=== PATIENT | female | born 1975 | race Two or more races ===

== ENCOUNTER 2018-10-10 12:13 | Emergency (ER) | payer OTHER ==
[~2018-10-10] VITALS: Ht 157.5 cm; Wt 65.3 kg
[2018-10-10] MEDS ORDERED: SODIUM CHLORIDE 0.9% 1,000 ML IVB ONE (12:42)
[2018-10-10] MEDS ORDERED: MORPHINE SULFATE 4 MG/ML SYR/VIAL IV ONE (12:45)
[2018-10-10] MEDS ORDERED: ONDANSETRON HCL 4 MG/2 ML VIAL IV ONE (12:45)
[2018-10-10 13:14] LABS: Basophils # (auto) 0 uL; Basophils % (auto) 0.5 % (0.0-2.0); Eosinophils # (auto) 0.3 uL; Eosinophils % (auto) 3.6 % (0.0-7.0); Hematocrit 39.9 % (36.0-46.0); Hemoglobin 13.4 g/dL (12.2-16.2); Lymphocytes # (auto) 1.7 uL; Lymphocytes % (auto) 20.9 % (10.0-50.0); Mean Corpuscular Hemoglobin 29.7 pg (28.0-32.0); Mean Corpuscular Hgb Conc. 33.5 g/dL (32.0-36.0); Mean Corpuscular Volume 88.7 fL (80.0-100.0); Monocytes # (auto) 0.5 uL; Monocytes % (auto) 6.1 % (0.0-12.0); Neutrophils # (auto) 5.4 uL; Neutrophils % (auto) 68.9 % (37.0-80.0); Nucleated Red Blood Cells % 0.1 %; Platelet Count (auto) 243 10^3/uL (140-450); Red Cell Distribution Width 14.2 % (11.8-14.3); White Blood Cell 7.9 10^3/uL (4.4-10.8)
[2018-10-10 13:22] LABS: Urine Bacteria NONE SEEN /hpf (None Seen); Urine Blood Negative /uL (Negative); Urine Mucus FEW (None Seen); Urine Specific Gravity 1.019 (1.001-1.035); Urine WBC 1 /hpf (0 - 5)
[2018-10-10 13:30] LABS: Alanine Aminotransferase 20 U/L (13-56); Albumin 3.7 g/dL (3.4-5.0); Amylase 47 U/L (25-115); Anion Gap 4 (5-15); Aspartate Aminotransferase 10 U/L (15-37); BUN/Creatinine Ratio 9.4; Blood Urea Nitrogen 9 mg/dL (7-18); Carbon Dioxide 23 mmol/L (21-32); Chloride 111 mmol/L (98-107); GFR African American 82 mL/min; GFR Non-African American 68 mL/min; Glucose 80 mg/dL (74-106); INR 0.97 (0.9-1.15); Lipase 112 U/L (73-393); Magnesium 2.4 mg/dL (1.6-2.6); Partial Thromboplastin Time 26.2 sec (23.78-33.04); Potassium 4.6 mmol/L (3.5-5.1); Prothrombin Time 10.4 sec (9.27-12.13); Sodium 138 mmol/L (136-145)
[2018-10-10 13:36] LABS: Alkaline Phosphatase 56 U/L (45-117); Bilirubin, Total 0.3 mg/dL (0.2-1.0); Total Protein 6.9 g/dL (6.4-8.2)
[2018-10-10 15:58] VITALS: BP 120/65
== END 2018-10-10 17:40 | disposition home or self-care (01) ==
LOC: ER 12:17
DX: K29.70 Gastritis, unspecified, without bleeding (principal); E07.89 Other specified disorders of thyroid; F15.10 Other stimulant abuse, uncomplicated; Z88.2 Allergy status to sulfonamides; Z88.0 Allergy status to penicillin; Z88.6 Allergy status to analgesic agent; Z88.8 Allergy status to other drugs, medicaments and biological substances
CPT/HCPCS: 36415; 71045; 74176; 80053; 81001; 81025; 82150; 83690; 83735; 84484; 85025; 85610; 85730; 93005; 94761; 96361; 96374; 96375; 99285; J2270; J2405; J7030

== ENCOUNTER 2021-06-21 19:24 | Emergency (ER) | payer MEDICAID, OTHER ==
[~2021-06-21] VITALS: Ht 157.5 cm; Wt 59.9 kg
[2021-06-21 19:55] LABS: Basophils # (auto) 0.1 10 ^3/uL (0-0.2); Basophils % (auto) 0.8 % (0.0-2.0); Eosinophils # (auto) 0.4 10 ^3/uL (0-0.8); Eosinophils % (auto) 6.1 % (0.0-7.0); Hematocrit 34.8 % (36.0-46.0); Hemoglobin 11.8 g/dL (12.2-16.2); Lymphocytes % (auto) 31.7 % (10.0-50.0); Mean Corpuscular Hemoglobin 28.5 pg (28.0-32.0); Mean Corpuscular Hgb Conc. 33.9 g/dL (32.0-36.0); Monocytes # (auto) 0.4 10 ^3/uL (0-1.3); Monocytes % (auto) 6.1 % (0.0-12.0); Neutrophils # (auto) 3.5 10 ^3/uL (1.6-8.6); Neutrophils % (auto) 55.3 % (37.0-80.0); Nucleated Red Blood Cells % 0.1 %; Red Blood Cells 4.15 10^6/uL (4.0-5.20); White Blood Cell 6.4 10^3/uL (4.4-10.8)
[2021-06-21 20:13] LABS: Alanine Aminotransferase 25 U/L (13-56); Albumin 3.5 g/dL (3.4-5.0); Amylase 52 U/L (25-115); Anion Gap 6 (5-15); Aspartate Aminotransferase 26 U/L (15-37); BUN/Creatinine Ratio 16.1; Blood Urea Nitrogen 15 mg/dL (7-18); Calcium 8.3 mg/dL (8.5-10.1); Carbon Dioxide 19 mmol/L (21-32); Chloride 116 mmol/L (98-107); GFR African American 84 mL/min; GFR Non-African American 70 mL/min; Glucose 89 mg/dL (74-106); Lipase 141 U/L (73-393); Potassium 3.5 mmol/L (3.5-5.1); Sodium 141 mmol/L (136-145)
[2021-06-21 20:16] LABS: Alkaline Phosphatase 67 U/L (45-117); Bilirubin, Total < 0.1 mg/dL (0.2-1.0); Total Protein 6.4 g/dL (6.4-8.2)
[2021-06-21] MEDS ORDERED: FLEET ENEMA(ADULT) 135 ML PR ONE (21:00)
[2021-06-21] MEDS ORDERED: MORPHINE SULFATE INJECTION 2 MG/ML SYRG IV ONE (21:45)
[2021-06-21] MEDS ORDERED: ONDANSETRON HCL 4 MG/2 ML VIAL IV ONE (21:45)
[2021-06-21 21:55] LABS: Urine Bacteria FEW /hpf (None Seen); Urine Blood Negative /uL (Negative); Urine Hyaline Cast FEW /lpf (0 - 2); Urine Mucus FEW (None Seen); Urine Specific Gravity 1.017 (1.001-1.035); Urine WBC 1 /hpf (0 - 5)
[2021-06-21 22:00] VITALS: BP 140/89
[2021-06-21] MEDS ORDERED: MAGNESIUM CITRATE SOLUTION 300 ML BTL PO ONE (22:30)
[2021-06-21 23:32] LABS: Alcohol, Urine < 3.0 mg/dL (0-10); Amphetamine Screen, Urine NEGATIVE (NEGATIVE); Barbiturate Scree,Urine NEGATIVE (NEGATIVE); Benzodiazephine Screen, Urine NEGATIVE (NEGATIVE); Cannabinoid Screen, Urine NEGATIVE (NEGATIVE); Cocaine Screen, Urine NEGATIVE (NEGATIVE); Opiate Scree,Urine NEGATIVE (NEGATIVE); Phencyclidine Screen, Urine NEGATIVE (NEGATIVE)
== END 2021-06-21 22:56 | disposition home or self-care (01) ==
LOC: EDBD 19:24 → ER 19:24 → EDUNIT# 19:24 → ER 22:56
DX: R10.84 Generalized abdominal pain (principal); K56.41 Fecal impaction; F17.210 Nicotine dependence, cigarettes, uncomplicated; F12.10 Cannabis abuse, uncomplicated; Z88.0 Allergy status to penicillin; Z88.2 Allergy status to sulfonamides; Z88.8 Allergy status to other drugs, medicaments and biological substances
CPT/HCPCS: 36415; 74176; 80053; 80307; 81001; 82150; 83690; 85025; 96374; 96375; 99284; J2270; J2405

== ENCOUNTER 2022-05-26 12:16 | Emergency (ER) | payer MEDICAID ==
[~2022-05-26] VITALS: Ht 157.5 cm; Wt 55.3 kg
[2022-05-26 12:37] VITALS: BP 114/56
[2022-05-26] MEDS ORDERED: HYDROcodone-ACET 5/325MG TAB PO ONE (13:45)
== END 2022-05-26 16:32 | disposition home or self-care (01) ==
LOC: ER 12:16
DX: M79.641 Pain in right hand (principal); M25.531 Pain in right wrist; E03.9 Hypothyroidism, unspecified; F17.210 Nicotine dependence, cigarettes, uncomplicated; Z90.49 Acquired absence of other specified parts of digestive tract; Z90.89 Acquired absence of other organs; Z88.0 Allergy status to penicillin; Z88.2 Allergy status to sulfonamides; Z88.6 Allergy status to analgesic agent; Z88.8 Allergy status to other drugs, medicaments and biological substances
CPT/HCPCS: 29125; 73110; 73130

== ENCOUNTER 2023-05-14 17:57 | Inpatient (IN) | payer MEDICAID ==
[~2023-05-14] VITALS: Ht 157.5 cm; Wt 58.8 kg
[2023-05-14] MEDS ORDERED: SODIUM CHLORIDE 0.9% 1,000 ML IV ONE (18:45)
[2023-05-14 19:50] LABS: Basophils # (auto) 0.1 10 ^3/uL (0-0.2); Basophils % (auto) 0.5 % (0.0-2.0); Eosinophils # (auto) 0.5 10 ^3/uL (0-0.8); Eosinophils % (auto) 3.6 % (0.0-7.0); Hematocrit 30.7 % (36.0-46.0); Hemoglobin 10.1 g/dL (12.2-16.2); Lymphocytes # (auto) 2.6 10 ^3/uL (0.4-5.4); Lymphocytes % (auto) 19.2 % (10.0-50.0); Mean Corpuscular Hemoglobin 28.7 pg (28.0-32.0); Mean Corpuscular Volume 86.9 fL (80.0-100.0); Monocytes # (auto) 0.7 10 ^3/uL (0-1.3); Monocytes % (auto) 5.2 % (0.0-12.0); Neutrophils # (auto) 9.6 10 ^3/uL (1.6-8.6); Neutrophils % (auto) 71.5 % (37.0-80.0); Nucleated Red Blood Cells % 0.1 %; Red Blood Cells 3.53 10^6/uL (4.0-5.20); Red Cell Distribution Width 15.5 % (11.8-14.3); White Blood Cell 13.4 10^3/uL (4.4-10.8)
[2023-05-14 19:58] LABS: INR 0.99 (0.9-1.15)
[2023-05-14] MEDS ORDERED: PHENAZOPYRIDINE HCL 100 MG TAB PO ONE (20:00)
[2023-05-14] MEDS ORDERED: ACETAMINOPHEN 325 MG TAB PO ONE (20:00)
[2023-05-14] MEDS ORDERED: KETOROLAC TROMETH 30 MG/ML 1ML VIAL IV ONE (20:00)
[2023-05-14] MEDS ORDERED: TRANEXAMIC ACID 1,000 MG in SODIUM CHL 0.9% 100 ML IV ONE (21:00)
[2023-05-14] MEDS ORDERED: ESTROGENS, CONJUGATED 25 MG VIAL IV ONE (21:00)
[2023-05-14 21:05] LABS: Calcium 7.5 mg/dL (8.5-10.1); Potassium 3.9 mmol/L (3.5-5.1)
[2023-05-14 21:09] VITALS: BP 96/47
[2023-05-14 21:09] LABS: BUN/Creatinine Ratio 12.9 (10.0-20.0); Bilirubin, Total 0.3 mg/dL (0.2-1.0); Total Protein 5.7 g/dL (6.4-8.2)
[2023-05-14 21:24] VITALS: BP 94/53
[2023-05-14] MEDS ORDERED: SODIUM CHLORIDE 0.9% 1,000 ML IV SCH (21:30)
[2023-05-14] MEDS ORDERED: levoFLOXacin 500MG 100 ML IV ONE (21:30)
[2023-05-14] MEDS ORDERED: ACETAMINOPHEN 325 MG TAB PO PRN (21:30)
[2023-05-14] MEDS ORDERED: HYDROcodone-ACET 5/325MG TAB PO PRN (21:30)
[2023-05-14] MEDS ORDERED: TEMAZEPAM 15 MG CAP PO PRN (21:30)
[2023-05-14] MEDS ORDERED: DOCUSATE SOD 100 MG CAP PO PRN (21:30)
[2023-05-14] MEDS ORDERED: ONDANSETRON HCL 4 MG/2 ML VIAL IV PRN (21:30)
[2023-05-14 21:32] VITALS: BP 92/53
[2023-05-14 21:33] VITALS: BP 92/53
[2023-05-14] MEDS ORDERED: NITROGLYCERIN 0.4 MG SL TAB SL PRN (22:15)
[2023-05-14] MEDS ORDERED: MORPHINE SULFATE INJ 2 MG/ml SYRG IV PRN (22:15)
[2023-05-14 22:40] VITALS: BP 109/64
[2023-05-14 22:47] LABS: Basophils # (auto) 0 10 ^3/uL (0-0.2); Basophils % (auto) 0.4 % (0.0-2.0); Eosinophils # (auto) 0.4 10 ^3/uL (0-0.8); Hematocrit 33.8 % (36.0-46.0); Hemoglobin 11.3 g/dL (12.2-16.2); Lymphocytes # (auto) 2.6 10 ^3/uL (0.4-5.4); Lymphocytes % (auto) 24.9 % (10.0-50.0); Mean Corpuscular Hemoglobin 29.8 pg (28.0-32.0); Mean Corpuscular Hgb Conc. 33.5 g/dL (32.0-36.0); Monocytes # (auto) 0.6 10 ^3/uL (0-1.3); Neutrophils # (auto) 6.8 10 ^3/uL (1.6-8.6); Neutrophils % (auto) 64.7 % (37.0-80.0); Nucleated Red Blood Cells % 0.1 %; Red Blood Cells 3.79 10^6/uL (4.0-5.20); Red Cell Distribution Width 16.2 % (11.8-14.3); White Blood Cell 10.5 10^3/uL (4.4-10.8)
[2023-05-15 00:16] VITALS: BP 99/51
[2023-05-15 00:29] LABS: Urine Bacteria NONE SEEN /hpf (None Seen); Urine Blood 3+ /uL (Negative); Urine WBC 72 /hpf (0 - 5); Urine WBC Clumps PRESENT /hpf (None Seen)
[2023-05-15 00:32] VITALS: BP 103/42
[2023-05-15 00:35] LABS: Urine Specific Gravity 1.012 (1.001-1.035)
[2023-05-15 05:53] LABS: Basophils # (auto) 0 10 ^3/uL (0-0.2); Basophils % (auto) 0.4 % (0.0-2.0); Eosinophils # (auto) 0.4 10 ^3/uL (0-0.8); Eosinophils % (auto) 4.1 % (0.0-7.0); Hematocrit 33.6 % (36.0-46.0); Hemoglobin 11.3 g/dL (12.2-16.2); Lymphocytes # (auto) 2.1 10 ^3/uL (0.4-5.4); Lymphocytes % (auto) 23.3 % (10.0-50.0); Mean Corpuscular Hemoglobin 29.9 pg (28.0-32.0); Mean Corpuscular Hgb Conc. 33.7 g/dL (32.0-36.0); Mean Corpuscular Volume 88.7 fL (80.0-100.0); Monocytes # (auto) 0.6 10 ^3/uL (0-1.3); Monocytes % (auto) 6.2 % (0.0-12.0); Nucleated Red Blood Cells % 0.1 %; Red Blood Cells 3.79 10^6/uL (4.0-5.20); Red Cell Distribution Width 16.1 % (11.8-14.3); White Blood Cell 9.1 10^3/uL (4.4-10.8)
[2023-05-15 06:02] LABS: Calcium 8.1 mg/dL (8.5-10.1); Potassium 3.8 mmol/L (3.5-5.1)
[2023-05-15 06:08] LABS: Albumin 2.9 g/dL (3.4-5.0); BUN/Creatinine Ratio 15.4 (10.0-20.0); Bilirubin, Total 0.3 mg/dL (0.2-1.0); Total Protein 5.7 g/dL (6.4-8.2)
[2023-05-15] MEDS ORDERED: LEVOTHYROXINE SODIUM 50 MCG TAB PO SCH (07:00)
[2023-05-15] MEDS ORDERED: LEVOTHYROXINE SODIUM 25 MCG TAB PO SCH (07:47)
[2023-05-15] MEDS ORDERED: LEVOTHYROXINE SODIUM 100 MCG TAB PO SCH (07:48)
[2023-05-15] MEDS ORDERED: levoFLOXacin 250MG 50 ML IV SCH (10:00)
[2023-05-15] MEDS ORDERED: LEVO125T PO (12:58)
[2023-05-15] MEDS ORDERED: LEVO500T91 PO (12:58)
[2023-05-15 14:15] VITALS: BP 114/68
== END 2023-05-15 14:25 | disposition home or self-care (01) | DRG 532 ==
LOC: ER 17:57 → TELE 22:04
PROVIDERS: ADMIT Nurse Practitioner Family; ATTEND Internal Medicine
PROC: 30233N1 Transfusion of Nonautologous Red Blood Cells into Peripheral Vein, Percutaneous Approach (ICD-10-PCS; 2023-05-14)
PROC: 30233K1 Transfusion of Nonautologous Frozen Plasma into Peripheral Vein, Percutaneous Approach (ICD-10-PCS; principal; 2023-05-15)
DX: N93.9 Abnormal uterine and vaginal bleeding, unspecified (principal); D62 Acute posthemorrhagic anemia; D72.829 Elevated white blood cell count, unspecified; R26.81 Unsteadiness on feet; F17.210 Nicotine dependence, cigarettes, uncomplicated; F41.9 Anxiety disorder, unspecified; I10 Essential (primary) hypertension; F31.9 Bipolar disorder, unspecified; Z88.0 Allergy status to penicillin; Z88.6 Allergy status to analgesic agent; Z90.49 Acquired absence of other specified parts of digestive tract
CPT/HCPCS: 36415; 36430; 71045; 76856; 80053; 81001; 81025; 82670; 83001; 83690; 84443; 84484; 84702; 85025; 85610; 86850; 86900; 86901; 86920; 87040; 93005; 96361; 96365; 99291; G0378; J1885; J1956

== ENCOUNTER 2025-07-02 12:55 | Inpatient (IN) | payer MEDICAID ==
[2025-07-02] VITALS (21 sets, daily range): BP systolic 106–133; BP diastolic 58–91; PULSE 92–140; RESP 16–24; TEMP 97.9–106; O2SAT 96–100
[~2025-07-02] VITALS: Ht 158.5 cm; Wt 63.4 kg
[~2025-07-02 12:55] MED LIST: DARI50TA PO; HYDR-4798 PO; HYDR50TA69 PO; LEVO125T PO; LEVO500T91 PO; LITH450T PO; MIRT1TAB38 PO; MONT-8 PO; OXYB5TAB14 PO; SERT-206 PO; TOPI50TA53 PO
--- NOTE | 2025-07-02 13:20 | ED.PDOC ---
Altered Mental Status HPI Comments 50 y/o F, BIBDanny, with known PMHx of anxiety, depression, and thyroid disease presents to the ED for CC of ALOC. EMS reports, patient is coming from home where family called d/t patient being found down in her bedroom and displaying altered activity. Upon arrival to scene, EMS relays patient was found to be in V-tach with a HR in 180's and a hyperpyrexic internal temperature of 108F. In route to the ED, patient's rhythm increased in the 200's; patient was given x2 doses of Lidocaine and shocked twice at 200 Joules with no change in rhythm. Patient was intubated in the field with a 7.0 ETT, secured at 20cm at the teeth. No other symptoms or modifying factors are obtainable at this time. Chief Complaint: ALOC Time Seen by MD: 13:15 Primary Care Provider: NOLAN Reviewed Notes: Nurses Notes, Tailman Notes, Medications, Allergies Allergies: Coded Allergies: Aspirin (Verified Allergy, Unknown, 10/10/18) Methocarbamol (Verified Allergy, Unknown, 10/10/18) NSAIDs (Verified Allergy, Unknown, 10/10/18) Nitroglycerin (Verified Allergy, Unknown, 10/10/18) Penicillins (Verified Allergy, Unknown, 10/10/18) Pseudoephedrine (Unverified Allergy, Unknown, 08/15/24) Sulfa Antibiotics (Verified Allergy, Unknown, 10/10/18) Uncoded Allergies: PSUEDOFED (Allergy, Unknown, 10/10/18) Home Meds Active Scripts Levofloxacin Hemihydrate (LEVAQUIN 500 MG) 500 Mg Tab, 1 TAB PO DAILY, #7 TAB Prov:KALIE PRICE MD 05/15/23 Levothyroxine Sodium (Synthroid) 125 Mcg Tab, 1 TAB PO DAILY, #30 TAB 5 Refills Prov:KALIE PRICE MD 05/15/23 Reported Medications Hydrocodone-Acetaminophen (Hydrocodone Bitartrate/AC 10-325 mg) 1 Tab Tab, 1 TAB PO BID, TAB 01/12/24 Daridorexant HCl (Quviviq) 50 Mg Tab, 50 MG PO, TAB 01/12/24 Hydroxyzine Hcl (Hydroxyzine Hcl) 50 Mg Tab, 50 MG PO DAILY for 30 Days, MG 01/12/24 Montelukast Sodium (MONTELUKAST SODIUM) 10 Mg Tab, 1 TAB PO DAILY, #30 TAB 5 Refills 01/12/24 Topiramate (Topiramate) 50 Mg Tab, 50 MG PO BID for 30 Days, MG 01/12/24 Sertraline Hcl (Sertraline Hcl) 50 Mg Tab, 200 MG PO DAILY for 30 Days, MG 01/12/24 Oxybutynin Chloride (Oxybutynin Chloride) 5 Mg Tab, 5 MG PO BID, TAB 01/12/24 Mirtazapine (Mirtazapine Oral Disintegrating Tablet) 15 Mg Tab, 2 TAB PO QPM, #30 TAB 3 Refills 01/12/24 Nodaway Carbonate (Nodaway Carbonate Er) 450 Mg Tab, 1 TAB PO BID, #60 TAB 1 Refill 01/12/24 Information Source: Emergency Med Personnel Mode of Arrival: EMS Severity: Moderate Timing: Minutes Duration: Since onset Prehospital treatment: Other (Lidocaine, Versed ) Quality: Change in Behavior Recent: None History of: None Associated Signs and Symptoms: None Past Medical History PAST MEDICAL HISTORY: Anxiety, Depression, Thyroid Surgical History: Appendectomy, , Tonsillectomy FABRIC COATING SUPERVISOR History: No Pertinent FABRIC COATING SUPERVISOR History Family History Family History: No family hx of HTN, No family hx of Lung evon Social History Smoker: Cigarettes, Less Than 1 Pack/Day Alcohol: Denies ETOH Use Drugs: Marijuana Lives In: Home Unable to Obtain due to: Medical Urgency All Other Systems: Reviewed and Negative Physical Exam General Appearance: Severe Distress HEENT: Other (Pupils sluggish) Neck: Normal Respiratory: Respiratory Distress, Other (Intubated) Cardiovascular: Tachycardia Breast Exam: Deferred Gastrointestinal: Soft Genitalia: Deferred Pelvic: Deferred Rectal: Deferred Extremities: No pedal edema Musculoskeletal : Apperance: Normal Neurologic: NOT DONE (Unconscious) Cerebellar Function: NOT DONE Reflexes: NOT DONE Skin: Pallor Peripheral Pulses: 3+ Radial (R), 3+ Radial (L) Lymphatic: No Adenopathy Was a procedure done? 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: Attending Physician Indication: Hypotension, CVP monitoring Room prepared for procedure: Yes Junior Administrative Assistant performed hand hygien: Yes Maximal sterile barrier precau: Mask/Eye shield, Sterile gown Skin Preparation: Chlorhexidine gluconate, Providine iodine Skin preparation completely dr: Yes Insertion site: Right, Femoral Central line catheter type: [id number] dialysis Number of lumens: 3 Antiseptic ointment applied to: Yes Differential Diagnosis (ALOC) Differential Diagnosis: Dehydration, Hypoglycemia, Sepsis, Seizure X-Ray, Labs, Meds, VS Vital Signs Date Time Temp Pulse Resp B/P (MAP) Pulse Ox O2 Delivery O2 Flow Rate FiO2 07/02/25 16:56 78/30 07/02/25 16:55 97/34 07/02/25 16:00 99.1 99 18 112/50 (70) 97 99.1 07/02/25 16:00 07/02/25 15:47 Mechanical Ventilator+ 30 30 07/02/25 15:45 99.3 99 19 109/47 (67) 98 99.3 07/02/25 15:30 99.7 98 20 100/45 (63) 97 99.7 07/02/25 15:15 100.2 95 27 97/41 (59) 95 100.2 07/02/25 15:00 100.8 103 24 97/34 (55) 99 100.8 07/02/25 14:52 103 19 97/34 (55) 100 30 07/02/25 14:45 101.5 104 14 100/41 (60) 100 101.5 07/02/25 14:30 101.7 106 19 99/37 (57) 100 101.7 07/02/25 14:15 101.7 108 20 76/31 (46) 99 101.7 07/02/25 14:14 106.0 140 24 127/91 96 100 106.0 07/02/25 14:00 119 14 66/23 (37) 96 07/02/25 13:30 131 21 78/30 (46) 84 07/02/25 13:19 140 24 127/91 (103) 96 100 07/02/25 13:15 134 21 127/91 (103) 93 07/02/25 13:00 106.3 175 106.3 07/02/25 12:55 106.8 160 12 106.8 Lab Test 07/02/25 15:54 07/02/25 14:40 07/02/25 13:19 07/02/25 13:18 Range/Units Lactic Acid Level 2.4 *H 6.6 *H 0.4-2.0 mmol/L Blood Gas Specimen Type Arterial Blood Gas Sample Site Right radial Blood Gas Patient Temperature 37.0 Arterial Blood Date Drawn [id number] Arterial Blood pH 7.418 7.350-7.450 Arterial Blood Partial Pressure CO2 27.1 L 32.0-45.0 mmHg Arterial Blood Partial Pressure O2 500.5 *H 83.0-108.0 mmHg Arterial Blood HCO3 17.1 L 21.0-28.0 mmol/L Arterial Blood Oxygen Saturation 99.7 H 94.0-98.0 % Arterial Blood Base Excess -6.1 L -2.0-3.0 mmol/L Arterial Blood Oxyhemoglobin 98.5 H 94.0-98.0 % Arterial Blood Carboxyhemoglobin 0.0 L 0.5-1.5 % Arterial Blood Methemoglobin 1.2 0.0-1.5 % Pankaj Test Modified Blood Gas Total Hemoglobin 11.70 L 12.0-16.0 g/dL Blood Gas Set Respiration Rate 16.0 Blood Gas Modality Vent - ac FiO2 % 100.0 Blood Gas Tidal Volume 450.0 Blood Gas PEEP or CPAP 5.0 Blood Gas Critical Value Read Back Yes Blood Gas Notified Whom Blood Gas Notified Time [id number] Blood Gas Notified By Solids Control Technician devendra White Blood Count 6.4 4.4-10.8 10^3/uL Red Blood Count 4.08 4.0-5.20 10^6/uL Hemoglobin 11.1 L 12.2-16.2 g/dL Hematocrit 34.1 L 36.0-46.0 % Mean Corpuscular Volume 83.6 80.0-100.0 fL Mean Corpuscular Hemoglobin 27.3 L 28.0-32.0 pg Mean Corpuscular Hemoglobin Concent 32.7 32.0-36.0 g/dL Red Cell Distribution Width 15.0 H 11.8-14.3 % Platelet Count 163 140-450 10^3/uL Mean Platelet Volume 7.9 6.9-10.8 fL Neutrophils (%) (Auto) 37.0-80.0 % Lymphocytes (%) (Auto) 10.0-50.0 % Monocytes (%) (Auto) 0.0-12.0 % Basophils (%) (Auto) 0.0-2.0 % Neutrophils # (Auto) 1.6-8.6 10 ^3/uL Lymphocytes # (Auto) 0.4-5.4 10 ^3/uL Monocytes # (Auto) 0-1.3 10 ^3/uL Differential Total Cells Counted 100.0 100 Neutrophils % (Manual) 29 L 37.0-80.0 Band Neutrophils % (Manual) 3 Lymphocytes % (Manual) 57 H 10.0-50.0 Monocytes % (Manual) 6 0-12 Eosinophils % (Manual) 1 0-7 Basophils % (Manual) 0 0.0-2.0 Metamyelocytes % (manual) 0 Myelocytes % (Manual) 0 Promyelocytes % (Manual) 0 Blast Cells % (Manual) 0 Reactive Lymphocytes 4 Platelet Estimate Adequate Prothrombin Time 15.1 H 9.3-11.8 sec Prothrombin Time INR 1.48 H 0.9-1.15 Activated Partial Thromboplast Time 24.2 L 24.5-34.5 SEC Sodium Level 143 136-145 mmol/L Potassium Level 4.1 3.5-5.1 mmol/L Chloride Level 105 98-107 mmol/L Carbon Dioxide Level 24 20-31 mmol/L Anion Gap 14 5-15 Blood Urea Nitrogen 14 9-23 mg/dL Creatinine 2.37 H 0.550-1.02 mg/dL Glomerular Filtration Rate Calc 25 >90 mL/min BUN/Creatinine Ratio 5.9 L 10.0-20.0 Serum Glucose 147 H 74-106 mg/dL Calcium Level 8.4 L 8.7-10.4 mg/dL Total Bilirubin 0.3 0.2-1.0 mg/dL Aspartate Amino Transferase (AST) 46 H 13-40 U/L Alanine Aminotransferase (ALT) 26 7-40 U/L Alkaline Phosphatase 45 L 46-116 U/L Troponin I High Sensitivity Pending Total Protein 5.3 L 5.7-8.2 g/dL Albumin 3.5 3.2-4.8 g/dL Urine Color Colorless Yellow Urine Clarity Turbid H Clear Urine pH 6.0 5.0-9.0 Urine Specific [place] 1.010 1.001-1.035 Urine Protein Trace H Negative Urine Ketones 1+ H Negative Urine Blood Negative Negative /uL Urine Nitrite Negative Negative Urine Bilirubin Negative Negative Urine Urobilinogen Normal Negative mg/dL Urine Leukocyte Esterase 3+ Negative /uL Urine Glucose Normal Normal mg/dL Current Medications Medications (Trade) Dose Ordered Sig/Agnes Route Start Time Stop Time Status Last Admin Lorazepam (Ativan Inj) 2 mg ONCE ONCE IV 07/02/25 13:30 07/02/25 13:31 DC 07/02/25 13:25 Norepinephrine Bitartrate 250 ml @ 3.75 mls/hr Q24H IV 07/02/25 13:30 07/02/25 16:56 Amiodarone HCl 100 ml @ 600 mls/hr ONCE ONCE IV 07/02/25 13:30 07/02/25 13:39 DC 07/02/25 14:41 Cefepime HCl 50 ml @ 12.5 mls/hr DAILY@1700 IV 07/02/25 17:00 07/02/25 16:57 Sodium Chloride 1,000 ml @ 1,000 mls/hr Q1H ONCE IV 07/02/25 14:00 07/02/25 14:59 DC 07/02/25 14:42 Sodium Chloride 1,000 ml @ 150 mls/hr Q6H40M ONCE IV 07/02/25 14:00 07/02/25 20:39 07/02/25 14:42 Vancomycin HCl 250 ml @ 250 mls/hr ONCE ONCE IV 07/02/25 14:00 07/02/25 14:59 DC 07/02/25 14:41 Midazolam HCl 50 ml @ 1 mls/hr Q24H IV 07/02/25 15:00 07/02/25 16:55 Enoxaparin Sodium (Lovenox) 60 mg ONCE ONCE SC 07/02/25 17:45 07/02/25 17:46 DC 07/02/25 17:36 [place] [id number] Ph: [phone] DIAGNOSTIC IMAGING Diagnostic Imaging Report : [id number] Signed PATIENT: BRITTANY OVALLE ACCT: [id number] UNIT: [id number] : 1975 LOC: ER ROOM / BED: / AGE / SEX: 50 / F ADM STATUS: REG ER SERVICE 1345 ORDERING PHYSICIAN: HONEY POTTS MD PROCEDURE(s): HWOCT - HEAD WITHOUT CONTRAST REASON: ALOC ORDER NUMBER(s): [id number], ACCESSION NUMBER(s): [id number] EXAM: CT HEAD WITHOUT CONTRAST INDICATION: ALOC TECHNIQUE: CT of the head without intravenous contrast. Radiation Dose Information: CT Dose: CTDI volume is 55.8 mGy. Dose-length product is 989.02 mGy*cm The dose indicators for CT are the volume Computed Tomography (CT) Dose Index (CTDIvol) and the Dose Length Product (DLP), and are measured in units of mGy and mGy-cm, respectively. These indicators are not patient dose, but values generated from the CT scanner acquisition factors. The report includes radiation exposure data for exposures received during this examination. COMPARISON: None FINDINGS: There is no evidence of acute intracranial hemorrhage, extra-axial collection, mass effect, midline shift, herniation or hydrocephalus. The ventricles, sulci and cisterns are age appropriate. The raines-white differentiation is intact. Patchy periventricular and subcortical white matter hypoattenuation is nonspecific but may be related to small vessel ischemic disease. The visualized paranasal sinuses and mastoid air cells are clear. The surrounding soft tissues and osseous structures are unremarkable. IMPRESSION: 1. No acute intracranial abnormality. ATED BY: DAVE GOTTLIEB Jr., DO DICTATED DATE/TIME: 07/02/251412 SIGNED BY: DAVE GOTTLIEB Jr., SIGNED DATE/TIME: 07/02/251412 CC: [place] [id number] Ph: [phone] DIAGNOSTIC IMAGING Diagnostic Imaging Report : [id number] Signed PATIENT: BRITTANY OVALLE ACCT: [id number] UNIT: [id number] : 1975 LOC: ER ROOM / BED: / AGE / SEX: 50 / F ADM STATUS: REG ER SERVICE 1347 ORDERING PHYSICIAN: HONEY POTTS MD PROCEDURE(s): CXRP - CHEST PORTABLE REASON: sob ORDER NUMBER(s): [id number], ACCESSION NUMBER(s): [id number] CHEST RADIOGRAPH Indication: sob Technique: Single frontal view of the chest was obtained Comparison: [facility] CHEST XRAY 1 VIEW on DOS: 05/14/23 FINDINGS: Lines and Tubes: Endotracheal tube 6.1 cm above the sylvia. Endotracheal tube below the diaphragm in the stomach Lungs: No focal consolidation. Pleura: No effusion. No pneumothorax. Cardiomediastinal contours: Unremarkable Bones: No acute osseous abnormality. IMPRESSION: 1. Endotracheal tube 6.1 cm above the sylvia. 2. AED pads over the chest 3. Enteric tube position left diaphragm in the stomach ATED BY: DAVE GOTTLIEB Jr., DO DICTATED DATE/TIME: 07/02/251416 SIGNED BY: DAVE GOTTLIEB Jr., SIGNED DATE/TIME: 07/02/251416 CC: Patient unconscious. Ventricular tachycardia. Shocked at 200 joules. Lidocaine. Started amiodarone. Her core temperature was 106. Cooling measures. Central line paced. Was given fluids. CT of the head reviewed does not show any acute process. Waiting for family. Continue to monitor. Time of 1ST Reevaluation: 13:45 Reevaluation 1ST: Unchanged Patient Education/Counseling: Pt Unresponsive Family Education/Counseling: No Family Present SEPSIS Sepsis Screen Physician Orders Respiratory Culture W/ Gs (07/02/25 13:18) Ventilator Orders (07/02/25 13:18) Abg W/ Co-Ox (07/02/25 14:30) Norepinephrine 8 Mg/250ml Kit (Levophed) (07/02/25 13:30) Rass Sedation Scale Q1HR (07/02/25 13:26) Amiodarone 360mg/200ml Premix (Nexterone (07/02/25 13:45) Amiodarone 360mg/200ml Premix (Nexterone (07/02/25 19:45) Head Without Contrast (07/02/25 13:45) Chest Portable (07/02/25 13:47) Accucheck (07/02/25 13:47) Blood Culture (07/02/25 13:47) Cefepime 1gm/ 50ml (Maxipime 1gm/50ml) (07/02/25 17:00) Notify Md If Map <65 Or Bp<90 (07/02/25 13:47) If Map<65 Start Vasopressor (07/02/25 13:47) Sepsis Reassesment After Fluid (07/02/25 14:47) Sodium Chloride 0.9% (07/02/25 14:00) Midazolam Drip 50 Mg/50ml (Versed Drip 5 (07/02/25 15:00) Communication Order (07/02/25 15:37) Communication Order (07/02/25 15:37) Troponin-I Hs (07/02/25 17:31) Troponin-I Hs (07/02/25 18:31) Troponin-I Hs (07/02/25 20:31) Vital Signs Date Time Temp Pulse Resp B/P (MAP) Pulse Ox O2 Delivery O2 Flow Rate FiO2 07/02/25 16:56 78/30 07/02/25 16:55 97/34 07/02/25 16:00 99.1 99 18 112/50 (70) 97 99.1 07/02/25 16:00 07/02/25 15:47 Mechanical Ventilator+ 30 30 07/02/25 15:45 99.3 99 19 109/47 (67) 98 99.3 07/02/25 15:30 99.7 98 20 100/45 (63) 97 99.7 07/02/25 15:15 100.2 95 27 97/41 (59) 95 100.2 07/02/25 15:00 100.8 103 24 97/34 (55) 99 100.8 07/02/25 14:52 103 19 97/34 (55) 100 30 07/02/25 14:45 101.5 104 14 100/41 (60) 100 101.5 07/02/25 14:30 101.7 106 19 99/37 (57) 100 101.7 07/02/25 14:15 101.7 108 20 76/31 (46) 99 101.7 07/02/25 14:14 106.0 140 24 127/91 96 100 106.0 07/02/25 14:00 119 14 66/23 (37) 96 07/02/25 13:30 131 21 78/30 (46) 84 07/02/25 13:19 140 24 127/91 (103) 96 100 07/02/25 13:15 134 21 127/91 (103) 93 07/02/25 13:00 106.3 175 106.3 07/02/25 12:55 106.8 160 12 106.8 Laboratory Tests Test 07/02/25 13:19 07/02/25 15:54 Lactic Acid Level 6.6 mmol/L (0.4-2.0) *H 2.4 mmol/L (0.4-2.0) *H White Blood Count 6.4 10^3/uL (4.4-10.8) Medications Medications Dose Ordered Sig/Agnes Route Start Time Stop Time Status Last Admin Dose Admin Amiodarone HCl 100 ml @ 600 mls/hr ONCE ONCE IV 07/02/25 13:30 07/02/25 13:39 DC 07/02/25 14:41 Cefepime HCl 50 ml @ 12.5 mls/hr DAILY@1700 IV 07/02/25 17:00 07/02/25 16:57 Enoxaparin Sodium 60 mg ONCE ONCE SC 07/02/25 17:45 07/02/25 17:46 DC 07/02/25 17:36 Lorazepam 2 mg ONCE ONCE IV 07/02/25 13:30 07/02/25 13:31 DC 07/02/25 13:25 Midazolam HCl 50 ml @ 1 mls/hr Q24H IV 07/02/25 15:00 07/02/25 16:55 Norepinephrine Bitartrate 250 ml @ 3.75 mls/hr Q24H IV 07/02/25 13:30 07/02/25 16:56 Sodium Chloride 1,000 ml @ 150 mls/hr Q6H40M ONCE IV 07/02/25 14:00 07/02/25 20:39 07/02/25 14:42 Sodium Chloride 1,000 ml @ 1,000 mls/hr Q1H ONCE IV 07/02/25 14:00 07/02/25 14:59 DC 07/02/25 14:42 Vancomycin HCl 250 ml @ 250 mls/hr ONCE ONCE IV 07/02/25 14:00 07/02/25 14:59 DC 07/02/25 14:41 Departure 1 Departure Time of Disposition: 17:29 Impression: Primary Impression: Heat stroke Qualified Codes: T67.01XA - Heatstroke and sunstroke, initial encounter Additional Impressions: Metabolic encephalopathy Ventricular tachycardia Disposition: 09 ADMITTED INPATIENT Admit to: ICU Condition: Guarded Critical Care Note Critical Care Time?: Yes (90 min-critical care time only) Stability Stability form required: No Heart Score Heart Score: Heart Score Response (Comments) Value History Slightly Suspicious 0 EKG Normal 0 Age 45-64 1 Risk Factors >3 or Hx ASHD 2 Troponin Normal limit 0 Total 3 I personally scribed for HONEY POTTS MD ([email or web address]) on 07/02/25 at 13:20. Electronically submitted by Ellen Licona ([employer]). I personally scribed for HONEY POTTS MD ([email or web address]) on 07/02/25 at 16:43. Electronically submitted by Ellen Licona ([employer]). I personally scribed for HONEY POTTS MD ([email or web address]) on 07/02/25 at 16:44. Electronically submitted by Ellen Licona ([email or web address]). HONEY POTTS MD Jul 02, 2025 13:20
[2025-07-02] MEDS: LORazepam 2MG/ML-1ML VIAL IV ONE (13:25)
[2025-07-02] MEDS ORDERED: MIDAZOLAM DRIP 50 mg/50mL 50 ML IV SCH (13:30)
[2025-07-02] MEDS: MIDAZOLAM DRIP 50 mg/50mL 50 ML IV ONE ×2 (13:31→15:36)
[2025-07-02] MEDS: AMIODARONE BOLUS KIT 100 ML IV ONE ×2 (13:31→14:41)
[2025-07-02] MEDS: AMIODARONE 360mg/200mL PREMIX 200 ML IV ONE ×2 (13:31→14:41)
[2025-07-02 13:58] LABS: Urine Protein, UAD TRACE (Negative)
[2025-07-02] MEDS ORDERED: VANCOMYCIN 1GM/200ML PM 200 ML IV ONE (14:00)
[2025-07-02 14:07] LABS: Hematocrit 34.1 % (36.0-46.0); Hemoglobin 11.1 g/dL (12.2-16.2); Mean Corpuscular Hemoglobin 27.3 pg (28.0-32.0); Mean Corpuscular Volume 83.6 fL (80.0-100.0)
--- NOTE | 2025-07-02 14:16 | DVH ---
EXAM: CT HEAD WITHOUT CONTRAST INDICATION: ALOC TECHNIQUE: CT of the head without intravenous contrast. Radiation Dose Information: CT Dose: CTDI volume is 55.8 mGy. Dose-length product is 989.02 mGy*cm The dose indicators for CT are the volume Computed Tomography (CT) Dose Index (CTDIvol) and the Dose Length Product (DLP), and are measured in units of mGy and mGy-cm, respectively. These indicators are not patient dose, but values generated from the CT scanner acquisition factors. The report includes radiation exposure data for exposures received during this examination. COMPARISON: None FINDINGS: There is no evidence of acute intracranial hemorrhage, extra-axial collection, mass effect, midline s hift, herniation or hydrocephalus. The ventricles, sulci and cisterns are age appropriate. The raines-white differentiation is intact. Patchy periventricular and subcortical white matter hypoattenuation is nonspecific but may be related to small vessel ischemic disease. The visualized paranasal sinuses and mastoid air cells are clear. The surrounding soft tissues and osseous structures are unremarkable. IMPRESSION: 1. No acute intracranial abnormality.
--- NOTE | 2025-07-02 14:18 | DVH ---
CHEST RADIOGRAPH Indication: sob Technique: Single frontal view of the chest was obtained Comparison: XY CHEST XRAY 1 VIEW on DOS: 05/14/23 FINDINGS: Lines and Tubes: Endotracheal tube 6.1 cm above the sylvia. Endotracheal tube below the diaphragm in the stomach Lungs: No focal consolidation. Pleura: No effusion. No pneumothorax. Cardiomediastinal contours: Unremarkable Bones: No acute osseous abnormality. IMPRESSION: 1. Endotracheal tube 6.1 cm above the sylvia. 2. AED pads over the chest 3. Enteric tube position left diaphragm in the stomach
[2025-07-02 14:19] LABS: Alanine Aminotransferase 26 U/L (7-40); Albumin 3.5 g/dL (3.2-4.8); Alkaline Phosphatase 45 U/L (46-116); Anion Gap 14 (5-15); BUN/Creatinine Ratio 5.9 (10.0-20.0); Blood Urea Nitrogen 14 mg/dL (9-23); Calcium 8.4 mg/dL (8.7-10.4); Carbon Dioxide 24 mmol/L (20-31); Chloride 105 mmol/L (98-107); Glucose 147 mg/dL (74-106); Potassium 4.1 mmol/L (3.5-5.1); Sodium 143 mmol/L (136-145); Total Protein 5.3 g/dL (5.7-8.2)
[2025-07-02 14:20] LABS: Bilirubin, Total 0.3 mg/dL (0.2-1.0)
[2025-07-02 14:21] LABS: INR 1.48 (0.9-1.15); Partial Thromboplastin Time 24.2 SEC (24.5-34.5); Prothrombin Time 15.1 sec (9.3-11.8)
[2025-07-02 14:22] LABS: Lactic Acid w/Reflex 6.6 mmol/L (0.4-2.0)
[2025-07-02 14:34] LABS: Total Cells Counted 100.0 (100)
[2025-07-02] MEDS: NOREPINEPHRINE 8 MG/250ML KIT 250 ML IV ONE (14:35)
[2025-07-02] MEDS: VANCOMYCIN 1GM/250ML KIT 250 ML IV ONE (14:41)
[2025-07-02] MEDS: SODIUM CHLORIDE 0.9% 1,000 ML IV ONE ×3 (14:42→20:50)
[2025-07-02 14:49] LABS: Base Excess -6.1 mmol/L (-2.0-3.0)
[2025-07-02] MEDS: MIDAZOLAM DRIP 50 mg/50mL 50 ML IV SCH (16:55)
[2025-07-02] MEDS: NOREPINEPHRINE 8 MG/250ML KIT 250 ML IV SCH (16:56)
[2025-07-02] MEDS: CEFEPIME 1GM/50ML 50 ML IV SCH (16:57)
[2025-07-02] MEDS: ENOXAPARIN SOD 60 MG/0.6 ML SYRINGE SC ONE (17:36)
[2025-07-02] MEDS ORDERED: NITROGLYCERIN 0.4 MG SL TAB SL PRN (19:45)
[2025-07-02] MEDS ORDERED: MORPHINE SULFATE INJ 2 MG/ml SYRG IV PRN (19:45)
[2025-07-02] MEDS ORDERED: VANCOMYCIN PER PHARMACY 0 MG IV SCH (19:45)
[2025-07-02] MEDS ORDERED: ONDANSETRON HCL 4 MG/2 ML VIAL IV PRN (19:45)
[2025-07-02] MEDS: AMIODARONE 360mg/200mL PREMIX 200 ML IV SCH (20:06)
[2025-07-02 20:29] LABS: Opiate Scree,Urine Neg (NEGATIVE)
[2025-07-02 20:30] LABS: Amphetamine Screen, Urine Neg (NEGATIVE); Barbiturate Scree,Urine Neg (NEGATIVE); Benzodiazephine Screen, Urine Neg (NEGATIVE); Cannabinoid Screen, Urine Neg (NEGATIVE); Cocaine Screen, Urine Neg (NEGATIVE); Phencyclidine Screen, Urine Neg (NEGATIVE)
--- NOTE | 2025-07-02 21:49 | DVH ---
EXAM: XY CHEST PORTABLE CLINICAL HISTORY: ET TUBE PLACEMENT TECHNIQUE: Single AP view of the chest WID: COMPARISON: XY CHEST PORTABLE on DOS: 07/02/25 FINDINGS: Lines and tubes: Endotracheal tube projects 6 mm above the sylvia. Gastric tube in place with the tip projecting over the distal body of the stomach. Defibrillator pad projects over the right upper ches t. Chest: The heart size and pulmonary vasculature is within normal limits. No pleural effusion, pneumothorax, or consolidation. The osseous structures are grossly intact. IMPRESSION: Endotracheal tube projects 6 mm above the sylvia. Consider retracting the tubing approximately 2 cm f or more optimal positioning.
[2025-07-03] VITALS (102 sets, daily range): BP systolic 97–126; BP diastolic 57–75; PULSE 71–94; RESP 13–20; TEMP 96.6–102.2; O2SAT 97–100
[2025-07-03] MEDS: ACETAMINOPHEN 325 MG TAB PO PRN (03:04)
--- NOTE | 2025-07-03 04:21 | DVHHP2 ---
History of Present Illness Reason for Visit: Altered mental status History of Present Illness 50-year-old female Patient presents for evaluation of altered mental status as noted by family members. On arrival of EMS the patient was noted to be in V- tach and unresponsive. Patient was emergently intubated in the field for airway protection. Currently she is sedated. No further history could be obtained at the moment. Past Medical History Thyroid and depression Past Surgical History , tonsillectomy and appendectomy Family History Noncontributory Smoke: <1 pack per day ALCOHOL: none Drugs: Marijuana Review of Systems Review of Systems Unable to complete review of systems, patient is sedated and intubated. Allergies: Coded Allergies: Aspirin (Verified Allergy, Unknown, 10/10/18) Methocarbamol (Verified Allergy, Unknown, 10/10/18) NSAIDs (Verified Allergy, Unknown, 10/10/18) Nitroglycerin (Verified Allergy, Unknown, 10/10/18) Penicillins (Verified Allergy, Unknown, 10/10/18) Pseudoephedrine (Unverified Allergy, Unknown, 08/15/24) Sulfa Antibiotics (Verified Allergy, Unknown, 10/10/18) Uncoded Allergies: PSUEDOFED (Allergy, Unknown, 10/10/18) Medications Current Medications Medications Dose Ordered Sig/Agnes Route Start Time Stop Time Status Last Admin Dose Admin Norepinephrine Bitartrate 250 ml @ 3.75 mls/hr Q24H IV 07/02/25 13:30 07/02/25 20:05 33.75 MLS/HR Cefepime HCl 50 ml @ 12.5 mls/hr DAILY@1700 IV 07/02/25 17:00 07/02/25 16:57 12.5 MLS/HR Midazolam HCl 50 ml @ 1 mls/hr Q24H IV 07/02/25 15:00 07/03/25 03:49 11 MLS/HR Vancomycin HCl 0 ml @ 0 mls/hr UD IV 07/02/25 19:45 UNV Ondansetron HCl 4 mg Q4HP PRN IV 07/02/25 19:45 Acetaminophen 650 mg Q6HP PRN PO 07/02/25 19:45 07/03/25 03:04 650 MG Nitroglycerin 0.4 mg Q5MINP PRN SL 07/02/25 19:45 UNV Morphine Sulfate 2 mg Q30M PRN IV 07/02/25 19:45 Exam Vital Signs Vital Signs Date Time Temp Pulse Resp B/P (MAP) Pulse Ox O2 Delivery O2 Flow Rate FiO2 07/03/25 04:04 86 16 97/59 (72) 99 30 07/03/25 04:00 101.7 101.7 07/03/25 02:30 Mechanical Ventilator+ Exam Gen: 50-year-old female in moderate distress Skin: Warm, dry, normal color and texture, no rash. HEENT: Normocephalic atraumatic, mucous membranes moist and pink. Neck: Cervical and supraclavicular nodes normal without enlargement, trachea is midline, thyroid gland is normal without masses. Pulmonary: Intubated, diminished breath sounds bilaterally Cardiac: Regular rate and rhythm. No murmur Abdomen: Soft, nontender, nondistended, bowel sounds present all 4 quadrants, no guarding, no rigidity, no organomegaly. Extremities: No cyanosis, clubbing, no edema Neuro: Sedated Labs/Xrays ORDERING PHYSICIAN: HONEY POTTS MD PROCEDURE(s): CXRP - CHEST PORTABLE REASON: sob ORDER NUMBER(s): [id number], ACCESSION NUMBER(s): [id number] CHEST RADIOGRAPH Indication: sob Technique: Single frontal view of the chest was obtained Comparison: XY CHEST XRAY 1 VIEW on DOS: 05/14/23 FINDINGS: Lines and Tubes: Endotracheal tube 6.1 cm above the sylvia. Endotracheal tube below the diaphragm in the stomach Lungs: No focal consolidation. Pleura: No effusion. No pneumothorax. Cardiomediastinal contours: Unremarkable Bones: No acute osseous abnormality. IMPRESSION: 1. Endotracheal tube 6.1 cm above the sylvia. 2. AED pads over the chest 3. Enteric tube position left diaphragm in the stomach ORDERING PHYSICIAN: HONEY POTTS MD PROCEDURE(s): HWOCT - HEAD WITHOUT CONTRAST REASON: ALOC ORDER NUMBER(s): [id number], ACCESSION NUMBER(s): [id number] EXAM: CT HEAD WITHOUT CONTRAST INDICATION: ALOC TECHNIQUE: CT of the head without intravenous contrast. Radiation Dose Information: CT Dose: CTDI volume is 55.8 mGy. Dose-length product is 989.02 mGy*cm The dose indicators for CT are the volume Computed Tomography (CT) Dose Index (CTDIvol) and the Dose Length Product (DLP), and are measured in units of mGy and mGy-cm, respectively. These indicators are not patient dose, but values generated from the CT scanner acquisition factors. The report includes radiation exposure data for exposures received during this examination. COMPARISON: None FINDINGS: There is no evidence of acute intracranial hemorrhage, extra-axial collection, mass effect, midline shift, herniation or hydrocephalus. The ventricles, sulci and cisterns are age appropriate. The raines-white differentiation is intact. Patchy periventricular and subcortical white matter hypoattenuation is nonspecific but may be related to small vessel ischemic disease. The visualized paranasal sinuses and mastoid air cells are clear. The surrounding soft tissues and osseous structures are unremarkable. IMPRESSION: 1. No acute intracranial abnormality. Labs Test 07/02/25 20:24 07/02/25 17:58 07/02/25 15:54 07/02/25 14:40 Range/Units Troponin I High Sensitivity 3664 *H </=34 ng/L Creatine Kinase 653 H 34-145 U/L Lactic Acid Level 2.4 *H 0.4-2.0 mmol/L Blood Gas Specimen Type Arterial Blood Gas Sample Site Right radial Blood Gas Patient Temperature 37.0 Arterial Blood Date Drawn [id number] Arterial Blood pH 7.418 7.350-7.450 Arterial Blood Partial Pressure CO2 27.1 L 32.0-45.0 mmHg Arterial Blood Partial Pressure O2 500.5 *H 83.0-108.0 mmHg Arterial Blood HCO3 17.1 L 21.0-28.0 mmol/L Arterial Blood Oxygen Saturation 99.7 H 94.0-98.0 % Arterial Blood Base Excess -6.1 L -2.0-3.0 mmol/L Arterial Blood Oxyhemoglobin 98.5 H 94.0-98.0 % Arterial Blood Carboxyhemoglobin 0.0 L 0.5-1.5 % Arterial Blood Methemoglobin 1.2 0.0-1.5 % Pankaj Test Modified Blood Gas Total Hemoglobin 11.70 L 12.0-16.0 g/dL Blood Gas Set Respiration Rate 16.0 Blood Gas Modality Vent - ac FiO2 % 100.0 Blood Gas Tidal Volume 450.0 Blood Gas PEEP or CPAP 5.0 Blood Gas Critical Value Read Back Yes Blood Gas Notified Whom Blood Gas Notified Time [id number] Blood Gas Notified By [employer] devendra Vasquez 07/02/25 13:19 07/02/25 13:18 Range/Units White Blood Count 6.4 4.4-10.8 10^3/uL Red Blood Count 4.08 4.0-5.20 10^6/uL Hemoglobin 11.1 L 12.2-16.2 g/dL Hematocrit 34.1 L 36.0-46.0 % Mean Corpuscular Volume 83.6 80.0-100.0 fL Mean Corpuscular Hemoglobin 27.3 L 28.0-32.0 pg Mean Corpuscular Hemoglobin Concent 32.7 32.0-36.0 g/dL Red Cell Distribution Width 15.0 H 11.8-14.3 % Platelet Count 163 140-450 10^3/uL Mean Platelet Volume 7.9 6.9-10.8 fL Neutrophils (%) (Auto) 37.0-80.0 % Lymphocytes (%) (Auto) 10.0-50.0 % Monocytes (%) (Auto) 0.0-12.0 % Basophils (%) (Auto) 0.0-2.0 % Neutrophils # (Auto) 1.6-8.6 10 ^3/uL Lymphocytes # (Auto) 0.4-5.4 10 ^3/uL Monocytes # (Auto) 0-1.3 10 ^3/uL Differential Total Cells Counted 100.0 100 Neutrophils % (Manual) 29 L 37.0-80.0 Band Neutrophils % (Manual) 3 Lymphocytes % (Manual) 57 H 10.0-50.0 Monocytes % (Manual) 6 0-12 Eosinophils % (Manual) 1 0-7 Basophils % (Manual) 0 0.0-2.0 Metamyelocytes % (manual) 0 Myelocytes % (Manual) 0 Promyelocytes % (Manual) 0 Blast Cells % (Manual) 0 Reactive Lymphocytes 4 Platelet Estimate Adequate Prothrombin Time 15.1 H 9.3-11.8 sec Prothrombin Time INR 1.48 H 0.9-1.15 Activated Partial Thromboplast Time 24.2 L 24.5-34.5 SEC Sodium Level 143 136-145 mmol/L Potassium Level 4.1 3.5-5.1 mmol/L Chloride Level 105 98-107 mmol/L Carbon Dioxide Level 24 20-31 mmol/L Anion Gap 14 5-15 Blood Urea Nitrogen 14 9-23 mg/dL Creatinine 2.37 H 0.550-1.02 mg/dL Glomerular Filtration Rate Calc 25 >90 mL/min BUN/Creatinine Ratio 5.9 L 10.0-20.0 Serum Glucose 147 H 74-106 mg/dL Calcium Level 8.4 L 8.7-10.4 mg/dL Total Bilirubin 0.3 0.2-1.0 mg/dL Aspartate Amino Transferase (AST) 46 H 13-40 U/L Alanine Aminotransferase (ALT) 26 7-40 U/L Alkaline Phosphatase 45 L 46-116 U/L Total Protein 5.3 L 5.7-8.2 g/dL Albumin 3.5 3.2-4.8 g/dL Urine Opiates Screen Neg NEGATIVE Urine Fentanyl Screen Neg NEGATIVE Urine Barbiturates Screen Neg NEGATIVE Urine Phencyclidine Screen Neg NEGATIVE Urine Amphetamines Screen Neg NEGATIVE Urine Benzodiazepines Screen Neg NEGATIVE Urine Cocaine Screen Neg NEGATIVE Urine Cannabinoids Screen Neg NEGATIVE Urine Color Colorless Yellow Urine Clarity Turbid H Clear Urine pH 6.0 5.0-9.0 Urine Specific [place] 1.010 1.001-1.035 Urine Protein Trace H Negative Urine Ketones 1+ H Negative Urine Blood Negative Negative /uL Urine Nitrite Negative Negative Urine Bilirubin Negative Negative Urine Urobilinogen Normal Negative mg/dL Urine Leukocyte Esterase 3+ Negative /uL Urine Glucose Normal Normal mg/dL SEPSIS Sepsis Screen Date sepsis recognized/suspect: Jul 02, 2025 Time Sepsis recognized/suspect: 2037 Recent Procedure: No On Antibiotic Therapy: No Respiratory Rate >20: No Heart Rate >90: Yes Temp<36 C (96.8 F) or >38.3 C: No SBP <90 or MAP <65 mmHG: No New Acute Mental Status Change: No Is the patient on CPAP, BIPAP,: No Physician Orders Respiratory Misc. Order (07/02/25 21:03) Chest Portable (07/02/25 21:22) Vital Signs Date Time Temp Pulse Resp B/P (MAP) Pulse Ox O2 Delivery O2 Flow Rate FiO2 07/03/25 04:04 86 16 97/59 (72) 99 30 07/03/25 04:00 30 07/03/25 04:00 101.7 87 16 97/59 (72) 99 101.7 07/03/25 04:00 87 07/03/25 03:49 102/57 07/03/25 03:45 102.0 89 16 102/57 (72) 97 102.0 07/03/25 03:30 102.2 91 16 104/59 (74) 97 102.2 07/03/25 03:15 102.1 92 16 105/64 (78) 97 102.1 07/03/25 03:04 102.0 07/03/25 03:00 102.0 91 16 112/64 (80) 97 102.0 07/03/25 02:45 99.0 92 16 114/67 (83) 98 99.0 07/03/25 02:30 98.6 92 16 112/64 (80) 98 209.5 07/03/25 02:30 16 99 Mechanical Ventilator+ 30 30 07/03/25 02:24 92 16 102/63 (76) 98 30 07/03/25 02:15 98.6 92 16 102/63 (76) 98 209.5 07/03/25 02:00 30 07/03/25 02:00 92 07/03/25 02:00 98.4 92 16 104/62 (76) 98 209.1 07/03/25 01:45 98.4 92 16 104/63 (77) 98 209.1 07/03/25 01:30 98.2 93 16 105/62 (76) 98 208.8 07/03/25 01:15 98.2 93 16 103/60 (74) 99 208.8 07/03/25 01:00 98.2 93 16 106/66 (79) 99 208.8 07/03/25 00:38 93 16 103/63 (76) 98 30 07/03/25 00:30 16 99 Mechanical Ventilator+ 30 30 07/03/25 00:00 93 07/03/25 00:00 30 07/02/25 23:45 98.1 93 16 109/64 (79) 99 208.6 07/02/25 23:30 97.9 93 16 113/65 (81) 99 208.2 07/02/25 23:28 113/65 07/02/25 23:15 97.9 93 16 106/64 (78) 99 208.2 07/02/25 23:00 97.9 93 16 119/60 (79) 99 208.2 07/02/25 22:49 99 16 112/63 (79) 100 30 07/02/25 22:45 97.9 93 16 112/63 (79) 99 208.2 07/02/25 22:30 97.9 93 16 117/59 (78) 99 208.2 07/02/25 22:30 16 99 Mechanical Ventilator+ 30 30 07/02/25 22:15 97.9 93 16 112/63 (79) 99 208.2 07/02/25 22:00 94 07/02/25 22:00 94 16 99 Mechanical Ventilator+ 30 30 07/02/25 22:00 97.9 94 16 118/62 (80) 99 208.2 07/02/25 22:00 30 07/02/25 21:45 98.1 94 16 119/58 (78) 99 208.6 07/02/25 21:30 98.2 94 16 121/66 (84) 99 208.8 07/02/25 21:15 98.1 94 16 132/68 (89) 99 208.6 07/02/25 21:15 132/68 07/02/25 21:05 95 16 123/68 (86) 100 30 07/02/25 21:00 98.1 92 16 123/68 (86) 99 208.6 07/02/25 20:45 98.1 92 16 124/66 (85) 99 208.6 07/02/25 20:38 117/67 07/02/25 20:30 98.1 92 16 117/67 (84) 99 208.6 07/02/25 20:30 16 99 Mechanical Ventilator+ 30 30 07/02/25 20:25 132/69 Medications Medications Dose Ordered Sig/Agnes Route Start Time Stop Time Status Last Admin Dose Admin Acetaminophen 650 mg Q6HP PRN PO 07/02/25 19:45 07/03/25 03:04 650 MG Cefepime HCl 50 ml @ 12.5 mls/hr DAILY@1700 IV 07/02/25 17:00 07/02/25 16:57 12.5 MLS/HR Enoxaparin Sodium 60 mg ONCE ONCE SC 07/02/25 17:45 07/02/25 17:46 DC 07/02/25 17:36 60 MG Sodium Chloride 1,000 ml @ 100 mls/hr Q10H ONCE IV 07/02/25 19:45 07/03/25 05:44 07/02/25 20:50 100 MLS/HR Assessment/Plan Assessment/Plan Assessment Cardiopulmonary arrest Ventricular tachycardia Metabolic encephalopathy UTI Acute kidney injury Plan Admit the patient to ICU to the hospitalist Cardiology consult Nephrology consult Rocephiramon Maintenance IV fluids Continue treatment per orders Total critical care time excluding procedures performed this 55 minutes. Plan discussed with: Other My Orders Orders - DARLING HARKINS Procedure Category Date Status Time * Cardiology Consult CONS 07/02/25 Transmitted 19:37 Sodium Chloride 0.9% PHA 07/02/25 In Process 19:45 Vancomycin Per PHA 07/02/25 Pending Pharmacy 19:45 Admit ADMIT 07/02/25 Transmitted 19:37 Ondansetron Hcl PHA 07/02/25 In Process (Zofran) 19:45 Complete Blood Count LAB 07/03/25 Logged 04:00 Comprehensive LAB 07/03/25 Logged Metabolic Panel 04:00 Echo 2d Mode Cardiac US 07/02/25 Logged DOP 19:37 Condition: Unstable [facility] 07/02/25 In Process 19:37 Acetaminophen Tablet PHA 07/02/25 In Process (Tylenol Tablet) 19:45 Bedrest With Bathroom [facility]IV[facility] 07/02/25 In Process Privileg 19:37 Nitroglycerin [facility] 07/02/25 Pending Sublingual (Ntrostat 19:45 Morphine Sulfate PHA 07/02/25 In Process Injection 19:45 Stat Ekg For Chest [facility] 07/02/25 In Process Pain 19:37 Notify Of Changes [facility] 07/02/25 In Process From Base 19:37 [employer] Designer For [facility] 07/02/25 In Process 24 Hours 19:37 Emergency Dysrhythmia [facility] 07/02/25 In Process Protocol 19:37 Rhythm Strips Once [facility] 07/02/25 In Process Every Shift 19:37 Oxygen By Nasal RT 07/02/25 Transmitted Cannula 19:37 Respiratory Misc. RT 07/02/25 Transmitted Order 21:03 Chest Portable XY 07/02/25 Resulted 21:22 Date of Service: Jul 02, 2025 Billing Provider: DARLING HARKINS Common Visit Codes: [id number] CARE 30-74 MIN DARLING HARKINS Jul 03, 2025 04:21
[2025-07-03 06:33] LABS: Base Excess -6.0 mmol/L (-2.0-3.0)
[2025-07-03 10:24] LABS: Albumin 3.4 g/dL (3.2-4.8); Alkaline Phosphatase 57 U/L (46-116); Anion Gap 14 (5-15); BUN/Creatinine Ratio 9.3 (10.0-20.0); Carbon Dioxide 20 mmol/L (20-31); Sodium 142 mmol/L (136-145)
[2025-07-03 10:45] LABS: Alanine Aminotransferase 1362 U/L (7-40); Bilirubin, Total 1.7 mg/dL (0.2-1.0); Blood Urea Nitrogen 24 mg/dL (9-23); Calcium 7.2 mg/dL (8.7-10.4); Chloride 108 mmol/L (98-107); Glucose 164 mg/dL (74-106); Potassium 3.1 mmol/L (3.5-5.1); Total Protein 5.2 g/dL (5.7-8.2)
[2025-07-03 11:40] LABS: Hematocrit 38.4 % (36.0-46.0); Hemoglobin 12.8 g/dL (12.2-16.2); Mean Corpuscular Hemoglobin 27.7 pg (28.0-32.0); Mean Corpuscular Volume 82.8 fL (80.0-100.0); Nucleated Red Blood Cells % 0.1 %
--- NOTE | 2025-07-03 11:55 | DVHSR ---
APPROVED REPORT EXAM: Two-dimensional and M-mode echocardiogram with Doppler and color Doppler. Blood Pressure: 119/66 mmHg INDICATION EF RISK FACTORS Height: 5'2", Weight: 137 DIMENSIONS LVDd4.0 (3.8-5.7cm)LA (2D)3.1 (1.9-4.0cm)Aortic Root3.2 (2.0-3.7cm) LVDs3.1 (2.5-4.0cm)LA (MM) (1.9-4.0cm)Aortic Cusp Exc1.8 (1.5-2.0cm) EF (%) 40.0 (55-70%)Rt. Atrium4.2 (1.9-4.0cm)Asc. Aorta cm IVSd0.8 (0.7-1.1cm)RV (D) (1.8-2.4cm) PWd1.1 (0.7-1.1cm) Mitral Valve MitralMitral Stenosis E/A ratio0.02D MVAcm2 Aortic Valve Aortic ValveAortic Stenosis V10.93m/Serina Mean GR.4mmHg V21.31m/Serina Peak GR.7mmHg LVOT Diameter2.2 (1.8-2.4cm)Doppler AVA2.70cm2 AI P 1/2 Yzig682.21ms Tricuspid Valve TR Velocity2.06m/s [id number] Other Information Quality : Technically LimitedRhythm : Technically limited study due to on vent. Conclusion lvef 40% mild LVH global dysfucnction normal RV function left atrium enlarged moderate to severe aortic regurg, p12t 420 msec, clinical correlate mild to moderate tricuspid regurg pericardial fat pad vs small effusion adjacent to RV<no HD compromise dilated IVC
[2025-07-03] MEDS: POTASSIUM CHL 20MEQ/100ML 100 ML IV SCH (12:55)
[2025-07-03] MEDS: VANCOMYCIN 500mg/100mL 100 ML IV ONE (12:56)
[2025-07-03] MEDS: PANTOPRAZOLE 40 MG/10 ML VIAL INJ IV ONE (12:56)
--- NOTE | 2025-07-03 13:13 | ECG ---
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
[2025-07-03] MEDS: SODIUM CHLORIDE 0.9% 500 ML IV ONE (13:50)
[2025-07-03] MEDS: SODIUM CHLORIDE 0.9% 1,000 ML IV SCH (14:29)
--- NOTE | 2025-07-03 15:25 | DVHINCON2 ---
Family History: Patient reports no known family medical history. Allergies: Coded Allergies: Aspirin (Verified Allergy, Unknown, 10/10/18) Methocarbamol (Verified Allergy, Unknown, 10/10/18) NSAIDs (Verified Allergy, Unknown, 10/10/18) Nitroglycerin (Verified Allergy, Unknown, 10/10/18) Penicillins (Verified Allergy, Unknown, 10/10/18) Pseudoephedrine (Unverified Allergy, Unknown, 08/15/24) Sulfa Antibiotics (Verified Allergy, Unknown, 10/10/18) Uncoded Allergies: PSUEDOFED (Allergy, Unknown, 10/10/18) Home Meds Active Scripts Levofloxacin Hemihydrate (LEVAQUIN 500 MG) 500 Mg Tab, 1 TAB PO DAILY, #7 TAB Prov:KALIE PRICE MD 05/15/23 Levothyroxine Sodium (Synthroid) 125 Mcg Tab, 1 TAB PO DAILY, #30 TAB 5 Refills Prov:KALIE PRICE MD 05/15/23 Reported Medications Hydrocodone-Acetaminophen (Hydrocodone Bitartrate/AC 10-325 mg) 1 Tab Tab, 1 TAB PO BID, TAB 01/12/24 Daridorexant HCl (Quviviq) 50 Mg Tab, 50 MG PO, TAB 01/12/24 Hydroxyzine Hcl (Hydroxyzine Hcl) 50 Mg Tab, 50 MG PO DAILY for 30 Days, MG 01/12/24 Montelukast Sodium (MONTELUKAST SODIUM) 10 Mg Tab, 1 TAB PO DAILY, #30 TAB 5 Refills 01/12/24 Topiramate (Topiramate) 50 Mg Tab, 50 MG PO BID for 30 Days, MG 01/12/24 Sertraline Hcl (Sertraline Hcl) 50 Mg Tab, 200 MG PO DAILY for 30 Days, MG 01/12/24 Oxybutynin Chloride (Oxybutynin Chloride) 5 Mg Tab, 5 MG PO BID, TAB 01/12/24 Mirtazapine (Mirtazapine Oral Disintegrating Tablet) 15 Mg Tab, 2 TAB PO QPM, #30 TAB 3 Refills 01/12/24 [place] Carbonate ([place] Carbonate Er) 450 Mg Tab, 1 TAB PO BID, #60 TAB 1 Refill 01/12/24 Current Medications Current Medications Medications (Trade) Dose Ordered Sig/Agnes Route PRN Reason Start Time Stop Time Status Last Admin Cefepime HCl 50 ml @ 12.5 mls/hr DAILY@1700 IV 07/02/25 17:00 07/02/25 16:57 Vancomycin HCl 0 ml @ 0 mls/hr UD IV 07/02/25 19:45 Ondansetron HCl (Zofran) 4 mg Q4HP PRN IV NAUSEA / VOMITING 07/02/25 19:45 07/03/25 12:19 DC Acetaminophen (Tylenol Tablet) 650 mg Q6HP PRN PO PAIN SCALE 1-3 OR TEMP>100.4 07/02/25 19:45 07/03/25 12:19 DC 07/03/25 03:04 Nitroglycerin (Ntrostat Sublingual) 0.4 mg Q5MINP PRN SL FOR CHEST PAIN 07/02/25 19:45 07/03/25 12:19 DC Morphine Sulfate 2 mg Q30M PRN IV FOR CHEST PAIN 07/02/25 19:45 07/03/25 12:19 DC Potassium Chloride 100 ml @ 50 mls/hr Q2H IV 07/03/25 12:15 07/03/25 16:14 07/03/25 14:28 Pantoprazole Sodium (Protonix) 40 mg DAILY IV 07/04/25 10:00 Heparin Sodium (Porcine) 5,000 units Q12HR SC 07/03/25 22:00 Sodium Chloride 1,000 ml @ 100 mls/hr Q10H IV 07/03/25 13:00 07/03/25 14:29 Vital Signs Vital Signs Date Time Temp Pulse Resp B/P (MAP) Pulse Ox O2 Delivery O2 Flow Rate FiO2 07/03/25 14:45 97.2 72 16 106/61 (76) 100 207.0 07/03/25 14:30 30 07/03/25 14:00 Mechanical Ventilator+ Labs/Diagnostic Data Labs Test 07/03/25 14:40 07/03/25 11:10 07/03/25 09:27 07/03/25 06:25 Range/Units White Blood Count 11.0 #H 4.4-10.8 10^3/uL Red Blood Count 4.63 4.0-5.20 10^6/uL Hemoglobin 12.8 # 12.2-16.2 g/dL Hematocrit 38.4 # 36.0-46.0 % Mean Corpuscular Volume 82.8 80.0-100.0 fL Mean Corpuscular Hemoglobin 27.7 L 28.0-32.0 pg Mean Corpuscular Hemoglobin Concent 33.5 32.0-36.0 g/dL Red Cell Distribution Width 15.2 H 11.8-14.3 % Platelet Count 32 L 140-450 10^3/uL Mean Platelet Volume 9.3 6.9-10.8 fL Neutrophils (%) (Auto) 89.8 H 37.0-80.0 % Lymphocytes (%) (Auto) 2.8 L 10.0-50.0 % Monocytes (%) (Auto) 7.3 0.0-12.0 % Eosinophils (%) (Auto) 0.0 0.0-7.0 % Basophils (%) (Auto) 0.1 0.0-2.0 % Neutrophils # (Auto) 9.8 H 1.6-8.6 10 ^3/uL Lymphocytes # (Auto) 0.3 L 0.4-5.4 10 ^3/uL Monocytes # (Auto) 0.8 0-1.3 10 ^3/uL Eosinophils # (Auto) 0 0-0.8 10 ^3/uL Basophils # (Auto) 0 0-0.2 10 ^3/uL Nucleated Red Blood Cells 0.1 % Platelet Estimate Decreased Sodium Level 142 136-145 mmol/L Potassium Level 3.1 L 3.5-5.1 mmol/L Chloride Level 108 H 98-107 mmol/L Carbon Dioxide Level 20 20-31 mmol/L Anion Gap 14 5-15 Blood Urea Nitrogen 24 #H 9-23 mg/dL Creatinine 2.57 H 0.550-1.02 mg/dL Glomerular Filtration Rate Calc 22 >90 mL/min BUN/Creatinine Ratio 9.3 L 10.0-20.0 Serum Glucose 164 H 74-106 mg/dL Calcium Level 7.2 L 8.7-10.4 mg/dL Magnesium Level 1.8 1.6-2.6 mg/dL Total Bilirubin 1.7 H 0.2-1.0 mg/dL Aspartate Amino Transferase (AST) 2749 H 13-40 U/L Alanine Aminotransferase (ALT) 1362 H 7-40 U/L Alkaline Phosphatase 57 46-116 U/L Total Protein 5.2 L 5.7-8.2 g/dL Albumin 3.4 3.2-4.8 g/dL Random Vancomycin Level 12.6 H 5-10 ug/mL Blood Gas Specimen Type Arterial Blood Gas Sample Site Right radial Blood Gas Patient Temperature 37.0 Arterial Blood Date Drawn [id number] Arterial Blood pH 7.391 7.350-7.450 Arterial Blood Partial Pressure CO2 29.8 L 32.0-45.0 mmHg Arterial Blood Partial Pressure O2 122.7 H 83.0-108.0 mmHg Arterial Blood HCO3 17.7 L 21.0-28.0 mmol/L Arterial Blood Oxygen Saturation 98.0 94.0-98.0 % Arterial Blood Base Excess -6.0 L -2.0-3.0 mmol/L Arterial Blood Oxyhemoglobin 97.7 94.0-98.0 % Arterial Blood Carboxyhemoglobin 0.1 L 0.5-1.5 % Arterial Blood Methemoglobin 0.2 0.0-1.5 % Pankaj Test Modified Blood Gas Total Hemoglobin 13.30 12.0-16.0 g/dL Blood Gas Set Respiration Rate 16.0 Blood Gas Modality Vent - ac FiO2 % 30.0 Blood Gas Tidal Volume 450.0 Blood Gas PEEP or CPAP 5.0 Test 07/02/25 20:24 07/02/25 17:58 07/02/25 15:54 07/02/25 14:40 Range/Units Troponin I High Sensitivity 3664 *H </=34 ng/L Creatine Kinase 653 H 34-145 U/L Lactic Acid Level 2.4 *H 0.4-2.0 mmol/L Blood Gas Critical Value Read Back Yes Blood Gas Notified Whom Blood Gas Notified Time [id number] Blood Gas Notified By Radha ramsay Test 07/02/25 13:19 Range/Units Differential Total Cells Counted 100.0 100 Neutrophils % (Manual) 29 L 37.0-80.0 Band Neutrophils % (Manual) 3 Lymphocytes % (Manual) 57 H 10.0-50.0 Monocytes % (Manual) 6 0-12 Eosinophils % (Manual) 1 0-7 Basophils % (Manual) 0 0.0-2.0 Metamyelocytes % (manual) 0 Myelocytes % (Manual) 0 Promyelocytes % (Manual) 0 Blast Cells % (Manual) 0 Reactive Lymphocytes 4 Prothrombin Time 15.1 H 9.3-11.8 sec Prothrombin Time INR 1.48 H 0.9-1.15 Activated Partial Thromboplast Time 24.2 L 24.5-34.5 SEC Urine Opiates Screen Neg NEGATIVE Urine Fentanyl Screen Neg NEGATIVE Urine Barbiturates Screen Neg NEGATIVE Urine Phencyclidine Screen Neg NEGATIVE Urine Amphetamines Screen Neg NEGATIVE Urine Benzodiazepines Screen Neg NEGATIVE Urine Cocaine Screen Neg NEGATIVE Urine Cannabinoids Screen Neg NEGATIVE Microbiology Date/Time Source Procedure Growth Status 07/03/25 05:47 Nose MRSA Screen - Final Complete 07/02/25 13:19 Blood Blood Culture - Preliminary NO GROWTH AFTER 24 HOURS OF INCUBATION. Resulted 07/02/25 13:10 Sputum Gram Stain - Final Resulted 07/02/25 13:10 Sputum Respiratory Culture - Preliminary Resulted [facility] Jul 03, 2025 15:25
[2025-07-03 15:38] LABS: Urine Amorphous Crystal FEW /hpf (None Seen); Urine Protein, UAD 2+ (Negative)
[2025-07-03 16:06] LABS: Triglycerides 91 mg/dL (< 150)
[2025-07-03 16:08] LABS: Cholesterol 108 mg/dL (< 200)
[2025-07-03 16:09] LABS: HDL Cholesterol 18 mg/dL (40-59)
--- NOTE | 2025-07-03 16:48 | DVHINCON2 ---
Date of service: Jul 03, 2025 History of Present Illness 50-year-old female Patient presents for evaluation of altered mental status as noted by family members. On arrival of EMS the patient was noted to be in V- tach and unresponsive. Patient was emergently intubated in the field for airway protection. Currently she is sedated. No further history could be obtained at the moment. Past Medical History Thyroid and depression Past Surgical History , tonsillectomy and appendectomy Family History Noncontributory Smoke: <1 pack per day ALCOHOL: none Drugs: Marijuana Past Medical History reviewed Family History: Patient reports no known family medical history. Allergies: Coded Allergies: Aspirin (Verified Allergy, Unknown, 10/10/18) Methocarbamol (Verified Allergy, Unknown, 10/10/18) NSAIDs (Verified Allergy, Unknown, 10/10/18) Nitroglycerin (Verified Allergy, Unknown, 10/10/18) Penicillins (Verified Allergy, Unknown, 10/10/18) Pseudoephedrine (Unverified Allergy, Unknown, 08/15/24) Sulfa Antibiotics (Verified Allergy, Unknown, 10/10/18) Uncoded Allergies: PSUEDOFED (Allergy, Unknown, 10/10/18) Home Meds Active Scripts Levofloxacin Hemihydrate (LEVAQUIN 500 MG) 500 Mg Tab, 1 TAB PO DAILY, #7 TAB Prov:KALIE PRICE MD 05/15/23 Levothyroxine Sodium (Synthroid) 125 Mcg Tab, 1 TAB PO DAILY, #30 TAB 5 Refills Prov:KALIE PRICE MD 05/15/23 Reported Medications Hydrocodone-Acetaminophen (Hydrocodone Bitartrate/AC 10-325 mg) 1 Tab Tab, 1 TAB PO BID, TAB 01/12/24 Daridorexant HCl (Quviviq) 50 Mg Tab, 50 MG PO, TAB 01/12/24 Hydroxyzine Hcl (Hydroxyzine Hcl) 50 Mg Tab, 50 MG PO DAILY for 30 Days, MG 01/12/24 Montelukast Sodium (MONTELUKAST SODIUM) 10 Mg Tab, 1 TAB PO DAILY, #30 TAB 5 Refills 01/12/24 Topiramate (Topiramate) 50 Mg Tab, 50 MG PO BID for 30 Days, MG 01/12/24 Sertraline Hcl (Sertraline Hcl) 50 Mg Tab, 200 MG PO DAILY for 30 Days, MG 01/12/24 Oxybutynin Chloride (Oxybutynin Chloride) 5 Mg Tab, 5 MG PO BID, TAB 01/12/24 Mirtazapine (Mirtazapine Oral Disintegrating Tablet) 15 Mg Tab, 2 TAB PO QPM, #30 TAB 3 Refills 01/12/24 [place] Carbonate ([place]ina Carbonate Er) 450 Mg Tab, 1 TAB PO BID, #60 TAB 1 Refill 01/12/24 Current Medications Current Medications Medications (Trade) Dose Ordered Sig/Agnes Route PRN Reason Start Time Stop Time Status Last Admin Cefepime HCl 50 ml @ 12.5 mls/hr DAILY@1700 IV 07/02/25 17:00 07/02/25 16:57 Vancomycin HCl 0 ml @ 0 mls/hr UD IV 07/02/25 19:45 Ondansetron HCl (Zofran) 4 mg Q4HP PRN IV NAUSEA / VOMITING 07/02/25 19:45 07/03/25 12:19 DC Acetaminophen (Tylenol Tablet) 650 mg Q6HP PRN PO PAIN SCALE 1-3 OR TEMP>100.4 07/02/25 19:45 07/03/25 12:19 DC 07/03/25 03:04 Nitroglycerin (Ntrostat Sublingual) 0.4 mg Q5MINP PRN SL FOR CHEST PAIN 07/02/25 19:45 07/03/25 12:19 DC Morphine Sulfate 2 mg Q30M PRN IV FOR CHEST PAIN 07/02/25 19:45 07/03/25 12:19 DC Potassium Chloride 100 ml @ 50 mls/hr Q2H IV 07/03/25 12:15 07/03/25 16:14 DC 07/03/25 14:28 Pantoprazole Sodium (Protonix) 40 mg DAILY IV 07/04/25 10:00 Heparin Sodium (Porcine) 5,000 units Q12HR SC 07/03/25 22:00 Sodium Chloride 1,000 ml @ 100 mls/hr Q10H IV 07/03/25 13:00 07/03/25 14:29 Review of Systems intubated Vital Signs Vital Signs Date Time Temp Pulse Resp B/P (MAP) Pulse Ox O2 Delivery O2 Flow Rate FiO2 07/03/25 16:30 72 16 113/65 (81) 100 30 07/03/25 14:45 97.2 207.0 07/03/25 14:00 Mechanical Ventilator+ Physical Exam intubated sedated s1 s2 rrr ctab soft nt/nd Labs/Diagnostic Data Labs Test 07/03/25 15:50 07/03/25 14:40 07/03/25 11:10 07/03/25 09:27 Range/Units Urine Color Yellow Yellow Urine Clarity Turbid H Clear Urine pH 6.5 5.0-9.0 Urine Specific [place] 1.014 1.001-1.035 Urine Protein 2+ H Negative Urine Ketones Negative Negative Urine Blood 3+ H Negative /uL Urine Nitrite Negative Negative Urine Bilirubin Negative Negative Urine Urobilinogen 2 H Negative mg/dL Urine Leukocyte Esterase Negative Negative /uL Urine RBC 100 0 - 4 /hpf Urine Microscopic WBC 5 0-5 /HPF Urine Squamous Epithelial Cells Mod <5 /hpf Urine Amorphous Crystals Few None Seen /hpf Urine Bacteria None seen None Seen /hpf Urine Mucus Few None Seen Urine Glucose 1+ H Normal mg/dL Eosinophils (%) (Auto) 0.0 0.0-7.0 % Eosinophils # (Auto) 0 0-0.8 10 ^3/uL Basophils # (Auto) 0 0-0.2 10 ^3/uL Nucleated Red Blood Cells 0.1 % Platelet Estimate Decreased Hemoglobin A1c 4.7 <5.7 % A1C B-Type Natriuretic Peptide 297.11 0-100 pg/mL Sodium Level 142 136-145 mmol/L Potassium Level 3.1 L 3.5-5.1 mmol/L Chloride Level 108 H 98-107 mmol/L Carbon Dioxide Level 20 20-31 mmol/L Anion Gap 14 5-15 Blood Urea Nitrogen 24 #H 9-23 mg/dL Creatinine 2.57 H 0.550-1.02 mg/dL Glomerular Filtration Rate Calc 22 >90 mL/min BUN/Creatinine Ratio 9.3 L 10.0-20.0 Serum Glucose 164 H 74-106 mg/dL Calcium Level 7.2 L 8.7-10.4 mg/dL Magnesium Level 1.8 1.6-2.6 mg/dL Total Bilirubin 1.7 H 0.2-1.0 mg/dL Aspartate Amino Transferase (AST) 2749 H 13-40 U/L Alanine Aminotransferase (ALT) 1362 H 7-40 U/L Alkaline Phosphatase 57 46-116 U/L Total Protein 5.2 L 5.7-8.2 g/dL Albumin 3.4 3.2-4.8 g/dL Triglycerides Level 91 < 150 mg/dL Cholesterol Level 108 < 200 mg/dL LDL Cholesterol 77 < 100 mg/dL HDL Cholesterol 18 L 40-59 mg/dL Thyroid Stimulating Hormone (TSH) 65.18 H 0.55-4.78 uIU/mL Random Vancomycin Level 12.6 H 5-10 ug/mL Test 07/03/25 06:25 07/02/25 20:24 07/02/25 17:58 07/02/25 15:54 Range/Units Blood Gas Specimen Type Arterial Blood Gas Sample Site Right radial Blood Gas Patient Temperature 37.0 Arterial Blood Date Drawn [id number] Arterial Blood pH 7.391 7.350-7.450 Arterial Blood Partial Pressure CO2 29.8 L 32.0-45.0 mmHg Arterial Blood Partial Pressure O2 122.7 H 83.0-108.0 mmHg Arterial Blood HCO3 17.7 L 21.0-28.0 mmol/L Arterial Blood Oxygen Saturation 98.0 94.0-98.0 % Arterial Blood Base Excess -6.0 L -2.0-3.0 mmol/L Arterial Blood Oxyhemoglobin 97.7 94.0-98.0 % Arterial Blood Carboxyhemoglobin 0.1 L 0.5-1.5 % Arterial Blood Methemoglobin 0.2 0.0-1.5 % Pankaj Test Modified Blood Gas Total Hemoglobin 13.30 12.0-16.0 g/dL Blood Gas Set Respiration Rate 16.0 Blood Gas Modality Vent - ac FiO2 % 30.0 Blood Gas Tidal Volume 450.0 Blood Gas PEEP or CPAP 5.0 Troponin I High Sensitivity 3664 *H </=34 ng/L Creatine Kinase 653 H 34-145 U/L Lactic Acid Level 2.4 *H 0.4-2.0 mmol/L Test 07/02/25 14:40 07/02/25 13:19 Range/Units Blood Gas Critical Value Read Back Yes Blood Gas Notified Whom Blood Gas Notified Time [id number] Blood Gas Notified By Radha ramsay Differential Total Cells Counted 100.0 100 Neutrophils % (Manual) 29 L 37.0-80.0 Band Neutrophils % (Manual) 3 Lymphocytes % (Manual) 57 H 10.0-50.0 Monocytes % (Manual) 6 0-12 Eosinophils % (Manual) 1 0-7 Basophils % (Manual) 0 0.0-2.0 Metamyelocytes % (manual) 0 Myelocytes % (Manual) 0 Promyelocytes % (Manual) 0 Blast Cells % (Manual) 0 Reactive Lymphocytes 4 Prothrombin Time 15.1 H 9.3-11.8 sec Prothrombin Time INR 1.48 H 0.9-1.15 Activated Partial Thromboplast Time 24.2 L 24.5-34.5 SEC Urine Opiates Screen Neg NEGATIVE Urine Fentanyl Screen Neg NEGATIVE Urine Barbiturates Screen Neg NEGATIVE Urine Phencyclidine Screen Neg NEGATIVE Urine Amphetamines Screen Neg NEGATIVE Urine Benzodiazepines Screen Neg NEGATIVE Urine Cocaine Screen Neg NEGATIVE Urine Cannabinoids Screen Neg NEGATIVE Microbiology Date/Time Source Procedure Growth Status 07/03/25 05:47 Nose MRSA Screen - Final Complete 07/02/25 13:19 Blood Blood Culture - Preliminary NO GROWTH AFTER 24 HOURS OF INCUBATION. Resulted 07/02/25 13:10 Sputum Gram Stain - Final Resulted 07/02/25 13:10 Sputum Respiratory Culture - Preliminary Resulted Assessment Wide complex tach suspected NSVT severe hyperthermia resp failure low PLTS? vs lab error severe hypothyroid dc amio gtt ecg repeat shows prolonged qtc monitor this temp is better echo shows lvef 40% with significant Aortic regurg (unknown etiology) prn diuretics treat hypothyroid per primary service 40 mins critical care time spent Plan discussed with: Patient, Other (rn) BRET CONTRERAS MD Jul 03, 2025 16:48
--- NOTE | 2025-07-03 18:32 | DVHPNRES ---
Progress Note Date Seen: Jul 03, 2025 Resident Creating Document: ELIDIA MCGHEE RESIDENT Medical Necessity Reason Pt with a Central, PICC or Fol: Yes The following are medically ne: Central Line, James Catheter Subjective Review of Systems Patient is a 50-year-old female with a medical history of bipolar disorder, anxiety, depression, hypothyroidism was brought to the ED via EMS with a chief complaint of altered level of consciousness. As per the patient's son who was visiting, patient urine room in a house in the area and reported that she has not been eating since a week and yesterday patient was found in altered state having a seizure-like activity with hands moving up and down and her eyes staring towards the ceiling following which EMS were called. When the EMS arrived patient heart rate was in 180s and ECG shows V-tach, following which patient was shocked twice at 200 joules and was given lidocaine twice. Patient was intubated in the field for airway protection because of altered level of consciousness. In the ED patient had 1st recorded temperature at 106.8, it was reported by the son that the house patient was staying in was without an air conditioning and she had a fan that was also not working. Medical history: Bipolar, anxiety, depression, remote history of seizure disorder, hypothyroidism Surgical history: Social history: Patient lives alone ventricular room, no reported alcohol, drug use, smoking Home medications: As per the records from the medication reconciliation lithium 450 mg b.i.d., sertraline 200 mg daily, imipramine 50 mg t.i.d., aripiprazole 10 mg, duloxetine 20 mg, bupropion 450 mg, daridorexant 50mg, levothyroxine 125 mcg, oxybutynin 5 mg b.i.d. 50 mg b.i.d. Review of systems Patient seen and examined at the bedside, on mechanical ventilation and sedation Low urine output Objective vital signs Vital Sign Date Time Temp Pulse Resp B/P (MAP) Pulse Ox O2 Delivery O2 Flow Rate FiO2 07/03/25 17:00 118/69 07/03/25 16:30 72 16 100 30 07/03/25 16:00 Mechanical Ventilator+ 07/03/25 14:45 97.2 207.0 Total Intake and Output 07/02/25 07/02/25 07/03/25 15:00 23:00 07:00 Intake Total 544.98 ml 898.12 ml Balance 544.98 ml 898.12 ml medications Current Medications Medications Dose Ordered Sig/Agnes Route Start Time Stop Time Status Last Admin Dose Admin Norepinephrine Bitartrate 250 ml @ 3.75 mls/hr Q24H IV 07/02/25 13:30 07/03/25 05:44 22.5 MLS/HR Cefepime HCl 50 ml @ 12.5 mls/hr DAILY@1700 IV 07/02/25 17:00 07/03/25 16:55 12.5 MLS/HR Midazolam HCl 50 ml @ 1 mls/hr Q24H IV 07/02/25 15:00 07/03/25 17:00 2 MLS/HR Vancomycin HCl 0 ml @ 0 mls/hr UD IV 07/02/25 19:45 Pantoprazole Sodium 40 mg DAILY IV 07/04/25 10:00 Heparin Sodium (Porcine) 5,000 units Q12HR SC 07/03/25 22:00 Sodium Chloride 1,000 ml @ 100 mls/hr Q10H IV 07/03/25 13:00 07/03/25 14:29 100 MLS/HR Examination Gen - no pallor, no icterus, no cyanosis, no edema . Skin - Patients skin is warm and dry. HEENT - normocephalic, atraumatic, dry mucous membranes. Neck - no JVD Pulmonary - B/L equal breath sounds, no rales, no wheezing, no stridor. cardiovascular - regular S1,S2 heard, no added sounds, no murmurs heard. peripheral pulses feeble radial 2+, pedal 2+. capillary refill normal 3-4 secs. GI - soft, nontender abdomen. Bowel sounds normoactive Neurological - Patient is sedated and on mechanical ventilation laboratory and microbiology Laboratory Tests 07/03/25 09:27 Test 07/03/25 09:27 Range/Units Serum Glucose 164 H 74-106 mg/dL Microbiology Date/Time Source Procedure Growth Status 07/03/25 05:47 Nose MRSA Screen - Final Complete 07/02/25 13:19 Blood Blood Culture - Preliminary NO GROWTH AFTER 24 HOURS OF INCUBATION. Resulted 07/02/25 13:10 Sputum Gram Stain - Final Resulted 07/02/25 13:10 Sputum Respiratory Culture - Preliminary Resulted Problem List/Assessment/Plan Problem List/Assessment/Plan Neurology Acute metabolic encephalopathy likely from Heat stroke/ possible seizure/ severe hypothyroidism Severe hyperthermia likely from Heat Stroke h/o bipolar disorder h/o depression - On mechanical ventilation and sedated - Head CT showed no acute intracranial abnormality - levothyroxine 100mcg - IV fluids Cardiovascular Wide complex nonsustained Ventricular tachycardia s/p defibrillation Shock likely hypovolemic Moderate to severe aortic regurgitation Heart failure with reduced ejection fraction, no exacerbation NSTEMI likely type 2 - echocardiogram shows LVEF 40%, BNP < 300 - chest x-ray bilaterally shows no congestion - IV fluids Nephrology TESFAYE on CKD likely due to be VMN - IV fluids - elevated creatine kinase - monitor input output - elevated creatinine kinase Gastrointestinal Shock liver - monitor liver function - tube feedings Endocrinology Severe hypothyroidism - TSH 65 - levothyroxine 100 mcg Right femoral CVC inserted on 07/02 Intubated on 07/02 James's catheter inserted on 07/02 Goals of care discussed with the patient's son Danny. Code status - full code Critical care time spent excluding procedures: 82 minutes Case discussed with Dr. Campbell Plan discussed with: Son (Danny), Other (LYNETTE Gomes) My Orders My Orders Orders - ELIDIA MCGHEE RESIDENT Procedure Category Date Status Time Pantoprazole PHA 07/04/25 In Process (Protonix) 10:00 Heparin Sodium PHA 07/03/25 In Process (Porcine) 22:00 Urine Bacterial ARISTEO 07/03/25 In Process Culture 12:23 Sodium Chloride 0.9% PHA 07/03/25 In Process 13:00 Date of Service: Jul 03, 2025 Billing Provider: DARLING CAMPBELL MD Common Visit Codes: [id number] CARE 30-74 MIN, [id number] CARE-EACH +30MIN ELIDIA MCGHEE Jul 03, 2025 18:31 DARLING CAMPBELL MD Jul 04, 2025 15:15
[2025-07-03] MEDS: LEVOTHYROXINE SODIUM 100 MCG TAB PO ONE (18:50)
[2025-07-03 19:39] LABS: Hematocrit 38.7 % (36.0-46.0); Hemoglobin 13.1 g/dL (12.2-16.2); Mean Corpuscular Hemoglobin 27.9 pg (28.0-32.0); Mean Corpuscular Volume 82.8 fL (80.0-100.0); Nucleated Red Blood Cells % 0.0 %
[2025-07-03 20:49] LABS: Anisocytosis Slight; Ovalocytes FEW
--- NOTE | 2025-07-03 21:57 | DVH ---
CLINICAL HISTORY: ET TUBE ADJUSTED TECHNIQUE: View of the chest was obtained. WID: COMPARISON: XY CHEST PORTABLE on DOS: 07/02/25, XY CHEST PORTABLE on DOS: 07/02/25, XY CHEST XRAY 1 VIE W on DOS: 05/14/23 FINDINGS: Lungs: Endotracheal tube terminates 3.8 cm from the sylvia. Cardiomediastinal silhouette: normal in size Bones: No acute osseous abnormality. Imaged upper Abdomen: unremarkable. IMPRESSION: 1. Interval retraction of endotracheal tube which now terminates 4 cm from the sylvia
[2025-07-03] MEDS: HEPARIN SODIUM (PORCINE) 5000 UNITS/ML 1ML VIAL SC SCH (22:00)
[2025-07-03] MEDS ORDERED: LIDOCAINE 2% (LOCAL ANESTH.) PF 5ml SDV IJ ONE (22:11)
[2025-07-03] MEDS: MAGNESIUM SULFATE 1GM/100ML 100 ML IV ONE (23:03)
[2025-07-03 23:25] LABS: Hemoglobin 11.9 g/dL (12.2-16.2)
[2025-07-03 23:26] LABS: Hematocrit 35.4 % (36.0-46.0); Mean Corpuscular Hemoglobin 27.6 pg (28.0-32.0); Mean Corpuscular Volume 82.0 fL (80.0-100.0); Nucleated Red Blood Cells % 0.1 %
[2025-07-04] VITALS (107 sets, daily range): BP systolic 92–130; BP diastolic 54–79; PULSE 76–90; RESP 13–22; TEMP 97.7–99.7; O2SAT 98–100
[2025-07-04] MEDS: Jevity 1.2 Cal/Fiber 1 Liter GT SCH (03:24)
[2025-07-04 04:22] LABS: Mean Corpuscular Volume 81.9 fL (80.0-100.0)
[2025-07-04 04:28] LABS: Hematocrit 35.6 % (36.0-46.0); Hemoglobin 12.0 g/dL (12.2-16.2); Mean Corpuscular Hemoglobin 27.7 pg (28.0-32.0); Nucleated Red Blood Cells % 0.1 %
[2025-07-04 04:41] LABS: Alkaline Phosphatase 55 U/L (46-116); Anion Gap 13 (5-15); BUN/Creatinine Ratio 10.8 (10.0-20.0); Potassium 3.5 mmol/L (3.5-5.1); Sodium 143 mmol/L (136-145)
[2025-07-04 04:50] LABS: Alanine Aminotransferase 981 U/L (7-40); Albumin 3.0 g/dL (3.2-4.8); Bilirubin, Total 1.3 mg/dL (0.2-1.0); Blood Urea Nitrogen 33 mg/dL (9-23); Calcium 7.4 mg/dL (8.7-10.4); Carbon Dioxide 18 mmol/L (20-31); Chloride 112 mmol/L (98-107); Glucose 111 mg/dL (74-106); Total Protein 4.6 g/dL (5.7-8.2)
--- NOTE | 2025-07-04 05:00 | DVH ---
CHEST RADIOGRAPH Indication: on vent Technique: View of the chest was obtained. WID: COMPARISON: XY CHEST PORTABLE on DOS: 07/03/25, XY CHEST PORTABLE on DOS: 07/02/25, XY CHEST PORTABLE o n DOS: 07/02/25, XY CHEST XRAY 1 VIEW on DOS: 05/14/23, XY CHEST PORTABLE on DOS: 07/03/25 FINDINGS: Lungs: Endotracheal tube terminates 3.5 cm from the sylvia. Cardiomediastinal silhouette: normal in size Bones: No acute osseous abnormality. Imaged upper Abdomen: Enteric catheter in satisfactory position. IMPRESSION: Lines and tubes in satisfactory position. No significant interval change.
[2025-07-04] MEDS: LEVOTHYROXINE SODIUM 100 MCG TAB PO SCH (06:40)
[2025-07-04 07:04] LABS: Base Excess -5.6 mmol/L (-2.0-3.0)
[2025-07-04] MEDS: PANTOPRAZOLE 40 MG/10 ML VIAL INJ IV SCH (10:00)
--- NOTE | 2025-07-04 12:47 | DVHPN2 ---
Progress Note Date Seen: Jul 04, 2025 Medical Necessity Reason Pt with a Central, PICC or Fol: Yes The following are medically ne: Central Line, James Catheter Objective vital signs Vital Sign Date Time Temp Pulse Resp B/P (MAP) Pulse Ox O2 Delivery O2 Flow Rate FiO2 07/04/25 12:32 84 20 99/59 (72) 100 30 07/04/25 10:30 97.7 207.9 07/04/25 10:00 Mechanical Ventilator+ Total Intake and Output 07/03/25 07/03/25 07/04/25 15:00 23:00 07:00 Intake Total 443.62 ml 661.50 ml 1064.75 ml Output Total 275 ml 300 ml Balance 443.62 ml 386.50 ml 764.75 ml medications Current Medications Medications Dose Ordered Sig/Agnes Route Start Time Stop Time Status Last Admin Dose Admin Norepinephrine Bitartrate 250 ml @ 3.75 mls/hr Q24H IV 07/02/25 13:30 07/03/25 05:44 22.5 MLS/HR Cefepime HCl 50 ml @ 12.5 mls/hr DAILY@1700 IV 07/02/25 17:00 07/03/25 16:55 12.5 MLS/HR Midazolam HCl 50 ml @ 1 mls/hr Q24H IV 07/02/25 15:00 07/03/25 17:00 2 MLS/HR Vancomycin HCl 0 ml @ 0 mls/hr UD IV 07/02/25 19:45 Pantoprazole Sodium 40 mg DAILY IV 07/04/25 10:00 Sodium Chloride 1,000 ml @ 100 mls/hr Q10H IV 07/03/25 13:00 07/04/25 07:40 100 MLS/HR Enteral Nutritional Formula 1,000 ml 30ML/HR GT 07/03/25 17:15 07/04/25 03:24 1,000 ML Levothyroxine Sodium 100 mcg QAM@0600 PO 07/04/25 06:00 07/04/25 06:40 100 MCG Examination: GENERAL:Abnormal, HEENT:Abnormal, LUNGS:Abnormal, CVS:Abnormal, ABDOMEN:Abnormal laboratory and microbiology Laboratory Tests 07/04/25 03:03 Test 07/04/25 03:03 Range/Units Serum Glucose 111 H 74-106 mg/dL Microbiology Date/Time Source Procedure Growth Status 07/03/25 05:47 Nose MRSA Screen - Final Complete 07/02/25 13:19 Blood Blood Culture - Preliminary NO GROWTH AFTER 24 HOURS OF INCUBATION. Resulted 07/02/25 13:10 Sputum Gram Stain - Final Resulted 07/02/25 13:10 Sputum Respiratory Culture - Preliminary Resulted Problem List/Assessment/Plan Problem List/Assessment/Plan multirogan failure Wide complex tach aortic regurg moderate lv dysfunction shock consider pressors as needed prn diuretics, poor uop at this time nstemi likely 2/2 to shock/ electrolyte abnormalities/ renal failure prognosis is guarded /poor tsh is abnormal--fu primary service Plan discussed with: Other (rn) Date of Service: Jul 04, 2025 Billing Provider: BRET CONTRERAS MD Common Visit Codes: NOT BILLABLE BRET CONTRERAS MD Jul 04, 2025 12:47
--- NOTE | 2025-07-04 15:57 | MEDREC ---
[facility] Intervention Section I [facility] Intervention: Deescalate AB based on CS (Please consider D/C vancomycin: MRSA negative, and not indicated for treatent of UTI. Consider re-do urinalysis test (possible contamination)) [facility]ER [facility]ARDO [facility] RESIDENT Jul 04, 2025 15:57
[2025-07-04 15:59] LABS: Free T4 (Free Thyroxine) 0.57 ng/dL (0.89-1.76)
[2025-07-04] MEDS: SODIUM CHLORIDE 0.9% 1,000 ML IV SCH (17:18)
--- NOTE | 2025-07-04 18:34 | DVHPNRES ---
Progress Note Date Seen: Jul 04, 2025 Resident Creating Document: ELIDIA MCGHEE RESIDENT Medical Necessity Reason Pt with a Central, PICC or Fol: Yes The following are medically ne: Central Line, James Catheter Subjective Review of Systems 07/04 Patient seen and examined at the bedside. Overnight patient had a maximum temperature recorded at 99.7 in the midnight for about 1 hour. Sedation and vasopressor support were turned of. Patient had a low urine output of about 600 mL of the last 24 hours with a positive fluid balance of 1500 mL. WBC Count increased slightly with the increased neutrophils. Kidney function worsened. Platelets lower likely from DIC Objective vital signs Vital Sign Date Time Temp Pulse Resp B/P (MAP) Pulse Ox O2 Delivery O2 Flow Rate FiO2 07/04/25 17:00 98.1 80 16 107/65 (79) 100 208.6 07/04/25 16:00 30 07/04/25 16:00 Mechanical Ventilator+ Total Intake and Output 07/03/25 07/03/25 07/04/25 15:00 23:00 07:00 Intake Total 443.62 ml 661.50 ml 1064.75 ml Output Total 275 ml 300 ml Balance 443.62 ml 386.50 ml 764.75 ml medications Current Medications Medications Dose Ordered Sig/Agnes Route Start Time Stop Time Status Last Admin Dose Admin Norepinephrine Bitartrate 250 ml @ 3.75 mls/hr Q24H IV 07/02/25 13:30 07/03/25 05:44 22.5 MLS/HR Cefepime HCl 50 ml @ 12.5 mls/hr DAILY@1700 IV 07/02/25 17:00 07/04/25 17:26 12.5 MLS/HR Midazolam HCl 50 ml @ 1 mls/hr Q24H IV 07/02/25 15:00 07/03/25 17:00 2 MLS/HR Vancomycin HCl 0 ml @ 0 mls/hr UD IV 07/02/25 19:45 Pantoprazole Sodium 40 mg DAILY IV 07/04/25 10:00 07/04/25 14:09 40 MG Enteral Nutritional Formula 1,000 ml 30ML/HR GT 07/03/25 17:15 07/04/25 03:24 1,000 ML Levothyroxine Sodium 100 mcg QAM@0600 PO 07/04/25 06:00 07/04/25 06:40 100 MCG Sodium Chloride 1,000 ml @ 150 mls/hr Q6H40M IV 07/04/25 15:15 07/04/25 17:28 150 MLS/HR Examination Gen - no pallor, no icterus, no cyanosis, no edema . Skin - Patients skin is warm and dry. HEENT - normocephalic, atraumatic, dry mucous membranes. Neck - no JVD Pulmonary - B/L equal breath sounds, no rales, no wheezing, no stridor. cardiovascular - regular S1,S2 heard, no added sounds, no murmurs heard. peripheral pulses feeble radial 2+, pedal 2+. capillary refill normal 3 secs. GI - soft, nontender abdomen. Bowel sounds normoactive Neurological - Patient is sedated and on mechanical ventilation Extremities: Lower extremities stiff and knee hyperreflexia laboratory and microbiology Laboratory Tests 07/04/25 03:03 Test 07/04/25 03:03 Range/Units Serum Glucose 111 H 74-106 mg/dL Microbiology Date/Time Source Procedure Growth Status 07/03/25 05:47 Nose MRSA Screen - Final Complete 07/02/25 13:19 Blood Blood Culture - Preliminary NO GROWTH AFTER 48 HOURS OF INCUBATION. Resulted 07/02/25 13:10 Sputum Gram Stain - Final Resulted 07/02/25 13:10 Sputum Respiratory Culture - Preliminary Resulted Problem List/Assessment/Plan Problem List/Assessment/Plan Neurology Acute metabolic encephalopathy likely from Heat stroke/ possible seizure/ severe hypothyroidism Severe hyperthermia likely from Heat Stroke h/o bipolar disorder h/o depression - On mechanical ventilation and sedated - Head CT showed no acute intracranial abnormality - sedation has been turned off with the patient is not responsive, pupils equal and reactive, hypoactive gag reflex - levothyroxine 100mcg - IV fluids Cardiovascular Wide complex nonsustained Ventricular tachycardia s/p defibrillation Shock likely hypovolemic Moderate to severe aortic regurgitation Heart failure with reduced ejection fraction, no exacerbation NSTEMI likely type 2 - echocardiogram shows LVEF 40%, BNP < 300 - chest x-ray bilaterally shows no congestion - IV fluids Nephrology TESFAYE on CKD likely due to be VMN - IV fluids - elevated creatine kinase - monitor input output - elevated creatinine kinase Gastrointestinal Shock liver - monitor liver function - tube feedings Endocrinology Severe hypothyroidism - TSH 65 - levothyroxine 100 mcg hematology Thrombocytopenia DIC likely from heat stroke - monitor platelets and any signs of bleeding Right femoral CVC inserted on 07/02 Intubated on 07/02 James's catheter inserted on 07/02 Goals of care discussed with the patient's son Danny. Code status - full code Critical care time spent excluding procedures: 61 minutes Case discussed with Dr. Campbell Plan discussed with: Son, Other (RN Mireya) My Orders My Orders Orders - ELIDIA MCGHEE Procedure Category Date Status Time Respiratory Misc. RT 07/03/25 Transmitted Order 21:05 Chest Portable XY 07/03/25 Resulted 21:07 Ventilator Orders RT 07/04/25 Transmitted 12:31 Comprehensive LAB 07/05/25 Verified Metabolic Panel 04:00 Complete Blood Count LAB 07/05/25 Verified 04:00 Chest Xray 1 View XY 07/05/25 Transmitted 04:00 Abg W/ Co-Ox RT 07/05/25 Transmitted 04:00 Creatine Kinase LAB 07/05/25 Verified 04:00 Date of Service: Jul 04, 2025 Billing Provider: DARLING CAMPBELL MD Common Visit Codes: [id number] CARE 30-74 MIN ELIDIA MCGHEE Jul 04, 2025 18:34 DARLING CAMPBELL MD Jul 05, 2025 15:24
[2025-07-05] VITALS (112 sets, daily range): BP systolic 91–126; BP diastolic 55–88; PULSE 77–90; RESP 12–22; TEMP 97.5–98.1; O2SAT 98–100
[2025-07-05 03:26] LABS: Hemoglobin 10.1 g/dL (12.2-16.2); Mean Corpuscular Hemoglobin 27.7 pg (28.0-32.0); Nucleated Red Blood Cells % 0.0 %
[2025-07-05 03:28] LABS: Hematocrit 29.8 % (36.0-46.0); Mean Corpuscular Volume 81.8 fL (80.0-100.0)
[2025-07-05 03:45] LABS: Alkaline Phosphatase 75 U/L (46-116); Anion Gap 13 (5-15); BUN/Creatinine Ratio 11.4 (10.0-20.0); Glucose 106 mg/dL (74-106); Potassium 3.6 mmol/L (3.5-5.1)
[2025-07-05 03:46] LABS: Bilirubin, Total 0.9 mg/dL (0.2-1.0)
[2025-07-05 03:58] LABS: Alanine Aminotransferase 742 U/L (7-40); Albumin 2.8 g/dL (3.2-4.8); Blood Urea Nitrogen 40 mg/dL (9-23); Calcium 8.0 mg/dL (8.7-10.4); Carbon Dioxide 18 mmol/L (20-31); Chloride 115 mmol/L (98-107); Creatine Kinase IFCC 693 U/L (34-145); Sodium 146 mmol/L (136-145); Total Protein 4.4 g/dL (5.7-8.2)
[2025-07-05 04:17] LABS: Ovalocytes FEW
--- NOTE | 2025-07-05 04:58 | DVH ---
CHEST RADIOGRAPH Indication: on vent Technique: Single frontal view of the chest was obtained COMPARISON: XY CHEST XRAY 1 VIEW on DOS: 07/04/25, XY CHEST PORTABLE on DOS: 07/03/25, XY CHEST PORTABL E on DOS: 07/02/25, XY CHEST PORTABLE on DOS: 07/02/25, XY CHEST XRAY 1 VIEW on DOS: 05/14/23 FINDINGS: Lines and Tubes: Unchanged. Lungs: Clear Pleura: No effusion. No pneumothorax. Cardiomediastinal contours: Unremarkable Bones: Unremarkable IMPRESSION: 1. No acute disease. 2. Lines and tubes unchanged.
[2025-07-05 06:18] LABS: Base Excess -7.6 mmol/L (-2.0-3.0)
[2025-07-05] MEDS: DOXYCYCLINE 100MG/100ML 100 ML IV SCH (10:04)
[2025-07-05 11:39] LABS: INR 1.25 (0.9-1.15); Partial Thromboplastin Time 27.0 SEC (24.5-34.5); Prothrombin Time 13.0 sec (9.3-11.8)
[2025-07-05] MEDS ORDERED: FREE WATER GT SCH (12:00)
--- NOTE | 2025-07-05 14:11 | DVHPNRES ---
Progress Note Date Seen: Jul 05, 2025 Resident Creating Document: ELIDIA MCGHEE RESIDENT Medical Necessity Reason Pt with a Central, PICC or Fol: Yes The following are medically ne: Central Line, James Catheter Subjective Review of Systems 07/05 Patient seen and examined at the bedside. No fever. Off Sedation and vasopressor support. Patient had a low urine output of about 775 mL of the last 24 hours with a positive fluid balance. POCUS revealed dilated IVC with lower compression. Kidney function worsened. Patient was given Lasix 40 mg IV Objective vital signs Vital Sign Date Time Temp Pulse Resp B/P (MAP) Pulse Ox O2 Delivery O2 Flow Rate FiO2 07/05/25 12:30 97.5 81 14 104/61 (75) 207.5 07/05/25 11:54 100 30 07/05/25 10:00 Mechanical Ventilator+ Total Intake and Output 07/04/25 07/04/25 07/05/25 15:00 23:00 07:00 Intake Total 800 ml 1590 ml 1560 ml Output Total 400 ml 375 ml Balance 800 ml 1190 ml 1185 ml medications Current Medications Medications Dose Ordered Sig/Agnes Route Start Time Stop Time Status Last Admin Dose Admin Norepinephrine Bitartrate 250 ml @ 3.75 mls/hr Q24H IV 07/02/25 13:30 07/03/25 05:44 22.5 MLS/HR Cefepime HCl 50 ml @ 12.5 mls/hr DAILY@1700 IV 07/02/25 17:00 07/04/25 17:26 12.5 MLS/HR Midazolam HCl 50 ml @ 1 mls/hr Q24H IV 07/02/25 15:00 07/03/25 17:00 2 MLS/HR Pantoprazole Sodium 40 mg DAILY IV 07/04/25 10:00 07/05/25 10:04 40 MG Enteral Nutritional Formula 1,000 ml 30ML/HR GT 07/03/25 17:15 07/04/25 03:24 1,000 ML Levothyroxine Sodium 100 mcg QAM@0600 PO 07/04/25 06:00 07/05/25 06:27 100 MCG Doxycycline Hyclate 100 ml @ 50 mls/hr Q12H IV 07/05/25 10:00 07/05/25 10:04 50 MLS/HR Sodium Chloride 1,000 ml @ 100 mls/hr Q10H IV 07/05/25 10:45 Examination Gen - no pallor, no icterus, no cyanosis, no edema . Skin - Patients skin is warm and dry. HEENT - normocephalic, atraumatic, dry mucous membranes. Bilateral mild subconjunctival hemorrhage Neck - no JVD Pulmonary - B/L equal breath sounds, no rales, no wheezing, no stridor. cardiovascular - regular S1,S2 heard, no added sounds, no murmurs heard. peripheral pulses feeble radial 2+, pedal 2+. capillary refill normal 3 secs. GI - soft, nontender abdomen. Bowel sounds normoactive Neurological - Patient is sedated and on mechanical ventilation Extremities: Lower extremities stiff and knee hyperreflexia laboratory and microbiology Laboratory Tests 07/05/25 02:12 Test 07/05/25 02:12 Range/Units Serum Glucose 106 74-106 mg/dL Microbiology Date/Time Source Procedure Growth Status 07/03/25 14:40 Urine - [place] Urine Culture - Final Escherichia coli Complete 07/03/25 05:47 Nose MRSA Screen - Final Complete 07/02/25 13:19 Blood Blood Culture - Preliminary NO GROWTH AFTER 72 HOURS OF INCUBATION. Resulted 07/02/25 13:10 Sputum Gram Stain - Final Complete 07/02/25 13:10 Sputum Respiratory Culture - Final Complete Problem List/Assessment/Plan Problem List/Assessment/Plan Neurology Acute metabolic encephalopathy likely from Heat stroke/ possible seizure/ severe hypothyroidism Severe hyperthermia likely from Heat Stroke h/o bipolar disorder h/o depression - On mechanical ventilation and sedated - Head CT showed no acute intracranial abnormality - sedation has been turned off with the patient is not responsive, pupils equal and reactive, active gag reflex - levothyroxine 100mcg - IV fluids Cardiovascular Wide complex nonsustained Ventricular tachycardia s/p defibrillation Shock likely hypovolemic Moderate to severe aortic regurgitation Heart failure with reduced ejection fraction, no exacerbation NSTEMI likely type 2 - echocardiogram shows LVEF 40%, BNP < 300 - chest x-ray bilaterally shows no congestion - IV fluids Nephrology TESFAYE on 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 Code status - full code Critical care time spent excluding procedures: 63 minutes Case discussed with Dr. Campbell Plan discussed with: Son, Other (RN Katie) My Orders My Orders Orders - ELIDIA MCGHEE Procedure Category Date Status Time Chest Xray 1 View XY 07/05/25 Resulted 04:00 Abg W/ Co-Ox RT 07/05/25 Logged 04:00 Doxycycline PHA 07/05/25 In Process 100mg/100ml 10:00 Sodium Chloride 0.9% PHA 07/05/25 In Process 10:45 Type And Screen BBK 07/05/25 In Process 10:35 Dietary Evaluation Review Comments: 1. TF Vital high protein @50ml/hr (105g Protein 1200kcal and 1003ml free water) supporting 100% of pt's needs 2. Initial TF speed at 30ml/hr, increase 10ml Q6 hr until reaching full speed. 3. Reassess when pt is extubated. Expected Outcomes/Goals: catabolism prevention Date of Service: Jul 05, 2025 Billing Provider: DARLING CAMPBELL MD Common Visit Codes: [id number] CARE 30-74 MIN ELIDIA MCGHEE Jul 05, 2025 14:11 DARLING CAMPBELL MD Jul 06, 2025 10:39
[2025-07-05] MEDS: SODIUM CHLORIDE 0.9% 1,000 ML IV SCH (15:22)
[2025-07-05] MEDS: FUROSEMIDE 40 MG/4 ML VIAL IV ONE (15:59)
--- NOTE | 2025-07-05 18:24 | MEDREC ---
[facility] Intervention Section I [facility] Intervention: Deescalate AB based on CS (Urine culture final showing E.Coli. Please consider de-escalating to ceftriaxone 1G IV once daily) EDWINA RODRÍGUEZ [facility] RESIDENT Jul 05, 2025 18:23
[2025-07-06] VITALS (106 sets, daily range): BP systolic 111–148; BP diastolic 64–83; PULSE 72–90; RESP 13–24; TEMP 97.9–99; O2SAT 98–100
[2025-07-06 04:46] LABS: Hematocrit 27.6 % (36.0-46.0); Mean Corpuscular Volume 82.1 fL (80.0-100.0); Nucleated Red Blood Cells % 0.0 %
[2025-07-06 04:50] LABS: Hemoglobin 9.4 g/dL (12.2-16.2); Mean Corpuscular Hemoglobin 27.9 pg (28.0-32.0)
[2025-07-06 04:51] LABS: Anion Gap 11 (5-15); Potassium 3.9 mmol/L (3.5-5.1)
[2025-07-06 04:54] LABS: Calcium 8.5 mg/dL (8.7-10.4); Carbon Dioxide 20 mmol/L (20-31); Chloride 115 mmol/L (98-107); Sodium 146 mmol/L (136-145)
[2025-07-06 04:57] LABS: BUN/Creatinine Ratio 10.8 (10.0-20.0)
[2025-07-06 04:58] LABS: Magnesium 2.1 mg/dL (1.6-2.6)
[2025-07-06 05:06] LABS: Blood Urea Nitrogen 41 mg/dL (9-23); Glucose 125 mg/dL (74-106)
--- NOTE | 2025-07-06 05:36 | DVH ---
CHEST RADIOGRAPH Indication: on vent Technique: Single frontal view of the chest was obtained COMPARISON: XY CHEST XRAY 1 VIEW on DOS: 07/05/25, XY CHEST XRAY 1 VIEW on DOS: 07/04/25, XY CHEST PORT ABLE on DOS: 07/03/25, XY CHEST PORTABLE on DOS: 07/02/25, XY CHEST PORTABLE on DOS: 07/02/25 FINDINGS: Lines and Tubes: Unchanged. Lungs: Clear Pleura: No effusion. No pneumothorax. Cardiomediastinal contours: Unremarkable Bones: Unremarkable IMPRESSION: 1. No acute disease. 2. Lines and tubes unchanged.
[2025-07-06 07:17] LABS: Base Excess -5.3 mmol/L (-2.0-3.0)
[2025-07-06] MEDS ORDERED: SODIUM CHLORIDE 0.9% 1,000 ML IV SCH (08:45)
[2025-07-06] MEDS: SOD CHL 0.45% 1,000 ML IV SCH (12:00)
[2025-07-06] MEDS: DEXMEDETOMIDINE HCL IN D5W 100 ML IV SCH (13:00)
[2025-07-06] MEDS: FUROSEMIDE 40 MG/4 ML VIAL IV ONE (13:15)
--- NOTE | 2025-07-06 14:45 | DVH ---
CHEST RADIOGRAPH Indication: check placement of Right IJ line insertion Technique: Single frontal view of the chest was obtained Comparison: XY CHEST XRAY 1 VIEW on DOS: 07/06/25, XY CHEST XRAY 1 VIEW on DOS: 07/05/25, XY CHEST XRAY 1 VIEW on DOS: 07/04/25 FINDINGS: Lines and Tubes: Endotracheal tube 3.6 cm above the sylvia.Right IJJ cath in SVC above the right atri um Lungs: No focal consolidation. Pleura: No effusion. No pneumothorax. Cardiomediastinal contours: Unremarkable Bones: No acute osseous abnormality. IMPRESSION: 1. Endotracheal tube 3.6 cm above the sylvia 2. Right internal jugular catheter in place in superior vena cava above the right atrium. 3. If enteric tube in place tip is not visualized. HS:Y
--- NOTE | 2025-07-06 14:47 | DVHPN2 ---
Progress Note Date Seen: Jul 06, 2025 Medical Necessity Reason Pt with a Central, PICC or Fol: Yes The following are medically ne: Central Line, James Catheter Subjective Other Systems: PLTs better Objective vital signs Vital Sign Date Time Temp Pulse Resp B/P (MAP) Pulse Ox O2 Delivery O2 Flow Rate FiO2 07/06/25 14:30 98.8 78 17 133/72 (92) 100 209.8 07/06/25 14:25 30 07/06/25 12:00 Mechanical Ventilator+ Total Intake and Output 07/05/25 07/05/25 07/06/25 15:00 23:00 07:00 Intake Total 950 ml 1940 ml 1150 ml Output Total 750 ml 1500 ml Balance 950 ml 1190 ml -350 ml medications Current Medications Medications Dose Ordered Sig/Agnes Route Start Time Stop Time Status Last Admin Dose Admin Norepinephrine Bitartrate 250 ml @ 3.75 mls/hr Q24H IV 07/02/25 13:30 07/03/25 05:44 22.5 MLS/HR Cefepime HCl 50 ml @ 12.5 mls/hr DAILY@1700 IV 07/02/25 17:00 07/05/25 17:31 12.5 MLS/HR Pantoprazole Sodium 40 mg DAILY IV 07/04/25 10:00 07/06/25 09:51 40 MG Enteral Nutritional Formula 1,000 ml 30ML/HR GT 07/03/25 17:15 07/05/25 21:23 1,000 ML Levothyroxine Sodium 100 mcg QAM@0600 PO 07/04/25 06:00 07/06/25 06:06 100 MCG Doxycycline Hyclate 100 ml @ 50 mls/hr Q12H IV 07/05/25 10:00 07/06/25 09:51 50 MLS/HR Sodium Chloride 1,000 ml @ 50 mls/hr Q20H IV 07/06/25 10:30 07/06/25 12:00 50 MLS/HR Examination: GENERAL:Abnormal, HEENT:Abnormal, LUNGS:Abnormal, CVS:Abnormal, ABDOMEN:Abnormal laboratory and microbiology Laboratory Tests 07/06/25 03:49 Test 07/06/25 03:49 Range/Units Serum Glucose 125 H 74-106 mg/dL Microbiology Date/Time Source Procedure Growth Status 07/03/25 14:40 Urine - [place] Urine Culture - Final Escherichia coli Complete 07/03/25 05:47 Nose MRSA Screen - Final Complete 07/02/25 13:19 Blood Blood Culture - Preliminary NO GROWTH AFTER 72 HOURS OF INCUBATION. Resulted 07/02/25 13:10 Sputum Gram Stain - Final Complete 07/02/25 13:10 Sputum Respiratory Culture - Final Complete Problem List/Assessment/Plan Problem List/Assessment/Plan multirogan failure Wide complex tach aortic regurg moderate lv dysfunction shock consider pressors as needed prn diuretics, poor uop at this time nstemi likely 2/2 to shock/ electrolyte abnormalities/ renal failure prognosis is guarded /poor tsh is abnormal--fu primary service daily iv lasix as pt is net positive uop is better Plan discussed with: Other (rn) Dietary Evaluation Review Comments: 1. TF Vital high protein @50ml/hr (105g Protein 1200kcal and 1003ml free water) supporting 100% of pt's needs 2. Initial TF speed at 30ml/hr, increase 10ml Q6 hr until reaching full speed. 3. Reassess when pt is extubated. Expected Outcomes/Goals: catabolism prevention Date of Service: Jul 06, 2025 Billing Provider: BRET CONTRERAS MD Common Visit Codes: NOT BILLABLE BRET CONTRERAS MD Jul 06, 2025 14:47
[2025-07-06] MEDS ORDERED: FUROSEMIDE 40 MG/4 ML VIAL IV SCH (15:00)
--- NOTE | 2025-07-06 19:58 | DVHPNRES ---
Progress Note Date Seen: Jul 06, 2025 Resident Creating Document: ELIDIA MCGHEE RESIDENT Medical Necessity Reason Pt with a Central, PICC or Fol: Yes The following are medically ne: Central Line, James Catheter Subjective Review of Systems 07/06 Patient seen and examined at the bedside. No fever. Off Sedation and vasopressor support. Urine output increased after diuresis with Lasix 40 mg IV. Kidney function worsened. Patient is still not responding to voice commands but has a equal and reactive pupils bilaterally, gag reflexes present, responsive to pain Objective vital signs Vital Sign Date Time Temp Pulse Resp B/P (MAP) Pulse Ox O2 Delivery O2 Flow Rate FiO2 07/06/25 19:45 98.2 75 16 132/72 (92) 100 208.8 07/06/25 18:42 30 07/06/25 16:00 Mechanical Ventilator+ Total Intake and Output 07/05/25 07/05/25 07/06/25 15:00 23:00 07:00 Intake Total 950 ml 1940 ml 1250 ml Output Total 750 ml 1500 ml Balance 950 ml 1190 ml -250 ml medications Current Medications Medications Dose Ordered Sig/Agnes Route Start Time Stop Time Status Last Admin Dose Admin Norepinephrine Bitartrate 250 ml @ 3.75 mls/hr Q24H IV 07/02/25 13:30 07/03/25 05:44 22.5 MLS/HR Cefepime HCl 50 ml @ 12.5 mls/hr DAILY@1700 IV 07/02/25 17:00 07/06/25 16:56 12.5 MLS/HR Pantoprazole Sodium 40 mg DAILY IV 07/04/25 10:00 07/06/25 09:51 40 MG Enteral Nutritional Formula 1,000 ml 30ML/HR GT 07/03/25 17:15 07/05/25 21:23 1,000 ML Levothyroxine Sodium 100 mcg QAM@0600 PO 07/04/25 06:00 07/06/25 06:06 100 MCG Doxycycline Hyclate 100 ml @ 50 mls/hr Q12H IV 07/05/25 10:00 07/06/25 09:51 50 MLS/HR Sodium Chloride 1,000 ml @ 50 mls/hr Q20H IV 07/06/25 10:30 07/06/25 12:00 50 MLS/HR Furosemide 40 mg DAILY IV 07/07/25 10:00 Examination Gen - no pallor, no icterus, no cyanosis, no edema . Skin - Patients skin is warm and dry. HEENT - normocephalic, atraumatic, dry mucous membranes. Bilateral mild subconjunctival hemorrhage Neck - no JVD Pulmonary - B/L equal breath sounds, no rales, no wheezing, no stridor. cardiovascular - regular S1,S2 heard, no added sounds, no murmurs heard. peripheral pulses feeble radial 2+, pedal 2+. capillary refill normal 3 secs. GI - soft, nontender abdomen. Bowel sounds normoactive Neurological - Patient is sedated and on mechanical ventilation Extremities: Lower extremities stiff and knee hyperreflexia laboratory and microbiology Laboratory Tests 07/06/25 03:49 Test 07/06/25 03:49 Range/Units Serum Glucose 125 H 74-106 mg/dL Microbiology Date/Time Source Procedure Growth Status 07/03/25 14:40 Urine - [place] Urine Culture - Final Escherichia coli Complete 07/03/25 05:47 Nose MRSA Screen - Final Complete 07/02/25 13:19 Blood Blood Culture - Preliminary NO GROWTH AFTER 72 HOURS OF INCUBATION. Resulted 07/02/25 13:10 Sputum Gram Stain - Final Complete 07/02/25 13:10 Sputum Respiratory Culture - Final Complete Problem List/Assessment/Plan Problem List/Assessment/Plan Neurology Acute metabolic encephalopathy likely from Heat stroke/ possible seizure/ severe hypothyroidism Severe hyperthermia likely from Heat Stroke h/o bipolar disorder h/o depression - On mechanical ventilation and sedated - Head CT showed no acute intracranial abnormality - sedation has been turned off with the patient is not responsive, pupils equal and reactive, active gag reflex - levothyroxine 100mcg - IV fluids Cardiovascular Wide complex nonsustained Ventricular tachycardia s/p defibrillation Shock likely hypovolemic Moderate to severe aortic regurgitation Heart failure with reduced ejection fraction, no exacerbation NSTEMI likely type 2 - echocardiogram shows LVEF 40%, BNP < 300 - chest x-ray bilaterally shows no congestion - conservative fluids - IV Lasix Nephrology TESFAYE on 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 Informed him that patient has been off sedation for more than 48 hours and is still not following commands. Code status - full code Critical care time spent excluding procedures: 61 minutes Case discussed with Dr. Campbell Plan discussed with: Son, Other (LYNETTE Becker) My Orders My Orders Orders - ELIDIA MCGHEE RESIDENT Procedure Category Date Status Time Aspartate Amino LAB 07/06/25 Logged Transferase 07:55 Alanine LAB 07/06/25 Logged Aminotransferase 07:55 Albumin LAB 07/06/25 Logged 07:55 Creatine Kinase LAB 07/06/25 Logged 07:55 Dexmedetomidine Hcl PHA 07/06/25 In Process In D5w (Precedex) 13:00 Complete Blood Count LAB 07/07/25 Verified 04:00 Comprehensive LAB 07/07/25 Verified Metabolic Panel 04:00 Magnesium LAB 07/07/25 Verified 04:00 Chest Xray 1 View XY 07/07/25 Logged 04:00 Abg W/ Co-Ox RT 07/07/25 Logged 04:00 [place] (Eskalith) LAB 07/07/25 Verified 04:00 Thyroid Stimulating LAB 07/07/25 Verified Hormone 04:00 Chest Portable XY 07/06/25 Resulted 14:01 Dietary Evaluation Review Comments: 1. TF Vital high protein @50ml/hr (105g Protein 1200kcal and 1003ml free water) supporting 100% of pt's needs 2. Initial TF speed at 30ml/hr, increase 10ml Q6 hr until reaching full speed. 3. Reassess when pt is extubated. Expected Outcomes/Goals: catabolism prevention Date of Service: Jul 06, 2025 Billing Provider: DARLING CAMPBELL MD Common Visit Codes: [id number] CARE 30-74 MIN ELIDIA MCGHEE Jul 06, 2025 19:57 DARLING CAMPBELL MD Jul 08, 2025 12:22
--- NOTE | 2025-07-06 21:02 | DVHNC2 ---
Central Line Recorder of insertion practice: Form Coverer Occupation of elastic tape inserter: Other medical staff (Resident) Indication: Volume resuscitation, Inability to obtain IV, Relpace: line malfunction Room prepared for procedure: Yes Form Coverer performed hand hygien: Yes Maximal sterile barrier precau: Mask/Eye shield, Sterile gown, Cap, Sterlie gloves, Large sterlie drape Skin Preparation: Chlorhexidine gluconate, Providine iodine Skin preparation completely dr: Yes Insertion site: Right, Internal jugular Central line catheter type: [id number] dialysis Number of lumens: 3 Central line exchanged over a: No Antiseptic ointment applied to: Yes Post Assessment: Chest X-Ray, Proper placement Informed consent obtained: Yes (From son Danny) Date of Service: Jul 06, 2025 Billing Provider: DARLING CAMPBELL MD Common Visit Codes: PROCEDURE ONLY Procedure Codes: [id number] NON-TUNNEL CV CATH ELIDIA MCGHEE RESIDENT Jul 06, 2025 21:02 DARLING CAMPBELL MD Jul 08, 2025 12:23
[2025-07-07] VITALS (111 sets, daily range): BP systolic 123–155; BP diastolic 67–100; PULSE 72–99; RESP 10–27; TEMP 96.1–99; O2SAT 92–100
[2025-07-07 04:05] LABS: Hematocrit 26.2 % (36.0-46.0); Hemoglobin 8.8 g/dL (12.2-16.2); Mean Corpuscular Hemoglobin 27.7 pg (28.0-32.0); Mean Corpuscular Volume 82.3 fL (80.0-100.0); Nucleated Red Blood Cells % 0.0 %
[2025-07-07 04:30] LABS: Albumin 3.2 g/dL (3.2-4.8); Alkaline Phosphatase 86 U/L (46-116); Anion Gap 12 (5-15); BUN/Creatinine Ratio 12.0 (10.0-20.0); Carbon Dioxide 22 mmol/L (20-31); Magnesium 1.8 mg/dL (1.6-2.6)
[2025-07-07 04:31] LABS: Bilirubin, Total 0.7 mg/dL (0.2-1.0)
[2025-07-07 04:35] LABS: Alanine Aminotransferase 400 U/L (7-40); Blood Urea Nitrogen 44 mg/dL (9-23); Calcium 8.6 mg/dL (8.7-10.4); Chloride 113 mmol/L (98-107); Creatine Kinase IFCC 366 U/L (34-145); Glucose 111 mg/dL (74-106); Potassium 3.4 mmol/L (3.5-5.1); Sodium 147 mmol/L (136-145); Total Protein 4.8 g/dL (5.7-8.2)
--- NOTE | 2025-07-07 05:36 | DVH ---
CHEST RADIOGRAPH Indication: on vent Technique: Single frontal view of the chest was obtained COMPARISON: XY CHEST PORTABLE on DOS: 07/06/25, XY CHEST XRAY 1 VIEW on DOS: 07/06/25, XY CHEST XRAY 1 VIEW on DOS: 07/05/25, XY CHEST XRAY 1 VIEW on DOS: 07/04/25, XY CHEST PORTABLE on DOS: 07/03/25 FINDINGS: Lines and Tubes: Slight interval retraction of endotracheal tube such that the tip now projects appro ximately 5.3 cm above the level of the sylvia. Remaining lines and tubes unchanged. Lungs: Clear Pleura: No effusion. No pneumothorax. Cardiomediastinal contours: Unremarkable Bones: Unremarkable IMPRESSION: 1. No acute disease. 2. Slight interval retraction of endotracheal tube such that the tip now projects approximately 5.3 c m above the level of the sylvia. Remaining lines and tubes unchanged.
[2025-07-07] MEDS: POTASSIUM CHL 20MEQ/100ML 100 ML IV ONE ×2 (06:05→19:52)
[2025-07-07 06:09] LABS: Base Excess -5.2 mmol/L (-2.0-3.0)
[2025-07-07] MEDS: FUROSEMIDE 40 MG/4 ML VIAL IV SCH (09:39)
[2025-07-07] MEDS: FREE WATER GT SCH ×2 (12:00→23:47)
--- NOTE | 2025-07-07 18:30 | DVHPNRES ---
Progress Note Date Seen: Jul 07, 2025 Resident Creating Document: ELIDIA MCGHEE RESIDENT Medical Necessity Reason Pt with a Central, PICC or Fol: Yes The following are medically ne: Central Line, James Catheter Subjective Review of Systems 07/06 Patient seen and examined at the bedside. No fever. Off Sedation and vasopressor support for 3 days today. Patient does not have any significant purposeful responds to voice commands. Neurology consult was placed Objective vital signs Vital Sign Date Time Temp Pulse Resp B/P (MAP) Pulse Ox O2 Delivery O2 Flow Rate FiO2 07/07/25 18:00 89 23 149/80 (103) 95 30 07/07/25 16:45 98.8 209.8 07/07/25 16:00 Mechanical Ventilator+ Total Intake and Output 07/06/25 07/06/25 07/07/25 15:00 23:00 07:00 Intake Total 450 ml 817.5 ml 950 ml Output Total 2200 ml 2000 ml Balance 450 ml -1382.5 ml -1050 ml medications Current Medications Medications Dose Ordered Sig/Agnes Route Start Time Stop Time Status Last Admin Dose Admin Norepinephrine Bitartrate 250 ml @ 3.75 mls/hr Q24H IV 07/02/25 13:30 07/03/25 05:44 22.5 MLS/HR Cefepime HCl 50 ml @ 12.5 mls/hr DAILY@1700 IV 07/02/25 17:00 07/07/25 16:54 12.5 MLS/HR Pantoprazole Sodium 40 mg DAILY IV 07/04/25 10:00 07/07/25 09:39 40 MG Enteral Nutritional Formula 1,000 ml 30ML/HR GT 07/03/25 17:15 07/06/25 20:09 1,000 ML Levothyroxine Sodium 100 mcg QAM@0600 PO 07/04/25 06:00 07/07/25 06:04 100 MCG Doxycycline Hyclate 100 ml @ 50 mls/hr Q12H IV 07/05/25 10:00 07/07/25 09:39 50 MLS/HR Furosemide 40 mg DAILY IV 07/07/25 10:00 07/07/25 09:39 40 MG Purified Water 300 ml Q6HR GT 07/07/25 12:00 07/07/25 12:00 300 ML Examination Gen - no pallor, no icterus, no cyanosis, no edema . Skin - Patients skin is warm and dry. HEENT - normocephalic, atraumatic, dry mucous membranes. Right subconjunctival hemorrhage Neck - no JVD Pulmonary - B/L equal breath sounds, no rales, no wheezing, no stridor. cardiovascular - regular S1,S2 heard, no added sounds, no murmurs heard. peripheral pulses feeble radial 2+, pedal 2+. capillary refill normal 3 secs. GI - soft, nontender abdomen. Bowel sounds normoactive Neurological - Patient is sedated and on mechanical ventilation Extremities: Lower extremities stiff and knee hyperreflexia laboratory and microbiology Laboratory Tests 07/07/25 03:12 Test 07/07/25 03:12 Range/Units Serum Glucose 111 H 74-106 mg/dL Microbiology Date/Time Source Procedure Growth Status 07/06/25 12:08 Trachea Gram Stain - Final Resulted 07/06/25 12:08 Trachea Respiratory Culture - Preliminary Resulted 07/03/25 14:40 Urine - [place] Urine Culture - Final Escherichia coli Complete 07/02/25 13:19 Blood Blood Culture - Final NO GROWTH AFTER 5 DAYS OF INCUBATION. Complete 07/02/25 13:10 Sputum Gram Stain - Final Complete 07/02/25 13:10 Sputum Respiratory Culture - Final Complete Problem List/Assessment/Plan Problem List/Assessment/Plan Neurology Acute metabolic encephalopathy likely from Heat stroke/ possible seizure/ severe hypothyroidism Severe hyperthermia likely from Heat Stroke h/o bipolar disorder h/o depression - On mechanical ventilation and sedated - Head CT showed no acute intracranial abnormality - sedation has been turned off with the patient is not responsive to voice commands, pupils equal and reactive, active gag reflex Cardiovascular Wide complex nonsustained Ventricular tachycardia s/p defibrillation Shock likely hypovolemic Moderate to severe aortic regurgitation Heart failure with reduced ejection fraction, no exacerbation NSTEMI likely type 2 - echocardiogram shows LVEF 40%, BNP < 300 - chest x-ray bilaterally shows no congestion - IV Lasix Nephrology TESFAYE on 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 Informed him that patient has been off sedation for more than 72 hours and is still not following commands. Neurology consulted Code status - full code Critical care time spent excluding procedures: 53 minutes Case discussed with Dr. Hinojosa Plan discussed with: Son, Other (RN Lori) My Orders My Orders Orders - ELIDIA MCGHEE Procedure Category Date Status Time Free Water PHA 07/07/25 In Process 12:00 * Neurology Consult CONS 07/07/25 Transmitted 09:10 Free Water PHA 07/08/25 Verified 00:00 Levothyroxine Tablet PHA 07/08/25 Verified (Synthroid Tablet) 06:00 Potassium Chl Fox PHA 07/07/25 Verified KCL 18:30 Complete Blood Count LAB 07/08/25 Verified 04:00 Comprehensive LAB 07/08/25 Verified Metabolic Panel 04:00 Magnesium LAB 07/08/25 Verified 04:00 Chest Xray 1 View XY 07/08/25 Verified 04:00 Abg W/ Co-Ox RT 07/08/25 Verified 04:00 Dietary Evaluation Review Comments: 1. TF Vital high protein @50ml/hr (105g Protein 1200kcal and 1003ml free water) supporting 100% of pt's needs 2. Initial TF speed at 30ml/hr, increase 10ml Q6 hr until reaching full speed. 3. Reassess when pt is extubated. Expected Outcomes/Goals: catabolism prevention ELIDIA MCGHEE RESIDENT Jul 07, 2025 18:30
--- NOTE | 2025-07-07 19:51 | DVHINCON2 ---
Date of service: Jul 07, [address] Hill Reason for Consultation He had stroke, extent extremities, not following commands History of Present Illness Ms. Montes is a 48 years old female with a history of bipolar disorder, anxiety, depression, the patient was taken to the hospital on 07/02/2025 with a chief complaint of altered mental status. At this time, she is intubated, the history is obtained from her care provide [facility], her nurse and chart review. I saw her on 01/10/2024 for ALOC She lives alone and she has no AC in her house, he is fine on 07/01/2025 but her son found her nonresponsive in her home, upon arrival to since, EMS noted the patient was in V tach, with heart rate 180, body temperature 108 F. CSF, 01/12/2024: C/C, WBC: 0, RBC: 0, protein: 36.1, glucose: 70 Urinalysis, 07/02/2025: Urine leukocyte esterase: 3+ Urine culture, 07/03/2025: E coli Blood culture, 07/03/2025: Negative UDS, 07/02/2025: Negative [place], 07/07/2025: ABG, 07/03/2025: Compensated metabolic acidosis, 07/07/2025: Compensated metabolic acidosis WBC/HB/PLT/MCV, 07/07/2025: 8.5/8.8/58/82.3 CK, 07/02/2025: 653, 07/04/2025: 1423, 07/22/2025: 693, 07/07/2025: 366 TG/HDL/LDL/HDL, 07/05/2025: 13/1.25/27 Ferritin 01/19/2024: 21.8 Chest x-ray, 07/02/2025: 1. Endotracheal tube 6.1 cm above the sylvia. 2. AED pads over the chest 3. Enteric tube position left diaphragm in the stomach CT head, 01/10/2024: No acute intracranial abnormality or significant interval change compared to 01/09/2024 CT head, 07/02/2025: No acute intracranial abnormality. CT chest, 01/09/2024: 1. Inferior left upper and lower lobe consolidation favored to reflect infectious/inflammatory etiology, possibly aspiration. 2. The endotracheal tube terminates in the right mainstem bronchus. 3. The enteric tube is in satisfactory position MRI head, 01/15/2024: No acute abnormal MRI findings of the brain MRI C-spine, 01/15/24: 1. Degenerative disc disease and facet/uncinate disease in the cervical spine with associated spinal canal, subarticular, and neural foraminal stenoses as detailed above. 2. 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 3. No signal abnormality in the spinal cord to suggest myelopathy. 4. Additional findings as detailed above Past Medical History Bipolar disorder, anxiety, depression thyroid disorder Past Surgical History Appendectomy, , tonsillectomy Family History: Patient reports no known family medical history. Family History Unobtainable Social History She smokes, uses marijuana, but no history of alcohol recreational substance abuse Allergies: Coded Allergies: Aspirin (Verified Allergy, Unknown, 10/10/18) Methocarbamol (Verified Allergy, Unknown, 10/10/18) NSAIDs (Verified Allergy, Unknown, 10/10/18) Nitroglycerin (Verified Allergy, Unknown, 10/10/18) Penicillins (Verified Allergy, Unknown, 10/10/18) Pseudoephedrine (Unverified Allergy, Unknown, 08/15/24) Sulfa Antibiotics (Verified Allergy, Unknown, 10/10/18) Uncoded Allergies: PSUEDOFED (Allergy, Unknown, 10/10/18) Home Meds Active Scripts Levofloxacin Hemihydrate (LEVAQUIN 500 MG) 500 Mg Tab, 1 TAB PO DAILY, #7 TAB Prov:KALIE PRICE MD 05/15/23 Levothyroxine Sodium (Synthroid) 125 Mcg Tab, 1 TAB PO DAILY, #30 TAB 5 Refills Prov:KALIE PRICE MD 05/15/23 Reported Medications Hydrocodone-Acetaminophen (Hydrocodone Bitartrate/AC 10-325 mg) 1 Tab Tab, 1 TAB PO BID, TAB 01/12/24 Daridorexant HCl (Quviviq) 50 Mg Tab, 50 MG PO, TAB 01/12/24 Hydroxyzine Hcl (Hydroxyzine Hcl) 50 Mg Tab, 50 MG PO DAILY for 30 Days, MG 01/12/24 Montelukast Sodium (MONTELUKAST SODIUM) 10 Mg Tab, 1 TAB PO DAILY, #30 TAB 5 Refills 01/12/24 Topiramate (Topiramate) 50 Mg Tab, 50 MG PO BID for 30 Days, MG 01/12/24 Sertraline Hcl (Sertraline Hcl) 50 Mg Tab, 200 MG PO DAILY for 30 Days, MG 01/12/24 Oxybutynin Chloride (Oxybutynin Chloride) 5 Mg Tab, 5 MG PO BID, TAB 01/12/24 Mirtazapine (Mirtazapine Oral Disintegrating Tablet) 15 Mg Tab, 2 TAB PO QPM, #30 TAB 3 Refills 01/12/24 [place] Carbonate ([place] Carbonate Er) 450 Mg Tab, 1 TAB PO BID, #60 TAB 1 Refill 01/12/24 Current Medications Current Medications Medications (Trade) Dose Ordered Sig/Agnes Route PRN Reason Start Time Stop Time Status Last Admin Furosemide (Lasix Injection) 40 mg DAILY IV 07/07/25 10:00 07/07/25 09:39 Purified Water 300 ml Q6HR GT 07/07/25 12:00 07/07/25 18:23 DC 07/07/25 12:00 Purified Water 250 ml Q6HR GT 07/08/25 00:00 Levothyroxine Sodium (Synthroid Tablet) 100 mcg QAM@0600 PO 07/08/25 06:00 07/07/25 18:53 DC Levothyroxine Sodium (Synthroid Tablet) 25 mcg QAM@0600 PO 07/08/25 06:00 Levothyroxine Sodium (Synthroid Tablet) 100 mcg QAM@0600 PO 07/08/25 06:00 Artificial Tears (Tears Naturale) 2 drop Q6HR PRN EACHEYE DRY EYES 07/07/25 20:00 Review of Systems Unobtainable Vital Signs Vital Signs Date Time Temp Pulse Resp B/P (MAP) Pulse Ox O2 Delivery O2 Flow Rate FiO2 07/07/25 19:00 98.8 93 23 138/80 (99) 97 209.8 07/07/25 18:00 Mechanical Ventilator+ 30 30 Physical Exam The patient is well-nourished and well-developed with no distress. The patient is intubated HEENT: Normocephalic, neck supple, no carotid bruits Lungs: Clear to auscultation Cardiovascular: Regular rate and region, S1, S2, no murmurs Abdomen: Soft, nontender, normal bowel sounds MENTAL STATUS: Her eyes are open, at time rolling from [id number], but is nonresponsive to verbal stimuli or light touch CRANIAL NERVES: Pupils are equal, round and reactive.There is frequent blinking and occasional rolling eye movement. No signs of facial weakness. There are gagging or coughing reflexes SENSATION: Responses to pain stimuli. MOTOR: Normal tone in the upper and lower extremity. Normal muscle bulk. No fasciculations. No spontaneous movement. REFLEXES: Deep tendon reflexes are symmetrical. No pathological reflexes. CEREBELLAR/COORDINATION: Deferred GAIT/STATION: deferred. Labs/Diagnostic Data Labs Test 07/07/25 06:02 07/07/25 03:12 07/05/25 10:35 07/05/25 02:12 Range/Units Blood Gas Specimen Type Arterial Blood Gas Sample Site Right radial Blood Gas Patient Temperature 37.0 Arterial Blood Date Drawn [id number] Arterial Blood pH 7.399 7.350-7.450 Arterial Blood Partial Pressure CO2 30.7 L 32.0-45.0 mmHg Arterial Blood Partial Pressure O2 108.1 H 83.0-108.0 mmHg Arterial Blood HCO3 18.5 L 21.0-28.0 mmol/L Arterial Blood Oxygen Saturation 97.3 94.0-98.0 % Arterial Blood Base Excess -5.2 L -2.0-3.0 mmol/L Arterial Blood Oxyhemoglobin 96.5 94.0-98.0 % Arterial Blood Carboxyhemoglobin 0.3 L 0.5-1.5 % Arterial Blood Methemoglobin 0.5 0.0-1.5 % Pankaj Test Modified Blood Gas Total Hemoglobin 11.80 L 12.0-16.0 g/dL Blood Gas Set Respiration Rate 16.0 Blood Gas Modality Vent - ac FiO2 % 30.0 Blood Gas Tidal Volume 400.0 Blood Gas PEEP or CPAP 5.0 White Blood Count 8.5 # 4.4-10.8 10^3/uL Red Blood Count 3.18 L 4.0-5.20 10^6/uL Hemoglobin 8.8 L 12.2-16.2 g/dL Hematocrit 26.2 L 36.0-46.0 % Mean Corpuscular Volume 82.3 80.0-100.0 fL Mean Corpuscular Hemoglobin 27.7 L 28.0-32.0 pg Mean Corpuscular Hemoglobin Concent 33.6 32.0-36.0 g/dL Red Cell Distribution Width 16.5 H 11.8-14.3 % Platelet Count 58 L 140-450 10^3/uL Mean Platelet Volume 9.7 6.9-10.8 fL Neutrophils (%) (Auto) 90.6 H 37.0-80.0 % Lymphocytes (%) (Auto) 3.8 L 10.0-50.0 % Monocytes (%) (Auto) 4.9 0.0-12.0 % Eosinophils (%) (Auto) 0.6 0.0-7.0 % Basophils (%) (Auto) 0.1 0.0-2.0 % Neutrophils # (Auto) 7.7 1.6-8.6 10 ^3/uL Lymphocytes # (Auto) 0.3 L 0.4-5.4 10 ^3/uL Monocytes # (Auto) 0.4 0-1.3 10 ^3/uL Eosinophils # (Auto) 0.1 0-0.8 10 ^3/uL Basophils # (Auto) 0 0-0.2 10 ^3/uL Nucleated Red Blood Cells 0.0 % Sodium Level 147 H 136-145 mmol/L Potassium Level 3.4 L 3.5-5.1 mmol/L Chloride Level 113 H 98-107 mmol/L Carbon Dioxide Level 22 20-31 mmol/L Anion Gap 12 5-15 Blood Urea Nitrogen 44 H 9-23 mg/dL Creatinine 3.66 H 0.550-1.02 mg/dL Glomerular Filtration Rate Calc 15 >90 mL/min BUN/Creatinine Ratio 12.0 10.0-20.0 Serum Glucose 111 H 74-106 mg/dL Calcium Level 8.6 L 8.7-10.4 mg/dL Magnesium Level 1.8 1.6-2.6 mg/dL Total Bilirubin 0.7 0.2-1.0 mg/dL Aspartate Amino Transferase (AST) 126 H 13-40 U/L Alanine Aminotransferase (ALT) 400 H 7-40 U/L Alkaline Phosphatase 86 46-116 U/L Creatine Kinase 366 H 34-145 U/L Total Protein 4.8 L 5.7-8.2 g/dL Albumin 3.2 3.2-4.8 g/dL Thyroid Stimulating Hormone (TSH) 98.11 H 0.55-4.78 uIU/mL Prothrombin Time 13.0 H 9.3-11.8 sec Prothrombin Time INR 1.25 H 0.9-1.15 Activated Partial Thromboplast Time 27.0 24.5-34.5 SEC Platelet Estimate Decreased Ovalocytes Few Neda Cells Few Test 07/04/25 15:07 07/04/25 03:03 07/03/25 18:42 07/03/25 14:40 Range/Units Free Thyroxine (T4) Calculated 0.57 L 0.89-1.76 ng/dL Total Triiodothyronine (TT3) 0.35 L 0.60-1.81 ng/mL Cortisol AM Sample 23.81 H 5.27-22.45 ug/dL Random Vancomycin Level 19.8 H 5-10 ug/mL Anisocytosis (manual) Slight Urine Color Yellow Yellow Urine Clarity Turbid H Clear Urine pH 6.5 5.0-9.0 Urine Specific [place] 1.014 1.001-1.035 Urine Protein 2+ H Negative Urine Ketones Negative Negative Urine Blood 3+ H Negative /uL Urine Nitrite Negative Negative Urine Bilirubin Negative Negative Urine Urobilinogen 2 H Negative mg/dL Urine Leukocyte Esterase Negative Negative /uL Urine RBC 100 0 - 4 /hpf Urine Microscopic WBC 5 0-5 /HPF Urine Squamous Epithelial Cells Mod <5 /hpf Urine Amorphous Crystals Few None Seen /hpf Urine Bacteria None seen None Seen /hpf Urine Mucus Few None Seen Urine Glucose 1+ H Normal mg/dL Test 07/03/25 11:10 07/03/25 09:27 07/02/25 20:24 07/02/25 15:54 Range/Units Hemoglobin A1c 4.7 <5.7 % A1C B-Type Natriuretic Peptide 297.11 0-100 pg/mL Triglycerides Level 91 < 150 mg/dL Cholesterol Level 108 < 200 mg/dL LDL Cholesterol 77 < 100 mg/dL HDL Cholesterol 18 L 40-59 mg/dL Troponin I High Sensitivity 3664 *H </=34 ng/L Lactic Acid Level 2.4 *H 0.4-2.0 mmol/L Test 07/02/25 14:40 07/02/25 13:19 Range/Units Blood Gas Critical Value Read Back Yes Blood Gas Notified Whom Blood Gas Notified Time [id number] Blood Gas Notified By Data Reviewer devendra Differential Total Cells Counted 100.0 100 Neutrophils % (Manual) 29 L 37.0-80.0 Band Neutrophils % (Manual) 3 Lymphocytes % (Manual) 57 H 10.0-50.0 Monocytes % (Manual) 6 0-12 Eosinophils % (Manual) 1 0-7 Basophils % (Manual) 0 0.0-2.0 Metamyelocytes % (manual) 0 Myelocytes % (Manual) 0 Promyelocytes % (Manual) 0 Blast Cells % (Manual) 0 Reactive Lymphocytes 4 Urine Opiates Screen Neg NEGATIVE Urine Fentanyl Screen Neg NEGATIVE Urine Barbiturates Screen Neg NEGATIVE Urine Phencyclidine Screen Neg NEGATIVE Urine Amphetamines Screen Neg NEGATIVE Urine Benzodiazepines Screen Neg NEGATIVE Urine Cocaine Screen Neg NEGATIVE Urine Cannabinoids Screen Neg NEGATIVE Microbiology Date/Time Source Procedure Growth Status 07/06/25 12:08 Trachea Gram Stain - Final Resulted 07/06/25 12:08 Trachea Respiratory Culture - Preliminary Resulted 07/03/25 14:40 Urine - [place] Urine Culture - Final Escherichia coli Complete 07/02/25 13:19 Blood Blood Culture - Final NO GROWTH AFTER 5 DAYS OF INCUBATION. Complete 07/02/25 13:10 Sputum Gram Stain - Final Complete 07/02/25 13:10 Sputum Respiratory Culture - Final Complete Assessment Altered mental status Heat stroke Metabolic encephalopathy Hypoxic encephalopathy Respiratory failure Urinary tract infection Rule out sepsis Bipolar disorder, depression, anxiety Seizure disorder, with last seizure attack before 2017 Restless leg syndrome with low ferritin Plan/Recommendation Monitoring Supportive treatment EEG ICU care Stabilize vitals Respiratory support/vent management IV antibiotics Oxygen DVT prophylaxis GI prophylaxis History from her when she wakes up More recommended per clinical course Guarded Critical care time spent is 45 minutes, 50% of time was [id number] consultation This medical document was created using an electronic medical record system with [employer] dictation system. Although this document has been carefully reviewed, there may still be some phonetic and typographical errors. These areas are purely typographical due to imperfections of the software programs, and do not reflect any compromise in the patient's medical care. Plan discussed with: Other HORACIO MURPHY MD Jul 07, 2025 19:51
[2025-07-07] MEDS: ARTIFICIAL TEARS 15ml EACHEYE PRN (23:48)
[2025-07-08] VITALS (113 sets, daily range): BP systolic 124–162; BP diastolic 58–101; PULSE 76–98; RESP 11–29; TEMP 98.1–99.5; O2SAT 92–100
[2025-07-08 03:04] LABS: Hematocrit 27.0 % (36.0-46.0); Hemoglobin 9.1 g/dL (12.2-16.2); Mean Corpuscular Hemoglobin 27.6 pg (28.0-32.0); Mean Corpuscular Volume 81.9 fL (80.0-100.0); Nucleated Red Blood Cells % 0.0 %
[2025-07-08 03:13] LABS: Albumin 3.6 g/dL (3.2-4.8); Alkaline Phosphatase 79 U/L (46-116); Anion Gap 12 (5-15); BUN/Creatinine Ratio 12.5 (10.0-20.0); Bilirubin, Total 0.7 mg/dL (0.2-1.0); Calcium 9.2 mg/dL (8.7-10.4); Carbon Dioxide 22 mmol/L (20-31); Glucose 93 mg/dL (74-106); Magnesium 1.7 mg/dL (1.6-2.6); Potassium 3.6 mmol/L (3.5-5.1); Sodium 145 mmol/L (136-145)
[2025-07-08 03:17] LABS: Alanine Aminotransferase 285 U/L (7-40); Blood Urea Nitrogen 41 mg/dL (9-23); Chloride 111 mmol/L (98-107); Total Protein 5.7 g/dL (5.7-8.2)
[2025-07-08] MEDS: LEVOTHYROXINE SODIUM 100 MCG TAB PO SCH (05:37)
[2025-07-08] MEDS: LEVOTHYROXINE SODIUM 25 MCG TAB PO SCH (05:38)
[2025-07-08] MEDS ORDERED: LEVOTHYROXINE SODIUM 100 MCG TAB PO SCH (06:00)
--- NOTE | 2025-07-08 07:12 | DVH ---
XY CHEST XRAY 1 VIEW, HISTORY: on vent COMPARISON: XY CHEST XRAY 1 VIEW on DOS: 07/07/25, XY CHEST PORTABLE on DOS: 07/06/25, XY CHEST XRAY 1 VIEW on DOS: 07/06/25 XY CHEST XRAY 1 VIEW on DOS: 07/07/25, XY CHEST PORTABLE on DOS: 07/06/25, XY CHEST XRAY 1 VIEW on DOS: 07/06/25 TECHNICAL DATA: 1 view of the chest was obtained. FINDINGS: Lines and tubes: Stable lines and tubes. Cardiomediastinal silhouette: normal Pulmonary vasculature: normal Lung expansion: normal Lung airspace: normal Lung interstitium: normal Pleura: normal Pneumothorax: no Bones: Unremarkable Other: no IMPRESSION: Stable lines and tubes. Similar lung aeration.
[2025-07-08 08:39] LABS: Base Excess -3.0 mmol/L (-2.0-3.0)
--- NOTE | 2025-07-08 10:22 | DVHPN2 ---
Subjective History of Present Illness 50-year-old female Patient presents for evaluation of altered mental status as noted by family members. On arrival of EMS the patient was noted to be in V- tach and unresponsive. Patient was emergently intubated in the field for airway protection. Currently she is sedated. No further history could be obtained at the moment. Past Medical History Thyroid and depression 07/06 Patient seen and examined at the bedside. No fever. Off Sedation and vasopressor support for 3 days today. Patient does not have any significant purposeful responds to voice commands. Neurology consult was placed 07/07: 07/08: 50-year-old female came in after seizure likely from a heat stroke. Had V-tach during EMS ride over to the hospital was V-tach and was shocked. Multiple psych meds. Today patient is on spontaneous breathing trial CPAP trial pressure 8/5, 30% O2. Vital signs stable. No vasopressors, drips include IV antibiotics and slow fluids good urine output appears euvolemic minimally following commands though. Neuro was consulted. We will continue present management as per primary team plan., enteral feeds are being held for CPAP trial. Reviewed: Care Plan Changes from previous H/P or p: No Changes General: Per HPI Objective Vitals Vital Signs Date Time Temp Pulse Resp B/P (MAP) Pulse Ox O2 Delivery O2 Flow Rate FiO2 07/08/25 09:04 138/75 07/08/25 08:19 84 15 100 30 07/08/25 08:15 98.4 209.1 07/08/25 08:00 Mechanical Ventilator+ Intake/Output Intake and Output 07/08/25 07:00 Intake Total 2438.5 ml Output Total 3400 ml Balance -961.5 ml Intake Oral 1500 ml IV Total 438.5 ml Tube Feeding 500 ml Output Urine Total 3400 ml # Bowel Movements 4 Exam Gen - no pallor, no icterus, no cyanosis, no edema . Skin - Patients skin is warm and dry. HEENT - normocephalic, atraumatic, dry mucous membranes. Right subconjunctival hemorrhage Neck - no JVD Pulmonary - B/L equal breath sounds, no rales, no wheezing, no stridor. cardiovascular - regular S1,S2 heard, no added sounds, no murmurs heard. peripheral pulses feeble radial 2+, pedal 2+. capillary refill normal 3 secs. GI - soft, nontender abdomen. Bowel sounds normoactive Neurological - Patient is sedated and on mechanical ventilation Extremities: Lower extremities stiff and knee hyperreflexia Medications Current Medications Medications Dose Ordered Sig/Agnes Route Start Time Stop Time Status Last Admin Dose Admin Norepinephrine Bitartrate 250 ml @ 3.75 mls/hr Q24H IV 07/02/25 13:30 07/03/25 05:44 22.5 MLS/HR Cefepime HCl 50 ml @ 12.5 mls/hr DAILY@1700 IV 07/02/25 17:00 07/07/25 16:54 12.5 MLS/HR Pantoprazole Sodium 40 mg DAILY IV 07/04/25 10:00 07/08/25 09:03 40 MG Enteral Nutritional Formula 1,000 ml 30ML/HR GT 07/03/25 17:15 07/07/25 22:00 1,000 ML Doxycycline Hyclate 100 ml @ 50 mls/hr Q12H IV 07/05/25 10:00 07/08/25 09:05 50 MLS/HR Furosemide 40 mg DAILY IV 07/07/25 10:00 07/08/25 09:04 40 MG Purified Water 250 ml Q6HR GT 07/08/25 00:00 07/08/25 05:39 250 ML Levothyroxine Sodium 25 mcg QAM@0600 PO 07/08/25 06:00 07/08/25 05:38 25 MCG Levothyroxine Sodium 100 mcg QAM@0600 PO 07/08/25 06:00 07/08/25 05:37 100 MCG Artificial Tears 2 drop Q6HR PRN EACHEYE 07/07/25 20:00 07/08/25 08:58 2 DROP Laboratory Results Laboratory Tests 07/08/25 02:30 Chemistry Test 07/08/25 02:30 Albumin 3.6 g/dL (3.2-4.8) Calcium Level 9.2 mg/dL (8.7-10.4) Magnesium Level 1.7 mg/dL (1.6-2.6) Total Protein 5.7 g/dL (5.7-8.2) LFT Test 07/08/25 02:30 Alanine Aminotransferase (ALT) 285 U/L (7-40) H Alkaline Phosphatase 79 U/L (46-116) Aspartate Amino Transferase (AST) 94 U/L (13-40) H Total Bilirubin 0.7 mg/dL (0.2-1.0) Urinalysis Test 07/03/25 14:40 Urine Color Yellow (Yellow) Urine Clarity Turbid (Clear) H Urine pH 6.5 (5.0-9.0) Urine Specific [place] 1.014 (1.001-1.035) Urine Protein 2+ (Negative) H Urine Ketones Negative (Negative) Urine Blood 3+ /uL (Negative) H Urine Nitrite Negative (Negative) Urine Bilirubin Negative (Negative) Urine Urobilinogen 2 mg/dL (Negative) H Urine Leukocyte Esterase Negative /uL (Negative) Urine RBC 100 /hpf (0 - 4) Urine Microscopic WBC 5 /HPF (0-5) Urine Squamous Epithelial Cells Mod /hpf (<5) Urine Amorphous Crystals Few /hpf (None Seen) Urine Bacteria None seen /hpf (None Seen) Urine Mucus Few (None Seen) Urine Glucose 1+ mg/dL (Normal) H Blood Gas Results Test 07/08/25 07:43 Arterial Blood pH 7.506 (7.350-7.450) FiO2 % 30.0 Microbiology Microbiology Date/Time Source Procedure Growth Status 07/06/25 12:08 Trachea Gram Stain - Final Resulted 07/06/25 12:08 Trachea Respiratory Culture - Preliminary Resulted 07/03/25 14:40 Urine - [place] Urine Culture - Final Escherichia coli Complete 07/02/25 13:19 Blood Blood Culture - Final NO GROWTH AFTER 5 DAYS OF INCUBATION. Complete 07/02/25 13:10 Sputum Gram Stain - Final Complete 07/02/25 13:10 Sputum Respiratory Culture - Final Complete Labs and/or images reviewed: Labs reviewed by me, Image(s) reviewed by me Assessment/Plan Assessment/Plan Neurology Acute metabolic encephalopathy likely from Heat stroke/ possible seizure/ severe hypothyroidism Severe hyperthermia likely from Heat Stroke h/o bipolar disorder h/o depression - On mechanical ventilation and sedated - Head CT showed no acute intracranial abnormality - sedation has been turned off with the patient is not responsive to voice commands, pupils equal and reactive, active gag reflex Cardiovascular Wide complex nonsustained Ventricular tachycardia s/p defibrillation Shock likely hypovolemic Moderate to severe aortic regurgitation Heart failure with reduced ejection fraction, no exacerbation NSTEMI likely type 2 - echocardiogram shows LVEF 40%, BNP < 300 - chest x-ray bilaterally shows no congestion - IV Lasix Nephrology TESFAYE on 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 Informed him that patient has been off sedation for more than 72 hours and is still not following Code status - full code Critical care time spent excluding procedures: 53 minutes Plan discussed with: Other Date of Service: Jul 08, 2025 Billing Provider: KAIDEN GAFFNEY MD Common Visit Codes: 54113-UUXARYRB CARE 30-74 MIN KAIDEN GAFFNEY MD Jul 08, 2025 10:22
--- NOTE | 2025-07-08 12:39 | DVHPN2 ---
Progress Note - Dictate Date Seen: Jul 08, 2025 Medical Necessity Reason Pt with a Central, PICC or Fol: Yes The following are medically ne: Central Line, James Catheter vital signs Vital Sign Date Time Temp Pulse Resp B/P (MAP) Pulse Ox O2 Delivery O2 Flow Rate FiO2 07/08/25 11:15 99.1 87 11 142/76 (98) 100 210.4 07/08/25 10:13 30 07/08/25 10:00 Mechanical Ventilator+ Total Intake and Output 07/07/25 07/07/25 07/08/25 15:00 23:00 07:00 Intake Total 500 ml 1138.5 ml 800 ml Output Total 2100 ml 1300 ml Balance 500 ml -961.5 ml -500 ml medications Current Medications Medications Dose Ordered Sig/Agnes Route Start Time Stop Time Status Last Admin Dose Admin Norepinephrine Bitartrate 250 ml @ 3.75 mls/hr Q24H IV 07/02/25 13:30 07/03/25 05:44 22.5 MLS/HR Cefepime HCl 50 ml @ 12.5 mls/hr DAILY@1700 IV 07/02/25 17:00 07/07/25 16:54 12.5 MLS/HR Pantoprazole Sodium 40 mg DAILY IV 07/04/25 10:00 07/08/25 09:03 40 MG Enteral Nutritional Formula 1,000 ml 30ML/HR GT 07/03/25 17:15 07/07/25 22:00 1,000 ML Doxycycline Hyclate 100 ml @ 50 mls/hr Q12H IV 07/05/25 10:00 07/08/25 09:05 50 MLS/HR Furosemide 40 mg DAILY IV 07/07/25 10:00 07/08/25 09:04 40 MG Purified Water 250 ml Q6HR GT 07/08/25 00:00 07/08/25 12:00 250 ML Levothyroxine Sodium 25 mcg QAM@0600 PO 07/08/25 06:00 07/08/25 05:38 25 MCG Levothyroxine Sodium 100 mcg QAM@0600 PO 07/08/25 06:00 07/08/25 05:37 100 MCG Artificial Tears 2 drop Q6HR PRN EACHEYE 07/07/25 20:00 07/08/25 08:58 2 DROP laboratory and microbiology Laboratory Tests 07/08/25 02:30 Test 07/08/25 02:30 Range/Units Serum Glucose 93 74-106 mg/dL Assessment/Plan Covering for Dr. Guzman Status post cardiac arrest Requiring CPR Acute hypoxemic respiratory failure Minimally conscious state A heat stroke Patient is seen and examined in the ICU Off sedation able to tolerate pressure support mode Not awake No meaningful responses Awaiting an EEG Suspected anoxic brain injury Labs and imaging studies reviewed BUN creatinine elevated Management plan Continue vent support Complete neurological workup Daily ABGs and x-rays Daily weaning trials Continue antibiotics Deescalate based on cultures Diuresis Monitor renal function Replace electrolytes GI prophylaxis or DVT prophylaxis Prognosis questionable Critical care time 35 minutes Dietary Evaluation Review Comments: 1. TF Vital high protein @50ml/hr (105g Protein 1200kcal and 1003ml free water) supporting 100% of pt's needs 2. Initial TF speed at 30ml/hr, increase 10ml Q6 hr until reaching full speed. 3. Reassess when pt is extubated. Expected Outcomes/Goals: catabolism prevention Plan discussed with: Other (rn) JUDE HALEY MD Jul 08, 2025 12:39
[2025-07-09] VITALS (107 sets, daily range): BP systolic 118–165; BP diastolic 60–113; PULSE 65–92; RESP 11–34; TEMP 97.5–99.5; O2SAT 90–100
[2025-07-09 03:47] LABS: Hematocrit 25.8 % (36.0-46.0); Hemoglobin 8.9 g/dL (12.2-16.2); Mean Corpuscular Hemoglobin 28.1 pg (28.0-32.0); Mean Corpuscular Volume 81.9 fL (80.0-100.0)
[2025-07-09 03:50] LABS: Anion Gap 11 (5-15); Carbon Dioxide 24 mmol/L (20-31)
[2025-07-09 03:52] LABS: Calcium 9.2 mg/dL (8.7-10.4)
[2025-07-09 03:56] LABS: BUN/Creatinine Ratio 13.1 (10.0-20.0); Glucose 93 mg/dL (74-106)
[2025-07-09 04:33] LABS: Blood Urea Nitrogen 35 mg/dL (9-23); Chloride 111 mmol/L (98-107); Potassium 3.3 mmol/L (3.5-5.1); Sodium 146 mmol/L (136-145)
[2025-07-09 06:06] LABS: Base Excess 0.2 mmol/L (-2.0-3.0)
[2025-07-09] MEDS: MAGNESIUM SULFATE 1GM/100ML 100 ML IV ONE (06:19)
[2025-07-09] MEDS: POTASSIUM CHL 20MEQ/100ML 100 ML IV ONE (06:19)
[2025-07-09 07:02] LABS: Anisocytosis Slight; Total Cells Counted 100.0 (100)
--- NOTE | 2025-07-09 11:12 | DVHPN2 ---
Subjective History of Present Illness 50-year-old female Patient presents for evaluation of altered mental status as noted by family members. On arrival of EMS the patient was noted to be in V- tach and unresponsive. Patient was emergently intubated in the field for airway protection. Currently she is sedated. No further history could be obtained at the moment. Past Medical History Thyroid and depression 07/06 Patient seen and examined at the bedside. No fever. Off Sedation and vasopressor support for 3 days today. Patient does not have any significant purposeful responds to voice commands. Neurology consult was placed 07/07: 07/08: 50-year-old female came in after seizure likely from a heat stroke. Had V-tach during EMS ride over to the hospital was V-tach and was shocked. Multiple psych meds. Today patient is on spontaneous breathing trial CPAP trial pressure 8/5, 30% O2. Vital signs stable. No vasopressors, drips include IV antibiotics and slow fluids good urine output appears euvolemic minimally following commands though. Neuro was consulted. We will continue present management as per primary team plan., enteral feeds are being held for CPAP trial. 07/09: Patient has been on CPAP trial for 3 days, not waking up, not responding or following commands. Has cough and gag reflex present, pupillary reflex present,. We will order head CT today. Neurology wants EEG. Patient on ventilator on spontaneous mode pressure support 8/5, 30% O2. Vital signs stable. Continuing enteral feeds. Drips include no vasopressors, repletion electrolytes. Continuing IV antibiotics for possible aspiration pneumonia. Reviewed: Care Plan Changes from previous H/P or p: No Changes General: Per HPI Objective Vitals Vital Signs Date Time Temp Pulse Resp B/P (MAP) Pulse Ox O2 Delivery O2 Flow Rate FiO2 07/09/25 10:00 17 99 Mechanical Ventilator+ 30 30 07/09/25 10:00 84 07/09/25 09:59 148/69 07/09/25 07:30 99.0 210.2 Intake/Output Intake and Output 07/09/25 07:00 Intake Total 1748 ml Output Total 3490 ml Balance -1742 ml Intake Oral 1000 ml IV Total 250 ml Tube Feeding 498 ml Output Urine Total 3400 ml Stool Total 90 ml # Bowel Movements 5 Exam Gen - no pallor, no icterus, no cyanosis, no edema . Skin - Patients skin is warm and dry. HEENT - normocephalic, atraumatic, dry mucous membranes. Right subconjunctival hemorrhage Neck - no JVD Pulmonary - B/L equal breath sounds, no rales, no wheezing, no stridor. cardiovascular - regular S1,S2 heard, no added sounds, no murmurs heard. peripheral pulses feeble radial 2+, pedal 2+. capillary refill normal 3 secs. GI - soft, nontender abdomen. Bowel sounds normoactive Neurological - Patient is sedated and on mechanical ventilation Extremities: Lower extremities stiff and knee hyperreflexia Medications Current Medications Medications Dose Ordered Sig/Agnes Route Start Time Stop Time Status Last Admin Dose Admin Norepinephrine Bitartrate 250 ml @ 3.75 mls/hr Q24H IV 07/02/25 13:30 07/03/25 05:44 22.5 MLS/HR Cefepime HCl 50 ml @ 12.5 mls/hr DAILY@1700 IV 07/02/25 17:00 07/08/25 18:43 12.5 MLS/HR Pantoprazole Sodium 40 mg DAILY IV 07/04/25 10:00 07/09/25 09:58 40 MG Enteral Nutritional Formula 1,000 ml 30ML/HR GT 07/03/25 17:15 07/08/25 22:18 1,000 ML Doxycycline Hyclate 100 ml @ 50 mls/hr Q12H IV 07/05/25 10:00 07/09/25 09:59 50 MLS/HR Furosemide 40 mg DAILY IV 07/07/25 10:00 07/09/25 09:59 40 MG Purified Water 250 ml Q6HR GT 07/08/25 00:00 07/09/25 06:20 250 ML Levothyroxine Sodium 25 mcg QAM@0600 PO 07/08/25 06:00 07/09/25 06:04 25 MCG Levothyroxine Sodium 100 mcg QAM@0600 PO 07/08/25 06:00 07/09/25 06:04 100 MCG Artificial Tears 2 drop Q6HR PRN EACHEYE 07/07/25 20:00 07/08/25 15:00 2 DROP Laboratory Results Laboratory Tests 07/09/25 03:15 Chemistry Test 07/09/25 03:15 Calcium Level 9.2 mg/dL (8.7-10.4) Urinalysis Test 07/03/25 14:40 Urine Color Yellow (Yellow) Urine Clarity Turbid (Clear) H Urine pH 6.5 (5.0-9.0) Urine Specific [place] 1.014 (1.001-1.035) Urine Protein 2+ (Negative) H Urine Ketones Negative (Negative) Urine Blood 3+ /uL (Negative) H Urine Nitrite Negative (Negative) Urine Bilirubin Negative (Negative) Urine Urobilinogen 2 mg/dL (Negative) H Urine Leukocyte Esterase Negative /uL (Negative) Urine RBC 100 /hpf (0 - 4) Urine Microscopic WBC 5 /HPF (0-5) Urine Squamous Epithelial Cells Mod /hpf (<5) Urine Amorphous Crystals Few /hpf (None Seen) Urine Bacteria None seen /hpf (None Seen) Urine Mucus Few (None Seen) Urine Glucose 1+ mg/dL (Normal) H Blood Gas Results Test 07/09/25 06:02 Arterial Blood pH 7.491 (7.350-7.450) FiO2 % 30.0 Microbiology Microbiology Date/Time Source Procedure Growth Status 07/06/25 12:08 Trachea Gram Stain - Final Resulted 07/06/25 12:08 Trachea Respiratory Culture - Preliminary Resulted 07/03/25 14:40 Urine - [place] Urine Culture - Final Escherichia coli Complete 07/02/25 13:19 Blood Blood Culture - Final NO GROWTH AFTER 5 DAYS OF INCUBATION. Complete 07/02/25 13:10 Sputum Gram Stain - Final Complete 07/02/25 13:10 Sputum Respiratory Culture - Final Complete Labs and/or images reviewed: Labs reviewed by me, Image(s) reviewed by me Assessment/Plan Assessment/Plan Neurology Acute metabolic encephalopathy likely from Heat stroke/ possible seizure/ severe hypothyroidism Severe hyperthermia likely from Heat Stroke h/o bipolar disorder h/o depression - On mechanical ventilation and sedated - Head CT showed no acute intracranial abnormality - sedation has been turned off with the patient is not responsive to voice commands, pupils equal and reactive, active gag reflex Cardiovascular Wide complex nonsustained Ventricular tachycardia s/p defibrillation Shock likely hypovolemic Moderate to severe aortic regurgitation Heart failure with reduced ejection fraction, no exacerbation NSTEMI likely type 2 - echocardiogram shows LVEF 40%, BNP < 300 - chest x-ray bilaterally shows no congestion - IV Lasix Nephrology TESFAYE on 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 Informed him that patient has been off sedation for more than 72 hours and is still not following Code status - full code Critical care time spent excluding procedures: 53 minutes Plan discussed with: Other My Orders Orders - KAIDEN GAFFNEY MD Procedure Category Date Status Time Head Without Contrast CT 07/09/25 Verified 11:08 Date of Service: Jul 09, 2025 Billing Provider: KAIDEN GAFFNEY MD Common Visit Codes: 07231-[id number] CARE 30-74 MIN KAIDEN GAFFNEY MD Jul 09, 2025 11:12
--- NOTE | 2025-07-09 14:18 | DVHPN2 ---
Progress Note - Dictate Date Seen: Jul 09, 2025 Medical Necessity Reason Pt with a Central, PICC or Fol: Yes The following are medically ne: Central Line, James Catheter Subjective Ms. Montes is a 48 years old female with a history of bipolar disorder, anxiety, depression, the patient was taken to the hospital on 07/02/2025 with a chief complaint of altered mental status. I saw her on 01/10/2024 for ALOC I have seen and examined the patient, I have discussed with her nurse, her eyes open, blinking and rolling from [id number], but she is not respond to verbal stimuli or visual thread, her extremities are extended, and she has posturing, with all extremities extended to stimuli. Today, her pupils are equal, right: 4 mm, left: 2-3 mm, both are reactive to lights CSF, 01/12/2024: C/C, WBC: 0, RBC: 0, protein: 36.1, glucose: 70 Urinalysis, 07/02/2025: Urine leukocyte esterase: 3+ Urine culture, 07/03/2025: E coli Blood culture, 07/03/2025: Negative UDS, 07/02/2025: Negative [place], 07/07/2025: ABG, 07/03/2025: Compensated metabolic acidosis, 07/07/2025: Compensated metabolic acidosis WBC/HB/PLT/MCV, 07/07/2025: 8.5/8.8/58/82.3 CK, 07/02/2025: 653, 07/04/2025: 1423, 07/22/2025: 693, 07/07/2025: 366 TG/HDL/LDL/HDL, 07/05/2025: 13/1.25/27 Ferritin 01/19/2024: 21.8 Chest x-ray, 07/02/2025: 1. Endotracheal tube 6.1 cm above the sylvia. 2. AED pads over the chest 3. Enteric tube position left diaphragm in the stomach CT head, 01/10/2024: No acute intracranial abnormality or significant interval change compared to 01/09/2024 CT head, 07/02/2025: No acute intracranial abnormality. CT chest, 01/09/2024: 1. Inferior left upper and lower lobe consolidation favored to reflect infectious/inflammatory etiology, possibly aspiration. 2. The endotracheal tube terminates in the right mainstem bronchus. 3. The enteric tube is in satisfactory position MRI head, 01/15/2024: No acute abnormal MRI findings of the brain MRI C-spine, 01/15/24: 1. Degenerative disc disease and facet/uncinate disease in the cervical spine with associated spinal canal, subarticular, and neural foraminal stenoses as detailed above. 2. 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 3. No signal abnormality in the spinal cord to suggest myelopathy. 4. Additional findings as detailed above vital signs Vital Sign Date Time Temp Pulse Resp B/P (MAP) Pulse Ox O2 Delivery O2 Flow Rate FiO2 07/09/25 14:00 30 07/09/25 14:00 17 96 Mechanical Ventilator+ 07/09/25 13:34 87 135/65 (88) 07/09/25 12:15 99.0 210.2 Total Intake and Output 07/08/25 07/08/25 07/09/25 15:00 23:00 07:00 Intake Total 100 ml 840 ml 808 ml Output Total 2480 ml 1010 ml Balance 100 ml -1640 ml -202 ml medications Current Medications Medications Dose Ordered Sig/Agnes Route Start Time Stop Time Status Last Admin Dose Admin Norepinephrine Bitartrate 250 ml @ 3.75 mls/hr Q24H IV 07/02/25 13:30 07/03/25 05:44 22.5 MLS/HR Cefepime HCl 50 ml @ 12.5 mls/hr DAILY@1700 IV 07/02/25 17:00 07/08/25 18:43 12.5 MLS/HR Pantoprazole Sodium 40 mg DAILY IV 07/04/25 10:00 07/09/25 09:58 40 MG Enteral Nutritional Formula 1,000 ml 30ML/HR GT 07/03/25 17:15 07/08/25 22:18 1,000 ML Doxycycline Hyclate 100 ml @ 50 mls/hr Q12H IV 07/05/25 10:00 07/09/25 09:59 50 MLS/HR Furosemide 40 mg DAILY IV 07/07/25 10:00 07/09/25 09:59 40 MG Purified Water 250 ml Q6HR GT 07/08/25 00:00 07/09/25 06:20 250 ML Levothyroxine Sodium 25 mcg QAM@0600 PO 07/08/25 06:00 07/09/25 06:04 25 MCG Levothyroxine Sodium 100 mcg QAM@0600 PO 07/08/25 06:00 07/09/25 06:04 100 MCG Artificial Tears 2 drop Q6HR PRN EACHEYE 07/07/25 20:00 07/08/25 15:00 2 DROP objective The patient is well-nourished and well-developed with no distress. The patient is intubated MENTAL STATUS: Subjective CRANIAL NERVES: Pupils are round and reactive.There is frequent blinking and occasional rolling eye movement. No signs of facial weakness. There are gagging or coughing reflexes SENSATION: Responses to pain stimuli. MOTOR: Normal tone in the upper and lower extremity. Normal muscle bulk. No fasciculations. No spontaneous movement. REFLEXES: Deep tendon reflexes are symmetrical. No pathological reflexes. CEREBELLAR/COORDINATION: Deferred GAIT/STATION: deferred. laboratory and microbiology Laboratory Tests 07/09/25 03:15 Test 07/09/25 03:15 Range/Units Serum Glucose 93 74-106 mg/dL Problem List Altered mental status Heat stroke Metabolic encephalopathy Hypoxic encephalopathy ? Vegetative status Respiratory failure Urinary tract infection Rule out sepsis Bipolar disorder, depression, anxiety Seizure disorder, with last seizure attack before 2017 Restless leg syndrome with low ferritin Assessment/Plan Monitoring Supportive treatment EEG ICU care Stabilize vitals Respiratory support/vent management IV antibiotics Oxygen DVT prophylaxis GI prophylaxis History from her when she wakes up More recommended per clinical course This medical document was created using an electronic medical record system with [employer] dictation system. Although this document has been carefully reviewed, there may still be some phonetic and typographical errors. These areas are purely typographical due to imperfections of the software programs, and do not reflect any compromise in the patient's medical care. Prognosis guarded Dietary Evaluation Review Comments: 1. TF Vital high protein @50ml/hr (105g Protein 1200kcal and 1003ml free water) supporting 100% of pt's needs 2. Initial TF speed at 30ml/hr, increase 10ml Q6 hr until reaching full speed. 3. Reassess when pt is extubated. Expected Outcomes/Goals: catabolism prevention Plan discussed with: Other Critical Care Time(min): 30 HORACIO MURPHY MD Jul 09, 2025 14:18
--- NOTE | 2025-07-09 14:32 | DVH ---
EXAM: CT HEAD WITHOUT CONTRAST INDICATION: Fail awakening trials TECHNIQUE: CT of the head without intravenous contrast. Radiation Dose Information: CT Dose: CTDI volume is 55.85 mGy. Dose-length product is 989.02 mGy*cm The dose indicators for CT are the volume Computed Tomography (CT) Dose Index (CTDIvol) and the Dose Length Product (DLP), and are measured in units of mGy and mGy-cm, respectively. These indicators are not patient dose, but values generated from the CT scanner acquisition factors. The report includes radiation exposure data for exposures received during this examination. COMPARISON: CT HEAD WITHOUT CONTRAST on DOS: 07/02/25 FINDINGS: There is no evidence of acute intracranial hemorrhage, extra-axial collection, mass effect, midline s hift, herniation or hydrocephalus. The ventricles, sulci and cisterns are age appropriate. The raines-white differentiation is intact. Patchy periventricular and subcortical white matter hypoattenuation is nonspecific but may be related to small vessel ischemic disease. The visualized paranasal sinuses and mastoid air cells are clear. The surrounding soft tissues and osseous structures are unremarkable. IMPRESSION: 1. No acute intracranial abnormality. HS:Y
--- NOTE | 2025-07-09 14:37 | DVHPN2 ---
Progress Note - Dictate Date Seen: Jul 09, 2025 Medical Necessity Reason Pt with a Central, PICC or Fol: Yes The following are medically ne: Central Line, James Catheter vital signs Vital Sign Date Time Temp Pulse Resp B/P (MAP) Pulse Ox O2 Delivery O2 Flow Rate FiO2 07/09/25 14:00 30 07/09/25 14:00 17 96 Mechanical Ventilator+ 07/09/25 13:34 87 135/65 (88) 07/09/25 12:15 99.0 210.2 Total Intake and Output 07/08/25 07/08/25 07/09/25 15:00 23:00 07:00 Intake Total 100 ml 840 ml 808 ml Output Total 2480 ml 1010 ml Balance 100 ml -1640 ml -202 ml medications Current Medications Medications Dose Ordered Sig/Agnes Route Start Time Stop Time Status Last Admin Dose Admin Norepinephrine Bitartrate 250 ml @ 3.75 mls/hr Q24H IV 07/02/25 13:30 07/03/25 05:44 22.5 MLS/HR Cefepime HCl 50 ml @ 12.5 mls/hr DAILY@1700 IV 07/02/25 17:00 07/08/25 18:43 12.5 MLS/HR Pantoprazole Sodium 40 mg DAILY IV 07/04/25 10:00 07/09/25 09:58 40 MG Enteral Nutritional Formula 1,000 ml 30ML/HR GT 07/03/25 17:15 07/08/25 22:18 1,000 ML Doxycycline Hyclate 100 ml @ 50 mls/hr Q12H IV 07/05/25 10:00 07/09/25 09:59 50 MLS/HR Furosemide 40 mg DAILY IV 07/07/25 10:00 07/09/25 09:59 40 MG Purified Water 250 ml Q6HR GT 07/08/25 00:00 07/09/25 06:20 250 ML Levothyroxine Sodium 25 mcg QAM@0600 PO 07/08/25 06:00 07/09/25 06:04 25 MCG Levothyroxine Sodium 100 mcg QAM@0600 PO 07/08/25 06:00 07/09/25 06:04 100 MCG Artificial Tears 2 drop Q6HR PRN EACHEYE 07/07/25 20:00 07/08/25 15:00 2 DROP laboratory and microbiology Laboratory Tests 07/09/25 03:15 Test 07/09/25 03:15 Range/Units Serum Glucose 93 74-106 mg/dL Assessment/Plan Covering for Dr. Guzman Status post cardiac arrest Requiring CPR Acute hypoxemic respiratory failure Minimally conscious state A heat stroke Patient is seen and examined in the ICU Off sedation able to tolerate pressure support mode Not awake No meaningful responses Suspected anoxic brain injury Labs and imaging studies reviewed Management plan Continue vent support Complete neurological workup Daily ABGs and x-rays Daily weaning trials Continue antibiotics Deescalate based on cultures Diuresis Monitor renal function Replace electrolytes GI prophylaxis or DVT prophylaxis Prognosis questionable Critical care time 35 minutes Dietary Evaluation Review Comments: 1. TF Vital high protein @50ml/hr (105g Protein 1200kcal and 1003ml free water) supporting 100% of pt's needs 2. Initial TF speed at 30ml/hr, increase 10ml Q6 hr until reaching full speed. 3. Reassess when pt is extubated. Expected Outcomes/Goals: catabolism prevention Plan discussed with: Other (Rn) JUDE HALEY MD Jul 09, 2025 14:37
--- NOTE | 2025-07-09 17:53 | DVH ---
CHEST RADIOGRAPH REASON FOR EXAM: ET TUBE PLACEMENT, DESATURATION COMPARISON: XY CHEST XRAY 1 VIEW on DOS: 07/08/25, XY CHEST XRAY 1 VIEW on DOS: 07/07/25, XY CHEST PORT ABLE on DOS: 07/06/25, XY CHEST XRAY 1 VIEW on DOS: 07/06/25, XY CHEST XRAY 1 VIEW on DOS: 07/05/25 TECHNIQUE: One view of the chest is provided FINDINGS: The cardiomediastinal silhouette is within normal limits for size. There is an endotracheal tube terminating approximately 4.8 cm from the sylvia. There is a right neck catheter with the tip projecting over the upper SVC. There is an enteric tube coursing below the diaphragm out of the field of view. There is no focal airspace disease. There is no significant pleural effusion. There is no pneumothorax. No acute osseous abnormality is identified. IMPRESSION: No focal airspace disease. Lines and tubes as described above.
[2025-07-10] VITALS (104 sets, daily range): BP systolic 99–166; BP diastolic 54–129; PULSE 49–98; RESP 9–32; TEMP 98.2–99.5; O2SAT 95–100
--- NOTE | 2025-07-10 01:21 | DVHEEG2 ---
Neurology EEG Procedural Note Procedural Note EXAM DATE: 07/09/2025 REFERRING DOCTOR: Dr. Murphy TECHNIQUE: Eighteen channels of EEG, 2 channels of EOG, and 1 channel of EKG were recorded using the [employer] 10/20 system. CLINICAL DATA: The patient was referred for an EEG evaluation for the evidence of seizure disorder. MEDICATIONS: See chart BACKGROUND ACTIVITY: There was significant amount of environmental and electrode artifacts in the recording, the EEG is, possibly, low-amplitude diffuse theta activity over both hemispheres that was reactive to external stimuli. ACTIVATION: Hyperventilation: Not done Photic Stimulation: Not done Sleep: Nonresponsiveness IMPRESSION: This is a abnormal EEG, this EEG seen in cerebral dysfunction due to metabolic/hypoxic encephalopathy or medication effects, please correlate clinically The EKG channel showed a regular heart rate of 84/[place] [address] HORACIO MURPHY MD Jul 10, 2025 01:21
[2025-07-10 04:07] LABS: Hematocrit 26.9 % (36.0-46.0); Hemoglobin 9.1 g/dL (12.2-16.2); Mean Corpuscular Hemoglobin 27.9 pg (28.0-32.0); Mean Corpuscular Volume 82.4 fL (80.0-100.0)
[2025-07-10 04:14] LABS: Anion Gap 11 (5-15); Carbon Dioxide 26 mmol/L (20-31); Chloride 107 mmol/L (98-107); Sodium 144 mmol/L (136-145)
[2025-07-10 04:15] LABS: Calcium 9.6 mg/dL (8.7-10.4)
[2025-07-10 04:20] LABS: BUN/Creatinine Ratio 16.8 (10.0-20.0)
[2025-07-10 04:21] LABS: Blood Urea Nitrogen 32 mg/dL (9-23); Glucose 115 mg/dL (74-106); Potassium 3.2 mmol/L (3.5-5.1)
[2025-07-10 04:56] LABS: Total Cells Counted 100.0 (100)
[2025-07-10] MEDS: POTASSIUM CHL 20MEQ/100ML 100 ML IV SCH (05:30)
[2025-07-10 07:17] LABS: Base Excess 0.2 mmol/L (-2.0-3.0)
--- NOTE | 2025-07-10 11:13 | DVHPN2 ---
Progress Note - Dictate Date Seen: Jul 10, 2025 Medical Necessity Reason Pt with a Central, PICC or Fol: Yes The following are medically ne: Central Line, James Catheter Subjective Ms. Montes is a 48 years old female with a history of bipolar disorder, anxiety, depression, the patient was taken to the hospital on 07/02/2025 with a chief complaint of altered mental status. I saw her on 01/10/2024 for ALOC I have seen and examined the patient, I have discussed with her nurse, her eyes open, blinking and rolling from [id number], but she is not respond to verbal stimuli, sudden loud noise or visual thread, her extremities are extended, and she has posturing, with all extremities extended to stimuli. Pupil size 07/09/25: right: 4 mm, left: 2-3 mm, both are reactive to lights (RN: The left- sided was bigger during the daytime yesterday) 07/10/2025: right: 4 mm, left: 2-3 mm, both are reactive to lights CSF, 01/12/2024: C/C, WBC: 0, RBC: 0, protein: 36.1, glucose: 70 Urinalysis, 07/02/2025: Urine leukocyte esterase: 3+ Urine culture, 07/03/2025: E coli Blood culture, 07/03/2025: Negative UDS, 07/02/2025: Negative [place], 07/07/2025: ABG, 07/03/2025: Compensated metabolic acidosis, 07/07/2025: Compensated metabolic acidosis WBC/HB/PLT/MCV, 07/07/2025: 8.5/8.8/58/82.3 CK, 07/02/2025: 653, 07/04/2025: 1423, 07/22/2025: 693, 07/07/2025: 366 TG/HDL/LDL/HDL, 07/05/2025: 13/1.25/27 Ferritin 01/19/2024: 21.8 Chest x-ray, 07/02/2025: 1. Endotracheal tube 6.1 cm above the sylvia. 2. AED pads over the chest 3. Enteric tube position left diaphragm in the stomach CT head, 01/10/2024: No acute intracranial abnormality or significant interval change compared to 01/09/2024 CT head, 07/02/2025: No acute intracranial abnormality. CT head, 07/10/2025: No acute intracranial abnormality CT chest, 01/09/2024: 1. Inferior left upper and lower lobe consolidation favored to reflect infectious/inflammatory etiology, possibly aspiration. 2. The endotracheal tube terminates in the right mainstem bronchus. 3. The enteric tube is in satisfactory position MRI head, 01/15/2024: No acute abnormal MRI findings of the brain MRI C-spine, 01/15/24: 1. Degenerative disc disease and facet/uncinate disease in the cervical spine with associated spinal canal, subarticular, and neural foraminal stenoses as detailed above. 2. 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 3. No signal abnormality in the spinal cord to suggest myelopathy. 4. Additional findings as detailed above vital signs Vital Sign Date Time Temp Pulse Resp B/P (MAP) Pulse Ox O2 Delivery O2 Flow Rate FiO2 07/10/25 10:24 99/71 07/10/25 10:00 76 07/10/25 10:00 30 07/10/25 10:00 21 100 Mechanical Ventilator+ 07/10/25 07:00 98.2 208.8 Total Intake and Output 07/09/25 07/09/25 07/10/25 15:00 23:00 07:00 Intake Total 100 ml 871.875 ml 923.438 ml Output Total 1700 ml 1500 ml Balance 100 ml -828.125 ml -576.562 ml medications Current Medications Medications Dose Ordered Sig/Agnes Route Start Time Stop Time Status Last Admin Dose Admin Norepinephrine Bitartrate 250 ml @ 3.75 mls/hr Q24H IV 07/02/25 13:30 07/03/25 05:44 22.5 MLS/HR Cefepime HCl 50 ml @ 12.5 mls/hr DAILY@1700 IV 07/02/25 17:00 07/09/25 17:28 12.5 MLS/HR Pantoprazole Sodium 40 mg DAILY IV 07/04/25 10:00 07/10/25 10:23 40 MG Enteral Nutritional Formula 1,000 ml 30ML/HR GT 07/03/25 17:15 07/08/25 22:18 1,000 ML Doxycycline Hyclate 100 ml @ 50 mls/hr Q12H IV 07/05/25 10:00 07/10/25 10:23 50 MLS/HR Furosemide 40 mg DAILY IV 07/07/25 10:00 07/10/25 10:24 40 MG Purified Water 250 ml Q6HR GT 07/08/25 00:00 07/10/25 06:21 250 ML Levothyroxine Sodium 25 mcg QAM@0600 PO 07/08/25 06:00 07/10/25 06:21 25 MCG Levothyroxine Sodium 100 mcg QAM@0600 PO 07/08/25 06:00 07/10/25 06:21 100 MCG Artificial Tears 2 drop Q6HR PRN EACHEYE 07/07/25 20:00 07/08/25 15:00 2 DROP objective The patient is well-nourished and well-developed with no distress. The patient is intubated MENTAL STATUS: Subjective CRANIAL NERVES: Pupils are round and reactive.There is frequent blinking and occasional rolling eye movement. No signs of facial weakness. There are gagging or coughing reflexes SENSATION: Responses to pain stimuli. MOTOR: Normal tone in the upper and lower extremity. Normal muscle bulk. No fasciculations. No spontaneous movement. REFLEXES: Deep tendon reflexes are symmetrical. No pathological reflexes. CEREBELLAR/COORDINATION: Deferred GAIT/STATION: deferred. laboratory and microbiology Laboratory Tests 07/10/25 03:15 Test 07/10/25 03:15 Range/Units Serum Glucose 115 H 74-106 mg/dL Problem List Altered mental status Heat stroke Metabolic encephalopathy Hypoxic encephalopathy ? Vegetative status Decerebration Respiratory failure Urinary tract infection Rule out sepsis Bipolar disorder, depression, anxiety Seizure disorder, with last seizure attack before 2018 Restless leg syndrome with low ferritin Assessment/Plan Monitoring Supportive treatment MRI head ICU care Stabilize vitals Respiratory support/vent management IV antibiotics Oxygen DVT prophylaxis GI prophylaxis History from her when she wakes up More recommended per clinical course This medical document was created using an electronic medical record system with [employer] system. Although this document has been carefully reviewed, there may still be some phonetic and typographical errors. These areas are purely typographical due to imperfections of the software programs, and do not reflect any compromise in the patient's medical care. Prognosis guarded Dietary Evaluation Review Comments: 1. TF Vital high protein @50ml/hr (105g Protein 1200kcal and 1003ml free water) supporting 100% of pt's needs 2. Initial TF speed at 30ml/hr, increase 10ml Q6 hr until reaching full speed. 3. Reassess when pt is extubated. Expected Outcomes/Goals: catabolism prevention Plan discussed with: Other HORACIO MURPHY MD Jul 10, 2025 11:13
--- NOTE | 2025-07-10 16:03 | DVH ---
CLINICAL HISTORY: Hypoxic encephalopathy TECHNIQUE: Routine multiplanar imaging of the brain was performed without gadolinium contrast. COMPARISON: CT HEAD WITHOUT CONTRAST on DOS: 07/09/25, CT HEAD WITHOUT CONTRAST on DOS: 07/02/25 FINDINGS: There is subtle increased DWI signal within the bilateral caudate head, bilateral anterior putamen, b ilateral medial temporal lobes, midbrain, and bilateral cerebellar hemispheres. There are scattered T2 hyperintense foci within the white matter both iqugmiut hemispheres, of doubtful clinical significance. There is no evidence for mass, mass effect, or extra-axial fluid collection. There is no hydrocephalu s or midline shift. The cerebral sulci and subarachnoid cisterns are not effaced. There are trace bilateral mastoid effusions. The globes are intact. The midline structures, including the corpus callosum, are unremarkable. The intracranial flow voids are maintained. IMPRESSION: Subtle increased DWI signal within the bilateral caudate head, anterior putamen, medial temporal lo bes, midbrain, and cerebellar hemispheres, concerning for early findings of hypoxic ischemic injury.
[2025-07-10] MEDS: MAGNESIUM SULFATE 1GM/100ML 100 ML IV ONE (16:05)
[2025-07-10] MEDS: LEVOTHYROXINE SODIUM 100 MCG/5 ML INJ IV ONE (16:06)
[2025-07-10] MEDS ORDERED: CEFEPIME 1GM/50ML 50 ML IV SCH (17:00)
--- NOTE | 2025-07-10 20:45 | DVHPNRES ---
Progress Note Date Seen: Jul 10, 2025 Resident Creating Document: ELIDIA MCGHEE RESIDENT Medical Necessity Reason Pt with a Central, PICC or Fol: Yes The following are medically ne: Central Line, James Catheter Subjective Review of Systems 07/10 Patient is seen and examined at the bedside. Patient opens her eyes spontaneously, has been off sedation for many days now. No purposeful response noted. Patient underwent MRI brain today which showed subtle increased DWI signal within the bilateral caudate head, anterior protamine, medial temporal lobes, midbrain and cerebellar hemispheres concerning for early findings of hypoxic ischemic injury. Elevated TSH following which IV levothyroxine was added Objective vital signs Vital Sign Date Time Temp Pulse Resp B/P (MAP) Pulse Ox O2 Delivery O2 Flow Rate FiO2 07/10/25 18:30 74 20 156/78 (104) 100 30 07/10/25 18:00 Mechanical Ventilator+ 07/10/25 16:01 98.4 98.4 Total Intake and Output 07/09/25 07/09/25 07/10/25 15:00 23:00 07:00 Intake Total 100 ml 871.875 ml 923.438 ml Output Total 1700 ml 1500 ml Balance 100 ml -828.125 ml -576.562 ml medications Current Medications Medications Dose Ordered Sig/Agnes Route Start Time Stop Time Status Last Admin Dose Admin Norepinephrine Bitartrate 250 ml @ 3.75 mls/hr Q24H IV 07/02/25 13:30 07/03/25 05:44 22.5 MLS/HR Pantoprazole Sodium 40 mg DAILY IV 07/04/25 10:00 07/10/25 10:23 40 MG Furosemide 40 mg DAILY IV 07/07/25 10:00 07/10/25 10:24 40 MG Levothyroxine Sodium 25 mcg QAM@0600 PO 07/08/25 06:00 07/10/25 06:21 25 MCG Levothyroxine Sodium 100 mcg QAM@0600 PO 07/08/25 06:00 07/10/25 06:21 100 MCG Artificial Tears 2 drop Q6HR PRN EACHEYE 07/07/25 20:00 07/10/25 16:24 2 DROP Enteral Nutritional Formula 1,000 ml 50ML/HR GT 07/10/25 13:30 Levothyroxine Sodium 100 mcg DAILY IV 07/11/25 10:00 Purified Water 250 ml Q8HR GT 07/10/25 22:00 Ceftriaxone Sodium 50 ml @ 100 mls/hr DAILY@09 IV 07/11/25 09:00 Examination Gen - no pallor, no icterus, no cyanosis, no edema . Skin - Patients skin is warm and dry. HEENT - normocephalic, atraumatic, dry mucous membranes. Right subconjunctival hemorrhage Neck - no JVD Pulmonary - B/L equal breath sounds, no rales, no wheezing, no stridor. cardiovascular - regular S1,S2 heard, no added sounds, no murmurs heard. peripheral pulses feeble radial 2+, pedal 2+. GI - soft, nontender abdomen. Bowel sounds normoactive Neurological - Patient on mechanical ventilation Extremities: Lower extremities stiff and knee hyperreflexia laboratory and microbiology Laboratory Tests 07/10/25 03:15 Test 07/10/25 03:15 Range/Units Serum Glucose 115 H 74-106 mg/dL Microbiology Date/Time Source Procedure Growth Status 07/06/25 12:08 Trachea Gram Stain - Final Resulted 07/06/25 12:08 Trachea Respiratory Culture - Preliminary Resulted 07/03/25 14:40 Urine - [place] Urine Culture - Final Escherichia coli Complete 07/02/25 13:19 Blood Blood Culture - Final NO GROWTH AFTER 5 DAYS OF INCUBATION. Complete 07/02/25 13:10 Sputum Gram Stain - Final Complete 07/02/25 13:10 Sputum Respiratory Culture - Final Complete Problem List/Assessment/Plan Problem List/Assessment/Plan Neurology Acute metabolic/hypoxic encephalopathy likely from Heat stroke/ possible seizure/ severe hypothyroidism Severe hyperthermia likely from Heat Stroke h/o bipolar disorder h/o depression - On mechanical ventilation - Head CT showed no acute intracranial abnormality - sedation has been turned off with the patient is not responsive to voice commands, pupils equal and reactive, active gag reflex - 07/10 MRI brain today which showed subtle increased DWI signal within the bilateral caudate head, anterior protamine, medial temporal lobes, midbrain and cerebellar hemispheres concerning for early findings of hypoxic ischemic injury. Elevated TSH following which IV levothyroxine was added Cardiovascular Wide complex nonsustained Ventricular tachycardia s/p defibrillation Shock likely hypovolemic Moderate to severe aortic regurgitation Heart failure with reduced ejection fraction, no exacerbation NSTEMI likely type 2 - echocardiogram shows LVEF 40%, BNP < 300 - chest x-ray bilaterally shows no congestion - IV Lasix Nephrology TESFAYE on CKD likely due to be VMN -kidney function and urine output improved Gastrointestinal Shock liver - LFTs improving - on feeding via NG tube Endocrinology Severe hypothyroidism - TSH 65 --> 95--> >150 - levothyroxine 125 GT - levothyroxine 100 mcg IV hematology Thrombocytopenia, improved - monitor platelets and any signs of bleeding - 1 bag of FFP given PUD prophylaxis: Protonix DVT prophylaxis: Held because of thrombocytopenia, on SCDs Right IJV CVC placed on 07/06 Intubated on 07/02 James's catheter inserted on 07/02 Goals of care discussed with the patient's son Danny. Code status - full code Critical care time spent excluding procedures: 66 minutes Case discussed with Dr. Campbell Plan discussed with: Son, Other (RN Jonatan) My Orders My Orders Orders - ELIDIA MCGHEE Procedure Category Date Status Time Abg W/ Co-Ox RT 07/10/25 Logged 06:00 Nutritional PHA 07/10/25 In Process Supplements (Vital 13:30 Free Water PHA 07/10/25 In Process 22:00 Ceftriaxone 1gm/50ml PHA 07/11/25 In Process D5w (Rocephin) 09:00 Complete Blood Count LAB 07/11/25 Verified 04:00 Comprehensive LAB 07/11/25 Verified Metabolic Panel 04:00 Magnesium LAB 07/11/25 Verified 04:00 Thyroid Stimulating LAB 07/11/25 Verified Hormone 04:00 Chest Xray 1 View XY 07/11/25 Logged 04:00 Abg W/ Co-Ox RT 07/11/25 Logged 04:00 Dietary Evaluation Review Comments: 1. TF Vital high protein @50ml/hr (105g Protein 1200kcal and 1003ml free water) supporting 100% of pt's needs 2. Initial TF speed at 30ml/hr, increase 10ml Q6 hr until reaching full speed. 3. Reassess when pt is extubated. Expected Outcomes/Goals: catabolism prevention Date of Service: Jul 10, 2025 Billing Provider: DARLING CAMPBELL MD Common Visit Codes: 25383-[id number] CARE 30-74 MIN ELIDIA MCGHEE Jul 10, 2025 20:45 DARLING CAMPBELL MD Jul 11, 2025 12:36
[2025-07-10] MEDS: FREE WATER GT SCH (21:48)
[2025-07-11] VITALS (91 sets, daily range): BP systolic 117–193; BP diastolic 60–129; PULSE 70–92; RESP 12–28; TEMP 97.2–99.9; O2SAT 94–100
[2025-07-11 03:42] LABS: Hematocrit 27.9 % (36.0-46.0); Hemoglobin 9.4 g/dL (12.2-16.2); Mean Corpuscular Hemoglobin 28.1 pg (28.0-32.0); Mean Corpuscular Volume 83.3 fL (80.0-100.0); Nucleated Red Blood Cells % 0.0 %
[2025-07-11 03:56] LABS: Albumin 4.2 g/dL (3.2-4.8); Alkaline Phosphatase 63 U/L (46-116); Anion Gap 12 (5-15); BUN/Creatinine Ratio 17.2 (10.0-20.0); Calcium 9.9 mg/dL (8.7-10.4); Carbon Dioxide 26 mmol/L (20-31); Glucose 95 mg/dL (74-106); Magnesium 2.0 mg/dL (1.6-2.6); Total Protein 6.4 g/dL (5.7-8.2)
[2025-07-11 03:57] LABS: Bilirubin, Total 0.4 mg/dL (0.2-1.0)
[2025-07-11 04:04] LABS: Alanine Aminotransferase 124 U/L (7-40); Blood Urea Nitrogen 25 mg/dL (9-23); Chloride 107 mmol/L (98-107); Potassium 3.4 mmol/L (3.5-5.1); Sodium 145 mmol/L (136-145)
--- NOTE | 2025-07-11 05:24 | DVH ---
CHEST RADIOGRAPH Indication: on vent Technique: Single frontal view of the chest was obtained COMPARISON: XY CHEST PORTABLE on DOS: 07/09/25, XY CHEST XRAY 1 VIEW on DOS: 07/08/25, XY CHEST XRAY 1 VIEW on DOS: 07/07/25, XY CHEST PORTABLE on DOS: 07/06/25, XY CHEST XRAY 1 VIEW on DOS: 07/06/25 FINDINGS: Lines and Tubes: Unchanged. Lungs: Clear Pleura: No effusion. No pneumothorax. Cardiomediastinal contours: Unremarkable Bones: Unremarkable IMPRESSION: 1. No acute disease. 2. Lines and tubes unchanged.
[2025-07-11 07:37] LABS: Base Excess 0.5 mmol/L (-2.0-3.0)
[2025-07-11] MEDS: LEVOTHYROXINE SODIUM 100 MCG/5 ML INJ IV SCH (09:31)
[2025-07-11] MEDS: POTASSIUM CHL 20MEQ/100ML 100 ML IV SCH (10:19)
--- NOTE | 2025-07-11 10:50 | DVHPN2 ---
Progress Note - Dictate Date Seen: Jul 11, 2025 Medical Necessity Reason Pt with a Central, PICC or Fol: Yes The following are medically ne: Central Line, James Catheter Subjective Ms. Montes is a 48 years old female with a history of bipolar disorder, anxiety, depression, the patient was taken to the hospital on 07/02/2025 with a chief complaint of altered mental status. I saw her on 01/10/2024 for ALOC I have seen and examined the patient, I have discussed with her nurse, her eyes are open, blinking and rolling from [id number], but she is not responsive to verbal stimuli, sudden loud noise or visual thread, her extremities are extended, with elevated muscle tone, and she has posturing, with all extremities extended to stimuli. Pupil size 07/09/25: right: 4 mm, left: 2-3 mm, both are reactive to lights (RN: The left- sided was bigger during the daytime yesterday) 07/10/2025: right: 4 mm, left: 2-3 mm, both are reactive to lights CSF, 01/12/2024: C/C, WBC: 0, RBC: 0, protein: 36.1, glucose: 70 Urinalysis, 07/02/2025: Urine leukocyte esterase: 3+ Urine culture, 07/03/2025: E coli Blood culture, 07/03/2025: Negative UDS, 07/02/2025: Negative [place], 07/07/2025: ABG, 07/03/2025: Compensated metabolic acidosis, 07/07/2025: Compensated metabolic acidosis WBC/HB/PLT/MCV, 07/07/2025: 8.5/8.8/58/82.3 CK, 07/02/2025: 653, 07/04/2025: 1423, 07/22/2025: 693, 07/07/2025: 366 TG/HDL/LDL/HDL, 07/05/2025: 13/1.25/27 Ferritin 01/19/2024: 21.8 Chest x-ray, 07/02/2025: 1. Endotracheal tube 6.1 cm above the sylvia. 2. AED pads over the chest 3. Enteric tube position left diaphragm in the stomach CT head, 01/10/2024: No acute intracranial abnormality or significant interval change compared to 01/09/2024 CT head, 07/02/2025: No acute intracranial abnormality. CT head, 07/10/2025: No acute intracranial abnormality CT chest, 01/09/2024: 1. Inferior left upper and lower lobe consolidation favored to reflect infectious/inflammatory etiology, possibly aspiration. 2. The endotracheal tube terminates in the right mainstem bronchus. 3. The enteric tube is in satisfactory position MRI head, 01/15/2024: No acute abnormal MRI findings of the brain MR head, 07/10/2025: Subtle increased DWI signal within the bilateral caudate head, anterior putamen, medial temporal lobes, midbrain, and cerebellar hemispheres, concerning for early findings of hypoxic ischemic injury MRI C-spine, 01/15/24: 1. Degenerative disc disease and facet/uncinate disease in the cervical spine with associated spinal canal, subarticular, and neural foraminal stenoses as detailed above. 2. 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 3. No signal abnormality in the spinal cord to suggest myelopathy. 4. Additional findings as detailed above vital signs Vital Sign Date Time Temp Pulse Resp B/P (MAP) Pulse Ox O2 Delivery O2 Flow Rate FiO2 07/11/25 09:57 82 19 151/86 (107) 99 30 07/11/25 08:31 98.6 209.5 07/11/25 08:00 Mechanical Ventilator+ Total Intake and Output 07/10/25 07/10/25 07/11/25 15:00 23:00 07:00 Intake Total 200 ml 650 ml 750 ml Output Total 650 ml Balance 200 ml 650 ml 100 ml medications Current Medications Medications Dose Ordered Sig/Agnes Route Start Time Stop Time Status Last Admin Dose Admin Norepinephrine Bitartrate 250 ml @ 3.75 mls/hr Q24H IV 07/02/25 13:30 07/03/25 05:44 22.5 MLS/HR Pantoprazole Sodium 40 mg DAILY IV 07/04/25 10:00 07/11/25 09:31 40 MG Furosemide 40 mg DAILY IV 07/07/25 10:00 07/11/25 09:31 40 MG Levothyroxine Sodium 25 mcg QAM@0600 PO 07/08/25 06:00 07/11/25 05:56 25 MCG Levothyroxine Sodium 100 mcg QAM@0600 PO 07/08/25 06:00 07/11/25 05:56 100 MCG Artificial Tears 2 drop Q6HR PRN EACHEYE 07/07/25 20:00 07/11/25 09:43 2 DROP Enteral Nutritional Formula 1,000 ml 50ML/HR GT 07/10/25 13:30 Levothyroxine Sodium 100 mcg DAILY IV 07/11/25 10:00 07/11/25 09:31 100 MCG Purified Water 250 ml Q8HR GT 07/10/25 22:00 07/11/25 05:56 250 ML Ceftriaxone Sodium 50 ml @ 100 mls/hr DAILY@09 IV 07/11/25 09:00 07/11/25 08:50 100 MLS/HR Micafungin Sodium 100 mg/Sodium Chloride 100 ml @ 100 mls/hr DAILY IV 07/11/25 10:00 Potassium Chloride 100 ml @ 50 mls/hr Q2H IV 07/11/25 09:00 07/11/25 12:59 07/11/25 10:19 50 MLS/HR objective The patient is well-nourished and well-developed with no distress. The patient is intubated MENTAL STATUS: Subjective CRANIAL NERVES: Pupils are round and reactive.There is frequent blinking and occasional rolling eye movement. No signs of facial weakness. There are gagging or coughing reflexes SENSATION: Responses to pain stimuli. MOTOR: Normal tone in the upper and lower extremity. Normal muscle bulk. No fasciculations. No spontaneous movement except for posturing. REFLEXES: Deep tendon reflexes are symmetrical. No pathological reflexes. CEREBELLAR/COORDINATION: Deferred GAIT/STATION: deferred. laboratory and microbiology Laboratory Tests 07/11/25 02:53 Test 07/11/25 02:53 Range/Units Serum Glucose 95 74-106 mg/dL Problem List Altered mental status Heat stroke Metabolic encephalopathy Hypoxic encephalopathy ? Vegetative status Decerebration Respiratory failure Urinary tract infection Rule out sepsis Bipolar disorder, depression, anxiety Seizure disorder, with last seizure attack before 2018 Restless leg syndrome with low ferritin Assessment/Plan Monitoring Supportive treatment ICU care Stabilize vitals Respiratory support/vent management IV antibiotics Oxygen DVT prophylaxis GI prophylaxis History from her when she wakes up More recommended per clinical course This medical document was created using an electronic medical record system with [employer] dictation system. Although this document has been carefully reviewed, there may still be some phonetic and typographical errors. These areas are purely typographical due to imperfections of the software programs, and do not reflect any compromise in the patient's medical care. Prognosis Guarded Dietary Evaluation Review Comments: 1. TF Vital high protein @50ml/hr (105g Protein 1200kcal and 1003ml free water) supporting 100% of pt's needs 2. Initial TF speed at 30ml/hr, increase 10ml Q6 hr until reaching full speed. 3. Reassess when pt is extubated. Expected Outcomes/Goals: catabolism prevention Plan discussed with: Other HORACIO MURPHY MD Jul 11, 2025 10:50
[2025-07-11] MEDS: MICAFUNGIN SODIUM 100 MG in SODIUM CHL 0.9% 100 ML IV SCH (12:21)
--- NOTE | 2025-07-11 17:50 | DVHPNRES ---
Progress Note Date Seen: Jul 11, 2025 Resident Creating Document: ELIDIA MCGHEE RESIDENT Medical Necessity Reason Pt with a Central, PICC or Fol: Yes The following are medically ne: Central Line, James Catheter Subjective Review of Systems 07/11 Patient is seen and examined at the bedside. Patient has a open, blinking and rolling from [id number] but no responds to verbal stimulation, sudden loud noise, has been off sedation for many days now. No purposeful response noted. Patient underwent MRI brain today which showed subtle increased DWI signal within the bilateral caudate head, anterior protamine, medial temporal lobes, midbrain and cerebellar hemispheres concerning for early findings of hypoxic ischemic injury. Patient possibly in vegetative state Objective vital signs Vital Sign Date Time Temp Pulse Resp B/P (MAP) Pulse Ox O2 Delivery O2 Flow Rate FiO2 07/11/25 16:13 88 19 139/70 (93) 100 30 07/11/25 16:00 Mechanical Ventilator+ 07/11/25 13:45 99.1 210.4 Total Intake and Output 07/10/25 07/10/25 07/11/25 15:00 23:00 07:00 Intake Total 200 ml 650 ml 750 ml Output Total 650 ml Balance 200 ml 650 ml 100 ml medications Current Medications Medications Dose Ordered Sig/Agnes Route Start Time Stop Time Status Last Admin Dose Admin Norepinephrine Bitartrate 250 ml @ 3.75 mls/hr Q24H IV 07/02/25 13:30 07/03/25 05:44 22.5 MLS/HR Pantoprazole Sodium 40 mg DAILY IV 07/04/25 10:00 07/11/25 09:31 40 MG Furosemide 40 mg DAILY IV 07/07/25 10:00 07/11/25 09:31 40 MG Levothyroxine Sodium 25 mcg QAM@0600 PO 07/08/25 06:00 07/11/25 05:56 25 MCG Levothyroxine Sodium 100 mcg QAM@0600 PO 07/08/25 06:00 07/11/25 05:56 100 MCG Artificial Tears 2 drop Q6HR PRN EACHEYE 07/07/25 20:00 07/11/25 09:43 2 DROP Enteral Nutritional Formula 1,000 ml 50ML/HR GT 07/10/25 13:30 Levothyroxine Sodium 100 mcg DAILY IV 07/11/25 10:00 07/11/25 09:31 100 MCG Purified Water 250 ml Q8HR GT 07/10/25 22:00 07/11/25 16:57 250 ML Ceftriaxone Sodium 50 ml @ 100 mls/hr DAILY@09 IV 07/11/25 09:00 07/11/25 08:50 100 MLS/HR Micafungin Sodium 100 mg/Sodium Chloride 100 ml @ 100 mls/hr DAILY IV 07/11/25 10:00 07/11/25 12:21 100 MLS/HR Examination Gen - no pallor, no icterus, no cyanosis, no edema . Skin - Patients skin is warm and dry. HEENT - normocephalic, atraumatic, dry mucous membranes. Right subconjunctival hemorrhage Neck - no JVD Pulmonary - B/L equal breath sounds, no rales, no wheezing, no stridor. cardiovascular - regular S1,S2 heard, no added sounds, no murmurs heard. peripheral pulses feeble radial 2+, pedal 2+. GI - soft, nontender abdomen. Bowel sounds normoactive Neurological - Patient on mechanical ventilation Extremities: Decerebrate posturing, eyes open but no response to verbal stimulation or sudden loud noise laboratory and microbiology Laboratory Tests 07/11/25 02:53 Test 07/11/25 02:53 Range/Units Serum Glucose 95 74-106 mg/dL Microbiology Date/Time Source Procedure Growth Status 07/06/25 12:08 Trachea Gram Stain - Final Resulted 07/06/25 12:08 Trachea Respiratory Culture - Preliminary Resulted 07/03/25 14:40 Urine - [place] Urine Culture - Final Escherichia coli Complete 07/02/25 13:19 Blood Blood Culture - Final NO GROWTH AFTER 5 DAYS OF INCUBATION. Complete 07/02/25 13:10 Sputum Gram Stain - Final Complete 07/02/25 13:10 Sputum Respiratory Culture - Final Complete Problem List/Assessment/Plan Problem List/Assessment/Plan Neurology Acute metabolic/hypoxic encephalopathy likely from Heat stroke/ possible seizure/ severe hypothyroidism Severe hyperthermia likely from Heat Stroke h/o bipolar disorder h/o depression Possible vegetative state - On mechanical ventilation - Head CT showed no acute intracranial abnormality - sedation has been turned off with the patient is not responsive to voice commands, pupils equal and reactive, active gag reflex - 07/10 MRI brain today which showed subtle increased DWI signal within the bilateral caudate head, anterior protamine, medial temporal lobes, midbrain and cerebellar hemispheres concerning for early findings of hypoxic ischemic injury. Elevated TSH following which IV levothyroxine was added Cardiovascular Wide complex nonsustained Ventricular tachycardia s/p defibrillation Shock likely hypovolemic Moderate to severe aortic regurgitation Heart failure with reduced ejection fraction, no exacerbation NSTEMI likely type 2 - echocardiogram shows LVEF 40%, BNP < 300 - chest x-ray bilaterally shows no congestion - IV Lasix Nephrology TESFAYE on CKD likely due to be VMN -kidney function and urine output improved Gastrointestinal Shock liver - LFTs improving - on feeding via NG tube Endocrinology Severe hypothyroidism - TSH 65 --> 95--> >150 - levothyroxine 125 GT - levothyroxine 100 mcg IV hematology Thrombocytopenia, improved - monitor platelets and any signs of bleeding - 1 bag of FFP given PUD prophylaxis: Protonix DVT prophylaxis: Held because of thrombocytopenia, on SCDs Right IJV CVC placed on 07/06 Intubated on 07/02 James's catheter inserted on 07/02 Goals of care discussed with the patient's son Danny who is the decision maker. He is made aware of the possible vegetative state patient is in as she is not responding to verbal commands while being off sedation for many days. A wants to wait for another day and if the patient is not following commands, he would like to go ahead with a tracheostomy and a PEG tube placement. Code status - full code Critical care time spent excluding procedures: 64 minutes Case discussed with Dr. Campbell Plan discussed with: Son, Other (RN Jonatan) My Orders My Orders Orders - ELIDIA MCGHEE RESIDENT Procedure Category Date Status Time Free Water PHA 07/10/25 In Process 22:00 Ceftriaxone 1gm/50ml PHA 07/11/25 In Process D5w (Rocephin) 09:00 Chest Xray 1 View XY 07/11/25 Resulted 04:00 Abg W/ Co-Ox RT 07/11/25 Logged 04:00 Micafungin Sodium PHA 07/11/25 In Process (Mycamine) 10:00 Dietary Evaluation Review Comments: 1. TF Vital high protein @50ml/hr (105g Protein 1200kcal and 1003ml free water) supporting 100% of pt's needs 2. Initial TF speed at 30ml/hr, increase 10ml Q6 hr until reaching full speed. 3. Reassess when pt is extubated. Expected Outcomes/Goals: catabolism prevention Date of Service: Jul 11, 2025 Billing Provider: DARLING CAMPBELL MD Common Visit Codes: [id number] CARE 30-74 MIN ELIDIA MCGHEE RESIDENT Jul 11, 2025 17:50 DARLING CAMPBELL MD Jul 12, 2025 11:52
[2025-07-12] VITALS (76 sets, daily range): BP systolic 109–176; BP diastolic 64–131; PULSE 68–94; RESP 14–27; TEMP 92.3–99.9; O2SAT 95–100
[2025-07-12 06:51] LABS: Base Excess 4.5 mmol/L (-2.0-3.0)
[2025-07-12 10:21] LABS: Hematocrit 30.4 % (36.0-46.0); Hemoglobin 10.0 g/dL (12.2-16.2); Mean Corpuscular Hemoglobin 27.7 pg (28.0-32.0); Mean Corpuscular Volume 84.2 fL (80.0-100.0); Nucleated Red Blood Cells % 0.1 %
--- NOTE | 2025-07-12 10:30 | DVHPN2 ---
Progress Note - Dictate Date Seen: Jul 12, 2025 Medical Necessity Reason Pt with a Central, PICC or Fol: Yes The following are medically ne: Central Line, James Catheter Subjective Ms. Montes is a 48 years old female with a history of bipolar disorder, anxiety, depression, the patient was taken to the hospital on 07/02/2025 with a chief complaint of altered mental status. I saw her on 01/10/2024 for ALOC I have seen and examined the patient, I have discussed with her nurse, and her son, her eyes are open, blinking and rolling from [id number], but she is not responsive to verbal stimuli, sudden loud noise or visual thread, her extremities are extended, with elevated muscle tone, and she has posturing, with all extremities extended to stimuli. Pupil size 07/09/25: right: 4 mm, left: 2-3 mm, both are reactive to lights (RN: The left- sided was bigger during the daytime yesterday) 07/10/2025: right: 4 mm, left: 2-3 mm, both are reactive to lights 07/12/2025: right: 3 mm, left: 2-3 mm, both are reactive to lights CSF, 01/12/2024: C/C, WBC: 0, RBC: 0, protein: 36.1, glucose: 70 Urinalysis, 07/02/2025: Urine leukocyte esterase: 3+ Urine culture, 07/03/2025: E coli Blood culture, 07/03/2025: Negative UDS, 07/02/2025: Negative [place], 07/07/2025: ABG, 07/03/2025: Compensated metabolic acidosis, 07/07/2025: Compensated metabolic acidosis WBC/HB/PLT/MCV, 07/07/2025: 8.5/8.8/58/82.3 CK, 07/02/2025: 653, 07/04/2025: 1423, 07/22/2025: 693, 07/07/2025: 366 TG/HDL/LDL/HDL, 07/05/2025: 13/1./27 Ferritin 01/19/2024: 21.8 Chest x-ray, 07/02/2025: 1. Endotracheal tube 6.1 cm above the sylvia. 2. AED pads over the chest 3. Enteric tube position left diaphragm in the stomach CT head, 01/10/2024: No acute intracranial abnormality or significant interval change compared to 01/09/2024 CT head, 07/02/2025: No acute intracranial abnormality. CT head, 07/10/2025: No acute intracranial abnormality CT chest, 01/09/2024: 1. Inferior left upper and lower lobe consolidation favored to reflect infectious/inflammatory etiology, possibly aspiration. 2. The endotracheal tube terminates in the right mainstem bronchus. 3. The enteric tube is in satisfactory position MRI head, 01/15/2024: No acute abnormal MRI findings of the brain MR head, 07/10/2025: Subtle increased DWI signal within the bilateral caudate head, anterior putamen, medial temporal lobes, midbrain, and cerebellar hemispheres, concerning for early findings of hypoxic ischemic injury MRI C-spine, 01/15/24: 1. Degenerative disc disease and facet/uncinate disease in the cervical spine with associated spinal canal, subarticular, and neural foraminal stenoses as detailed above. 2. 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 3. No signal abnormality in the spinal cord to suggest myelopathy. 4. Additional findings as detailed above vital signs Vital Sign Date Time Temp Pulse Resp B/P (MAP) Pulse Ox O2 Delivery O2 Flow Rate FiO2 07/12/25 10:10 73 24 146/74 (98) 99 30 07/12/25 08:16 99.0 210.2 07/12/25 08:00 Mechanical Ventilator+ Total Intake and Output 07/11/25 07/11/25 07/12/25 15:00 23:00 07:00 Intake Total 400 ml 1000 ml 800 ml Output Total 1850 ml 650 ml Balance 400 ml -850 ml 150 ml medications Current Medications Medications Dose Ordered Sig/Agnes Route Start Time Stop Time Status Last Admin Dose Admin Norepinephrine Bitartrate 250 ml @ 3.75 mls/hr Q24H IV 07/02/25 13:30 07/03/25 05:44 22.5 MLS/HR Pantoprazole Sodium 40 mg DAILY IV 07/04/25 10:00 07/11/25 09:31 40 MG Furosemide 40 mg DAILY IV 07/07/25 10:00 07/11/25 09:31 40 MG Levothyroxine Sodium 25 mcg QAM@0600 PO 07/08/25 06:00 07/12/25 05:36 25 MCG Levothyroxine Sodium 100 mcg QAM@0600 PO 07/08/25 06:00 07/12/25 05:36 100 MCG Artificial Tears 2 drop Q6HR PRN EACHEYE 07/07/25 20:00 07/12/25 05:26 2 DROP Enteral Nutritional Formula 1,000 ml 50ML/HR GT 07/10/25 13:30 Levothyroxine Sodium 100 mcg DAILY IV 07/11/25 10:00 07/11/25 09:31 100 MCG Purified Water 250 ml Q8HR GT 07/10/25 22:00 07/12/25 05:26 250 ML Ceftriaxone Sodium 50 ml @ 100 mls/hr DAILY@09 IV 07/11/25 09:00 07/11/25 08:50 100 MLS/HR Micafungin Sodium 100 mg/Sodium Chloride 100 ml @ 100 mls/hr DAILY IV 07/11/25 10:00 07/11/25 12:21 100 MLS/HR objective The patient is well-nourished and well-developed with no distress. The patient is intubated MENTAL STATUS: Subjective CRANIAL NERVES: Pupils are round and reactive.There is frequent blinking and occasional rolling eye movement. No signs of facial weakness. There are gagging or coughing reflexes SENSATION: Responses to pain stimuli. MOTOR: Elevated tone in the upper and lower extremity. Normal muscle bulk. No fasciculations. No spontaneous movement except for posturing. REFLEXES: Deep tendon reflexes are symmetrical. No pathological reflexes. CEREBELLAR/COORDINATION: Deferred GAIT/STATION: deferred. laboratory and microbiology Laboratory Tests 07/12/25 10:00 Test 07/12/25 10:00 Range/Units Serum Glucose Pending Problem List Altered mental status Heat stroke Metabolic encephalopathy Hypoxic encephalopathy ? Vegetative status Decerebration Respiratory failure Urinary tract infection Rule out sepsis Bipolar disorder, depression, anxiety Seizure disorder, with last seizure attack before 2018 Restless leg syndrome with low ferritin Assessment/Plan Monitoring Supportive treatment ICU care Stabilize vitals Respiratory support/vent management IV antibiotics Oxygen DVT prophylaxis GI prophylaxis History from her when she wakes up More recommended per clinical course She is likely to have a poor prognosis for meaning recovery This medical document was created using an electronic medical record system with [employer] dictation system. Although this document has been carefully reviewed, there may still be some phonetic and typographical errors. These areas are purely typographical due to imperfections of the software programs, and do not reflect any compromise in the patient's medical care. Prognosis Guarded Dietary Evaluation Review Comments: 1. TF Vital high protein @50ml/hr (105g Protein 1200kcal and 1003ml free water) supporting 100% of pt's needs 2. Initial TF speed at 30ml/hr, increase 10ml Q6 hr until reaching full speed. 3. Reassess when pt is extubated. Expected Outcomes/Goals: catabolism prevention Plan discussed with: Son, Other Critical Care Time(min): 30 HORACIO MURPHY MD Jul 12, 2025 10:30
[2025-07-12 10:42] LABS: Albumin 4.4 g/dL (3.2-4.8); Alkaline Phosphatase 63 U/L (46-116); Anion Gap 11 (5-15); BUN/Creatinine Ratio 26.8 (10.0-20.0); Bilirubin, Total 0.4 mg/dL (0.2-1.0); Calcium 9.7 mg/dL (8.7-10.4); Carbon Dioxide 27 mmol/L (20-31); Chloride 106 mmol/L (98-107); Glucose 102 mg/dL (74-106); Potassium 4.0 mmol/L (3.5-5.1); Sodium 144 mmol/L (136-145); Total Protein 6.3 g/dL (5.7-8.2)
[2025-07-12 10:44] LABS: Alanine Aminotransferase 100 U/L (7-40); Blood Urea Nitrogen 30 mg/dL (9-23)
[2025-07-12 14:39] LABS: INR 1.05 (0.9-1.15); Partial Thromboplastin Time 24.4 SEC (24.5-34.5); Prothrombin Time 11.1 sec (9.3-11.8)
--- NOTE | 2025-07-12 16:37 | DVHPNRES ---
Progress Note Date Seen: Jul 12, 2025 Resident Creating Document: JHAJELIDIA Patterson RESIDENT Medical Necessity Reason Pt with a Central, PICC or Fol: Yes The following are medically ne: Central Line, James Catheter Subjective Review of Systems 07/12 Patient is seen and examined at the bedside. Patient has a open, blinking and rolling from [id number] but no responds to verbal stimulation, sudden loud noise, has been off sedation for many days now. No purposeful response noted. Objective vital signs Vital Sign Date Time Temp Pulse Resp B/P (MAP) Pulse Ox O2 Delivery O2 Flow Rate FiO2 07/12/25 16:00 30 07/12/25 16:00 26 99 Mechanical Ventilator+ 07/12/25 16:00 89 07/12/25 15:29 150/71 (97) 07/12/25 14:30 99.0 210.2 Total Intake and Output 07/11/25 07/11/25 07/12/25 15:00 23:00 07:00 Intake Total 400 ml 1000 ml 800 ml Output Total 1850 ml 650 ml Balance 400 ml -850 ml 150 ml medications Current Medications Medications Dose Ordered Sig/Agnes Route Start Time Stop Time Status Last Admin Dose Admin Pantoprazole Sodium 40 mg DAILY IV 07/04/25 10:00 07/12/25 11:17 40 MG Artificial Tears 2 drop Q6HR PRN EACHEYE 07/07/25 20:00 07/12/25 05:26 2 DROP Enteral Nutritional Formula 1,000 ml 50ML/HR GT 07/10/25 13:30 Levothyroxine Sodium 100 mcg DAILY IV 07/11/25 10:00 07/12/25 11:17 100 MCG Purified Water 250 ml Q8HR GT 07/10/25 22:00 07/12/25 14:00 250 ML Ceftriaxone Sodium 50 ml @ 100 mls/hr DAILY@09 IV 07/11/25 09:00 07/12/25 09:00 100 MLS/HR Micafungin Sodium 100 mg/Sodium Chloride 100 ml @ 100 mls/hr DAILY IV 07/11/25 10:00 07/12/25 11:17 100 MLS/HR Patient Own Medication 1 DAILY PO 07/13/25 10:00 Examination Gen - no pallor, no icterus, no cyanosis, no edema . Skin - Patients skin is warm and dry. HEENT - normocephalic, atraumatic, dry mucous membranes. Right subconjunctival hemorrhage Neck - no JVD Pulmonary - B/L equal breath sounds, no rales, no wheezing, no stridor. cardiovascular - regular S1,S2 heard, no added sounds, no murmurs heard. peripheral pulses feeble radial 2+, pedal 2+. GI - soft, nontender abdomen. Bowel sounds normoactive Neurological - Patient on mechanical ventilation Extremities: Decerebrate posturing, eyes open but no response to verbal stimulation or sudden loud noise laboratory and microbiology Laboratory Tests 07/12/25 10:00 Test 07/12/25 10:00 Range/Units Serum Glucose 102 74-106 mg/dL Microbiology Date/Time Source Procedure Growth Status 07/06/25 12:08 Trachea Gram Stain - Final Resulted 07/06/25 12:08 Trachea Respiratory Culture - Preliminary Resulted 07/03/25 14:40 Urine - [place] Urine Culture - Final Escherichia coli Complete 07/02/25 13:19 Blood Blood Culture - Final NO GROWTH AFTER 5 DAYS OF INCUBATION. Complete 07/02/25 13:10 Sputum Gram Stain - Final Complete 07/02/25 13:10 Sputum Respiratory Culture - Final Complete Problem List/Assessment/Plan Problem List/Assessment/Plan Neurology Acute metabolic/hypoxic encephalopathy likely from Heat stroke/ possible seizure/ severe hypothyroidism Severe hyperthermia likely from Heat Stroke h/o bipolar disorder h/o depression Possible vegetative state - On mechanical ventilation - Head CT showed no acute intracranial abnormality - sedation has been turned off with the patient is not responsive to voice commands, pupils equal and reactive, active gag reflex - 07/10 MRI brain today which showed subtle increased DWI signal within the bilateral caudate head, anterior protamine, medial temporal lobes, midbrain and cerebellar hemispheres concerning for early findings of hypoxic ischemic injury. Elevated TSH following which IV levothyroxine was added Cardiovascular Wide complex nonsustained Ventricular tachycardia s/p defibrillation Shock likely hypovolemic Moderate to severe aortic regurgitation Heart failure with reduced ejection fraction, no exacerbation NSTEMI likely type 2 - echocardiogram shows LVEF 40%, BNP < 300 - chest x-ray bilaterally shows no congestion Nephrology TESFAYE on CKD likely due to be VMN -kidney function and urine output improved Gastrointestinal Shock liver - LFTs improving - on feeding via NG tube Endocrinology Severe hypothyroidism - TSH 65 --> 95--> >150 - levothyroxine 100 mcg IV - endocrinology consulted, added liothyronine 5 mcg daily - monitor daily T3, T4 hematology Thrombocytopenia, improved - monitor platelets and any signs of bleeding - 1 bag of FFP given PUD prophylaxis: Protonix DVT prophylaxis: Held because of thrombocytopenia, on SCDs Intubated on 07/02 James's catheter inserted on 07/02 Goals of care discussed with the patient's son Keena at bedside. Patient is going to undergo tracheostomy tube placement tomorrow. Code status - full code Critical care time spent excluding procedures: 66 minutes Case discussed with Dr. Campbell Plan discussed with: Son, Other (RN Diane) My Orders My Orders Orders - ELIDIA MCGHEE Procedure Category Date Status Time Abg W/ Co-Ox RT 07/12/25 Logged 06:00 Dietary Evaluation Review Comments: 1. TF Vital high protein @50ml/hr (105g Protein 1200kcal and 1003ml free water) supporting 100% of pt's needs 2. Initial TF speed at 30ml/hr, increase 10ml Q6 hr until reaching full speed. 3. Reassess when pt is extubated. Expected Outcomes/Goals: catabolism prevention Date of Service: Jul 12, 2025 Billing Provider: DARLING CAMPBELL MD Common Visit Codes: [id number] CARE 30-74 MIN ELIDIA MCGHEE Jul 12, 2025 16:37 DARLING CAMPBELL MD Jul 13, 2025 11:02
--- NOTE | 2025-07-12 16:40 | DVHCONRES ---
Date Seen: Jul 12, 2025 Resident Creating Document: REG TREVIÑO RESIDENT Referring Physician Dr. Guzman Reason for Consultation Severe hypothyroidism History of Present Illness This is a 50-year-old female who was brought in to the hospital by EMS with chief complain of altered mental status. EMS was called into the patient's house by her son, she was found unresponsive in her bedroom, she was altered. Per EMS patient was on ventricular tachycardia ranging in the 180s, she was hyperpyrexia at 108 F. patient's rhythm raised up to the 200s, she was given two doses of lidocaine and she was also shocked twice at 200 joules with no change in the rhythm. Patient was intubated in the field. On arrival to the ED, she was placed on IV amiodarone. She was also started on IV fluids, cooling measures, central line was placed. Patient was also started on broad-spectrum antibiotics, for UTI. Patient sta rted developing low blood pressures and she was placed on Levophed. An initial head CT was unremarkable for any acute neurologic condition. Patient's initial blood work ulcers show an TESFAYE, transaminitis, lactic acidosis, elevated troponins at 3:26 a.m., elevated creatinine kinase at 653. Patient's TSH on admission was 65, next day free T4 was 0.57, total T3 was 0.35. Cortisol on 2nd day of admission at 3:00 a.m. was 23. Patient's troponins kept rising up, cardiology was consulted, it was determined the patient has had NSTEMI. Lactic acid continued to trend down and liver enzymes started trending up. BNP was 297. Patient's electrolytes has been stable throughout the hospitalization just with some episodes of hypokalemia and hypomagnesemia. Kidney function has been improving in the last couple of days. Liver enzyme and also trending down significantly. Her patient's TSH has been more than 150 for the last two days. We got consulted for severe hypothyroidism. Past medical history: Bipolar disorder, anxiety, depression, remote history of seizure disorder, hypothyroidism, questionable schizoaffective disorder per EMR Surgical history: Social history: Patient lives alone. Her family members deny alcohol use, drug use or smoking. Home medications: As per EMR, patient takes lithium 450 mg b.i.d., sertraline 200 mg daily, imipramine 50 mg t.i.d., aripiprazole 10 mg, duloxetine 20 mg, bupropion 450 mg, daridorexant 50mg, levothyroxine 125 mcg, oxybutynin 5 mg b.i.d. 50 mg b.i.d., hydroxyzine, [place], topiramate, mirtazapine, also recent prescription of azithromycin, cetirizine, questionable Levaquin. On my initial examination, patient was seen and examined at bedside. She remains on mechanical ventilation, minimal vent settings, no vasopressors. She is currently on tube feedings. Off sedation. Her eyes are open, she blinks on rolls her eyes. However, she is unresponsive to verbal stimuli, noise. Past Medical History See HPI. Past Surgical History See HPI. Family History: Patient reports no known family medical history. Social History See HPI. Allergies: Coded Allergies: Aspirin (Verified Allergy, Unknown, 10/10/18) Methocarbamol (Verified Allergy, Unknown, 10/10/18) NSAIDs (Verified Allergy, Unknown, 10/10/18) Nitroglycerin (Verified Allergy, Unknown, 10/10/18) Penicillins (Verified Allergy, Unknown, 10/10/18) Pseudoephedrine (Unverified Allergy, Unknown, 08/15/24) Sulfa Antibiotics (Verified Allergy, Unknown, 10/10/18) Uncoded Allergies: PSUEDOFED (Allergy, Unknown, 10/10/18) Home Meds Active Scripts Levofloxacin Hemihydrate (LEVAQUIN 500 MG) 500 Mg Tab, 1 TAB PO DAILY, #7 TAB Prov:KALIE PRICE MD 05/15/23 Levothyroxine Sodium (Synthroid) 125 Mcg Tab, 1 TAB PO DAILY, #30 TAB 5 Refills Prov:KALIE PRICE MD 05/15/23 Reported Medications Hydrocodone-Acetaminophen (Hydrocodone Bitartrate/AC 10-325 mg) 1 Tab Tab, 1 TAB PO BID, TAB 01/12/24 Daridorexant HCl (Quviviq) 50 Mg Tab, 50 MG PO, TAB 01/12/24 Hydroxyzine Hcl (Hydroxyzine Hcl) 50 Mg Tab, 50 MG PO DAILY for 30 Days, MG 01/12/24 Montelukast Sodium (MONTELUKAST SODIUM) 10 Mg Tab, 1 TAB PO DAILY, #30 TAB 5 Refills 01/12/24 Topiramate (Topiramate) 50 Mg Tab, 50 MG PO BID for 30 Days, MG 01/12/24 Sertraline Hcl (Sertraline Hcl) 50 Mg Tab, 200 MG PO DAILY for 30 Days, MG 01/12/24 Oxybutynin Chloride (Oxybutynin Chloride) 5 Mg Tab, 5 MG PO BID, TAB 01/12/24 Mirtazapine (Mirtazapine Oral Disintegrating Tablet) 15 Mg Tab, 2 TAB PO QPM, #30 TAB 3 Refills 01/12/24 [place] Carbonate ([place] Carbonate Er) 450 Mg Tab, 1 TAB PO BID, #60 TAB 1 Refill 01/12/24 Current Medications Current Medications Medications (Trade) Dose Ordered Sig/Agnes Route PRN Reason Start Time Stop Time Status Last Admin Patient Own Medication 1 DAILY PO 07/13/25 10:00 UNV Vital Signs Vital Signs Date Time Temp Pulse Resp B/P (MAP) Pulse Ox O2 Delivery O2 Flow Rate FiO2 07/12/25 15:29 89 20 150/71 (97) 98 30 07/12/25 14:30 99.0 210.2 07/12/25 14:00 Mechanical Ventilator+ Physical Exam Physical examination as below: General: Intubated, nonresponsive to verbal stimuli, noise. HEENT: Head is normocephalic and atraumatic. Pupils are equal, round, and reactive to light. Right subconjunctival hemorrhage. Neck: Supple with no cervical lymphadenopathy. Heart: Regular rate without murmur, rub, or gallop. Lungs: Equal breath sounds bilaterally with no wheezing, rales, or rhonchi. There is no chest wall tenderness or instability. Abdomen: No external sign of injury. Bowel sounds are present. Abdomen is soft, nontender. No rebound, no guarding, no rigidity. There are no palpable masses. Extremities: Strong peripheral pulses. There is no clubbing, no cyanosis, and no edema. Skin: No rash. Neurologic: Decerebrate posturing, opens eyes, does not track, no response to verbal stimulation or noise, gag reflex positive, hypertonicity of upper and lower extremities, bilateral Babinski positive Labs/Diagnostic Data Labs Test 07/12/25 14:00 07/12/25 10:00 07/12/25 06:45 07/11/25 02:53 Range/Units Prothrombin Time 11.1 9.3-11.8 sec Prothrombin Time INR 1.05 0.9-1.15 Activated Partial Thromboplast Time 24.4 L 24.5-34.5 SEC White Blood Count 6.3 4.4-10.8 10^3/uL Red Blood Count 3.61 L 4.0-5.20 10^6/uL Hemoglobin 10.0 L 12.2-16.2 g/dL Hematocrit 30.4 L 36.0-46.0 % Mean Corpuscular Volume 84.2 80.0-100.0 fL Mean Corpuscular Hemoglobin 27.7 L 28.0-32.0 pg Mean Corpuscular Hemoglobin Concent 32.9 32.0-36.0 g/dL Red Cell Distribution Width 15.8 H 11.8-14.3 % Platelet Count 415 140-450 10^3/uL Mean Platelet Volume 8.2 6.9-10.8 fL Neutrophils (%) (Auto) 73.4 37.0-80.0 % Lymphocytes (%) (Auto) 12.9 10.0-50.0 % Monocytes (%) (Auto) 13.1 H 0.0-12.0 % Eosinophils (%) (Auto) 0.3 0.0-7.0 % Basophils (%) (Auto) 0.3 0.0-2.0 % Neutrophils # (Auto) 4.6 1.6-8.6 10 ^3/uL Lymphocytes # (Auto) 0.8 0.4-5.4 10 ^3/uL Monocytes # (Auto) 0.8 0-1.3 10 ^3/uL Eosinophils # (Auto) 0 0-0.8 10 ^3/uL Basophils # (Auto) 0 0-0.2 10 ^3/uL Nucleated Red Blood Cells 0.1 % Sodium Level 144 136-145 mmol/L Potassium Level 4.0 3.5-5.1 mmol/L Chloride Level 106 98-107 mmol/L Carbon Dioxide Level 27 20-31 mmol/L Anion Gap 11 5-15 Blood Urea Nitrogen 30 H 9-23 mg/dL Creatinine 1.12 H 0.550-1.02 mg/dL Glomerular Filtration Rate Calc 61 >90 mL/min BUN/Creatinine Ratio 26.8 H 10.0-20.0 Serum Glucose 102 74-106 mg/dL Calcium Level 9.7 8.7-10.4 mg/dL Total Bilirubin 0.4 0.2-1.0 mg/dL Aspartate Amino Transferase (AST) 54 H 13-40 U/L Alanine Aminotransferase (ALT) 100 H 7-40 U/L Alkaline Phosphatase 63 46-116 U/L Total Protein 6.3 5.7-8.2 g/dL Albumin 4.4 3.2-4.8 g/dL Thyroid Stimulating Hormone (TSH) > 150.00 H 0.55-4.78 uIU/mL Blood Gas Specimen Type Arterial Blood Gas Sample Site Right radial Blood Gas Patient Temperature 37.0 Arterial Blood Date Drawn [id number] Arterial Blood pH 7.512 H 7.350-7.450 Arterial Blood Partial Pressure CO2 35.1 32.0-45.0 mmHg Arterial Blood Partial Pressure O2 110.8 H 83.0-108.0 mmHg Arterial Blood HCO3 27.5 21.0-28.0 mmol/L Arterial Blood Oxygen Saturation 97.7 94.0-98.0 % Arterial Blood Base Excess 4.5 H -2.0-3.0 mmol/L Arterial Blood Oxyhemoglobin 97.2 94.0-98.0 % Arterial Blood Carboxyhemoglobin 0.2 L 0.5-1.5 % Arterial Blood Methemoglobin 0.3 0.0-1.5 % Pankaj Test Modified Blood Gas Total Hemoglobin 10.70 L 12.0-16.0 g/dL Blood Gas Set Respiration Rate 16.0 Blood Gas Modality Vent - ac FiO2 % 30.0 Blood Gas Tidal Volume 400.0 Blood Gas PEEP or CPAP 5.0 Magnesium Level 2.0 1.6-2.6 mg/dL Test 07/10/25 03:15 07/09/25 06:02 07/09/25 03:15 07/07/25 03:12 Range/Units Differential Total Cells Counted 100.0 100 Neutrophils % (Manual) 59 37.0-80.0 Band Neutrophils % (Manual) 2 Lymphocytes % (Manual) 21 10.0-50.0 Monocytes % (Manual) 17 H 0-12 Eosinophils % (Manual) 1 0-7 Basophils % (Manual) 0 0.0-2.0 Metamyelocytes % (manual) 0 Myelocytes % (Manual) 0 Promyelocytes % (Manual) 0 Blast Cells % (Manual) 0 Reactive Lymphocytes 0 Platelet Estimate [place] Large Platelets Few Blood Gas Spontaneous Rate 19 Blood Gas Pressure Support 8 Anisocytosis (manual) Slight Creatine Kinase 366 H 34-145 U/L [place] Level 0.4 L 0.5-1.2 mmol/L Test 07/05/25 02:12 07/04/25 15:07 07/04/25 03:03 07/03/25 14:40 Range/Units Ovalocytes Few [place] Cells Few Free Thyroxine (T4) Calculated 0.57 L 0.89-1.76 ng/dL Total Triiodothyronine (TT3) 0.35 L 0.60-1.81 ng/mL Cortisol AM Sample 23.81 H 5.27-22.45 ug/dL Random Vancomycin Level 19.8 H 5-10 ug/mL Urine Color Yellow Yellow Urine Clarity Turbid H Clear Urine pH 6.5 5.0-9.0 Urine Specific [place] 1.014 1.001-1.035 Urine Protein 2+ H Negative Urine Ketones Negative Negative Urine Blood 3+ H Negative /uL Urine Nitrite Negative Negative Urine Bilirubin Negative Negative Urine Urobilinogen 2 H Negative mg/dL Urine Leukocyte Esterase Negative Negative /uL Urine RBC 100 0 - 4 /hpf Urine Microscopic WBC 5 0-5 /HPF Urine Squamous Epithelial Cells Mod <5 /hpf Urine Amorphous Crystals Few None Seen /hpf Urine Bacteria None seen None Seen /hpf Urine Mucus Few None Seen Urine Glucose 1+ H Normal mg/dL Test 07/03/25 11:10 07/03/25 09:27 07/02/25 20:24 07/02/25 15:54 Range/Units Hemoglobin A1c 4.7 <5.7 % A1C B-Type Natriuretic Peptide 297.11 0-100 pg/mL Triglycerides Level 91 < 150 mg/dL Cholesterol Level 108 < 200 mg/dL LDL Cholesterol 77 < 100 mg/dL HDL Cholesterol 18 L 40-59 mg/dL Troponin I High Sensitivity 3664 *H </=34 ng/L Lactic Acid Level 2.4 *H 0.4-2.0 mmol/L Test 07/02/25 14:40 07/02/25 13:19 Range/Units Blood Gas Critical Value Read Back Yes Blood Gas Notified Whom Blood Gas Notified Time [id number] Blood Gas Notified By Business Intelligence Engineer gorans Urine Opiates Screen Neg NEGATIVE Urine Fentanyl Screen Neg NEGATIVE Urine Barbiturates Screen Neg NEGATIVE Urine Phencyclidine Screen Neg NEGATIVE Urine Amphetamines Screen Neg NEGATIVE Urine Benzodiazepines Screen Neg NEGATIVE Urine Cocaine Screen Neg NEGATIVE Urine Cannabinoids Screen Neg NEGATIVE Microbiology Date/Time Source Procedure Growth Status 07/06/25 12:08 Trachea Gram Stain - Final Resulted 07/06/25 12:08 Trachea Respiratory Culture - Preliminary Resulted 07/03/25 14:40 Urine - [place] Urine Culture - Final Escherichia coli Complete 07/02/25 13:19 Blood Blood Culture - Final NO GROWTH AFTER 5 DAYS OF INCUBATION. Complete 07/02/25 13:10 Sputum Gram Stain - Final Complete 07/02/25 13:10 Sputum Respiratory Culture - Final Complete Assessment Severe hypothyroidism Heat stroke Metabolic and hypoxic encephalopathy Questionable vegetative status Resolved wide complex ventricular tachycardia status post defibrillation Shock This is a 50-year-old female who was found with altered mental status at home, with hyperpyrexia, wide complex ventricular tachycardia. Patient has a relevant history of hypothyroidism, bipolar disorder, anxiety, depression, questionable schizoaffective disorder. She lives alone. On lifetime summary review, is noted that patient TSH has been elevated since 2022 and in 2023. Suggesting the patient was nonadherent to her medications. She has also been prescribed numerous anti psychiatric medications in the last year, as well as many medications that prolonged QT interval. Patient's has been on lithium, however lithium levels on admission were low, again suggesting nonadherence. Either way, considering the likelihood of polypharmacy, possible medication side effects leading to patient's worsening mental status and hyperpyrexia at home are likely. Per records they also suggest that the patient's air conditioning was not working. Hence, heat stroke could have been the precipitating factor for the patient to decompensate and also causing severe hypothyroidism. My xedema coma is highly unlikely given reviewed blood work, clinical status, vital signs that were documented on initial admission and also in the last couple of days. Patient has been sinus rhythm, still developing low-grade fevers, electrolytes are within normal limits, she has been having bowel movements. Patient's current mental status is likely related to hypoxic brain injury, as suggested by the brain MRI. In regards to the patient's hypothyroidism, we will recommend continuing IV levothyroxine, adding liothyronine. And measuring TSH every three days and T3- T4 every day. Plan/Recommendation Continue levothyroxine 100 mcg IV daily Discontinue p.o. levothyroxine Start liothyronine 5 mcg through NG tube daily (prescribed as outpatient medication, family members to pick her up tomorrow morning from [facility]) Measure TSH every three days Measure T3 and T4 daily Case was discussed with Dr. Leija Attending attestation: I reviewed the appropriate diagnostic laboratory evaluation/imaging and formulated the assessment and plan alongside the resident as detailed above. I agree with the plan as outlined. I independently examined the patient. Plan discussed with: Son, Other (RN) REG TREVIÑO RESIDENT Jul 12, 2025 16:40 DAMARIS LEIJA MD Jul 12, 2025 23:45
[2025-07-12 18:55] LABS: Free T3 1.74 pg/mL (2.3-4.2); Free T4 (Free Thyroxine) 1.33 ng/dL (0.89-1.76)
[2025-07-13] VITALS (50 sets, daily range): BP systolic 112–192; BP diastolic 68–104; PULSE 67–99; RESP 11–26; TEMP 97.5–99.9; O2SAT 92–100
[2025-07-13 03:23] LABS: Hematocrit 31.1 % (36.0-46.0); Hemoglobin 10.4 g/dL (12.2-16.2); Mean Corpuscular Hemoglobin 27.6 pg (28.0-32.0); Mean Corpuscular Volume 83.0 fL (80.0-100.0); Nucleated Red Blood Cells % 0.0 %
[2025-07-13 03:34] LABS: Chloride 105 mmol/L (98-107); Potassium 3.6 mmol/L (3.5-5.1); Sodium 144 mmol/L (136-145)
[2025-07-13 03:35] LABS: Anion Gap 12 (5-15); Carbon Dioxide 27 mmol/L (20-31)
[2025-07-13 03:36] LABS: Calcium 10.3 mg/dL (8.7-10.4)
[2025-07-13 03:40] LABS: Glucose 104 mg/dL (74-106)
[2025-07-13 03:43] LABS: BUN/Creatinine Ratio 24.3 (10.0-20.0); Magnesium 1.8 mg/dL (1.6-2.6)
[2025-07-13 03:45] LABS: Free T3 1.79 pg/mL (2.3-4.2); Free T4 (Free Thyroxine) 1.28 ng/dL (0.89-1.76)
[2025-07-13 04:20] LABS: Blood Urea Nitrogen 28 mg/dL (9-23)
--- NOTE | 2025-07-13 05:46 | DVH ---
CHEST RADIOGRAPH Indication: on vent Technique: Single frontal view of the chest was obtained COMPARISON: XY CHEST XRAY 1 VIEW on DOS: 07/11/25, XY CHEST PORTABLE on DOS: 07/09/25, XY CHEST XRAY 1 VIEW on DOS: 07/08/25, XY CHEST XRAY 1 VIEW on DOS: 07/07/25, XY CHEST PORTABLE on DOS: 07/06/25 FINDINGS: Lines and Tubes: Unchanged. Lungs: Clear Pleura: No effusion. No pneumothorax. Cardiomediastinal contours: Unremarkable Bones: Unremarkable IMPRESSION: 1. No acute disease. 2. Lines and tubes unchanged.
[2025-07-13 06:11] LABS: Base Excess 3.4 mmol/L (-2.0-3.0)
--- NOTE | 2025-07-13 08:46 | DVHINCON2 ---
Date of service: Jul 13, 2025 Family History: Patient reports no known family medical history. Allergies: Coded Allergies: Aspirin (Verified Allergy, Unknown, 10/10/18) Methocarbamol (Verified Allergy, Unknown, 10/10/18) NSAIDs (Verified Allergy, Unknown, 10/10/18) Nitroglycerin (Verified Allergy, Unknown, 10/10/18) Penicillins (Verified Allergy, Unknown, 10/10/18) Pseudoephedrine (Unverified Allergy, Unknown, 08/15/24) Sulfa Antibiotics (Verified Allergy, Unknown, 10/10/18) Uncoded Allergies: PSUEDOFED (Allergy, Unknown, 10/10/18) Home Meds Active Scripts Levofloxacin Hemihydrate (LEVAQUIN 500 MG) 500 Mg Tab, 1 TAB PO DAILY, #7 TAB Prov:KALIE PRICE MD 05/15/23 Levothyroxine Sodium (Synthroid) 125 Mcg Tab, 1 TAB PO DAILY, #30 TAB 5 Refills Prov:KALIE PRICE MD 05/15/23 Reported Medications Hydrocodone-Acetaminophen (Hydrocodone Bitartrate/AC 10-325 mg) 1 Tab Tab, 1 TAB PO BID, TAB 01/12/24 Daridorexant HCl (Quviviq) 50 Mg Tab, 50 MG PO, TAB 01/12/24 Hydroxyzine Hcl (Hydroxyzine Hcl) 50 Mg Tab, 50 MG PO DAILY for 30 Days, MG 01/12/24 Montelukast Sodium (MONTELUKAST SODIUM) 10 Mg Tab, 1 TAB PO DAILY, #30 TAB 5 Refills 01/12/24 Topiramate (Topiramate) 50 Mg Tab, 50 MG PO BID for 30 Days, MG 01/12/24 Sertraline Hcl (Sertraline Hcl) 50 Mg Tab, 200 MG PO DAILY for 30 Days, MG 01/12/24 Oxybutynin Chloride (Oxybutynin Chloride) 5 Mg Tab, 5 MG PO BID, TAB 01/12/24 Mirtazapine (Mirtazapine Oral Disintegrating Tablet) 15 Mg Tab, 2 TAB PO QPM, #30 TAB 3 Refills 01/12/24 [place] Carbonate ([place] Carbonate Er) 450 Mg Tab, 1 TAB PO BID, #60 TAB 1 Refill 01/12/24 Current Medications Current Medications Medications (Trade) Dose Ordered Sig/Agnes Route PRN Reason Start Time Stop Time Status Last Admin Patient Own Medication 1 DAILY PO 07/13/25 10:00 Hydralazine HCl (Apresoline Injection) 10 mg Q6HP PRN IV SBP>160 07/13/25 07:45 Vital Signs Vital Signs Date Time Temp Pulse Resp B/P (MAP) Pulse Ox O2 Delivery O2 Flow Rate FiO2 07/13/25 08:19 71 23 144/74 (97) 99 30 07/13/25 06:00 Mechanical Ventilator+ 07/13/25 05:01 97.9 208.2 Labs/Diagnostic Data Labs Test 07/13/25 06:08 07/13/25 02:44 07/12/25 18:13 07/12/25 14:00 Range/Units Blood Gas Specimen Type Arterial Blood Gas Sample Site Right radial Blood Gas Patient Temperature 37.0 Arterial Blood Date Drawn [id number] Arterial Blood pH 7.500 H 7.350-7.450 Arterial Blood Partial Pressure CO2 34.5 32.0-45.0 mmHg Arterial Blood Partial Pressure O2 107.3 83.0-108.0 mmHg Arterial Blood HCO3 26.3 21.0-28.0 mmol/L Arterial Blood Oxygen Saturation 97.8 94.0-98.0 % Arterial Blood Base Excess 3.4 H -2.0-3.0 mmol/L Arterial Blood Oxyhemoglobin 97.7 94.0-98.0 % Arterial Blood Carboxyhemoglobin 0.0 L 0.5-1.5 % Arterial Blood Methemoglobin 0.1 0.0-1.5 % Pankaj Test Modified Blood Gas Total Hemoglobin 13.20 12.0-16.0 g/dL Blood Gas Set Respiration Rate 16.0 Blood Gas Modality Vent - ac FiO2 % 30.0 Blood Gas Tidal Volume 400.0 Blood Gas PEEP or CPAP 5.0 White Blood Count 7.1 4.4-10.8 10^3/uL Red Blood Count 3.75 L 4.0-5.20 10^6/uL Hemoglobin 10.4 L 12.2-16.2 g/dL Hematocrit 31.1 L 36.0-46.0 % Mean Corpuscular Volume 83.0 80.0-100.0 fL Mean Corpuscular Hemoglobin 27.6 L 28.0-32.0 pg Mean Corpuscular Hemoglobin Concent 33.3 32.0-36.0 g/dL Red Cell Distribution Width 16.1 H 11.8-14.3 % Platelet Count 482 H 140-450 10^3/uL Mean Platelet Volume 8.5 6.9-10.8 fL Neutrophils (%) (Auto) 69.5 37.0-80.0 % Lymphocytes (%) (Auto) 15.7 10.0-50.0 % Monocytes (%) (Auto) 14.0 H 0.0-12.0 % Eosinophils (%) (Auto) 0.5 0.0-7.0 % Basophils (%) (Auto) 0.3 0.0-2.0 % Neutrophils # (Auto) 4.9 1.6-8.6 10 ^3/uL Lymphocytes # (Auto) 1.1 0.4-5.4 10 ^3/uL Monocytes # (Auto) 1.0 0-1.3 10 ^3/uL Eosinophils # (Auto) 0 0-0.8 10 ^3/uL Basophils # (Auto) 0 0-0.2 10 ^3/uL Nucleated Red Blood Cells 0.0 % Sodium Level 144 136-145 mmol/L Potassium Level 3.6 3.5-5.1 mmol/L Chloride Level 105 98-107 mmol/L Carbon Dioxide Level 27 20-31 mmol/L Anion Gap 12 5-15 Blood Urea Nitrogen 28 H 9-23 mg/dL Creatinine 1.15 H 0.550-1.02 mg/dL Glomerular Filtration Rate Calc 59 >90 mL/min BUN/Creatinine Ratio 24.3 H 10.0-20.0 Serum Glucose 104 74-106 mg/dL Calcium Level 10.3 8.7-10.4 mg/dL Magnesium Level 1.8 1.6-2.6 mg/dL Free Thyroxine (T4) Calculated 1.28 0.89-1.76 ng/dL Free Triiodothyronine (T3) pg/mL 1.79 L 2.3-4.2 pg/mL Total Triiodothyronine (TT3) 0.68 0.60-1.81 ng/mL Prothrombin Time 11.1 9.3-11.8 sec Prothrombin Time INR 1.05 0.9-1.15 Activated Partial Thromboplast Time 24.4 L 24.5-34.5 SEC Test 07/12/25 10:00 8/18/25 03:15 07/09/25 06:02 07/09/25 03:15 Range/Units Total Bilirubin 0.4 0.2-1.0 mg/dL Aspartate Amino Transferase (AST) 54 H 13-40 U/L Alanine Aminotransferase (ALT) 100 H 7-40 U/L Alkaline Phosphatase 63 46-116 U/L Total Protein 6.3 5.7-8.2 g/dL Albumin 4.4 3.2-4.8 g/dL Thyroid Stimulating Hormone (TSH) > 150.00 H 0.55-4.78 uIU/mL Differential Total Cells Counted 100.0 100 Neutrophils % (Manual) 59 37.0-80.0 Band Neutrophils % (Manual) 2 Lymphocytes % (Manual) 21 10.0-50.0 Monocytes % (Manual) 17 H 0-12 Eosinophils % (Manual) 1 0-7 Basophils % (Manual) 0 0.0-2.0 Metamyelocytes % (manual) 0 Myelocytes % (Manual) 0 Promyelocytes % (Manual) 0 Blast Cells % (Manual) 0 Reactive Lymphocytes 0 Platelet Estimate [place] Large Platelets Few Blood Gas Spontaneous Rate 19 Blood Gas Pressure Support 8 Anisocytosis (manual) Slight Test 07/07/25 03:12 07/05/25 02:12 07/04/25 03:03 07/03/25 14:40 Range/Units Creatine Kinase 366 H 34-145 U/L [place] Level 0.4 L 0.5-1.2 mmol/L Ovalocytes Few [place] Cells Few Cortisol AM Sample 23.81 H 5.27-22.45 ug/dL Random Vancomycin Level 19.8 H 5-10 ug/mL Urine Color Yellow Yellow Urine Clarity Turbid H Clear Urine pH 6.5 5.0-9.0 Urine Specific [place] 1.014 1.001-1.035 Urine Protein 2+ H Negative Urine Ketones Negative Negative Urine Blood 3+ H Negative /uL Urine Nitrite Negative Negative Urine Bilirubin Negative Negative Urine Urobilinogen 2 H Negative mg/dL Urine Leukocyte Esterase Negative Negative /uL Urine RBC 100 0 - 4 /hpf Urine Microscopic WBC 5 0-5 /HPF Urine Squamous Epithelial Cells Mod <5 /hpf Urine Amorphous Crystals Few None Seen /hpf Urine Bacteria None seen None Seen /hpf Urine Mucus Few None Seen Urine Glucose 1+ H Normal mg/dL Test 07/03/25 11:10 07/03/25 09:27 07/02/25 20:24 07/02/25 15:54 Range/Units Hemoglobin A1c 4.7 <5.7 % A1C B-Type Natriuretic Peptide 297.11 0-100 pg/mL Triglycerides Level 91 < 150 mg/dL Cholesterol Level 108 < 200 mg/dL LDL Cholesterol 77 < 100 mg/dL HDL Cholesterol 18 L 40-59 mg/dL Troponin I High Sensitivity 3664 *H </=34 ng/L Lactic Acid Level 2.4 *H 0.4-2.0 mmol/L Test 07/02/25 14:40 07/02/25 13:19 Range/Units Blood Gas Critical Value Read Back Yes Blood Gas Notified Whom Blood Gas Notified Time [id number] Blood Gas Notified By Career Manager devendra Urine Opiates Screen Neg NEGATIVE Urine Fentanyl Screen Neg NEGATIVE Urine Barbiturates Screen Neg NEGATIVE Urine Phencyclidine Screen Neg NEGATIVE Urine Amphetamines Screen Neg NEGATIVE Urine Benzodiazepines Screen Neg NEGATIVE Urine Cocaine Screen Neg NEGATIVE Urine Cannabinoids Screen Neg NEGATIVE Microbiology Date/Time Source Procedure Growth Status 07/06/25 12:08 Trachea Gram Stain - Final Resulted 07/06/25 12:08 Trachea Respiratory Culture - Preliminary Resulted 07/03/25 14:40 Urine - [place] Urine Culture - Final Escherichia coli Complete 07/02/25 13:19 Blood Blood Culture - Final NO GROWTH AFTER 5 DAYS OF INCUBATION. Complete 07/02/25 13:10 Sputum Gram Stain - Final Complete 07/02/25 13:10 Sputum Respiratory Culture - Final Complete Assessment tracheostomy being requested by primary MD, vent settings compatible with safe conduction of operation, cxr without acute changes, coags OK, will proceed with procedure Plan discussed with: MACARENA Albright MD Jul 13, 2025 08:46
--- NOTE | 2025-07-13 10:30 | DVHPN2 ---
Progress Note - Dictate Date Seen: Jul 13, 2025 Medical Necessity Reason Pt with a Central, PICC or Fol: Yes The following are medically ne: Central Line, James Catheter Subjective Ms. Montes is a 48 years old female with a history of bipolar disorder, anxiety, depression, the patient was taken to the hospital on 07/02/2025 with a chief complaint of altered mental status. I saw her on 01/10/2024 for ALOC I have seen and examined the patient, I have discussed with her nurse, and her son, her eyes are open, blinking and rolling from [id number], but she is not responsive to verbal stimuli, sudden loud noise or visual thread, her extremities are extended, Pupil size 07/09/25: right: 4 mm, left: 2-3 mm, both are reactive to lights (RN: The left- sided was bigger during the daytime yesterday) 07/10/2025: right: 4 mm, left: 2-3 mm, both are reactive to lights 07/12/2025: right: 3 mm, left: 2-3 mm, both are reactive to lights CSF, 01/12/2024: C/C, WBC: 0, RBC: 0, protein: 36.1, glucose: 70 Urinalysis, 07/02/2025: Urine leukocyte esterase: 3+ Urine culture, 07/03/2025: E coli Blood culture, 07/03/2025: Negative UDS, 07/02/2025: Negative Rule, 07/07/2025: ABG, 07/03/2025: Compensated metabolic acidosis, 07/07/2025: Compensated metabolic acidosis WBC/HB/PLT/MCV, 07/07/2025: 8.5/8.8/58/82.3 CK, 07/02/2025: 653, 07/04/2025: 1423, 07/22/2025: 693, 07/07/2025: 366 TG/HDL/LDL/HDL, 07/05/2025: 13/./ Ferritin 01/19/2024: 21.8 Chest x-ray, 07/02/2025: 1. Endotracheal tube 6.1 cm above the sylvia. 2. AED pads over the chest 3. Enteric tube position left diaphragm in the stomach CT head, 01/10/2024: No acute intracranial abnormality or significant interval change compared to 01/09/2024 CT head, 07/02/2025: No acute intracranial abnormality. CT head, 07/10/2025: No acute intracranial abnormality CT chest, 01/09/2024: 1. Inferior left upper and lower lobe consolidation favored to reflect infectious/inflammatory etiology, possibly aspiration. 2. The endotracheal tube terminates in the right mainstem bronchus. 3. The enteric tube is in satisfactory position MRI head, 01/15/2024: No acute abnormal MRI findings of the brain MR head, 07/10/2025: Subtle increased DWI signal within the bilateral caudate head, anterior putamen, medial temporal lobes, midbrain, and cerebellar hemispheres, concerning for early findings of hypoxic ischemic injury MRI C-spine, 01/15/24: 1. Degenerative disc disease and facet/uncinate disease in the cervical spine with associated spinal canal, subarticular, and neural foraminal stenoses as detailed above. 2. 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 3. No signal abnormality in the spinal cord to suggest myelopathy. 4. Additional findings as detailed above vital signs Vital Sign Date Time Temp Pulse Resp B/P (MAP) Pulse Ox O2 Delivery O2 Flow Rate FiO2 07/13/25 08:19 71 23 144/74 (97) 99 30 07/13/25 06:00 Mechanical Ventilator+ 07/13/25 05:01 97.9 208.2 Total Intake and Output 07/12/25 07/12/25 07/13/25 15:00 23:00 07:00 Intake Total 200 ml 464 ml 400 ml Output Total 1500 ml 450 ml Balance 200 ml -1036 ml -50 ml medications Current Medications Medications Dose Ordered Sig/Agnes Route Start Time Stop Time Status Last Admin Dose Admin Pantoprazole Sodium 40 mg DAILY IV 07/04/25 10:00 07/13/25 10:13 40 MG Artificial Tears 2 drop Q6HR PRN EACHEYE 07/07/25 20:00 07/12/25 05:26 2 DROP Enteral Nutritional Formula 1,000 ml 50ML/HR GT 07/10/25 13:30 Levothyroxine Sodium 100 mcg DAILY IV 07/11/25 10:00 07/12/25 11:17 100 MCG Purified Water 250 ml Q8HR GT 07/10/25 22:00 07/12/25 22:00 250 ML Ceftriaxone Sodium 50 ml @ 100 mls/hr DAILY@09 IV 07/11/25 09:00 07/13/25 08:45 100 MLS/HR Micafungin Sodium 100 mg/Sodium Chloride 100 ml @ 100 mls/hr DAILY IV 07/11/25 10:00 07/13/25 10:14 100 MLS/HR Patient Own Medication 1 DAILY PO 07/13/25 10:00 Hydralazine HCl 10 mg Q6HP PRN IV 07/13/25 07:45 objective The patient is well-nourished and well-developed with no distress. The patient is intubated MENTAL STATUS: Subjective CRANIAL NERVES: Pupils are round and reactive.There is frequent blinking and occasional rolling eye movement. No signs of facial weakness. There are gagging or coughing reflexes SENSATION: Responses to pain stimuli. MOTOR: Elevated tone in the upper and lower extremity. Normal muscle bulk. No fasciculations. No spontaneous movement except for posturing. REFLEXES: Deep tendon reflexes are symmetrical. Bilateral Upgoing toes noticed when muscle tone is diminished CEREBELLAR/COORDINATION: Deferred GAIT/STATION: deferred. laboratory and microbiology Laboratory Tests 07/13/25 02:44 Test 07/13/25 02:44 Range/Units Serum Glucose 104 74-106 mg/dL Problem List Altered mental status Heat stroke Metabolic encephalopathy Hypoxic encephalopathy Vegetative status Decerebration Respiratory failure Urinary tract infection Rule out sepsis Bipolar disorder, depression, anxiety Seizure disorder, with last seizure attack before 2018 Restless leg syndrome with low ferritin Assessment/Plan Monitoring Supportive treatment ICU care Stabilize vitals Respiratory support/vent management IV antibiotics Oxygen DVT prophylaxis GI prophylaxis History from her when she wakes up More recommended per clinical course She is likely to have a poor prognosis for meaning recovery This medical document was created using an electronic medical record system with [employer] dictation system. Although this document has been carefully reviewed, there may still be some phonetic and typographical errors. These areas are purely typographical due to imperfections of the software programs, and do not reflect any compromise in the patient's medical care. Prognosis Guarded Dietary Evaluation Review Comments: 1. TF Vital high protein @50ml/hr (105g Protein 1200kcal and 1003ml free water) supporting 100% of pt's needs 2. Initial TF speed at 30ml/hr, increase 10ml Q6 hr until reaching full speed. 3. Reassess when pt is extubated. Expected Outcomes/Goals: catabolism prevention Plan discussed with: HORACIO Salomon MD Jul 13, 2025 10:30
[2025-07-13] MEDS ORDERED: fentaNYL CITRATE 100 MCG/2 ML VL ONE (10:51)
[2025-07-13] MEDS: LIDOCAINE W/ EPINEPHRINE 1% 20ML VIAL ONE (11:22)
[2025-07-13] MEDS: BUPIVACAINE HCL 0.25% P/F 10 ML VIAL ONE (11:22)
--- NOTE | 2025-07-13 11:55 | DVHOP ---
DATE OF SURGERY: 07/13/2025 PREOPERATIVE DIAGNOSIS: Ventilator-dependent respiratory failure. POSTOPERATIVE DIAGNOSIS: Ventilator-dependent respiratory failure. SURGEON: Florencio Anaya MD PARCEL POST ORDER CLERK: Yann Shelton NP ANESTHESIA: General endotracheal, Dr. Pritchard. PROCEDURE: Tracheostomy. DESCRIPTION OF PROCEDURE: Under adequate anesthesia with the patient's skin prepped and draped, an anterior cervical incision was made and fat and strap muscles were divided in the midline and retracted laterally. The trachea was exposed. Tissue swept from the cartilage. The 3rd and 5th cartilage were exposed and incised. The tracheotomy was dilated and then while the anesthesiologist ventilated the patient with room air in order to minimize the likelihood of an airway fire, the tracheostomy tube was advanced into its final position as the endotracheal tube was being withdrawn by the anesthesiologist. Once reached the final position, the tracheostomy resumed normal capture of CO2 and normal ventilation. The tracheostomy was secured with insufflation of the tracheostomy cuff and interrupted Prolene sutures as well as circumferential umbilical tape. The patient remained in unchanged clinical condition at the termination of the procedure and left the operating room following an accurate needle and sponge count. Chest x-ray was ordered and is pending at the time of this dictation. The patient's son was not in the waiting room, however, was informed of the termination of the operation by phone. MD ALEX Bacon/PRIYANK TID: [id number] RECEIPT: [id number]
[2025-07-13] MEDS: hydrALAZINE HCL 20 MG/ML VL IV PRN (12:06)
--- NOTE | 2025-07-13 12:11 | DVH ---
CHEST RADIOGRAPH Indication: post tracheostomy Technique: Single frontal view of the chest was obtained COMPARISON: XY CHEST XRAY 1 VIEW on DOS: 07/13/25, XY CHEST XRAY 1 VIEW on DOS: 07/11/25, XY CHEST PORT ABLE on DOS: 07/09/25, XY CHEST XRAY 1 VIEW on DOS: 07/08/25, XY CHEST XRAY 1 VIEW on DOS: 07/07/25 FINDINGS: Lines and Tubes: Tracheostomy in satisfactory position Lungs: Clear Pleura: No effusion. No pneumothorax. Cardiomediastinal contours: Unremarkable Bones: Unremarkable IMPRESSION: No acute disease.
--- NOTE | 2025-07-13 12:18 | DVHPN2 ---
Consult Progress Note Date Seen: Jul 13, 2025 Subjective Patient reports: No new complaints Other Systems: Patient was seen and examined at bedside. She is currently status post tracheostomy. Vital signs in the last 24 hours has been stable, no fevers, hypovolemia, heart rate within normal limits, blood pressure has been fluctuating towards the higher side. Patient continues to be off sedation, no vasopressors. Physical examination as below: General: Intubated, nonresponsive to verbal stimuli, noise. HEENT: Head is normocephalic and atraumatic. Pupils are equal, round, and reactive to light. Right subconjunctival hemorrhage. Neck: Supple with no cervical lymphadenopathy. Heart: Regular rate without murmur, rub, or gallop. Lungs: Equal breath sounds bilaterally with no wheezing, rales, or rhonchi. There is no chest wall tenderness or instability. Abdomen: No external sign of injury. Bowel sounds are present. Abdomen is soft, nontender. No rebound, no guarding, no rigidity. There are no palpable masses. Extremities: Strong peripheral pulses. There is no clubbing, no cyanosis, and no edema. Skin: No rash. Neurologic: Decerebrate posturing, opens eyes, does not track, no response to verbal stimulation or noise, gag reflex positive, hypertonicity of upper and lower extremities, bilateral Babinski positive Objective vital signs Vital Sign Date Time Temp Pulse Resp B/P (MAP) Pulse Ox O2 Delivery O2 Flow Rate FiO2 07/13/25 12:06 192/93 07/13/25 11:55 97 17 100 30 07/13/25 11:16 Mechanical Ventilator+ 07/13/25 10:01 99.5 211.1 Total Intake and Output 07/12/25 07/12/25 07/13/25 15:00 23:00 07:00 Intake Total 200 ml 464 ml 400 ml Output Total 1500 ml 450 ml Balance 200 ml -1036 ml -50 ml medications Current Medications Medications Dose Ordered Sig/Agnes Route Start Time Stop Time Status Last Admin Dose Admin Pantoprazole Sodium 40 mg DAILY IV 07/04/25 10:00 07/13/25 10:13 40 MG Artificial Tears 2 drop Q6HR PRN EACHEYE 07/07/25 20:00 07/12/25 05:26 2 DROP Enteral Nutritional Formula 1,000 ml 50ML/HR GT 07/10/25 13:30 Levothyroxine Sodium 100 mcg DAILY IV 07/11/25 10:00 07/12/25 11:17 100 MCG Purified Water 250 ml Q8HR GT 07/10/25 22:00 07/12/25 22:00 250 ML Ceftriaxone Sodium 50 ml @ 100 mls/hr DAILY@09 IV 07/11/25 09:00 07/13/25 08:45 100 MLS/HR Micafungin Sodium 100 mg/Sodium Chloride 100 ml @ 100 mls/hr DAILY IV 07/11/25 10:00 07/13/25 10:14 100 MLS/HR Patient Own Medication 1 DAILY PO 07/13/25 10:00 Hydralazine HCl 10 mg Q6HP PRN IV 07/13/25 07:45 07/13/25 12:06 10 MG Examination: GENERAL:Abnormal, HEENT:Abnormal, NECK:Normal, LUNGS:Normal, CVS:Normal, ABDOMEN:Normal, MSK:Normal, SKIN:Normal, NEURO:Abnormal, :Normal laboratory and microbiology Laboratory Tests 07/13/25 02:44 Test 07/13/25 02:44 Range/Units Serum Glucose 104 74-106 mg/dL Problem List/Assessment/Plan Problem List/Assessment/Plan #Severe hypothyroidism #Heat stroke #Metabolic and hypoxic encephalopathy #Questionable vegetative status #Resolved wide complex ventricular tachycardia status post defibrillation #Shock This is a 50-year-old female who was found with altered mental status at home, with hyperpyrexia, wide complex ventricular tachycardia. Patient has a relevant history of hypothyroidism, bipolar disorder, anxiety, depression, questionable schizoaffective disorder. She lives alone. On lifetime summary review, is noted that patient TSH has been elevated since 2022 and in 2023. Suggesting the patient was nonadherent to her medications. She has also been prescribed numerous anti psychiatric medications in the last year, as well as many medications that prolonged QT interval. Patient's has been on lithium, however lithium levels on admission were low, again suggesting nonadherence. Either way, considering the likelihood of polypharmacy, possible medication side effects leading to patient's worsening mental status and hyperpyrexia at home are likely. Per records they also suggest that the patient's air conditioning was not working. Hence, heat stroke could have been the precipitating factor for the patient to decompensate and also causing severe hypothyroidism. Myxedema coma is highly unlikely given reviewed blood work, clinical status, vital signs that were documented on initial admission and also in the last couple of days. Patient has been sinus rhythm, still developing low-grade fevers, electrolytes are within normal limits, she has been having bowel movements. Patient's current mental status is likely related to hypoxic brain injury, as suggested by the brain MRI. In regards to the patient's hypothyroidism, we will recommend continuing IV levothyroxine, adding liothyronine. And measuring TSH every three days and T3- T4 every day. 07/13: Patient's free T4 is now within normal limits, total T3 is also within normal limits, free T3 is low but trending up. May continue measuring T3, T4 every 1-2 days. Plan/Recommendation Continue levothyroxine 100 mcg IV daily Start liothyronine 5 mcg through NG tube daily (prescribed as outpatient medication, family members to pick her up tomorrow morning from [facility]) Measure TSH every three days Measure T3 and T4 every 1-2 days. Case was discussed with Dr. De Luna Plan discussed with: Other (RN) Dietary Evaluation Review Comments: 1. TF Vital high protein @50ml/hr (105g Protein 1200kcal and 1003ml free water) supporting 100% of pt's needs 2. Initial TF speed at 30ml/hr, increase 10ml Q6 hr until reaching full speed. 3. Reassess when pt is extubated. Expected Outcomes/Goals: catabolism prevention REG TREVIÑO RESIDENT Jul 13, 2025 12:17
[2025-07-13] MEDS: LOSARTAN POTASSIUM 50 MG TAB PO ONE (13:00)
--- NOTE | 2025-07-13 13:58 | DVHPNRES ---
Progress Note Date Seen: Jul 13, 2025 Resident Creating Document: JHDannyJELIDIA Patterson RESIDENT Medical Necessity Reason Pt with a Central, PICC or Fol: Yes The following are medically ne: Central Line, James Catheter Subjective Review of Systems 07/13 Patient is seen and examined at the bedside. Patient has her eyes open, blinking and rolling from [id number] but no responds to verbal stimulation, sudden loud noise, has been off sedation for many days now. No purposeful response noted. Patient underwent tracheostomy placement today Objective vital signs Vital Sign Date Time Temp Pulse Resp B/P (MAP) Pulse Ox O2 Delivery O2 Flow Rate FiO2 07/13/25 12:06 192/93 07/13/25 11:55 97 17 100 30 07/13/25 11:16 Mechanical Ventilator+ 07/13/25 10:01 99.5 211.1 Total Intake and Output 07/12/25 07/12/25 07/13/25 15:00 23:00 07:00 Intake Total 200 ml 464 ml 400 ml Output Total 1500 ml 450 ml Balance 200 ml -1036 ml -50 ml medications Current Medications Medications Dose Ordered Sig/Agnes Route Start Time Stop Time Status Last Admin Dose Admin Pantoprazole Sodium 40 mg DAILY IV 07/04/25 10:00 07/13/25 10:13 40 MG Artificial Tears 2 drop Q6HR PRN EACHEYE 07/07/25 20:00 07/12/25 05:26 2 DROP Enteral Nutritional Formula 1,000 ml 50ML/HR GT 07/10/25 13:30 Levothyroxine Sodium 100 mcg DAILY IV 07/11/25 10:00 07/13/25 13:27 100 MCG Purified Water 250 ml Q8HR GT 07/10/25 22:00 07/12/25 22:00 250 ML Ceftriaxone Sodium 50 ml @ 100 mls/hr DAILY@09 IV 07/11/25 09:00 07/13/25 08:45 100 MLS/HR Micafungin Sodium 100 mg/Sodium Chloride 100 ml @ 100 mls/hr DAILY IV 07/11/25 10:00 07/13/25 10:14 100 MLS/HR Patient Own Medication 1 DAILY PO 07/13/25 10:00 Hydralazine HCl 10 mg Q6HP PRN IV 07/13/25 07:45 07/13/25 12:06 10 MG Losartan Potassium 50 mg DAILY PO 07/14/25 10:00 Examination Gen - no pallor, no icterus, no cyanosis, no edema . Skin - Patients skin is warm and dry. HEENT - normocephalic, atraumatic, dry mucous membranes. Right subconjunctival hemorrhage Neck - no JVD Pulmonary - B/L equal breath sounds, no rales, no wheezing, no stridor. cardiovascular - regular S1,S2 heard, no added sounds, no murmurs heard. peripheral pulses feeble radial 2+, pedal 2+. GI - soft, nontender abdomen. Bowel sounds normoactive Neurological - Patient on mechanical ventilation Extremities: Decerebrate posturing, eyes open but no response to verbal stimulation or sudden loud noise laboratory and microbiology Laboratory Tests 07/13/25 02:44 Test 07/13/25 02:44 Range/Units Serum Glucose 104 74-106 mg/dL Microbiology Date/Time Source Procedure Growth Status 07/06/25 12:08 Trachea Gram Stain - Final Resulted 07/06/25 12:08 Trachea Respiratory Culture - Preliminary Resulted 07/03/25 14:40 Urine - [place] Urine Culture - Final Escherichia coli Complete 07/02/25 13:19 Blood Blood Culture - Final NO GROWTH AFTER 5 DAYS OF INCUBATION. Complete 07/02/25 13:10 Sputum Gram Stain - Final Complete 07/02/25 13:10 Sputum Respiratory Culture - Final Complete Problem List/Assessment/Plan Problem List/Assessment/Plan Neurology Acute metabolic/hypoxic encephalopathy likely from Heat stroke/ possible seizure/ severe hypothyroidism Severe hyperthermia likely from Heat Stroke h/o bipolar disorder h/o depression Possible vegetative state - On mechanical ventilation - Head CT showed no acute intracranial abnormality - sedation has been turned off with the patient is not responsive to voice commands, pupils equal and reactive, active gag reflex - 07/10 MRI brain today which showed subtle increased DWI signal within the bilateral caudate head, anterior protamine, medial temporal lobes, midbrain and cerebellar hemispheres concerning for early findings of hypoxic ischemic injury. Elevated TSH following which IV levothyroxine was added Respiratory S/P Tracheostomy on 07/13 - minimal ventilator settings, peep 5, FiO2 30%, Cardiovascular Wide complex nonsustained Ventricular tachycardia s/p defibrillation Shock likely hypovolemic Moderate to severe aortic regurgitation Heart failure with reduced ejection fraction, no exacerbation NSTEMI likely type 2 - echocardiogram shows LVEF 40%, BNP < 300 - chest x-ray bilaterally shows no congestion Nephrology TESFAYE on CKD likely due to be VMN -kidney function and urine output improved Gastrointestinal Shock liver - LFTs improving - on feeding via NG tube Endocrinology Severe hypothyroidism - TSH 65 --> 95--> >150 - levothyroxine 100 mcg IV - endocrinology consulted, added liothyronine 5 mcg daily - monitor daily T3, T4 hematology Thrombocytopenia, improved - monitor platelets and any signs of bleeding - 1 bag of FFP given PUD prophylaxis: Protonix DVT prophylaxis: Held because of thrombocytopenia, on SCDs Intubated on 07/02 James's catheter inserted on 07/02 Goals of care discussed with the patient's son Danny. Code status - full code Critical care time spent excluding procedures: 61 minutes Case discussed with Dr. Campbell Plan discussed with: Son, Other (RN Celeste) My Orders My Orders Orders - ELIDIA MCGHEE Procedure Category Date Status Time Chest Xray 1 View XY 07/13/25 Resulted 04:00 Abg W/ Co-Ox RT 07/13/25 Logged 06:00 Hydralazine Injection PHA 07/13/25 In Process (Apresoline Inject 07:45 Losartan Tablet PHA 07/14/25 In Process (Cozaar Tablet) 10:00 Complete Blood Count LAB 07/14/25 Verified 04:00 Basic Metabolic Panel LAB 07/14/25 Verified 04:00 Dietary Evaluation Review Comments: 1. TF Vital high protein @50ml/hr (105g Protein 1200kcal and 1003ml free water) supporting 100% of pt's needs 2. Initial TF speed at 30ml/hr, increase 10ml Q6 hr until reaching full speed. 3. Reassess when pt is extubated. Expected Outcomes/Goals: catabolism prevention Date of Service: Jul 13, 2025 Billing Provider: DARLING CAMPBELL MD Common Visit Codes: 13395-YFISYYVT CARE 30-74 MIN ELIDIA MCGHEE Jul 13, 2025 13:58 DARLING CAMPBELL MD Jul 15, 2025 11:51
[2025-07-14] VITALS (41 sets, daily range): BP systolic 130–176; BP diastolic 62–99; PULSE 62–108; RESP 15–27; TEMP 97.5–100.2; O2SAT 93–100
[2025-07-14 03:44] LABS: Anion Gap 12 (5-15); Calcium 10.4 mg/dL (8.7-10.4); Carbon Dioxide 23 mmol/L (20-31)
[2025-07-14 03:45] LABS: Chloride 111 mmol/L (98-107); Potassium 3.5 mmol/L (3.5-5.1); Sodium 146 mmol/L (136-145)
[2025-07-14 03:49] LABS: BUN/Creatinine Ratio 19.8 (10.0-20.0); Blood Urea Nitrogen 20 mg/dL (9-23); Glucose 100 mg/dL (74-106)
[2025-07-14 03:51] LABS: Hematocrit 31.6 % (36.0-46.0); Hemoglobin 10.8 g/dL (12.2-16.2); Mean Corpuscular Hemoglobin 28.6 pg (28.0-32.0); Mean Corpuscular Volume 83.5 fL (80.0-100.0); Nucleated Red Blood Cells % 0.1 %
[2025-07-14 04:06] LABS: Free T3 1.82 pg/mL (2.3-4.2); Free T4 (Free Thyroxine) 1.57 ng/dL (0.89-1.76)
--- NOTE | 2025-07-14 05:45 | DVH ---
CHEST RADIOGRAPH Indication: ngt placement Technique: Single frontal view of the chest was obtained COMPARISON: XY CHEST PORTABLE on DOS: 07/13/25, XY CHEST XRAY 1 VIEW on DOS: 07/13/25, XY CHEST XRAY 1 VIEW on DOS: 07/11/25, XY CHEST PORTABLE on DOS: 07/09/25, XY CHEST XRAY 1 VIEW on DOS: 07/08/25 FINDINGS: Lines and Tubes: New enteric catheter courses below the level of the diaphragm and terminates beyond the inferior margin of the image. Tracheostomy unchanged. Lungs: Clear Pleura: No effusion. No pneumothorax. Cardiomediastinal contours: Unremarkable Bones: Unremarkable IMPRESSION: 1. No acute disease. 2. New enteric catheter as above. 3. Tracheostomy.
--- NOTE | 2025-07-14 07:54 | DVH ---
CHEST RADIOGRAPH Indication: for NGT placement Technique: Single frontal view of the chest was obtained COMPARISON: XY CHEST PORTABLE on DOS: 07/14/25, XY CHEST PORTABLE on DOS: 07/13/25, XY CHEST XRAY 1 VIE W on DOS: 07/13/25, XY CHEST XRAY 1 VIEW on DOS: 07/11/25, XY CHEST PORTABLE on DOS: 07/09/25 FINDINGS: Lines and Tubes: Midline tracheostomy. Enteric catheter courses below the level of the diaphragm and terminates just right of midline within the gastric lumen. Lungs: Clear. Left costophrenic angle excluded. Pleura: No effusion. No pneumothorax. Cardiomediastinal contours: Unremarkable Bones: Unremarkable IMPRESSION: 1. No acute disease. Left costophrenic angle excluded. 2. Tracheostomy and enteric catheter as above.
[2025-07-14] MEDS: LOSARTAN POTASSIUM 50 MG TAB PO SCH (09:13)
[2025-07-14 10:39] LABS: Base Excess -0.2 mmol/L (-2.0-3.0)
--- NOTE | 2025-07-14 14:33 | DVHPNRES ---
Progress Note Date Seen: Jul 14, 2025 Resident Creating Document: ELIDIA MCGHEE RESIDENT Medical Necessity Reason Pt with a Central, PICC or Fol: Yes The following are medically ne: Central Line, James Catheter Subjective Review of Systems Patient is a 50-year-old female with a medical history of bipolar disorder, anxiety, depression, hypothyroidism was brought to the ED via EMS with a chief complaint of altered level of consciousness. As per the patient's son who was visiting, patient urine room in a house in the area and reported that she has not been eating since a week and yesterday patient was found in altered state having a seizure-like activity with hands moving up and down and her eyes staring towards the ceiling following which EMS were called. When the EMS arrived patient heart rate was in 180s and ECG shows V-tach, following which patient was shocked twice at 200 joules and was given lidocaine twice. Patient was intubated in the field for airway protection because of altered level of consciousness. In the ED patient had 1st recorded temperature at 106.8, it was reported by the son that the house patient was staying in was without an AC and she had a fan that was also not working. After admission patient's temperature decreased gradually. Initially she had elevated transaminases likely from shock liver, TESFAYE on CKD due to vasomotor nephropathy. After about 2 days of admission sedation was turned of and patient did not have any vasopressor requirements. After many days of being off any sedation, patient did not have any purposeful responds to verbal commands, sudden loud noise, no tracking. Neurology were consulted following which patient underwent MRI brain which showed early changes of hypoxic brain injury. EEG was also done which was abnormal, EEG seen in cerebral dysfunction due to metabolic/hypoxic encephalopathy or medication effects. Patient was assessed likely to be in vegetative state and the condition was explained to the patient's two sons Danny and Isael. Patient was also found to have severely elevated TSH levels which trended up 65 to 93 to 150. Endocrinology consult was placed and patient was started on levothyroxine 100 mcg IV daily and liothyronine 5 mcg daily with a daily labs of TSH, free T3 and T4. After discussion with the patient's decision was made to do a tracheostomy and eventually patient would need a G-tube placement and L would be placed in the long-term facility. Tracheostomy was done on 07/13. Culture reveals growth of E coli in the urine for which the patient has a ceftriaxone and showed growth of filamentous fungi in sputum for which the patient is on micafungin. Medical history: Bipolar, anxiety, depression, remote history of seizure disorder, hypothyroidism Surgical history: Social history: Patient lives alone, no reported alcohol, drug use, smoking Home medications: As per the records from the medication reconciliation lithium 450 mg b.i.d., sertraline 200 mg daily, imipramine 50 mg t.i.d., aripiprazole 10 mg, duloxetine 20 mg, bupropion 450 mg, daridorexant 50mg, levothyroxine 125 mcg, oxybutynin 5 mg b.i.d. 50 mg b.i.d. 07/14 Patient seen and examined at the bedside. In the morning patient was put on CPAP which she tolerated well without any respiratory distress, hemodynamic instability. She was later put on T-piece with a cool aerosol initially at 10 L/min and then trended down to 6 L/min and oxygen saturation maintained above 95%. Objective vital signs Vital Sign Date Time Temp Pulse Resp B/P (MAP) Pulse Ox O2 Delivery O2 Flow Rate FiO2 07/14/25 14:00 108 07/14/25 14:00 17 100 T-piece 10 35 35 07/14/25 13:01 130/62 (84) 07/14/25 12:00 98.6 209.5 Total Intake and Output 07/13/25 07/13/25 07/14/25 15:00 23:00 07:00 Intake Total 150 ml Output Total 650 ml 550 ml Balance 150 ml -650 ml -550 ml medications Current Medications Medications Dose Ordered Sig/Agnes Route Start Time Stop Time Status Last Admin Dose Admin Pantoprazole Sodium 40 mg DAILY IV 07/04/25 10:00 07/14/25 09:12 40 MG Artificial Tears 2 drop Q6HR PRN EACHEYE 07/07/25 20:00 07/13/25 15:53 2 DROP Enteral Nutritional Formula 1,000 ml 50ML/HR GT 07/10/25 13:30 Levothyroxine Sodium 100 mcg DAILY IV 07/11/25 10:00 07/14/25 09:12 100 MCG Ceftriaxone Sodium 50 ml @ 100 mls/hr DAILY@09 IV 07/11/25 09:00 07/14/25 09:00 100 MLS/HR Micafungin Sodium 100 mg/Sodium Chloride 100 ml @ 100 mls/hr DAILY IV 07/11/25 10:00 07/14/25 09:26 100 MLS/HR Patient Own Medication 1 DAILY PO 07/13/25 10:00 Hydralazine HCl 10 mg Q6HP PRN IV 07/13/25 07:45 07/14/25 03:03 10 MG Losartan Potassium 50 mg DAILY PO 07/14/25 10:00 07/14/25 09:13 50 MG Purified Water 250 ml Q6HR GT 07/14/25 12:00 Examination Gen - no pallor, no icterus, no cyanosis, no edema . Skin - Patients skin is warm and dry. HEENT - normocephalic, atraumatic, dry mucous membranes. Right subconjunctival hemorrhage Neck - no JVD Pulmonary - B/L equal breath sounds, no rales, no wheezing, no stridor. cardiovascular - regular S1,S2 heard, no added sounds, no murmurs heard. peripheral pulses feeble radial 2+, pedal 2+. GI - soft, nontender abdomen. Bowel sounds normoactive Neurological - Patient on mechanical ventilation Extremities: Decerebrate posturing, eyes open but no response to verbal stimulation or sudden loud noise laboratory and microbiology Laboratory Tests 07/14/25 02:51 Test 07/14/25 02:51 Range/Units Serum Glucose 100 74-106 mg/dL Microbiology Date/Time Source Procedure Growth Status 07/06/25 12:08 Trachea Gram Stain - Final Resulted 07/06/25 12:08 Trachea Respiratory Culture - Preliminary Resulted 07/03/25 14:40 Urine - [place] Urine Culture - Final Escherichia coli Complete 07/02/25 13:19 Blood Blood Culture - Final NO GROWTH AFTER 5 DAYS OF INCUBATION. Complete 07/02/25 13:10 Sputum Gram Stain - Final Complete 07/02/25 13:10 Sputum Respiratory Culture - Final Complete Problem List/Assessment/Plan Problem List/Assessment/Plan Neurology Acute metabolic/hypoxic encephalopathy likely from Heat stroke/ possible seizure/ severe hypothyroidism Severe hyperthermia likely from Heat Stroke h/o bipolar disorder h/o depression Possible vegetative state - On T piece - Head CT showed no acute intracranial abnormality - sedation has been turned off with the patient is not responsive to voice commands, pupils equal and reactive, active gag reflex - 07/10 MRI brain today which showed subtle increased DWI signal within the bilateral caudate head, anterior protamine, medial temporal lobes, midbrain and cerebellar hemispheres concerning for early findings of hypoxic ischemic injury. Elevated TSH following which IV levothyroxine was added Respiratory S/P Tracheostomy on 07/13 - minimal ventilator settings, peep 5, FiO2 30%, Cardiovascular Wide complex nonsustained Ventricular tachycardia s/p defibrillation Shock likely hypovolemic Moderate to severe aortic regurgitation Heart failure with reduced ejection fraction, no exacerbation NSTEMI likely type 2 - echocardiogram shows LVEF 40%, BNP < 300 - chest x-ray bilaterally shows no congestion Nephrology TESFAYE on CKD likely due to be VMN -kidney function and urine output improved Gastrointestinal Shock liver - LFTs improving - on feeding via NG tube Endocrinology Severe hypothyroidism - TSH 65 --> 95--> >150 - levothyroxine 100 mcg IV - endocrinology consulted, added liothyronine 5 mcg daily but [facility] and family has not picked up the medication - monitor daily T3, T4 hematology Thrombocytopenia, improved - monitor platelets and any signs of bleeding - 1 bag of FFP given PUD prophylaxis: Protonix DVT prophylaxis: Held because of thrombocytopenia, on SCDs Intubated on 07/02 James's catheter inserted on 07/02 Goals of care discussed with the patient's son Danny. Patient was put on T- piece and FiO2 28%, ABG done which showed respiratory alkalosis and PaO2 of 100%. With the patient on the T-piece overnight as she currently has no respiratory distress in the ABG is also good. Code status - full code Critical care time spent excluding procedures: 43 minutes Case discussed with Dr. Hinojosa Plan discussed with: Son, Other (RN Carol) My Orders My Orders Orders - ELIDIA MCGHEE RESIDENT Procedure Category Date Status Time Chest Portable XY 07/14/25 Resulted 05:19 Abg W/ Co-Ox RT 07/14/25 Logged 06:00 Chest Portable XY 07/14/25 Resulted 07:10 Free Water PHA 07/14/25 In Process 12:00 Cpap Trial For Am ORDERS 07/14/25 Transmitted 10:59 Dietary Evaluation Review Comments: 1. TF Vital high protein @50ml/hr (105g Protein 1200kcal and 1003ml free water) supporting 100% of pt's needs 2. Initial TF speed at 30ml/hr, increase 10ml Q6 hr until reaching full speed. 3. Reassess when pt is extubated. Expected Outcomes/Goals: catabolism prevention ELIDIA MCGHEE RESIDENT Jul 14, 2025 14:33
[2025-07-14] MEDS: FREE WATER GT SCH (14:38)
--- NOTE | 2025-07-14 15:48 | DVHPN2 ---
Consult Progress Note Date Seen: Jul 14, 2025 Subjective Patient reports: No new complaints Other Systems: Patient was seen and examined at bedside. She is currently on CPAP, s/p tracheostomy. Vital signs in the last 24 hours has been stable, no fevers, hypovolemia, heart rate within normal limits, blood pressure has been fluctuating towards the higher side. Patient continues to be off sedation, no vasopressors. Physical examination as below: General: Tracheostomy, nonresponsive to verbal stimuli, noise. HEENT: Head is normocephalic and atraumatic. Pupils are equal, round, and reactive to light. Right subconjunctival hemorrhage. Neck: Supple with no cervical lymphadenopathy. Heart: Regular rate without murmur, rub, or gallop. Lungs: Equal breath sounds bilaterally with no wheezing, rales, or rhonchi. There is no chest wall tenderness or instability. Abdomen: No external sign of injury. Bowel sounds are present. Abdomen is soft, nontender. No rebound, no guarding, no rigidity. There are no palpable masses. Extremities: Strong peripheral pulses. There is no clubbing, no cyanosis, and no edema. Skin: No rash. Neurologic: Decerebrate posturing, opens eyes, does not track, no response to verbal stimulation or noise, gag reflex positive, hypertonicity of upper and lower extremities, bilateral Babinski positive Objective vital signs Vital Sign Date Time Temp Pulse Resp B/P (MAP) Pulse Ox O2 Delivery O2 Flow Rate FiO2 07/14/25 14:20 99 T-piece 10 35 35 07/14/25 14:00 108 07/14/25 14:00 98.1 15 148/86 (106) 208.6 Total Intake and Output 07/13/25 07/13/25 07/14/25 15:00 23:00 07:00 Intake Total 150 ml Output Total 650 ml 550 ml Balance 150 ml -650 ml -550 ml medications Current Medications Medications Dose Ordered Sig/Agnes Route Start Time Stop Time Status Last Admin Dose Admin Pantoprazole Sodium 40 mg DAILY IV 07/04/25 10:00 07/14/25 09:12 40 MG Artificial Tears 2 drop Q6HR PRN EACHEYE 07/07/25 20:00 07/13/25 15:53 2 DROP Enteral Nutritional Formula 1,000 ml 50ML/HR GT 07/10/25 13:30 Levothyroxine Sodium 100 mcg DAILY IV 07/11/25 10:00 07/14/25 09:12 100 MCG Ceftriaxone Sodium 50 ml @ 100 mls/hr DAILY@09 IV 07/11/25 09:00 07/14/25 09:00 100 MLS/HR Micafungin Sodium 100 mg/Sodium Chloride 100 ml @ 100 mls/hr DAILY IV 07/11/25 10:00 07/14/25 09:26 100 MLS/HR Patient Own Medication 1 DAILY PO 07/13/25 10:00 Hydralazine HCl 10 mg Q6HP PRN IV 07/13/25 07:45 07/14/25 03:03 10 MG Losartan Potassium 50 mg DAILY PO 07/14/25 10:00 07/14/25 09:13 50 MG Purified Water 250 ml Q6HR GT 07/14/25 12:00 07/14/25 14:38 250 ML laboratory and microbiology Laboratory Tests 07/14/25 02:51 Test 07/14/25 02:51 Range/Units Serum Glucose 100 74-106 mg/dL Problem List/Assessment/Plan Problem List/Assessment/Plan #Severe hypothyroidism #Heat stroke #Metabolic and hypoxic encephalopathy #Questionable vegetative status #Resolved wide complex ventricular tachycardia status post defibrillation #Shock This is a 50-year-old female who was found with altered mental status at home, with hyperpyrexia, wide complex ventricular tachycardia. Patient has a relevant history of hypothyroidism, bipolar disorder, anxiety, depression, questionable schizoaffective disorder. She lives alone. On lifetime summary review, is noted that patient TSH has been elevated since 2022 and in 2023. Suggesting the patient was nonadherent to her medications. She has also been prescribed numerous anti psychiatric medications in the last year, as well as many medications that prolonged QT interval. Patient's has been on lithium, however lithium levels on admission were low, again suggesting nonadherence. Either way, considering the likelihood of polypharmacy, possible medication side effects leading to patient's worsening mental status and hyperpyrexia at home are likely. Per records they also suggest that the patient's air conditioning was not working. Hence, heat stroke could have been the precipitating factor for the patient to decompensate and also causing severe hypothyroidism. Myxedema coma is highly unlikely given reviewed blood work, clinical status, vital signs that were documented on initial admission and also in the last couple of days. Patient has been sinus rhythm, still developing low-grade fevers, electrolytes are within normal limits, she has been having bowel movements. Patient's current mental status is likely related to hypoxic brain injury, as suggested by the brain MRI. In regards to the patient's hypothyroidism, we will recommend continuing IV levothyroxine, adding liothyronine. And measuring TSH every three days and T3- T4 every day. 07/13: Patient's free T4 is now within normal limits, total T3 is also within normal limits, free T3 is low but trending up. 07/14: Free T3 continues to trend up: 1.74-1.79, 1.82. May continue measuring T3, T4 every 1-2 days. Plan/Recommendation Continue levothyroxine 100 mcg IV daily Start liothyronine 5 mcg through NG tube daily (prescribed as outpatient medication, family members pending to pick it up from [facility]) Measure TSH every three days Measure T3 and T4 every 1-2 days. Case was discussed with Dr. De Luna Plan discussed with: Other Dietary Evaluation Review Comments: 1. TF Vital high protein @50ml/hr (105g Protein 1200kcal and 1003ml free water) supporting 100% of pt's needs 2. Initial TF speed at 30ml/hr, increase 10ml Q6 hr until reaching full speed. 3. Reassess when pt is extubated. Expected Outcomes/Goals: catabolism prevention REG TREVIÑO RESIDENT Jul 14, 2025 15:48
[2025-07-14 17:15] LABS: Base Excess -2.0 mmol/L (-2.0-3.0)
--- NOTE | 2025-07-14 22:46 | DVHPN2 ---
Progress Note - Dictate Date Seen: Jul 14, 2025 Medical Necessity Reason Pt with a Central, PICC or Fol: Yes The following are medically ne: Central Line, James Catheter Subjective Ms. Montes is a 48 years old female with a history of bipolar disorder, anxiety, depression, the patient was taken to the hospital on 07/02/2025 with a chief complaint of altered mental status. I saw her on 01/10/2024 for ALOC I have seen and examined the patient, I have discussed with her nurse, her eyes are open, blinking and rolling from [id number], but she is not responsive to verbal stimuli, sudden loud noise or visual thread, her extremities are extended, Status post tracheostomy on 07/14/2025 Pupil size 07/09/25: right: 4 mm, left: 2-3 mm, both are reactive to lights (RN: The left- sided was bigger during the daytime yesterday) 07/10/2025: right: 4 mm, left: 2-3 mm, both are reactive to lights 07/12/2025: right: 3 mm, left: 2-3 mm, both are reactive to lights CSF, 01/12/2024: C/C, WBC: 0, RBC: 0, protein: 36.1, glucose: 70 Urinalysis, 07/02/2025: Urine leukocyte esterase: 3+ Urine culture, 07/03/2025: E coli Blood culture, 07/03/2025: Negative UDS, 07/02/2025: Negative [place], 07/07/2025: ABG, 07/03/2025: Compensated metabolic acidosis, 07/07/2025: Compensated metabolic acidosis WBC/HB/PLT/MCV, 07/07/2025: 8.5/8.8/58/82.3 CK, 07/02/2025: 653, 07/04/2025: 1423, 07/22/2025: 693, 07/07/2025: 366 TG/HDL/LDL/HDL, 07/05/2025: 13/1./ Ferritin 01/19/2024: 21.8 Chest x-ray, 07/02/2025: 1. Endotracheal tube 6.1 cm above the sylvia. 2. AED pads over the chest 3. Enteric tube position left diaphragm in the stomach CT head, 01/10/2024: No acute intracranial abnormality or significant interval change compared to 01/09/2024 CT head, 07/02/2025: No acute intracranial abnormality. CT head, 07/10/2025: No acute intracranial abnormality CT chest, 01/09/2024: 1. Inferior left upper and lower lobe consolidation favored to reflect infectious/inflammatory etiology, possibly aspiration. 2. The endotracheal tube terminates in the right mainstem bronchus. 3. The enteric tube is in satisfactory position MRI head, 01/15/2024: No acute abnormal MRI findings of the brain MR head, 07/10/2025: Subtle increased DWI signal within the bilateral caudate head, anterior putamen, medial temporal lobes, midbrain, and cerebellar hemispheres, concerning for early findings of hypoxic ischemic injury MRI C-spine, 01/15/24: 1. Degenerative disc disease and facet/uncinate disease in the cervical spine with associated spinal canal, subarticular, and neural foraminal stenoses as detailed above. 2. 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 3. No signal abnormality in the spinal cord to suggest myelopathy. 4. Additional findings as detailed above vital signs Vital Sign Date Time Temp Pulse Resp B/P (MAP) Pulse Ox O2 Delivery O2 Flow Rate FiO2 07/14/25 21:00 90 26 161/99 (119) 97 07/14/25 20:00 T-piece 6 28 28 07/14/25 20:00 100.2 100.2 Total Intake and Output 07/13/25 07/13/25 07/14/25 15:00 23:00 07:00 Intake Total 150 ml Output Total 650 ml 550 ml Balance 150 ml -650 ml -550 ml medications Current Medications Medications Dose Ordered Sig/Agnes Route Start Time Stop Time Status Last Admin Dose Admin Pantoprazole Sodium 40 mg DAILY IV 07/04/25 10:00 07/14/25 09:12 40 MG Artificial Tears 2 drop Q6HR PRN EACHEYE 07/07/25 20:00 07/13/25 15:53 2 DROP Enteral Nutritional Formula 1,000 ml 50ML/HR GT 07/10/25 13:30 Levothyroxine Sodium 100 mcg DAILY IV 07/11/25 10:00 07/14/25 09:12 100 MCG Ceftriaxone Sodium 50 ml @ 100 mls/hr DAILY@09 IV 07/11/25 09:00 07/14/25 09:00 100 MLS/HR Micafungin Sodium 100 mg/Sodium Chloride 100 ml @ 100 mls/hr DAILY IV 07/11/25 10:00 07/14/25 09:26 100 MLS/HR Patient Own Medication 1 DAILY PO 07/13/25 10:00 Hydralazine HCl 10 mg Q6HP PRN IV 07/13/25 07:45 07/14/25 03:03 10 MG Losartan Potassium 50 mg DAILY PO 07/14/25 10:00 07/14/25 09:13 50 MG Purified Water 250 ml Q6HR GT 07/14/25 12:00 07/14/25 14:38 250 ML objective The patient is well-nourished and well-developed with no distress. The patient is intubated MENTAL STATUS: Subjective CRANIAL NERVES: Pupils are round and reactive.There is frequent blinking and occasional rolling eye movement. No signs of facial weakness. There are gagging or coughing reflexes SENSATION: Responses to pain stimuli. MOTOR: Elevated tone in the upper and lower extremity. Normal muscle bulk. No fasciculations. No spontaneous movement except for posturing. REFLEXES: Deep tendon reflexes are symmetrical. Bilateral Upgoing toes noticed when muscle tone is diminished CEREBELLAR/COORDINATION: Deferred GAIT/STATION: deferred. laboratory and microbiology Laboratory Tests 07/14/25 02:51 Test 07/14/25 02:51 Range/Units Serum Glucose 100 74-106 mg/dL Problem List Altered mental status Heat stroke Metabolic encephalopathy Hypoxic encephalopathy Vegetative status Decerebration Respiratory failure status post tracheostomy Urinary tract infection Rule out sepsis Bipolar disorder, depression, anxiety Seizure disorder, with last seizure attack before 2018 Restless leg syndrome with low ferritin Assessment/Plan Monitoring Supportive treatment ICU care Stabilize vitals Respiratory support/vent management IV antibiotics Oxygen DVT prophylaxis GI prophylaxis Tube feeding History from her when she wakes up More recommended per clinical course She is likely to have a poor prognosis for meaning recovery This medical document was created using an electronic medical record system with [employer] system. Although this document has been carefully reviewed, there may still be some phonetic and typographical errors. These areas are purely typographical due to imperfections of the software programs, and do not reflect any compromise in the patient's medical care. Prognosis poor Dietary Evaluation Review Comments: 1. TF Vital high protein @50ml/hr (105g Protein 1200kcal and 1003ml free water) supporting 100% of pt's needs 2. Initial TF speed at 30ml/hr, increase 10ml Q6 hr until reaching full speed. 3. Reassess when pt is extubated. Expected Outcomes/Goals: catabolism prevention Plan discussed with: Other HORACIO MURPHY MD Jul 14, 2025 22:46
[2025-07-15] VITALS (41 sets, daily range): BP systolic 132–173; BP diastolic 71–105; PULSE 76–108; RESP 13–35; TEMP 98.3–100.1; O2SAT 93–100
[2025-07-15 03:42] LABS: Hematocrit 33.6 % (36.0-46.0); Hemoglobin 11.0 g/dL (12.2-16.2); Mean Corpuscular Hemoglobin 27.9 pg (28.0-32.0); Mean Corpuscular Volume 85.4 fL (80.0-100.0); Nucleated Red Blood Cells % 0.2 %
[2025-07-15 03:52] LABS: Anion Gap 15 (5-15); Carbon Dioxide 22 mmol/L (20-31)
[2025-07-15 03:53] LABS: Calcium 10.3 mg/dL (8.7-10.4); Chloride 115 mmol/L (98-107); Potassium 2.9 mmol/L (3.5-5.1); Sodium 152 mmol/L (136-145)
[2025-07-15 03:58] LABS: BUN/Creatinine Ratio 20.8 (10.0-20.0); Blood Urea Nitrogen 20 mg/dL (9-23); Free T3 1.74 pg/mL (2.3-4.2); Free T4 (Free Thyroxine) 1.66 ng/dL (0.89-1.76); Glucose 120 mg/dL (74-106)
[2025-07-15] MEDS: POTASSIUM CHL 20MEQ/100ML 100 ML IV SCH (06:04)
--- NOTE | 2025-07-15 08:45 | DVHPN2 ---
Progress Note Date Seen: Jul 15, 2025 Medical Necessity Reason Pt with a Central, PICC or Fol: Yes The following are medically ne: Central Line, James Catheter Objective vital signs Vital Sign Date Time Temp Pulse Resp B/P (MAP) Pulse Ox O2 Delivery O2 Flow Rate FiO2 07/15/25 08:00 18 97 T-piece 6 28 28 07/15/25 08:00 83 07/15/25 06:01 151/79 (103) 07/15/25 04:01 100.1 100.1 Total Intake and Output 07/14/25 07/14/25 07/15/25 15:00 23:00 07:00 Intake Total 200 ml 276 ml 739 ml Output Total 350 ml 550 ml Balance 200 ml -74 ml 189 ml medications Current Medications Medications Dose Ordered Sig/Agnes Route Start Time Stop Time Status Last Admin Dose Admin Pantoprazole Sodium 40 mg DAILY IV 07/04/25 10:00 07/14/25 09:12 40 MG Artificial Tears 2 drop Q6HR PRN EACHEYE 07/07/25 20:00 07/13/25 15:53 2 DROP Enteral Nutritional Formula 1,000 ml 50ML/HR GT 07/10/25 13:30 Levothyroxine Sodium 100 mcg DAILY IV 07/11/25 10:00 07/14/25 09:12 100 MCG Ceftriaxone Sodium 50 ml @ 100 mls/hr DAILY@09 IV 07/11/25 09:00 07/14/25 09:00 100 MLS/HR Micafungin Sodium 100 mg/Sodium Chloride 100 ml @ 100 mls/hr DAILY IV 07/11/25 10:00 07/14/25 09:26 100 MLS/HR Patient Own Medication 1 DAILY PO 07/13/25 10:00 Hydralazine HCl 10 mg Q6HP PRN IV 07/13/25 07:45 07/14/25 23:02 10 MG Losartan Potassium 50 mg DAILY PO 07/14/25 10:00 07/14/25 09:13 50 MG Purified Water 250 ml Q6HR GT 07/14/25 12:00 07/15/25 06:04 250 ML Potassium Chloride 100 ml @ 50 mls/hr Q2H IV 07/15/25 05:30 07/15/25 11:29 07/15/25 08:07 50 MLS/HR laboratory and microbiology Laboratory Tests 07/15/25 03:06 Test 07/15/25 03:06 Range/Units Serum Glucose 120 H 74-106 mg/dL Problem List/Assessment/Plan Problem List/Assessment/Plan 07/15/25 TRACHEOSTOMY SITE OK, CXR STABLE, WILL SIGN OFF, PLEASE RECALL IF NEEDED Plan discussed with: Other Dietary Evaluation Review Comments: 1. TF Vital high protein @50ml/hr (105g Protein 1200kcal and 1003ml free water) supporting 100% of pt's needs 2. Initial TF speed at 30ml/hr, increase 10ml Q6 hr until reaching full speed. 3. Reassess when pt is extubated. Expected Outcomes/Goals: catabolism prevention MACARENA LYN MD Jul 15, 2025 08:44
--- NOTE | 2025-07-15 18:02 | DVHPN2 ---
[facility] Patient's chart is reviewed and discussed with the nurse at bedside in the ICU. Patient had a tracheostomy and now one T-piece oxygenating well. No meaningful neurological response. Reviewed: Care Plan Changes from previous H/P or p: No Changes General: Per HPI Objective Vitals Vital Signs Date Time Temp Pulse Resp B/P (MAP) Pulse Ox O2 Delivery O2 Flow Rate FiO2 07/15/25 17:01 93 21 155/104 (121) 98 07/15/25 16:01 98.5 98.5 07/15/25 16:00 T-piece 6 28 28 Intake/Output Intake and Output 07/15/25 07:00 Intake Total 1215 ml Output Total 900 ml Balance 315 ml Intake Oral 650 ml IV Total 200 ml Tube Feeding 365 ml Output Urine Total 900 ml # Bowel Movements 1 Exam In bed on trach collar oxygenating well. No purposeful movements or response to deep sternal rub or tactile stimuli. Heart regular rate and rhythm S1-S2. Lungs fair air movement without rales wheezes. Abdomen soft positive bowel sounds nontender. Extremities no edema positive pulses. Medications Current Medications Medications Dose Ordered Sig/Agnes Route Start Time Stop Time Status Last Admin Dose Admin Pantoprazole Sodium 40 mg DAILY IV 07/04/25 10:00 07/15/25 09:12 40 MG Artificial Tears 2 drop Q6HR PRN EACHEYE 07/07/25 20:00 07/13/25 15:53 2 DROP Enteral Nutritional Formula 1,000 ml 50ML/HR GT 07/10/25 13:30 Levothyroxine Sodium 100 mcg DAILY IV 07/11/25 10:00 07/15/25 09:12 100 MCG Ceftriaxone Sodium 50 ml @ 100 mls/hr DAILY@09 IV 07/11/25 09:00 07/15/25 09:11 100 MLS/HR Micafungin Sodium 100 mg/Sodium Chloride 100 ml @ 100 mls/hr DAILY IV 07/11/25 10:00 07/15/25 09:12 100 MLS/HR Patient Own Medication 1 DAILY PO 07/13/25 10:00 07/15/25 09:13 1 Hydralazine HCl 10 mg Q6HP PRN IV 07/13/25 07:45 07/14/25 23:02 10 MG Losartan Potassium 50 mg DAILY PO 07/14/25 10:00 07/15/25 09:12 50 MG Purified Water 250 ml Q6HR GT 07/14/25 12:00 07/15/25 17:46 250 ML Laboratory Results Laboratory Tests 07/15/25 03:06 Chemistry Test 07/15/25 03:06 Calcium Level 10.3 mg/dL (8.7-10.4) HgA1c, TSH Test 07/15/25 03:06 Thyroid Stimulating Hormone (TSH) 111.40 uIU/mL (0.55-4.78) H Urinalysis Test 07/03/25 14:40 Urine Color Yellow (Yellow) Urine Clarity Turbid (Clear) H Urine pH 6.5 (5.0-9.0) Urine Specific [place] 1.014 (1.001-1.035) Urine Protein 2+ (Negative) H Urine Ketones Negative (Negative) Urine Blood 3+ /uL (Negative) H Urine Nitrite Negative (Negative) Urine Bilirubin Negative (Negative) Urine Urobilinogen 2 mg/dL (Negative) H Urine Leukocyte Esterase Negative /uL (Negative) Urine RBC 100 /hpf (0 - 4) Urine Microscopic WBC 5 /HPF (0-5) Urine Squamous Epithelial Cells Mod /hpf (<5) Urine Amorphous Crystals Few /hpf (None Seen) Urine Bacteria None seen /hpf (None Seen) Urine Mucus Few (None Seen) Urine Glucose 1+ mg/dL (Normal) H Microbiology Microbiology Date/Time Source Procedure Growth Status 07/06/25 12:08 Trachea Gram Stain - Final Resulted 07/06/25 12:08 Trachea Respiratory Culture - Preliminary Resulted 07/03/25 14:40 Urine - [place] Urine Culture - Final Escherichia coli Complete 07/02/25 13:19 Blood Blood Culture - Final NO GROWTH AFTER 5 DAYS OF INCUBATION. Complete 07/02/25 13:10 Sputum Gram Stain - Final Complete 07/02/25 13:10 Sputum Respiratory Culture - Final Complete Assessment/Plan Assessment/Plan Patient has no purposeful movements. Patient had a tracheostomy placed. Now she is on T-piece oxygenating well. We will go ahead and put a GI consultation for PEG tube placement and consider discharge plan to senior living facility versus LTAC. Discussed with the nurse at bedside. Otherwise continue present management and further clinical management per clinical course. Plan discussed with: Other My Orders Orders - TEZ FIGUEROA MD Procedure Category Date Status Time * Gi Dvh Dragline Operator CONS 07/15/25 Verified 17:57 Problem List: (1) Heat stroke (2) Ventricular tachycardia (3) Metabolic encephalopathy (4) Acute renal injury (5) Acute respiratory failure Date of Service: Jul 15, 2025 Billing Provider: TEZ FIGUEROA MD Common Visit Codes: [id number] INP/OBS CARE(MOD) TEZ FIGUEROA MD Jul 15, 2025 18:02
--- NOTE | 2025-07-15 18:33 | DVHPN2 ---
Progress Note - Dictate Date Seen: Jul 15, 2025 Medical Necessity Reason Pt with a Central, PICC or Fol: Yes The following are medically ne: Central Line, [place] Catheter Subjective Ms. Montes is a 48 years old female with a history of bipolar disorder, anxiety, depression, the patient was taken to the hospital on 07/02/2025 with a chief complaint of altered mental status. I saw her on 01/10/2024 for ALOC I have seen and examined the patient, I have discussed with her nurse, her eyes are open, blinking and rolling from [id number], but she is not responsive to verbal stimuli, sudden loud noise or visual thread, her extremities are extended, Status post tracheostomy on 07/14/2025 Pupil size 07/09/25: right: 4 mm, left: 2-3 mm, both are reactive to lights (RN: The left- sided was bigger during the daytime yesterday) 07/10/2025: right: 4 mm, left: 2-3 mm, both are reactive to lights 07/12/2025: right: 3 mm, left: 2-3 mm, both are reactive to lights 01/15/2025: PERRL CSF, 01/12/2024: C/C, WBC: 0, RBC: 0, protein: 36.1, glucose: 70 Urinalysis, 07/02/2025: Urine leukocyte esterase: 3+ Urine culture, 07/03/2025: E coli Blood culture, 07/03/2025: Negative UDS, 07/02/2025: Negative [place], 07/07/2025: ABG, 07/03/2025: Compensated metabolic acidosis, 07/07/2025: Compensated metabolic acidosis WBC/HB/PLT/MCV, 07/07/2025: 8.5/8.8/58/82.3 Na 07/13/2025: 144, 07/14/25: 146, 07/15/25: 152 CK, 07/02/2025: 653, 07/04/2025: 1423, 07/22/2025: 693, 07/07/2025: 366 TG/HDL/LDL/HDL, 07/05/2025: 13/1.25/27 Ferritin 01/19/2024: 21.8 Chest x-ray, 07/02/2025: 1. Endotracheal tube 6.1 cm above the sylvia. 2. AED pads over the chest 3. Enteric tube position left diaphragm in the stomach CT head, 01/10/2024: No acute intracranial abnormality or significant interval change compared to 01/09/2024 CT head, 07/02/2025: No acute intracranial abnormality. CT head, 07/10/2025: No acute intracranial abnormality CT chest, 01/09/2024: 1. Inferior left upper and lower lobe consolidation favored to reflect infectious/inflammatory etiology, possibly aspiration. 2. The endotracheal tube terminates in the right mainstem bronchus. 3. The enteric tube is in satisfactory position MRI head, 01/15/2024: No acute abnormal MRI findings of the brain MR head, 07/10/2025: Subtle increased DWI signal within the bilateral caudate head, anterior putamen, medial temporal lobes, midbrain, and cerebellar hemispheres, concerning for early findings of hypoxic ischemic injury MRI C-spine, 01/15/24: 1. Degenerative disc disease and facet/uncinate disease in the cervical spine with associated spinal canal, subarticular, and neural foraminal stenoses as detailed above. 2. 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 3. No signal abnormality in the spinal cord to suggest myelopathy. 4. Additional findings as detailed above vital signs Vital Sign Date Time Temp Pulse Resp B/P (MAP) Pulse Ox O2 Delivery O2 Flow Rate FiO2 07/15/25 18:28 100 T-piece 6.0 07/15/25 18:28 28 28 07/15/25 18:09 173/83 07/15/25 17:01 93 21 07/15/25 16:01 98.5 98.5 Total Intake and Output 07/14/25 07/14/25 07/15/25 15:00 23:00 07:00 Intake Total 200 ml 276 ml 739 ml Output Total 350 ml 550 ml Balance 200 ml -74 ml 189 ml medications Current Medications Medications Dose Ordered Sig/Agnes Route Start Time Stop Time Status Last Admin Dose Admin Pantoprazole Sodium 40 mg DAILY IV 07/04/25 10:00 07/15/25 09:12 40 MG Artificial Tears 2 drop Q6HR PRN EACHEYE 07/07/25 20:00 07/13/25 15:53 2 DROP Enteral Nutritional Formula 1,000 ml 50ML/HR GT 07/10/25 13:30 Levothyroxine Sodium 100 mcg DAILY IV 07/11/25 10:00 07/15/25 09:12 100 MCG Ceftriaxone Sodium 50 ml @ 100 mls/hr DAILY@09 IV 07/11/25 09:00 07/15/25 09:11 100 MLS/HR Micafungin Sodium 100 mg/Sodium Chloride 100 ml @ 100 mls/hr DAILY IV 07/11/25 10:00 07/15/25 09:12 100 MLS/HR Patient Own Medication 1 DAILY PO 07/13/25 10:00 07/15/25 09:13 1 Hydralazine HCl 10 mg Q6HP PRN IV 07/13/25 07:45 07/15/25 18:09 10 MG Losartan Potassium 50 mg DAILY PO 07/14/25 10:00 07/15/25 09:12 50 MG Purified Water 250 ml Q6HR GT 07/14/25 12:00 07/15/25 17:46 250 ML objective The patient is well-nourished and well-developed with no distress. The patient is intubated MENTAL STATUS: Subjective CRANIAL NERVES: Pupils are round and reactive.There is frequent blinking and occasional rolling eye movement. No signs of facial weakness. There are gagging or coughing reflexes SENSATION: Responses to pain stimuli. MOTOR: Elevated tone in the upper and lower extremity. Normal muscle bulk. No fasciculations. No spontaneous movement except for posturing. REFLEXES: Deep tendon reflexes are symmetrical. Bilateral Upgoing toes noticed when muscle tone is diminished CEREBELLAR/COORDINATION: Deferred GAIT/STATION: deferred. laboratory and microbiology Laboratory Tests 07/15/25 03:06 Test 07/15/25 03:06 Range/Units Serum Glucose 120 H 74-106 mg/dL Problem List Altered mental status Heat stroke Metabolic encephalopathy Hypoxic encephalopathy Vegetative status Decerebration Respiratory failure status post tracheostomy Urinary tract infection Rule out sepsis Bipolar disorder, depression, anxiety Seizure disorder, with last seizure attack before 2018 Restless leg syndrome with low ferritin Assessment/Plan Monitoring Supportive treatment ICU care Stabilize vitals Respiratory support/vent management IV antibiotics Oxygen DVT prophylaxis GI prophylaxis Tube feeding History from her when she wakes up More recommended per clinical course She is likely to have a poor prognosis for meaning recovery This medical document was created using an electronic medical record system with Dragon computerized dictation system. Although this document has been carefully reviewed, there may still be some phonetic and typographical errors. These areas are purely typographical due to imperfections of the software programs, and do not reflect any compromise in the patient's medical care. Prognosis poor Dietary Evaluation Review Comments: 1. TF Vital high protein @50ml/hr (105g Protein 1200kcal and 1003ml free water) supporting 100% of pt's needs 2. Initial TF speed at 30ml/hr, increase 10ml Q6 hr until reaching full speed. 3. Reassess when pt is extubated. Expected Outcomes/Goals: catabolism prevention Plan discussed with: Other HORACIO MURPHY MD Jul 15, 2025 18:33
[2025-07-15] MEDS: Vital High Protein 1liter Bottle GT SCH (22:18)
--- NOTE | 2025-07-15 23:31 | DVHPN2 ---
Progress Note - Dictate Date Seen: Jul 15, 2025 Medical Necessity Reason Pt with a Central, PICC or Fol: Yes The following are medically ne: Central Line, [place] Catheter Reason for campbell catheter: Strict I&O Subjective Patient seen and examined at bedside. S/p trach, on supplemental oxygen Overnight events reviewed. vital signs Vital Sign Date Time Temp Pulse Resp B/P (MAP) Pulse Ox O2 Delivery O2 Flow Rate FiO2 07/15/25 21:01 93 30 141/105 (117) 97 07/15/25 20:01 98.8 98.8 07/15/25 20:00 T-piece 6 28 Total Intake and Output 07/14/25 07/14/25 07/15/25 15:00 23:00 07:00 Intake Total 200 ml 276 ml 739 ml Output Total 350 ml 550 ml Balance 200 ml -74 ml 189 ml medications Current Medications Medications Dose Ordered Sig/Agnes Route Start Time Stop Time Status Last Admin Dose Admin Pantoprazole Sodium 40 mg DAILY IV 07/04/25 10:00 07/15/25 09:12 40 MG Artificial Tears 2 drop Q6HR PRN EACHEYE 07/07/25 20:00 07/13/25 15:53 2 DROP Enteral Nutritional Formula 1,000 ml 50ML/HR GT 07/10/25 13:30 07/15/25 22:18 1,000 ML Levothyroxine Sodium 100 mcg DAILY IV 07/11/25 10:00 07/15/25 09:12 100 MCG Ceftriaxone Sodium 50 ml @ 100 mls/hr DAILY@09 IV 07/11/25 09:00 07/15/25 09:11 100 MLS/HR Micafungin Sodium 100 mg/Sodium Chloride 100 ml @ 100 mls/hr DAILY IV 07/11/25 10:00 07/15/25 09:12 100 MLS/HR Patient Own Medication 1 DAILY PO 07/13/25 10:00 07/15/25 09:13 1 Hydralazine HCl 10 mg Q6HP PRN IV 07/13/25 07:45 07/15/25 18:09 10 MG Losartan Potassium 50 mg DAILY PO 07/14/25 10:00 07/15/25 09:12 50 MG Purified Water 250 ml Q6HR GT 07/14/25 12:00 07/15/25 17:46 250 ML objective Gen.: Patient lying in bed in no apparent distress. S/p trach. On supplemental oxygen. Head: Normocephalic, atraumatic. Eyes: EOMI/PERRLA. Ears: Normal hearing. Normal anatomy. Neck/trachea: Trach in place. Nose: Normal external anatomy. Mouth: Moist mucous membranes. Chest: Decreased air entry bilaterally. No wheezing or rhonchi. Cardiovascular: Positive S1, positive S2. Regular rate and rhythm. Abdomen: Positive bowel sounds in all 4 quadrants. Soft, non-tender, non- distended. : Deferred. Rectal: Deferred. Skin: Warm, dry. Intact. Extremities: 2+ radial pulses bilaterally. No lower extremity edema. Neuro: Awake, not following commands. No gross motor or sensory deficits. Cranial nerves II through XII intact. Gait not assessed. laboratory and microbiology Laboratory Tests 07/15/25 03:06 Test 07/15/25 03:06 Range/Units Serum Glucose 120 H 74-106 mg/dL Assessment/Plan Impression: Status post cardiac arrest Requiring CPR Acute hypoxemic respiratory failure S/p tracheostomy Depression Anxiety Heat stroke Events: Patient is seen and examined in the ICU S/p trach, on 6 LPM via T-piece Tolerating trach collar Mechanical ventilator PRN respiratory distress. Trach care per RT. Continue antibiotics/antifungal Blood pressure control NG tube feedings Monitor renal function. Monitor electrolytes. Supplement as necessary Potassium supplementation Disposition per hospitalist. Off sedation Awake, not following commands. Suspected anoxic brain injury Labs and imaging studies reviewed Plan: S/p tracheostomy, currently on 6 LPM via T-piece Mechanical ventilator PRN respiratory distress. Trach care per RT. Neurologic workup - Follow up Neurology recommendations Continue antibiotics Blood pressure control Monitor renal function. Monitor electrolytes. Supplement as necessary. Monitor ins and outs. GI/DVT prophylaxis. Prognosis: Poor given patient's multiple co-morbidities. Condition: Critical Rest of plan per hospitalist and other consultants. A total of 35 minutes of critical care time was spent reviewing the patient record, examining the patient, making a diagnostic and therapeutic plan, discussing this plan with the medical personnel, following up on diagnostic studies and following the patient for clinical stability excluding any and all procedures. At least 50% of this time was spent in direct, [id number] contact. Thank you Dr. Hill for allowing me to participate in this patient's care. Further recommendations will depend on the patient's clinical course. Please do not hesitate to contact me if you have any questions or concerns. This medical document was created using an electronic medical record system with gokit dictation system. Although these documentations are being carefully reviewed, there may still be some phonetic and typographical changes. The errors are purely typographical, due to imperfection on the software program, and do not reflect any compromise in the patient's medical care. Dietary Evaluation Review Comments: 1. TF Vital high protein @50ml/hr (105g Protein 1200kcal and 1003ml free water) supporting 100% of pt's needs 2. Initial TF speed at 30ml/hr, increase 10ml Q6 hr until reaching full speed. 3. Reassess when pt is extubated. Expected Outcomes/Goals: catabolism prevention Plan discussed with: Other (LYNETTE Dowd) Critical Care Time(min): 35 JAMESON ÁLVAREZ MD Jul 15, 2025 23:31
[2025-07-16] VITALS (32 sets, daily range): BP systolic 144–177; BP diastolic 68–118; PULSE 77–114; RESP 12–35; TEMP 98.6–99.7; O2SAT 94–100
[2025-07-16 03:49] LABS: Hematocrit 34.9 % (36.0-46.0); Hemoglobin 11.3 g/dL (12.2-16.2); Mean Corpuscular Hemoglobin 27.6 pg (28.0-32.0); Mean Corpuscular Volume 85.5 fL (80.0-100.0); Nucleated Red Blood Cells % 0.3 %
[2025-07-16 03:59] LABS: Anion Gap 16 (5-15); Potassium 3.7 mmol/L (3.5-5.1)
[2025-07-16 04:00] LABS: Calcium 10.1 mg/dL (8.7-10.4)
[2025-07-16 04:04] LABS: Carbon Dioxide 19 mmol/L (20-31); Chloride 118 mmol/L (98-107); Sodium 153 mmol/L (136-145)
[2025-07-16 04:05] LABS: BUN/Creatinine Ratio 25.3 (10.0-20.0); Blood Urea Nitrogen 23 mg/dL (9-23); Glucose 109 mg/dL (74-106); Magnesium 2.0 mg/dL (1.6-2.6)
--- NOTE | 2025-07-16 05:32 | DVH ---
CHEST RADIOGRAPH Indication: TRACH Technique: 1 view Comparison: XY CHEST PORTABLE on DOS: 07/14/25, XY CHEST PORTABLE on DOS: 07/14/25, XY CHEST PORTABLE o n DOS: 07/13/25, XY CHEST XRAY 1 VIEW on DOS: 07/13/25, XY CHEST XRAY 1 VIEW on DOS: 07/11/25 FINDINGS: Lines and Tubes: Unchanged tracheostomy and enteric tubes. Lungs/Pleura: No focal consolidation, pleural effusion or pneumothorax. Cardiomediastinum: Unchanged. Other: Unchanged. IMPRESSION: 1. No significant change from 2 days prior. Stable support devices. No significant cardiopulmonary a bnormality.
[2025-07-16 09:11] LABS: Base Excess -0.9 mmol/L (-2.0-3.0)
--- NOTE | 2025-07-16 17:50 | DVHPN2 ---
Subjective Cross covering for [facility]ist today. Waiting for GI eval for possible PEG tube. Patient had a tracheostomy and now one T-piece oxygenating well. No meaningful neurological response. Reviewed: Care Plan Changes from previous H/P or p: No Changes General: Per HPI Objective Vitals Vital Signs Date Time Temp Pulse Resp B/P (MAP) Pulse Ox O2 Delivery O2 Flow Rate FiO2 07/16/25 16:29 172/101 07/16/25 14:00 96 20 97 07/16/25 14:00 T-piece 6 28 28 07/16/25 12:00 99.1 99.1 Intake/Output Intake and Output 07/16/25 07:00 Intake Total 2040 ml Output Total 1625 ml Balance 415 ml Intake Oral 1000 ml IV Total 200 ml Tube Feeding 840 ml Output Urine Total 1625 ml # Bowel Movements 1 Exam In bed on trach collar oxygenating well. No purposeful movements or response to deep sternal rub or tactile stimuli. Heart regular rate and rhythm S1-S2. Lungs fair air movement without rales wheezes. Abdomen soft positive bowel sounds nontender. Extremities no edema positive pulses. Medications Current Medications Medications Dose Ordered Sig/Agnes Route Start Time Stop Time Status Last Admin Dose Admin Pantoprazole Sodium 40 mg DAILY IV 07/04/25 10:00 07/16/25 09:59 40 MG Artificial Tears 2 drop Q6HR PRN EACHEYE 07/07/25 20:00 07/16/25 10:06 2 DROP Enteral Nutritional Formula 1,000 ml 50ML/HR GT 07/10/25 13:30 07/15/25 22:18 1,000 ML Levothyroxine Sodium 100 mcg DAILY IV 07/11/25 10:00 07/16/25 10:00 100 MCG Ceftriaxone Sodium 50 ml @ 100 mls/hr DAILY@09 IV 07/11/25 09:00 07/16/25 08:08 100 MLS/HR Micafungin Sodium 100 mg/Sodium Chloride 100 ml @ 100 mls/hr DAILY IV 07/11/25 10:00 07/16/25 09:59 100 MLS/HR Patient Own Medication 1 DAILY PO 07/13/25 10:00 07/16/25 10:00 1 Hydralazine HCl 10 mg Q6HP PRN IV 07/13/25 07:45 07/16/25 16:29 10 MG Losartan Potassium 50 mg DAILY PO 07/14/25 10:00 07/16/25 10:01 50 MG Purified Water 250 ml Q6HR GT 07/14/25 12:00 07/16/25 11:45 250 ML Clonidine HCl 0.1 mg Q7D TD 07/16/25 16:30 Laboratory Results Laboratory Tests 07/16/25 02:55 Chemistry Test 07/16/25 02:55 Calcium Level 10.1 mg/dL (8.7-10.4) Magnesium Level 2.0 mg/dL (1.6-2.6) Urinalysis Test 07/03/25 14:40 Urine Color Yellow (Yellow) Urine Clarity Turbid (Clear) H Urine pH 6.5 (5.0-9.0) Urine Specific [place] 1.014 (1.001-1.035) Urine Protein 2+ (Negative) H Urine Ketones Negative (Negative) Urine Blood 3+ /uL (Negative) H Urine Nitrite Negative (Negative) Urine Bilirubin Negative (Negative) Urine Urobilinogen 2 mg/dL (Negative) H Urine Leukocyte Esterase Negative /uL (Negative) Urine RBC 100 /hpf (0 - 4) Urine Microscopic WBC 5 /HPF (0-5) Urine Squamous Epithelial Cells Mod /hpf (<5) Urine Amorphous Crystals Few /hpf (None Seen) Urine Bacteria None seen /hpf (None Seen) Urine Mucus Few (None Seen) Urine Glucose 1+ mg/dL (Normal) H Blood Gas Results Test 07/16/25 08:53 Arterial Blood pH 7.531 (7.350-7.450) FiO2 % 28.0 Microbiology Microbiology Date/Time Source Procedure Growth Status 07/06/25 12:08 Trachea Gram Stain - Final Resulted 07/06/25 12:08 Trachea Respiratory Culture - Preliminary Resulted 07/03/25 14:40 Urine - [place] Urine Culture - Final Escherichia coli Complete 07/02/25 13:19 Blood Blood Culture - Final NO GROWTH AFTER 5 DAYS OF INCUBATION. Complete 07/02/25 13:10 Sputum Gram Stain - Final Complete 07/02/25 13:10 Sputum Respiratory Culture - Final Complete Assessment/Plan Assessment/Plan Patient has no purposeful movements. Patient had a tracheostomy placed. Now she is on T-piece oxygenating well. We will go ahead and put a GI consultation for PEG tube placement and consider discharge plan to shelter facility versus LTAC. Discussed with the nurse at bedside. Otherwise continue present management and further clinical management per clinical course. Plan discussed with: Other My Orders Orders - TEZ FIGUEROA MD Procedure Category Date Status Time * Gi Dvh Mineralogy Professor CONS 07/15/25 Transmitted 17:57 Clonidine 0.1mg/24hr PHA 07/16/25 In Process 7day Patc ([place] 16:30 Problem List: (1) Heat stroke (2) Ventricular tachycardia (3) Metabolic encephalopathy (4) Acute respiratory failure (5) Acute renal injury Date of Service: Jul 16, 2025 Billing Provider: TEZ FIGUEROA MD Common Visit Codes: [id number] INP/OBS CARE(MOD) TEZ FIGUEROA MD Jul 16, 2025 17:50
--- NOTE | 2025-07-16 17:53 | DVHINCON2 ---
Date of service: Jul 16, [address] wells Reason for Consultation For PEG tube placement History of Present Illness This is a 48-year-old female with a history of bipolar disorder anxiety depression was taken to the hospital with complaints of altered mental status patient is intubated and not able to be weaned off and hence the reason for the GI consult for possible PEG patient already had a tracheostomy yesterday. Past Medical History And bipolar disorder anxiety depression thyroid problems Past Surgical History tonsillectomy Family History: Patient reports no known family medical history. Family History Noncontributory Social History Smokes marijuana Allergies: Coded Allergies: Aspirin (Verified Allergy, Unknown, 10/10/18) Methocarbamol (Verified Allergy, Unknown, 10/10/18) NSAIDs (Verified Allergy, Unknown, 10/10/18) Nitroglycerin (Verified Allergy, Unknown, 10/10/18) Penicillins (Verified Allergy, Unknown, 10/10/18) Pseudoephedrine (Unverified Allergy, Unknown, 08/15/24) Sulfa Antibiotics (Verified Allergy, Unknown, 10/10/18) Uncoded Allergies: PSUEDOFED (Allergy, Unknown, 10/10/18) Home Meds Active Scripts Levofloxacin Hemihydrate (LEVAQUIN 500 MG) 500 Mg Tab, 1 TAB PO DAILY, #7 TAB Prov:KALIE PRICE MD 05/15/23 Levothyroxine Sodium (Synthroid) 125 Mcg Tab, 1 TAB PO DAILY, #30 TAB 5 Refills Prov:KALIE PRICE MD 05/15/23 Reported Medications Hydrocodone-Acetaminophen (Hydrocodone Bitartrate/AC 10-325 mg) 1 Tab Tab, 1 TAB PO BID, TAB 01/12/24 Daridorexant HCl (Quviviq) 50 Mg Tab, 50 MG PO, TAB 01/12/24 Hydroxyzine Hcl (Hydroxyzine Hcl) 50 Mg Tab, 50 MG PO DAILY for 30 Days, MG 01/12/24 Montelukast Sodium (MONTELUKAST SODIUM) 10 Mg Tab, 1 TAB PO DAILY, #30 TAB 5 Refills 01/12/24 Topiramate (Topiramate) 50 Mg Tab, 50 MG PO BID for 30 Days, MG 01/12/24 Sertraline Hcl (Sertraline Hcl) 50 Mg Tab, 200 MG PO DAILY for 30 Days, MG 2/20/24 Oxybutynin Chloride (Oxybutynin Chloride) 5 Mg Tab, 5 MG PO BID, TAB 01/12/24 Mirtazapine (Mirtazapine Oral Disintegrating Tablet) 15 Mg Tab, 2 TAB PO QPM, #30 TAB 3 Refills 01/12/24 [place] Carbonate ([place] Carbonate Er) 450 Mg Tab, 1 TAB PO BID, #60 TAB 1 Refill 01/12/24 Current Medications Current Medications Medications (Trade) Dose Ordered Sig/Agnes Route PRN Reason Start Time Stop Time Status Last Admin Clonidine HCl ([id number]-Ohh-1 7DAY Patch) 0.1 mg Q7D TD 07/16/25 16:30 Vital Signs Vital Signs Date Time Temp Pulse Resp B/P (MAP) Pulse Ox O2 Delivery O2 Flow Rate FiO2 07/16/25 16:29 172/101 07/16/25 14:00 96 20 97 07/16/25 14:00 T-piece 6 28 28 07/16/25 12:00 99.1 99.1 Physical Exam Ventilated and unresponsive abdomen is soft nontender No masses patient has got tracheostomy at this pace at this time Clear lungs Abdomen is soft nontender Extremities no edema Labs/Diagnostic Data Labs Test 07/16/25 08:53 07/16/25 02:55 07/15/25 03:06 07/14/25 16:44 Range/Units Blood Gas Specimen Type Arterial Blood Gas Sample Site Right radial Blood Gas Patient Temperature 37.0 Arterial Blood Date Drawn [id number] Arterial Blood pH 7.531 H 7.350-7.450 Arterial Blood Partial Pressure CO2 24.2 L 32.0-45.0 mmHg Arterial Blood Partial Pressure O2 114.5 H 83.0-108.0 mmHg Arterial Blood HCO3 19.8 L 21.0-28.0 mmol/L Arterial Blood Oxygen Saturation 98.1 H 94.0-98.0 % Arterial Blood Base Excess -0.9 -2.0-3.0 mmol/L Arterial Blood Oxyhemoglobin 97.4 94.0-98.0 % Arterial Blood Carboxyhemoglobin 0.3 L 0.5-1.5 % Arterial Blood Methemoglobin 0.4 0.0-1.5 % Pankaj Test Yes Blood Gas Total Hemoglobin 15.30 12.0-16.0 g/dL Blood Gas Liter Flow 6.00 Blood Gas Modality Cool aerosol FiO2 % 28.0 White Blood Count 8.4 4.4-10.8 10^3/uL Red Blood Count 4.08 4.0-5.20 10^6/uL Hemoglobin 11.3 L 12.2-16.2 g/dL Hematocrit 34.9 L 36.0-46.0 % Mean Corpuscular Volume 85.5 80.0-100.0 fL Mean Corpuscular Hemoglobin 27.6 L 28.0-32.0 pg Mean Corpuscular Hemoglobin Concent 32.3 32.0-36.0 g/dL Red Cell Distribution Width 17.0 H 11.8-14.3 % Platelet Count 536 H 140-450 10^3/uL Mean Platelet Volume 8.4 6.9-10.8 fL Neutrophils (%) (Auto) 66.1 37.0-80.0 % Lymphocytes (%) (Auto) 18.7 10.0-50.0 % Monocytes (%) (Auto) 13.1 H 0.0-12.0 % Eosinophils (%) (Auto) 1.2 0.0-7.0 % Basophils (%) (Auto) 0.9 0.0-2.0 % Neutrophils # (Auto) 5.5 1.6-8.6 10 ^3/uL Lymphocytes # (Auto) 1.6 0.4-5.4 10 ^3/uL Monocytes # (Auto) 1.1 0-1.3 10 ^3/uL Eosinophils # (Auto) 0.1 0-0.8 10 ^3/uL Basophils # (Auto) 0.1 0-0.2 10 ^3/uL Nucleated Red Blood Cells 0.3 % Sodium Level 153 H 136-145 mmol/L Potassium Level 3.7 3.5-5.1 mmol/L Chloride Level 118 H 98-107 mmol/L Carbon Dioxide Level 19 L 20-31 mmol/L Anion Gap 16 H 5-15 Blood Urea Nitrogen 23 9-23 mg/dL Creatinine 0.91 0.550-1.02 mg/dL Glomerular Filtration Rate Calc 78 >90 mL/min BUN/Creatinine Ratio 25.3 H 10.0-20.0 Serum Glucose 109 H 74-106 mg/dL Calcium Level 10.1 8.7-10.4 mg/dL Magnesium Level 2.0 1.6-2.6 mg/dL Thyroid Stimulating Hormone (TSH) 111.40 H 0.55-4.78 uIU/mL Blood Gas Comments Cool aerosol Test 07/14/25 09:37 07/12/25 18:13 07/12/25 14:00 07/12/25 10:00 Range/Units Blood Gas Set Respiration Rate 16.0 Blood Gas Tidal Volume 400.0 Blood Gas PEEP or CPAP 5.0 Total Triiodothyronine (TT3) 0.68 0.60-1.81 ng/mL Prothrombin Time 11.1 9.3-11.8 sec Prothrombin Time INR 1.05 0.9-1.15 Activated Partial Thromboplast Time 24.4 L 24.5-34.5 SEC Total Bilirubin 0.4 0.2-1.0 mg/dL Aspartate Amino Transferase (AST) 54 H 13-40 U/L Alanine Aminotransferase (ALT) 100 H 7-40 U/L Alkaline Phosphatase 63 46-116 U/L Total Protein 6.3 5.7-8.2 g/dL Albumin 4.4 3.2-4.8 g/dL Test 07/10/25 03:15 07/09/25 06:02 07/09/25 03:15 07/07/25 03:12 Range/Units Differential Total Cells Counted 100.0 100 Neutrophils % (Manual) 59 37.0-80.0 Band Neutrophils % (Manual) 2 Lymphocytes % (Manual) 21 10.0-50.0 Monocytes % (Manual) 17 H 0-12 Eosinophils % (Manual) 1 0-7 Basophils % (Manual) 0 0.0-2.0 Metamyelocytes % (manual) 0 Myelocytes % (Manual) 0 Promyelocytes % (Manual) 0 Blast Cells % (Manual) 0 Reactive Lymphocytes 0 Platelet Estimate [place] Large Platelets Few Blood Gas Spontaneous Rate 19 Blood Gas Pressure Support 8 Anisocytosis (manual) Slight Creatine Kinase 366 H 34-145 U/L [place] Level 0.4 L 0.5-1.2 mmol/L Test 07/05/25 02:12 07/04/25 03:03 07/03/25 14:40 07/03/25 11:10 Range/Units Ovalocytes Few Neda Cells Few Cortisol AM Sample 23.81 H 5.27-22.45 ug/dL Random Vancomycin Level 19.8 H 5-10 ug/mL Urine Color Yellow Yellow Urine Clarity Turbid H Clear Urine pH 6.5 5.0-9.0 Urine Specific [place] 1.014 1.001-1.035 Urine Protein 2+ H Negative Urine Ketones Negative Negative Urine Blood 3+ H Negative /uL Urine Nitrite Negative Negative Urine Bilirubin Negative Negative Urine Urobilinogen 2 H Negative mg/dL Urine Leukocyte Esterase Negative Negative /uL Urine RBC 100 0 - 4 /hpf Urine Microscopic WBC 5 0-5 /HPF Urine Squamous Epithelial Cells Mod <5 /hpf Urine Amorphous Crystals Few None Seen /hpf Urine Bacteria None seen None Seen /hpf Urine Mucus Few None Seen Urine Glucose 1+ H Normal mg/dL Hemoglobin A1c 4.7 <5.7 % A1C B-Type Natriuretic Peptide 297.11 0-100 pg/mL Test 07/03/25 09:27 07/02/25 20:24 07/02/25 15:54 07/02/25 14:40 Range/Units Triglycerides Level 91 < 150 mg/dL Cholesterol Level 108 < 200 mg/dL LDL Cholesterol 77 < 100 mg/dL HDL Cholesterol 18 L 40-59 mg/dL Troponin I High Sensitivity 3664 *H </=34 ng/L Lactic Acid Level 2.4 *H 0.4-2.0 mmol/L Blood Gas Critical Value Read Back Yes Blood Gas Notified Whom Blood Gas Notified Time [id number] Blood Gas Notified By Educational Administration Teacher devendra Test 07/02/25 13:19 Range/Units Urine Opiates Screen Neg NEGATIVE Urine Fentanyl Screen Neg NEGATIVE Urine Barbiturates Screen Neg NEGATIVE Urine Phencyclidine Screen Neg NEGATIVE Urine Amphetamines Screen Neg NEGATIVE Urine Benzodiazepines Screen Neg NEGATIVE Urine Cocaine Screen Neg NEGATIVE Urine Cannabinoids Screen Neg NEGATIVE Microbiology Date/Time Source Procedure Growth Status 07/06/25 12:08 Trachea Gram Stain - Final Resulted 07/06/25 12:08 Trachea Respiratory Culture - Preliminary Resulted 07/03/25 14:40 Urine - [place] Urine Culture - Final Escherichia coli Complete 07/02/25 13:19 Blood Blood Culture - Final NO GROWTH AFTER 5 DAYS OF INCUBATION. Complete 07/02/25 13:10 Sputum Gram Stain - Final Complete 07/02/25 13:10 Sputum Respiratory Culture - Final Complete Assessment 48-year-old with a history of bipolar disorder anxiety depression was admitted with a altered mental status and had to be intubated patient had not unable to be weaned off and now reason for GI consult is for PEG tube placement abdomen is soft examination solo nontender patient already had a history tracheostomy waiting for PEG tube placed Plan/Recommendation We will get the consent for PEG tube placement and then plan for it after the consent is obtained Thank you Dr. Sawyer Plan discussed with: Other JAI SAWYER MD Jul 16, 2025 17:53
[2025-07-16] MEDS: cloNIDine 0.1 mg/24hr 7 DAY PATCH TD SCH (18:13)
--- NOTE | 2025-07-16 23:04 | DVHPN2 ---
Progress Note - Dictate Date Seen: Jul 16, 2025 Medical Necessity Reason Pt with a Central, PICC or Fol: Yes The following are medically ne: Central Line, Campbell Catheter Reason for campbell catheter: Strict I&O Subjective Patient seen and examined at bedside. S/p trach, on supplemental oxygen Overnight events reviewed. vital signs Vital Sign Date Time Temp Pulse Resp B/P (MAP) Pulse Ox O2 Delivery O2 Flow Rate FiO2 07/16/25 18:13 144/73 07/16/25 18:00 18 96 T-piece 6 28 28 07/16/25 18:00 105 07/16/25 18:00 99.1 210.4 Total Intake and Output 07/15/25 07/15/25 07/16/25 15:00 23:00 07:00 Intake Total 200 ml 840 ml 1000 ml Output Total 750 ml 875 ml Balance 200 ml 90 ml 125 ml medications Current Medications Medications Dose Ordered Sig/Agnes Route Start Time Stop Time Status Last Admin Dose Admin Pantoprazole Sodium 40 mg DAILY IV 07/04/25 10:00 07/16/25 09:59 40 MG Artificial Tears 2 drop Q6HR PRN EACHEYE 07/07/25 20:00 07/16/25 10:06 2 DROP Enteral Nutritional Formula 1,000 ml 50ML/HR GT 07/10/25 13:30 07/16/25 21:09 1,000 ML Levothyroxine Sodium 100 mcg DAILY IV 07/11/25 10:00 07/16/25 10:00 100 MCG Ceftriaxone Sodium 50 ml @ 100 mls/hr DAILY@09 IV 07/11/25 09:00 07/16/25 08:08 100 MLS/HR Micafungin Sodium 100 mg/Sodium Chloride 100 ml @ 100 mls/hr DAILY IV 07/11/25 10:00 07/16/25 09:59 100 MLS/HR Patient Own Medication 1 DAILY PO 07/13/25 10:00 07/16/25 10:00 1 Hydralazine HCl 10 mg Q6HP PRN IV 07/13/25 07:45 07/16/25 16:29 10 MG Losartan Potassium 50 mg DAILY PO 07/14/25 10:00 07/16/25 10:01 50 MG Purified Water 250 ml Q6HR GT 07/14/25 12:00 07/16/25 18:13 250 ML Clonidine HCl 0.1 mg Q7D TD 07/16/25 16:30 07/16/25 18:13 0.1 MG objective Gen.: Patient lying in bed in no apparent distress. S/p trach. On supplemental oxygen. Head: Normocephalic, atraumatic. Eyes: EOMI/PERRLA. Ears: Normal hearing. Normal anatomy. Neck/trachea: Trach in place. Nose: Normal external anatomy. Mouth: Moist mucous membranes. Chest: Decreased air entry bilaterally. No wheezing or rhonchi. Cardiovascular: Positive S1, positive S2. Regular rate and rhythm. Abdomen: Positive bowel sounds in all 4 quadrants. Soft, non-tender, non- distended. : Deferred. Rectal: Deferred. Skin: Warm, dry. Intact. Extremities: 2+ radial pulses bilaterally. No lower extremity edema. Neuro: Awake, not following commands. No gross motor or sensory deficits. Cranial nerves II through XII intact. Gait not assessed. laboratory and microbiology Laboratory Tests 07/16/25 02:55 Test 07/16/25 02:55 Range/Units Serum Glucose 109 H 74-106 mg/dL Assessment/Plan Impression: Status post cardiac arrest Requiring CPR Acute hypoxemic respiratory failure S/p tracheostomy Depression Anxiety Heat stroke Events: Patient is seen and examined in the ICU S/p trach, on 6 LPM via T-piece Mechanical ventilator PRN respiratory distress. Pt required vent support overnight Tolerating trach collar during daytime Trach care per RT. Continue antibiotics/antifungal Blood pressure control NG tube feedings Disposition per hospitalist. Off sedation Awake, not following commands. Suspected anoxic brain injury Labs and imaging studies reviewed Plan: S/p tracheostomy, currently on 6 LPM via T-piece Mechanical ventilator PRN respiratory distress. Trach care per RT. Neurologic workup - Follow up Neurology recommendations Continue antibiotics Blood pressure control Monitor renal function. Monitor electrolytes. Supplement as necessary. Monitor ins and outs. GI/DVT prophylaxis. Prognosis: Poor given patient's multiple co-morbidities. Condition: Critical Rest of plan per hospitalist and other consultants. A total of 35 minutes of critical care time was spent reviewing the patient record, examining the patient, making a diagnostic and therapeutic plan, discussing this plan with the medical personnel, following up on diagnostic studies and following the patient for clinical stability excluding any and all procedures. At least 50% of this time was spent in direct, [id number] contact. Thank you Dr. Hill for allowing me to participate in this patient's care. Further recommendations will depend on the patient's clinical course. Please do not hesitate to contact me if you have any questions or concerns. This medical document was created using an electronic medical record system with [employer] dictation system. Although these documentations are being carefully reviewed, there may still be some phonetic and typographical changes. The errors are purely typographical, due to imperfection on the software program, and do not reflect any compromise in the patient's medical care. Dietary Evaluation Review Comments: 1. TF Vital high protein @50ml/hr (105g Protein 1200kcal and 1003ml free water) supporting 100% of pt's needs 2. Initial TF speed at 30ml/hr, increase 10ml Q6 hr until reaching full speed. 3. Reassess when pt is extubated. Expected Outcomes/Goals: catabolism prevention Plan discussed with: Other (LYNETTE Avendaño) Critical Care Time(min): 35 JAMESON ÁLVAREZ MD Jul 16, 2025 23:04
[2025-07-17] VITALS (41 sets, daily range): BP systolic 126–195; BP diastolic 52–136; PULSE 54–116; RESP 14–29; TEMP 98.4–99.7; O2SAT 92–100
--- NOTE | 2025-07-17 08:43 | DVH ---
CHEST RADIOGRAPH Indication: f/u Technique: 1 view Comparison: XY CHEST PORTABLE on DOS: 07/16/25, XY CHEST PORTABLE on DOS: 07/14/25, XY CHEST PORTABLE o n DOS: 07/14/25, XY CHEST PORTABLE on DOS: 07/13/25, XY CHEST XRAY 1 VIEW on DOS: 07/13/25, XY CHEST POR TABLE on DOS: 07/16/25 FINDINGS: Lines and Tubes: Unchanged tracheostomy and enteric tubes. Lungs/Pleura: No focal consolidation, pleural effusion or pneumothorax. Cardiomediastinum: Unchanged. Other: Unchanged. IMPRESSION: 1. No significant change from 2 days prior. Stable support devices. No significant cardiopulmonary a bnormality.
[2025-07-17 08:54] LABS: Hematocrit 33.7 % (36.0-46.0); Hemoglobin 11.4 g/dL (12.2-16.2); Mean Corpuscular Hemoglobin 28.5 pg (28.0-32.0); Mean Corpuscular Volume 84.3 fL (80.0-100.0); Nucleated Red Blood Cells % 0.0 %
[2025-07-17 09:05] LABS: Potassium 3.6 mmol/L (3.5-5.1)
[2025-07-17 09:06] LABS: Anion Gap 13 (5-15); Carbon Dioxide 20 mmol/L (20-31)
[2025-07-17 09:07] LABS: Calcium 9.9 mg/dL (8.7-10.4)
[2025-07-17 09:08] LABS: INR 1.0 (0.9-1.15); Partial Thromboplastin Time 24.7 SEC (24.5-34.5); Prothrombin Time 10.6 sec (9.3-11.8)
[2025-07-17 09:10] LABS: Chloride 116 mmol/L (98-107); Sodium 149 mmol/L (136-145)
[2025-07-17 09:11] LABS: BUN/Creatinine Ratio 27.5 (10.0-20.0); Blood Urea Nitrogen 22 mg/dL (9-23); Glucose 106 mg/dL (74-106)
[2025-07-17 09:12] LABS: Magnesium 2.0 mg/dL (1.6-2.6)
[2025-07-17] MEDS ORDERED: NALOXONE HCL 0.4 MG/ML VIAL ONE (09:53)
[2025-07-17] MEDS ORDERED: FLUMAZENIL 0.1 MG/ML INJ 10ML MDV IV ONE (09:53)
[2025-07-17] MEDS ORDERED: LIDOCAINE VISCOUS 2% 15ML UD ONE (09:53)
[2025-07-17] MEDS ORDERED: SODIUM CHLORIDE LOCK 10 ML ONE (09:53)
[2025-07-17] MEDS ORDERED: MIDAZOLAM HCL 5 MG/ML-1ML VIAL ONE (09:54)
[2025-07-17] MEDS ORDERED: fentaNYL CITRATE 100 MCG/2 ML VL ONE (09:54)
[2025-07-17] MEDS ORDERED: diphenhdrAMINE HCL 50 MG/1 ML VL ONE (09:54)
[2025-07-17] MEDS ORDERED: FREE WATER NG SCH (10:15)
--- NOTE | 2025-07-17 11:29 | DVHPN2 ---
Progress Note - Dictate Date Seen: Jul 17, 2025 Medical Necessity Reason Pt with a Central, PICC or Fol: Yes The following are medically ne: Central Line, Campbell Catheter Reason for campbell catheter: Strict I&O Subjective Ms. Montes is a 48 years old female with a history of bipolar disorder, anxiety, depression, the patient was taken to the hospital on 07/02/2025 with a chief complaint of altered mental status. I saw her on 01/10/2024 for ALOC I have seen and examined the patient, I have discussed with her nurse, no changes, her eyes are open, blinking and rolling from [id number], but she is not responsive to verbal stimuli, sudden loud noise or visual thread, her extremities are extended, Status post tracheostomy on 07/14/2025 Pupil size 07/09/25: right: 4 mm, left: 2-3 mm, both are reactive to lights (RN: The left- sided was bigger during the daytime yesterday) 07/10/2025: right: 4 mm, left: 2-3 mm, both are reactive to lights 07/12/2025: right: 3 mm, left: 2-3 mm, both are reactive to lights 07/15/2025: PERRL 07/15/2025: PERRL (left-sided was bigger according to Dr. Hassan) CSF, 01/12/2024: C/C, WBC: 0, RBC: 0, protein: 36.1, glucose: 70 Urinalysis, 07/02/2025: Urine leukocyte esterase: 3+ Urine culture, 07/03/2025: E coli Blood culture, 07/03/2025: Negative UDS, 07/02/2025: Negative [place], 07/07/2025: ABG, 07/03/2025: Compensated metabolic acidosis, 07/07/2025: Compensated metabolic acidosis WBC/HB/PLT/MCV, 07/07/2025: 8.5/8.8/58/82.3 Na 07/13/2025: 144, 07/14/25: 146, 07/15/25: 152 CK, 07/02/2025: 653, 07/04/2025: 1423, 07/22/2025: 693, 07/07/2025: 366 TG/HDL/LDL/HDL, 07/05/2025: 13/1.25/27 Ferritin 01/19/2024: 21.8 Chest x-ray, 07/02/2025: 1. Endotracheal tube 6.1 cm above the sylvia. 2. AED pads over the chest 3. Enteric tube position left diaphragm in the stomach CT head, 01/10/2024: No acute intracranial abnormality or significant interval change compared to 01/09/2024 CT head, 07/02/2025: No acute intracranial abnormality. CT head, 07/10/2025: No acute intracranial abnormality CT chest, 01/09/2024: 1. Inferior left upper and lower lobe consolidation favored to reflect infectious/inflammatory etiology, possibly aspiration. 2. The endotracheal tube terminates in the right mainstem bronchus. 3. The enteric tube is in satisfactory position MRI head, 01/15/2024: No acute abnormal MRI findings of the brain MR head, 07/10/2025: Subtle increased DWI signal within the bilateral caudate head, anterior putamen, medial temporal lobes, midbrain, and cerebellar hemispheres, concerning for early findings of hypoxic ischemic injury MRI C-spine, 01/15/24: 1. Degenerative disc disease and facet/uncinate disease in the cervical spine with associated spinal canal, subarticular, and neural foraminal stenoses as detailed above. 2. 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 3. No signal abnormality in the spinal cord to suggest myelopathy. 4. Additional findings as detailed above vital signs Vital Sign Date Time Temp Pulse Resp B/P (MAP) Pulse Ox O2 Delivery O2 Flow Rate FiO2 07/17/25 11:00 98.6 95 20 163/80 (107) 97 209.5 07/17/25 10:00 T-piece 6 28 28 Total Intake and Output 07/16/25 07/16/25 07/17/25 15:00 23:00 07:00 Intake Total 150 ml 1086 ml 453 ml Output Total 1025 ml 930 ml Balance 150 ml 61 ml -477 ml medications Current Medications Medications Dose Ordered Sig/Agnes Route Start Time Stop Time Status Last Admin Dose Admin Pantoprazole Sodium 40 mg DAILY IV 07/04/25 10:00 07/17/25 09:42 40 MG Artificial Tears 2 drop Q6HR PRN EACHEYE 07/07/25 20:00 07/16/25 10:06 2 DROP Enteral Nutritional Formula 1,000 ml 50ML/HR GT 07/10/25 13:30 07/16/25 21:09 1,000 ML Levothyroxine Sodium 100 mcg DAILY IV 07/11/25 10:00 07/17/25 09:46 100 MCG Ceftriaxone Sodium 50 ml @ 100 mls/hr DAILY@09 IV 07/11/25 09:00 07/17/25 09:04 100 MLS/HR Micafungin Sodium 100 mg/Sodium Chloride 100 ml @ 100 mls/hr DAILY IV 07/11/25 10:00 07/17/25 09:41 100 MLS/HR Patient Own Medication 1 DAILY PO 07/13/25 10:00 07/17/25 09:54 1 Hydralazine HCl 10 mg Q6HP PRN IV 07/13/25 07:45 07/17/25 10:07 10 MG Purified Water 250 ml Q6HR GT 07/14/25 12:00 07/17/25 06:04 250 ML Clonidine HCl 0.1 mg Q7D TD 07/16/25 16:30 07/16/25 18:13 0.1 MG Purified Water 250 ml O NG 07/17/25 10:15 Losartan Potassium 100 mg DAILY GT 07/18/25 10:00 Carvedilol 3.125 mg Q12HR GT 07/17/25 22:00 objective The patient is well-nourished and well-developed with no distress. The patient is intubated MENTAL STATUS: Subjective CRANIAL NERVES: Pupils are round and reactive.There is frequent blinking and occasional rolling eye movement. No signs of facial weakness. There are gagging or coughing reflexes SENSATION: Responses to pain stimuli. MOTOR: Elevated tone in the upper and lower extremity. Normal muscle bulk. No fasciculations. No spontaneous movement except for posturing. REFLEXES: Deep tendon reflexes are symmetrical. Bilateral Upgoing toes noticed when muscle tone is diminished CEREBELLAR/COORDINATION: Deferred GAIT/STATION: deferred. laboratory and microbiology Laboratory Tests 07/17/25 08:27 Test 07/17/25 08:27 Range/Units Serum Glucose 106 74-106 mg/dL Problem List Altered mental status Heat stroke Metabolic encephalopathy Hypoxic encephalopathy Vegetative status Decerebration Respiratory failure status post tracheostomy Urinary tract infection Rule out sepsis Bipolar disorder, depression, anxiety Seizure disorder, with last seizure attack before 2018 Restless leg syndrome with low ferritin Assessment/Plan Monitoring Supportive treatment ICU care Stabilize vitals Respiratory support/vent management IV antibiotics Oxygen DVT prophylaxis GI prophylaxis Tube feeding History from her when she wakes up She is to have feeding tube insertion More recommended per clinical course She is likely to have a poor prognosis for meaning recovery This medical document was created using an electronic medical record system with [employer] dictation system. Although this document has been carefully reviewed, there may still be some phonetic and typographical errors. These areas are purely typographical due to imperfections of the software programs, and do not reflect any compromise in the patient's medical care. Prognosis poor Dietary Evaluation Review Comments: 1. TF Vital high protein @50ml/hr (105g Protein 1200kcal and 1003ml free water) supporting 100% of pt's needs 2. Initial TF speed at 30ml/hr, increase 10ml Q6 hr until reaching full speed. 3. Reassess when pt is extubated. Expected Outcomes/Goals: catabolism prevention Plan discussed with: Other HORACIO MURPHY MD Jul 17, 2025 11:29
[2025-07-17] MEDS: MIDAZOLAM HCL 5 MG/ML-1ML VIAL IV ONE (11:34)
--- NOTE | 2025-07-17 12:10 | DVHOP2 ---
Operative Report DATE OF PROCEDURE: 07/17/25 INDICATIONS FOR THE PROCEDURE: Status post cardiopulmonary arrest and malnutrition failure to thrive for PEG placement PROCEDURE PERFORMED: 1. Esophagogastroduodenoscopy and percutaneous endoscopic gastrostomy POSTOPERATIVE DIAGNOSIS: Small hiatal hernia PEG tube placed in the anterior wall of the stomach INFORMED CONSENT: The risks and benefits and alternatives were explained to the patient and informed consent was obtained. PROCEDURE IN DETAIL: The patient was kept NPO after midnight. In the ICU she was given Versed, 1 mg IV and titrated slowly to get her sedated. Olympus gastroscope was passed through the oropharynx into the stomach and the duodenum, and the findings were as follows. Esophagus: 1 cm small hiatal hernia No Esophagitis No Esophageal ulcer No Esophageal stricture Stomach: Fundus: Normal Body and antrum normal After the EGD was done the scope was withdrawn into the stomach and at the point of maximum illumination a Seldinger needle was introduced' the needle was withdrawn and through the cannula a guidewire was introduced which was held by a snare passed through the biopsy channel of the endoscope The guidewire was slowly pulled all the way through the oropharynx. Now over the guidewire feeding gastrostomy tube was introduced from the anterior abdominal wall aspect and observed to be in good position and anchored and cut to the appropriate length Dressing applied with antibiotic ointment Patient tolerated the procedure extremely well Pylorus normal Duodenum normal Endoscopic impression Hiatal hernia small PEG tube placed in the anterior wall of the stomach Suggestions Watch closely for any complications G-tube for feeds and medications in 24 hours Thank you for asking me to take part in the care of this patient With warm regards, JAI Arrington MD Jul 17, 2025 12:10
[2025-07-17 12:30] LABS: Free T3 2.22 pg/mL (2.3-4.2)
[2025-07-17 12:31] LABS: Free T4 (Free Thyroxine) 1.68 ng/dL (0.89-1.76)
[2025-07-17 12:33] LABS: Free T3 2.0 pg/mL (2.3-4.2)
[2025-07-17 12:35] LABS: Free T4 (Free Thyroxine) 1.69 ng/dL (0.89-1.76)
--- NOTE | 2025-07-17 14:02 | DVHPNRES ---
Progress Note Date Seen: Jul 17, 2025 Resident Creating Document: JENARO GTZ RESIDENT Has the PT tested + for MRSA If YES, has PT been informed?: No Medical Necessity Reason Pt with a Central, PICC or Fol: Yes The following are medically ne: Central Line, Campbell Catheter Reason for campbell catheter: Strict I&O Subjective Review of Systems Patient seen and examined at bedside. Patient has tracheostomy tube placement on 07/13/2025 is currently on 6 L of oxygen with 28% FiO2. Today, peg tube was placed by GI but it will be started to be use since tomorrow. Patient is currently opening eyes and moving eyes with equal size pupils responsive to light but not able to follow commands. Patient is currently hemodynamically stable without vasopressors or sedation at this time. Heart rate is 95 regular sinus rhythms. Blood pressure is 141/68 mmHg. The patient is currently receiving levothyroxine 100 mcg IV daily with liothyronine 5 mcg tab daily. Last TSH on 07/15/2025 was 111.40 which is decreasing from 150. Free T4 today was 1.68 and free T3 2.22. We will continue monitoring free T4 and free T3 daily. Objective vital signs Vital Sign Date Time Temp Pulse Resp B/P (MAP) Pulse Ox O2 Delivery O2 Flow Rate FiO2 07/17/25 13:15 98.8 75 15 139/78 (98) 99 209.8 07/17/25 12:00 T-piece 6 28 28 Total Intake and Output 07/16/25 07/16/25 07/17/25 15:00 23:00 07:00 Intake Total 150 ml 1086 ml 453 ml Output Total 1025 ml 930 ml Balance 150 ml 61 ml -477 ml medications Current Medications Medications Dose Ordered Sig/Agnes Route Start Time Stop Time Status Last Admin Dose Admin Pantoprazole Sodium 40 mg DAILY IV 07/04/25 10:00 07/17/25 09:42 40 MG Artificial Tears 2 drop Q6HR PRN EACHEYE 07/07/25 20:00 07/16/25 10:06 2 DROP Enteral Nutritional Formula 1,000 ml 50ML/HR GT 07/10/25 13:30 07/16/25 21:09 1,000 ML Levothyroxine Sodium 100 mcg DAILY IV 07/11/25 10:00 07/17/25 09:46 100 MCG Ceftriaxone Sodium 50 ml @ 100 mls/hr DAILY@09 IV 07/11/25 09:00 07/17/25 09:04 100 MLS/HR Micafungin Sodium 100 mg/Sodium Chloride 100 ml @ 100 mls/hr DAILY IV 07/11/25 10:00 07/17/25 09:41 100 MLS/HR Patient Own Medication 1 DAILY PO 07/13/25 10:00 07/17/25 09:54 1 Hydralazine HCl 10 mg Q6HP PRN IV 07/13/25 07:45 07/17/25 10:07 10 MG Purified Water 250 ml Q6HR GT 07/14/25 12:00 07/17/25 06:04 250 ML Clonidine HCl 0.1 mg Q7D TD 07/16/25 16:30 07/16/25 18:13 0.1 MG Purified Water 250 ml O NG 07/17/25 10:15 Losartan Potassium 100 mg DAILY GT 07/18/25 10:00 Carvedilol 3.125 mg Q12HR GT 07/17/25 22:00 Examination Physical Examination General: Patient has tracheostomy on place, able to open eyes but not able to follow commands or move. HEENT: Normocephalic, atraumatic, moist mucous membranes Respiratory/pulmonary: There are bilateral secretion sounds on both lung shin, no crackles or wheezes. Cardiovascular: Normal sinus tachycardia, heart sounds S1 and S2 with no associated murmurs Abdomen: Abdomen nondistended, there is no pain to palpation in any of the abdominal quadrants, there is a PEG tube placed which looks dry and clean. Extremities: There is no peripheral edema present at the lower extremities. Skin: No rashes or pruritus, there is no sacral edema present at this time. Neurological: Patient is not able to follow commands but still has gag reflex, deep tendon reflexes, pupils are reactive to light. laboratory and microbiology Laboratory Tests 07/17/25 08:27 Test 07/17/25 08:27 Range/Units Serum Glucose 106 74-106 mg/dL Microbiology Date/Time Source Procedure Growth Status 07/06/25 12:08 Trachea Gram Stain - Final Resulted 07/06/25 12:08 Trachea Respiratory Culture - Preliminary Resulted 07/03/25 14:40 Urine - [place] Urine Culture - Final Escherichia coli Complete 07/02/25 13:19 Blood Blood Culture - Final NO GROWTH AFTER 5 DAYS OF INCUBATION. Complete 07/02/25 13:10 Sputum Gram Stain - Final Complete 07/02/25 13:10 Sputum Respiratory Culture - Final Complete Problem List/Assessment/Plan Problem List/Assessment/Plan Assessment/plan Severe hypothyroidism Status post cardiac arrest Metabolic/hypoxic encephalopathy Acute hypoxic respiratory failure, post tracheostomy Status post PEG tube placed today Questionable vegetative status Heat stroke History of depression History of anxiety Plan -last TSH measured on 07/15/2025 showed 111.40 which is slightly decreasing compared to 150 -today, free T4 was 1.68 which is on normal limit -today free T3 was 2.22 still in the lower side but has been increasing since the start of liothyronine 5 mcg tablet daily -continue IV levothyroxine 100 mcg daily -continue p.o. liothyronine 5 mcg tab daily (through PEG tube) -we will monitor free T3 and T4 daily -TSH can be monitored every 3-5 days but major changes might occur after four weeks approximately. Plan discussed with Dr. De Luna Plan discussed with: Other Dietary Evaluation Review Comments: 1. TF Vital high protein @50ml/hr (105g Protein 1200kcal and 1003ml free water) supporting 100% of pt's needs 2. Initial TF speed at 30ml/hr, increase 10ml Q6 hr until reaching full speed. 3. Reassess when pt is extubated. Expected Outcomes/Goals: catabolism prevention JENARO GTZ RESIDENT Jul 17, 2025 14:02
--- NOTE | 2025-07-17 18:35 | DVHPNRES ---
Progress Note Date Seen: Jul 17, 2025 Resident Creating Document: CORY LANIER RESIDENT Has the PT tested + for MRSA If YES, has PT been informed?: No Medical Necessity Reason Pt with a Central, PICC or Fol: Yes The following are medically ne: Central Line, Campbell Catheter Reason for campbell catheter: Strict I&O Subjective Review of Systems This is a 50-year-old female with bipolar depression, hypothyroidism, heart failure with a reduced ejection fraction-EF 40%, aortic and tricuspid regurgitation who presented to the ER with high-grade fever 106, ALOC, possible seizure versus heat stroke and was intubated on the field by EMS, prolonged hospital stay secondary to hypoxic brain injury, 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 Status post tracheostomy 07/13 Overnight low-grade fever 99.5, tachycardia, blood pressure ranging high up to 180s systolic and 85 diastolic, on T-piece 6 L. Chest x-ray unremarkable. Urine output 2000 cc. Sodium 149, free water deficit 1.5 L, free water q.4 hours started. Underwent NG tube placement, NPO for now. Objective vital signs Vital Sign Date Time Temp Pulse Resp B/P (MAP) Pulse Ox O2 Delivery O2 Flow Rate FiO2 07/17/25 16:42 174/87 07/17/25 16:00 18 95 T-piece 6 28 28 07/17/25 16:00 99.1 84 210.4 Total Intake and Output 07/16/25 07/16/25 07/17/25 15:00 23:00 07:00 Intake Total 150 ml 1086 ml 453 ml Output Total 1025 ml 930 ml Balance 150 ml 61 ml -477 ml medications Current Medications Medications Dose Ordered Sig/Agnes Route Start Time Stop Time Status Last Admin Dose Admin Pantoprazole Sodium 40 mg DAILY IV 07/04/25 10:00 07/17/25 09:42 40 MG Artificial Tears 2 drop Q6HR PRN EACHEYE 07/07/25 20:00 07/16/25 10:06 2 DROP Enteral Nutritional Formula 1,000 ml 50ML/HR GT 07/10/25 13:30 07/16/25 21:09 1,000 ML Levothyroxine Sodium 100 mcg DAILY IV 07/11/25 10:00 07/17/25 09:46 100 MCG Ceftriaxone Sodium 50 ml @ 100 mls/hr DAILY@09 IV 07/11/25 09:00 07/17/25 09:04 100 MLS/HR Patient Own Medication 1 DAILY PO 07/13/25 10:00 07/17/25 09:54 1 Hydralazine HCl 10 mg Q6HP PRN IV 07/13/25 07:45 07/17/25 16:42 10 MG Purified Water 250 ml Q6HR GT 07/14/25 12:00 07/17/25 06:04 250 ML Clonidine HCl 0.1 mg Q7D TD 07/16/25 16:30 07/16/25 18:13 0.1 MG Purified Water 250 ml O NG 07/17/25 10:15 Losartan Potassium 100 mg DAILY GT 07/18/25 10:00 Carvedilol 3.125 mg Q12HR GT 07/17/25 22:00 Examination Gen - no pallor, no icterus, no cyanosis, no edema . Pupils are anisocoric, left greater than right, fluctuating, light reflex intact. Positive gag and Babinski sign. Skin - Patients skin is warm and dry. HEENT - normocephalic, atraumatic, dry mucous membranes. Right subconjunctival hemorrhage Neck - no JVD Pulmonary - B/L equal breath sounds, no rales, no wheezing, no stridor.T-piece 6 L cardiovascular - regular S1,S2 heard, no added sounds, no murmurs heard. peripheral pulses feeble radial 2+, pedal 2+. GI - soft, nontender abdomen. Bowel sounds normoactive Neurological - Pupils are anisocoric, left greater than right, fluctuating, light reflex intact. Positive gag and Babinski sign. Extremities: Decerebrate posturing, eyes open but no response to verbal stimulation or sudden loud noise laboratory and microbiology Laboratory Tests 07/17/25 08:27 Test 07/17/25 08:27 Range/Units Serum Glucose 106 74-106 mg/dL Microbiology Date/Time Source Procedure Growth Status 07/06/25 12:08 Trachea Gram Stain - Final Resulted 07/06/25 12:08 Trachea Respiratory Culture - Preliminary Resulted 07/03/25 14:40 Urine - [place] Urine Culture - Final Escherichia coli Complete 07/02/25 13:19 Blood Blood Culture - Final NO GROWTH AFTER 5 DAYS OF INCUBATION. Complete 07/02/25 13:10 Sputum Gram Stain - Final Complete 07/02/25 13:10 Sputum Respiratory Culture - Final Complete Labs and/or images reviewed: Labs reviewed by me, Image(s) reviewed by me Problem List/Assessment/Plan Problem List/Assessment/Plan NEURO: Acute metabolic and hypoxic encephalopathy secondary to likely Heat stroke Severe hypothyroidism or acute seizures Severe hyperthermia likely from Heat Stroke h/o bipolar disorder h/o depression Vegetative status Decerebration History of seizure disorder Neurologist consulted-poor prognosis for meaningful recovery Supportive treatment advised CARDIOVASCULAR: Wide complex nonsustained Ventricular tachycardia s/p defibrillation Shock likely hypovolemic Moderate to severe aortic regurgitation Heart failure with reduced ejection fraction-EF 40%-s, no exacerbation NSTEMI likely type 2 Hypertension Losartan increased to 100 daily, Coreg 3.125 started b.i.d. Hydralazine PRN On threat monitoring analyst GDMT once stable PULMONARY: Acute Gram-positive and Gram-negative pneumonia S/P Tracheostomy on 07/13 Respiratory culture growing filamentous fungi IV micafungin and ceftriaxone GASTROINTESTINAL: Status post PEG tube placement 07/17 Shock liver Feedings to be resumed after 24 hours Monitor LFTs GENITOURINARY: E coli bacterial cystitis TESFAYE on CKD likely due to be VMN On IV ceftriaxone starting 07/11 METABOLIC: Severe hypothyroidism Thrombocytopenia Hypernatremia Physician Allergist Immunologist consulted-continue IV levothyroxine 100 mcg daily, levothyroxine 5 mcg tablet daily through PEG tube TSH to be monitor 3-5 days, free T3 and free T4 daily Free water 250 q.4, free water deficit 1.5 L 07/17 INFECTIOUS DISEASE: Acute bacterial cystitis Urine culture growing E coli Respiratory culture growing filamentous fungi DIET: NPO, resume tube feeds tomorrow DVT prophylax: GI prophylaxis: Protonix Bowel regimen: Code status: Full code LINES/DRAINS/ACCESS: Drips: None Campbell catheter: placed on 07/02 DISPOSITION: ICU Patient's status discussed with Family Critical care time spent more than 63 minutes, including patient care, chart review, and updating the family. Excluding any procedures Case discussed with Dr. Campbell Plan discussed with: Patient My Orders My Orders Orders - CORY LANIER RESIDENT Procedure Category Date Status Time Abg W/ Co-Ox RT 07/17/25 Logged 06:22 Chest Xray 1 View XY 07/17/25 Resulted 06:22 Free Water PHA 07/17/25 In Process 10:15 Losartan Tablet PHA 07/18/25 In Process (Cozaar Tablet) 10:00 Carvedilol Tablet PHA 07/17/25 In Process (Coreg Tablet) 22:00 Dietary Evaluation Review Comments: 1. TF Vital high protein @50ml/hr (105g Protein 1200kcal and 1003ml free water) supporting 100% of pt's needs 2. Initial TF speed at 30ml/hr, increase 10ml Q6 hr until reaching full speed. 3. Reassess when pt is extubated. Expected Outcomes/Goals: catabolism prevention Date of Service: Jul 17, 2025 Billing Provider: DARLING CAMPBELL MD Common Visit Codes: 84006-[id number] CARE 30-74 MIN CORY LANIER RESIDENT Jul 17, 2025 18:35 DARLING CAMPBELL MD Jul 18, 2025 15:48
[2025-07-17] MEDS: CARVEDILOL 3.125 MG TAB GT SCH (22:00)
[2025-07-17] MEDS: FREE WATER GT SCH (22:00)
[2025-07-18] VITALS (27 sets, daily range): BP systolic 118–194; BP diastolic 65–103; PULSE 74–109; RESP 11–26; TEMP 99–99.7; O2SAT 88–100
[2025-07-18 04:39] LABS: Hematocrit 36.4 % (36.0-46.0); Hemoglobin 12.0 g/dL (12.2-16.2); Mean Corpuscular Hemoglobin 28.0 pg (28.0-32.0); Mean Corpuscular Volume 84.8 fL (80.0-100.0); Nucleated Red Blood Cells % 0.0 %
[2025-07-18 04:55] LABS: Alkaline Phosphatase 66 U/L (46-116); Anion Gap 16 (5-15); BUN/Creatinine Ratio 23.2 (10.0-20.0); Blood Urea Nitrogen 19 mg/dL (9-23); Calcium 10.3 mg/dL (8.7-10.4); Carbon Dioxide 20 mmol/L (20-31); Free T3 2.33 pg/mL (2.3-4.2); Free T4 (Free Thyroxine) 1.78 ng/dL (0.89-1.76); Glucose 101 mg/dL (74-106); Magnesium 2.1 mg/dL (1.6-2.6); Total Protein 7.5 g/dL (5.7-8.2)
[2025-07-18 04:56] LABS: Albumin 4.6 g/dL (3.2-4.8); Bilirubin, Total 0.4 mg/dL (0.2-1.0)
[2025-07-18 05:21] LABS: Alanine Aminotransferase 49 U/L (7-40); Chloride 114 mmol/L (98-107); Potassium 3.5 mmol/L (3.5-5.1); Sodium 150 mmol/L (136-145)
[2025-07-18 06:17] LABS: Base Excess -1.0 mmol/L (-2.0-3.0)
[2025-07-18] MEDS: LOSARTAN POTASSIUM 50 MG TAB GT SCH (09:26)
--- NOTE | 2025-07-18 11:08 | DVHPN2 ---
Progress Note - Dictate Date Seen: Jul 18, 2025 Has the PT tested + for MRSA If YES, has PT been informed?: No Medical Necessity Reason Pt with a Central, PICC or Fol: Yes The following are medically ne: Central Line, Campbell Catheter Reason for campbell catheter: Strict I&O Subjective Ms. Montes is a 48 years old female with a history of bipolar disorder, anxiety, depression, the patient was taken to the hospital on 07/02/2025 with a chief complaint of altered mental status. I saw her on 01/10/2024 for ALOC I have seen and examined the patient, I have discussed with her nurse, no changes, her eyes are open, blinking and rolling from [id number], but she is not responsive to verbal stimuli, sudden loud noise or visual thread, her extremities are extended, Status post tracheostomy on 07/14/2025 Status post PEG insertion on 07/17/25 Pupil size 07/09/25: right: 4 mm, left: 2-3 mm, both are reactive to lights (RN: The left- sided was bigger during the daytime yesterday) 07/10/2025: right: 4 mm, left: 2-3 mm, both are reactive to lights 07/12/2025: right: 3 mm, left: 2-3 mm, both are reactive to lights 07/15/2025: PERRL 07/17/2025: PERRL (left-sided was bigger according to Dr. Hassan) 07/18/2025: Right side is minimally bigger CSF, 01/12/2024: C/C, WBC: 0, RBC: 0, protein: 36.1, glucose: 70 Urinalysis, 07/02/2025: Urine leukocyte esterase: 3+ Urine culture, 07/03/2025: E coli Blood culture, 07/03/2025: Negative UDS, 07/02/2025: Negative [place], 07/07/2025: ABG, 07/03/2025: Compensated metabolic acidosis, 07/07/2025: Compensated metabolic acidosis WBC/HB/PLT/MCV, 07/07/2025: 8.5/8.8/58/82.3 Na 07/13/2025: 144, 07/14/25: 146, 07/15/25: 152 CK, 07/02/2025: 653, 07/04/2025: 1423, 07/22/2025: 693, 07/07/2025: 366 TG/HDL/LDL/HDL, 07/05/2025: 13/1. Ferritin 01/19/2024: 21.8 Chest x-ray, 07/02/2025: 1. Endotracheal tube 6.1 cm above the slyvia. 2. AED pads over the chest 3. Enteric tube position left diaphragm in the stomach CT head, 01/10/2024: No acute intracranial abnormality or significant interval change compared to 01/09/2024 CT head, 07/02/2025: No acute intracranial abnormality. CT head, 07/10/2025: No acute intracranial abnormality CT chest, 01/09/2024: 1. Inferior left upper and lower lobe consolidation favored to reflect infectious/inflammatory etiology, possibly aspiration. 2. The endotracheal tube terminates in the right mainstem bronchus. 3. The enteric tube is in satisfactory position MRI head, 01/15/2024: No acute abnormal MRI findings of the brain MR head, 07/10/2025: Subtle increased DWI signal within the bilateral caudate head, anterior putamen, medial temporal lobes, midbrain, and cerebellar hemispheres, concerning for early findings of hypoxic ischemic injury MRI C-spine, 01/15/24: 1. Degenerative disc disease and facet/uncinate disease in the cervical spine with associated spinal canal, subarticular, and neural foraminal stenoses as detailed above. 2. 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 3. No signal abnormality in the spinal cord to suggest myelopathy. 4. Additional findings as detailed above vital signs Vital Sign Date Time Temp Pulse Resp B/P (MAP) Pulse Ox O2 Delivery O2 Flow Rate FiO2 07/18/25 10:41 81 16 173/97 98 6.0 28 07/18/25 10:00 T-piece 07/18/25 10:00 99.1 210.4 Total Intake and Output 07/17/25 07/17/25 07/18/25 15:00 23:00 07:00 Intake Total 150 ml 250 ml Output Total 1200 ml 650 ml Balance 150 ml -950 ml -650 ml medications Current Medications Medications Dose Ordered Sig/Agnes Route Start Time Stop Time Status Last Admin Dose Admin Pantoprazole Sodium 40 mg DAILY IV 07/04/25 10:00 07/18/25 09:25 40 MG Artificial Tears 2 drop Q6HR PRN EACHEYE 07/07/25 20:00 07/16/25 10:06 2 DROP Enteral Nutritional Formula 1,000 ml 50ML/HR GT 07/10/25 13:30 07/18/25 09:37 1,000 ML Levothyroxine Sodium 100 mcg DAILY IV 07/11/25 10:00 07/18/25 09:28 100 MCG Ceftriaxone Sodium 50 ml @ 100 mls/hr DAILY@09 IV 07/11/25 09:00 07/18/25 09:25 100 MLS/HR Patient Own Medication 1 DAILY PO 07/13/25 10:00 07/18/25 09:27 1 Hydralazine HCl 10 mg Q6HP PRN IV 07/13/25 07:45 07/18/25 08:08 10 MG Clonidine HCl 0.1 mg Q7D TD 07/16/25 16:30 07/16/25 18:13 0.1 MG Purified Water 250 ml O NG 07/17/25 10:15 Losartan Potassium 100 mg DAILY GT 07/18/25 10:00 07/18/25 09:26 100 MG Carvedilol 3.125 mg Q12HR GT 07/17/25 22:00 07/18/25 09:26 3.125 MG Purified Water 250 ml Q4HR GT 07/17/25 22:00 07/18/25 09:28 250 ML objective The patient is well-nourished and well-developed with no distress. The patient is intubated MENTAL STATUS: Subjective CRANIAL NERVES: Pupils are round and reactive.There is frequent blinking and occasional rolling eye movement. No signs of facial weakness. There are gagging or coughing reflexes SENSATION: Responses to pain stimuli. MOTOR: Elevated tone in the upper and lower extremity. Normal muscle bulk. No fasciculations. No spontaneous movement except for posturing. REFLEXES: Deep tendon reflexes are symmetrical. Bilateral Upgoing toes noticed when muscle tone is diminished CEREBELLAR/COORDINATION: Deferred GAIT/STATION: deferred. laboratory and microbiology Laboratory Tests 07/18/25 02:56 Test 07/18/25 02:56 Range/Units Serum Glucose 101 74-106 mg/dL Problem List Altered mental status Heat stroke Metabolic encephalopathy Hypoxic encephalopathy Vegetative status Decerebration Respiratory failure status post tracheostomy Urinary tract infection Rule out sepsis Bipolar disorder, depression, anxiety Seizure disorder, with last seizure attack before 2018 Restless leg syndrome with low ferritin Assessment/Plan Monitoring Supportive treatment ICU care Stabilize vitals Respiratory support/vent management IV antibiotics Oxygen DVT prophylaxis GI prophylaxis Tube feeding History from her when she wakes up She is to have feeding tube insertion More recommended per clinical course She is likely to have a poor prognosis for meaning recovery This medical document was created using an electronic medical record system with [employer] dictation system. Although this document has been carefully reviewed, there may still be some phonetic and typographical errors. These areas are purely typographical due to imperfections of the software programs, and do not reflect any compromise in the patient's medical care. Prognosis poor Dietary Evaluation Review Comments: 1. TF Vital high protein @50ml/hr (105g Protein 1200kcal and 1003ml free water) supporting 100% of pt's needs 2. Initial TF speed at 30ml/hr, increase 10ml Q6 hr until reaching full speed. 3. Reassess when pt is extubated. Expected Outcomes/Goals: catabolism prevention Plan discussed with: Other HORACIO MURPHY MD Jul 18, 2025 11:08
--- NOTE | 2025-07-18 18:49 | DVHPN2 ---
Progress Note - Dictate Date Seen: Jul 18, 2025 Has the PT tested + for MRSA If YES, has PT been informed?: No Medical Necessity Reason Pt with a Central, PICC or Fol: Yes The following are medically ne: Central Line, Campbell Catheter Reason for campbell catheter: Strict I&O Subjective Patient had the PEG tube placement and tolerating feeds okay as per the nurse's No bleeding or leakage seen. vital signs Vital Sign Date Time Temp Pulse Resp B/P (MAP) Pulse Ox O2 Delivery O2 Flow Rate FiO2 07/18/25 18:00 19 99 T-piece 6 28 28 07/18/25 18:00 97 07/18/25 17:00 99.5 160/93 (115) 211.1 Total Intake and Output 07/17/25 07/17/25 07/18/25 15:00 23:00 07:00 Intake Total 150 ml 250 ml Output Total 1200 ml 650 ml Balance 150 ml -950 ml -650 ml medications Current Medications Medications Dose Ordered Sig/Agnes Route Start Time Stop Time Status Last Admin Dose Admin Pantoprazole Sodium 40 mg DAILY IV 07/04/25 10:00 07/18/25 09:25 40 MG Artificial Tears 2 drop Q6HR PRN EACHEYE 07/07/25 20:00 07/16/25 10:06 2 DROP Enteral Nutritional Formula 1,000 ml 50ML/HR GT 07/10/25 13:30 07/18/25 09:37 1,000 ML Levothyroxine Sodium 100 mcg DAILY IV 07/11/25 10:00 07/18/25 09:28 100 MCG Ceftriaxone Sodium 50 ml @ 100 mls/hr DAILY@09 IV 07/11/25 09:00 07/18/25 09:25 100 MLS/HR Patient Own Medication 1 DAILY PO 07/13/25 10:00 07/18/25 09:27 1 Hydralazine HCl 10 mg Q6HP PRN IV 07/13/25 07:45 07/18/25 15:18 10 MG Clonidine HCl 0.1 mg Q7D TD 07/16/25 16:30 07/16/25 18:13 0.1 MG Losartan Potassium 100 mg DAILY GT 07/18/25 10:00 07/18/25 09:26 100 MG Carvedilol 3.125 mg Q12HR GT 07/17/25 22:00 07/18/25 09:26 3.125 MG Purified Water 250 ml Q4HR GT 07/17/25 22:00 07/18/25 17:56 250 ML objective Abdomen is soft this PEG tube in good position seen without any bleeding or drainage laboratory and microbiology Laboratory Tests 07/18/25 02:56 Test 07/18/25 02:56 Range/Units Serum Glucose 101 74-106 mg/dL Assessment/Plan 48-year-old with a history of bipolar disorder anxiety depression was admitted with a altered mental status and had to be intubated patient had not unable to be weaned off and now reason for GI consult is for PEG tube placement abdomen is soft examination solo nontender patient already had a history tracheostomy waiting for PEG tube placed Prognosis We will continue to feed thro g tubeand see the response. If any problems with the feeding tube will be to glad to re-evaluate as necessary thank you Dr. Sawyer Dietary Evaluation Review Comments: 1. TF Vital high protein @50ml/hr (105g Protein 1200kcal and 1003ml free water) supporting 100% of pt's needs 2. Initial TF speed at 30ml/hr, increase 10ml Q6 hr until reaching full speed. 3. Reassess when pt is extubated. Expected Outcomes/Goals: catabolism prevention Plan discussed with: Other JAI SAWYER MD Jul 18, 2025 18:49
--- NOTE | 2025-07-18 19:13 | DVHPNRES ---
Progress Note Date Seen: Jul 18, 2025 Resident Creating Document: ESTEBAN RIVERA RESIDENT Has the PT tested + for MRSA If YES, has PT been informed?: No Medical Necessity Reason Pt with a Central, PICC or Fol: Yes The following are medically ne: Central Line, Campbell Catheter Reason for campbell catheter: Strict I&O Subjective Review of Systems This is a 50-year-old female with bipolar depression, hypothyroidism, heart failure with a reduced ejection fraction-EF 40%, aortic and tricuspid regurgitation who presented to the ER with high-grade fever 106, ALOC, possible seizure versus heat stroke and was intubated on the field by EMS, prolonged hospital stay secondary to hypoxic brain injury, 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 Status post tracheostomy 07/13 Overnight low-grade fever 99.5, tachycardia, blood pressure is elevated, on T- piece 6 L. Chest x-ray unremarkable. Urine output 1850 cc. S/P PEG tube placement. Sodium 150, free water deficit 1.9L, free water 250ml q.4 hours started. Objective vital signs Vital Sign Date Time Temp Pulse Resp B/P (MAP) Pulse Ox O2 Delivery O2 Flow Rate FiO2 07/18/25 18:00 19 99 T-piece 6 28 28 07/18/25 18:00 97 07/18/25 17:00 99.5 160/93 (115) 211.1 Total Intake and Output 07/17/25 07/17/25 07/18/25 15:00 23:00 07:00 Intake Total 150 ml 250 ml Output Total 1200 ml 650 ml Balance 150 ml -950 ml -650 ml medications Current Medications Medications Dose Ordered Sig/Agnes Route Start Time Stop Time Status Last Admin Dose Admin Pantoprazole Sodium 40 mg DAILY IV 07/04/25 10:00 07/18/25 09:25 40 MG Artificial Tears 2 drop Q6HR PRN EACHEYE 07/07/25 20:00 07/16/25 10:06 2 DROP Enteral Nutritional Formula 1,000 ml 50ML/HR GT 07/10/25 13:30 07/18/25 09:37 1,000 ML Levothyroxine Sodium 100 mcg DAILY IV 07/11/25 10:00 07/18/25 09:28 100 MCG Ceftriaxone Sodium 50 ml @ 100 mls/hr DAILY@09 IV 07/11/25 09:00 07/18/25 09:25 100 MLS/HR Patient Own Medication 1 DAILY PO 07/13/25 10:00 07/18/25 09:27 1 Hydralazine HCl 10 mg Q6HP PRN IV 07/13/25 07:45 07/18/25 15:18 10 MG Clonidine HCl 0.1 mg Q7D TD 07/16/25 16:30 07/16/25 18:13 0.1 MG Losartan Potassium 100 mg DAILY GT 07/18/25 10:00 07/18/25 09:26 100 MG Carvedilol 3.125 mg Q12HR GT 07/17/25 22:00 07/18/25 09:26 3.125 MG Purified Water 250 ml Q4HR GT 07/17/25 22:00 07/18/25 17:56 250 ML Examination Examination Gen - no pallor, no icterus, no cyanosis, no edema . Pupils are anisocoric, left greater than right, fluctuating, light reflex intact. Positive gag and Babinski sign. Skin - Patients skin is warm and dry. HEENT - normocephalic, atraumatic, dry mucous membranes. Right subconjunctival hemorrhage Neck - no JVD Pulmonary - B/L equal breath sounds, no rales, no wheezing, no stridor.T-piece 6 L cardiovascular - regular S1,S2 heard, no added sounds, no murmurs heard. peripheral pulses feeble radial 2+, pedal 2+. GI - soft, nontender abdomen. Bowel sounds normoactive Neurological - Pupils are anisocoric, left greater than right, fluctuating, light reflex intact. Positive gag and Babinski sign. Extremities: Decerebrate posturing, eyes open but no response to verbal stimulation or sudden loud noise laboratory and microbiology Laboratory Tests 07/18/25 02:56 Test 07/18/25 02:56 Range/Units Serum Glucose 101 74-106 mg/dL Microbiology Date/Time Source Procedure Growth Status 07/06/25 12:08 Trachea Gram Stain - Final Resulted 07/06/25 12:08 Trachea Respiratory Culture - Preliminary Resulted 07/03/25 14:40 Urine - [place] Urine Culture - Final Escherichia coli Complete 07/02/25 13:19 Blood Blood Culture - Final NO GROWTH AFTER 5 DAYS OF INCUBATION. Complete 07/02/25 13:10 Sputum Gram Stain - Final Complete 07/02/25 13:10 Sputum Respiratory Culture - Final Complete Labs and/or images reviewed: Labs reviewed by me, Image(s) reviewed by me Problem List/Assessment/Plan Problem List/Assessment/Plan Assessment and Plan: NEURO: Acute metabolic and hypoxic encephalopathy secondary to likely Heat stroke Severe hypothyroidism or acute seizures Severe hyperthermia likely from Heat Stroke h/o bipolar disorder h/o depression Vegetative status Decerebration History of seizure disorder Neurologist consulted-poor prognosis for meaningful recovery Supportive treatment advised CARDIOVASCULAR: Wide complex nonsustained Ventricular tachycardia s/p defibrillation Shock likely hypovolemic Moderate to severe aortic regurgitation Heart failure with reduced ejection fraction-EF 40%-s, no exacerbation NSTEMI likely type 2 Hypertension Losartan increased to 100 daily, Coreg 3.125 started b.i.d. 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 once stable PULMONARY: Acute Gram-positive and Gram-negative pneumonia S/P Tracheostomy on 07/13 Respiratory culture growing filamentous fungi IV micafungin and ceftriaxone GASTROINTESTINAL: Status post PEG tube placement 07/17 Shock liver Feedings to be resumed after 24 hours Monitor LFTs GENITOURINARY: E coli bacterial cystitis TESFAYE on CKD likely due to be VMN METABOLIC: Severe hypothyroidism Thrombocytopenia Hypernatremia Clinical Care Manager consulted-continue IV levothyroxine 100 mcg daily, liothyronine 5 mcg tablet daily through PEG tube TSH to be monitor 3-5 days, free T3 and free T4 daily Free water 250 q.4 INFECTIOUS DISEASE: Acute bacterial cystitis Urine culture growing E coli Respiratory culture growing filamentous fungi DIET: Tube feeding DVT prophylax: GI prophylaxis: Protonix Bowel regimen: Code status: Full code LINES/DRAINS/ACCESS: Drips: None Campbell catheter: placed on 07/02 DISPOSITION: ICU Patient's status discussed with Family Critical care time spent more than 53 minutes, including patient care, chart review, and updating the family. Excluding any procedures Case discussed with Dr. Campbell Plan discussed with: Other (RN) Dietary Evaluation Review Comments: 1. TF Vital high protein @50ml/hr (105g Protein 1200kcal and 1003ml free water) supporting 100% of pt's needs 2. Initial TF speed at 30ml/hr, increase 10ml Q6 hr until reaching full speed. 3. Reassess when pt is extubated. Expected Outcomes/Goals: catabolism prevention Date of Service: Jul 18, 2025 Billing Provider: DARLING CAMPBELL MD Common Visit Codes: [id number] CARE 30-74 MIN ESTEBAN RIVERA RESIDENT Jul 18, 2025 19:12 DARLING CAMPBELL MD Jul 19, 2025 15:50
[2025-07-19] VITALS (28 sets, daily range): BP systolic 128–184; BP diastolic 65–111; PULSE 65–105; RESP 14–26; TEMP 99–99.7; O2SAT 90–100
[2025-07-19 04:09] LABS: Hematocrit 36.8 % (36.0-46.0); Hemoglobin 12.3 g/dL (12.2-16.2); Mean Corpuscular Hemoglobin 27.9 pg (28.0-32.0); Mean Corpuscular Volume 83.7 fL (80.0-100.0); Nucleated Red Blood Cells % 0.1 %
[2025-07-19 04:29] LABS: Potassium 3.7 mmol/L (3.5-5.1); Sodium 145 mmol/L (136-145)
[2025-07-19 04:30] LABS: Anion Gap 14 (5-15); Calcium 9.9 mg/dL (8.7-10.4); Carbon Dioxide 21 mmol/L (20-31)
[2025-07-19 04:35] LABS: BUN/Creatinine Ratio 46.1 (10.0-20.0)
[2025-07-19 04:39] LABS: Blood Urea Nitrogen 35 mg/dL (9-23); Chloride 110 mmol/L (98-107); Glucose 109 mg/dL (74-106)
[2025-07-19 09:05] LABS: Urine Protein, UAD 1+ (Negative)
[2025-07-19] MEDS: LACTULOSE 20Gm/30ML SOLN PEG SCH (09:37)
[2025-07-19] MEDS: ENOXAPARIN SOD 40 MG/0.4 ML SYRINGE SC SCH (09:37)
[2025-07-19] MEDS: SPIRONOLACTONE 25 MG TAB GT SCH (09:39)
--- NOTE | 2025-07-19 09:45 | DVH ---
CHEST RADIOGRAPH Indication: f/u, wbc trending up Technique: Single frontal view of the chest was obtained Comparison: XY CHEST XRAY 1 VIEW on DOS: 07/17/25, XY CHEST PORTABLE on DOS: 07/16/25, XY CHEST PORTABL E on DOS: 07/14/25, XY CHEST PORTABLE on DOS: 07/14/25, XY CHEST PORTABLE on DOS: 07/13/25 FINDINGS: Lines and Tubes: Tracheostomy tube overlying the tracheal Lungs: No focal consolidation. Pleura: No effusion. No pneumothorax. Cardiomediastinal contours: Unremarkable Bones: No acute osseous abnormality. IMPRESSION: No acute cardiopulmonary disease.
[2025-07-19] MEDS ORDERED: CARVEDILOL 3.125 MG TAB GT SCH (10:00)
[2025-07-19 10:13] LABS: COVID19 ANTIGEN SOFIA FIA NEGATIVE (NEGATIVE)
--- NOTE | 2025-07-19 11:03 | DVHPN2 ---
Progress Note - Dictate Date Seen: Jul 19, 2025 Has the PT tested + for MRSA If YES, has PT been informed?: No Medical Necessity Reason Pt with a Central, PICC or Fol: Yes The following are medically ne: Central Line, Campbell Catheter Reason for campbell catheter: Strict I&O Subjective Ms. Montes is a 48 years old female with a history of bipolar disorder, anxiety, depression, the patient was taken to the hospital on 07/02/2025 with a chief complaint of altered mental status. I saw her on 01/10/2024 for ALOC I have seen and examined the patient, I have discussed with her nurse, no changes, her eyes are open, blinking and rolling from [id number], but she is not responsive to verbal stimuli, sudden loud noise or visual thread, her extremities are extended, Status post tracheostomy on 07/14/2025 Status post PEG insertion on 07/17/25 Pupil size 07/09/25: right: 4 mm, left: 2-3 mm, both are reactive to lights (RN: The left- sided was bigger during the daytime yesterday) 07/10/2025: right: 4 mm, left: 2-3 mm, both are reactive to lights 07/12/2025: right: 3 mm, left: 2-3 mm, both are reactive to lights 07/15/2025: PERRL 07/17/2025: PERRL (left-sided was bigger according to Dr. Hassan) 07/18/2025: Right side is minimally bigger 07/19/2025: PERRL CSF, 01/12/2024: C/C, WBC: 0, RBC: 0, protein: 36.1, glucose: 70 Urinalysis, 07/02/2025: Urine leukocyte esterase: 3+ Urine culture, 07/03/2025: E coli Blood culture, 07/03/2025: Negative UDS, 07/02/2025: Negative [place], 07/07/2025: ABG, 07/03/2025: Compensated metabolic acidosis, 07/07/2025: Compensated metabolic acidosis WBC/HB/PLT/MCV, 07/07/2025: 8.5/8.8/58/82.3 Na 07/13/2025: 144, 8/22/25: 146, 07/15/25: 152 CK, 07/02/2025: 653, 07/04/2025: 1423, 07/22/2025: 693, 07/07/2025: 366 TG/HDL/LDL/HDL, 07/05/2025: 13/1. Ferritin 01/19/2024: 21.8 Chest x-ray, 07/02/2025: 1. Endotracheal tube 6.1 cm above the sylvia. 2. AED pads over the chest 3. Enteric tube position left diaphragm in the stomach CT head, 01/10/2024: No acute intracranial abnormality or significant interval change compared to 01/09/2024 CT head, 07/02/2025: No acute intracranial abnormality. CT head, 07/10/2025: No acute intracranial abnormality CT chest, 01/09/2024: 1. Inferior left upper and lower lobe consolidation favored to reflect infectious/inflammatory etiology, possibly aspiration. 2. The endotracheal tube terminates in the right mainstem bronchus. 3. The enteric tube is in satisfactory position MRI head, 01/15/2024: No acute abnormal MRI findings of the brain MR head, 07/10/2025: Subtle increased DWI signal within the bilateral caudate head, anterior putamen, medial temporal lobes, midbrain, and cerebellar hemispheres, concerning for early findings of hypoxic ischemic injury MRI C-spine, 01/15/24: 1. Degenerative disc disease and facet/uncinate disease in the cervical spine with associated spinal canal, subarticular, and neural foraminal stenoses as detailed above. 2. 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 3. No signal abnormality in the spinal cord to suggest myelopathy. 4. Additional findings as detailed above vital signs Vital Sign Date Time Temp Pulse Resp B/P (MAP) Pulse Ox O2 Delivery O2 Flow Rate FiO2 07/19/25 09:39 126/81 07/19/25 07:00 99.3 94 21 93 210.7 07/19/25 06:20 T-piece 6.0 07/19/25 06:20 28 28 Total Intake and Output 07/18/25 07/18/25 07/19/25 15:00 23:00 07:00 Intake Total 50 ml 1150 ml 1172 ml Output Total 700 ml 575 ml Balance 50 ml 450 ml 597 ml medications Current Medications Medications Dose Ordered Sig/Agnes Route Start Time Stop Time Status Last Admin Dose Admin Pantoprazole Sodium 40 mg DAILY IV 07/04/25 10:00 07/19/25 09:36 40 MG Artificial Tears 2 drop Q6HR PRN EACHEYE 07/07/25 20:00 07/16/25 10:06 2 DROP Enteral Nutritional Formula 1,000 ml 50ML/HR GT 07/10/25 13:30 07/19/25 06:01 1,000 ML Levothyroxine Sodium 100 mcg DAILY IV 07/11/25 10:00 07/19/25 09:38 100 MCG Patient Own Medication 1 DAILY PO 07/13/25 10:00 07/19/25 09:44 1 Hydralazine HCl 10 mg Q6HP PRN IV 07/13/25 07:45 07/19/25 04:08 10 MG Clonidine HCl 0.1 mg Q7D TD 07/16/25 16:30 07/16/25 18:13 0.1 MG Losartan Potassium 100 mg DAILY GT 07/18/25 10:00 07/19/25 09:39 100 MG Purified Water 250 ml Q4HR GT 07/17/25 22:00 Hold 07/19/25 06:01 250 ML Spironolactone 25 mg DAILY GT 07/19/25 10:00 07/19/25 09:39 25 MG Enoxaparin Sodium 40 mg DAILY SC 07/19/25 10:00 07/19/25 09:37 40 MG Lactulose 30 ml BID PEG 07/19/25 10:00 07/19/25 09:37 30 ML Carvedilol 6.25 mg Q12HR GT 07/19/25 10:58 objective The patient is well-nourished and well-developed with no distress. The patient is intubated MENTAL STATUS: Subjective CRANIAL NERVES: Pupils are round and reactive.There is frequent blinking and occasional rolling eye movement. No signs of facial weakness. There are gagging or coughing reflexes SENSATION: Responses to pain stimuli. MOTOR: Elevated tone in the upper and lower extremity. Normal muscle bulk. No fasciculations. No spontaneous movement except for posturing. REFLEXES: Deep tendon reflexes are symmetrical. Bilateral Upgoing toes noticed when muscle tone is diminished CEREBELLAR/COORDINATION: Deferred GAIT/STATION: deferred. laboratory and microbiology Laboratory Tests 07/19/25 03:48 Test 07/19/25 03:48 Range/Units Serum Glucose 109 H 74-106 mg/dL Problem List Altered mental status Heat stroke Metabolic encephalopathy Hypoxic encephalopathy Vegetative status Decerebration Respiratory failure status post tracheostomy Urinary tract infection Rule out sepsis Bipolar disorder, depression, anxiety Seizure disorder, with last seizure attack before 2017 Restless leg syndrome with low ferritin Assessment/Plan Monitoring Supportive treatment ICU care Stabilize vitals Respiratory support/vent management IV antibiotics Oxygen DVT prophylaxis GI prophylaxis Tube feeding History from her when she wakes up She is to have feeding tube insertion More recommended per clinical course She is likely to have a poor prognosis for meaning recovery This medical document was created using an electronic medical record system with [employer] dictation system. Although this document has been carefully reviewed, there may still be some phonetic and typographical errors. These areas are purely typographical due to imperfections of the software programs, and do not reflect any compromise in the patient's medical care. Prognosis poor Dietary Evaluation Review Comments: 1. TF Vital high protein @50ml/hr (105g Protein 1200kcal and 1003ml free water) supporting 100% of pt's needs 2. Initial TF speed at 30ml/hr, increase 10ml Q6 hr until reaching full speed. 3. Reassess when pt is extubated. Expected Outcomes/Goals: catabolism prevention Plan discussed with: Other HORACIO MURPHY MD Jul 19, 2025 11:03
[2025-07-19] MEDS: CARVEDILOL 3.125 MG TAB GT SCH (11:13)
--- NOTE | 2025-07-19 17:20 | DVHPNRES ---
Progress Note Date Seen: Jul 19, 2025 Resident Creating Document: CORY LANIER RESIDENT Has the PT tested + for MRSA If YES, has PT been informed?: No Medical Necessity Reason Pt with a Central, PICC or Fol: Yes The following are medically ne: Central Line, Campbell Catheter Reason for campbell catheter: Strict I&O Subjective Review of Systems This is a 50-year-old female with bipolar depression, hypothyroidism, heart failure with a reduced ejection fraction-EF 40%, aortic and tricuspid regurgitation who presented to the ER with high-grade fever 106, ALOC, possible seizure versus heat stroke and was intubated on the field by EMS, prolonged hospital stay secondary to hypoxic brain injury, 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 Status post tracheostomy 07/13 07/17 = Overnight low-grade fever 99.5, tachycardia, blood pressure ranging high up to 180s systolic and 85 diastolic, on T-piece 6 L. Chest x-ray unremarkable. Urine output 2000 cc. Sodium 149, free water deficit 1.5 L, free water q.4 hours started. Underwent NG tube placement, NPO for now. 07/19 - patient with nonpurposeful movements. Urine cloudy, UA shows UTI, IV ceftriaxone, culture pending, campbell changed Objective vital signs Vital Sign Date Time Temp Pulse Resp B/P (MAP) Pulse Ox O2 Delivery O2 Flow Rate FiO2 07/19/25 16:21 166/88 07/19/25 16:00 86 07/19/25 16:00 99.5 18 99 211.1 07/19/25 16:00 T-piece 6 28 28 Total Intake and Output 07/18/25 07/18/25 07/19/25 15:00 23:00 07:00 Intake Total 50 ml 1150 ml 1172 ml Output Total 700 ml 575 ml Balance 50 ml 450 ml 597 ml medications Current Medications Medications Dose Ordered Sig/Agnes Route Start Time Stop Time Status Last Admin Dose Admin Pantoprazole Sodium 40 mg DAILY IV 07/04/25 10:00 07/19/25 09:36 40 MG Artificial Tears 2 drop Q6HR PRN EACHEYE 07/07/25 20:00 07/16/25 10:06 2 DROP Enteral Nutritional Formula 1,000 ml 50ML/HR GT 07/10/25 13:30 07/19/25 06:01 1,000 ML Levothyroxine Sodium 100 mcg DAILY IV 07/11/25 10:00 07/19/25 09:38 100 MCG Patient Own Medication 1 DAILY PO 07/13/25 10:00 07/19/25 09:44 1 Hydralazine HCl 10 mg Q6HP PRN IV 07/13/25 07:45 07/19/25 16:21 10 MG Clonidine HCl 0.1 mg Q7D TD 07/16/25 16:30 07/16/25 18:13 0.1 MG Losartan Potassium 100 mg DAILY GT 07/18/25 10:00 07/19/25 09:39 100 MG Spironolactone 25 mg DAILY GT 07/19/25 10:00 07/19/25 09:39 25 MG Enoxaparin Sodium 40 mg DAILY SC 07/19/25 10:00 07/19/25 09:37 40 MG Lactulose 30 ml BID PEG 07/19/25 10:00 07/19/25 09:37 30 ML Carvedilol 6.25 mg Q12HR GT 07/19/25 10:58 07/19/25 11:13 6.25 MG Ceftriaxone Sodium 50 ml @ 100 mls/hr DAILY@09 IV 07/20/25 09:00 Examination Gen - no pallor, no icterus, no cyanosis, no edema . Pupils are anisocoric, R greater than L, fluctuating, light reflex intact. Positive gag and Babinski sign. Skin - Patients skin is warm and dry. HEENT - normocephalic, atraumatic, dry mucous membranes. Neck - no JVD Pulmonary - B/L equal breath sounds, no rales, no wheezing, no stridor.T-piece 6 L cardiovascular - regular S1,S2 heard, no added sounds, no murmurs heard. peripheral pulses feeble radial 2+, pedal 2+. GI - soft, nontender abdomen. Bowel sounds normoactive Neurological - Pupils are anisocoric, left greater than right, fluctuating, light reflex intact. Positive gag and Babinski sign. Extremities: Decerebrate posturing, eyes open but no response to verbal stimulation or sudden loud noise laboratory and microbiology Laboratory Tests 07/19/25 03:48 Test 07/19/25 03:48 Range/Units Serum Glucose 109 H 74-106 mg/dL Microbiology Date/Time Source Procedure Growth Status 07/06/25 12:08 Trachea Gram Stain - Final Resulted 07/06/25 12:08 Trachea Respiratory Culture - Preliminary Resulted 07/03/25 14:40 Urine - [place] Urine Culture - Final Escherichia coli Complete 07/02/25 13:19 Blood Blood Culture - Final NO GROWTH AFTER 5 DAYS OF INCUBATION. Complete 07/02/25 13:10 Sputum Gram Stain - Final Complete 07/02/25 13:10 Sputum Respiratory Culture - Final Complete Labs and/or images reviewed: Labs reviewed by me, Image(s) reviewed by me Problem List/Assessment/Plan Problem List/Assessment/Plan NEURO: Acute metabolic and hypoxic encephalopathy secondary to likely Heat stroke Severe hypothyroidism or acute seizures Severe hyperthermia likely from Heat Stroke h/o bipolar disorder h/o depression Vegetative status Decerebration History of seizure disorder Neurologist consulted-poor prognosis for meaningful recovery Supportive treatment advised CARDIOVASCULAR: Wide complex nonsustained Ventricular tachycardia s/p defibrillation Shock likely hypovolemic Moderate to severe aortic regurgitation Heart failure with reduced ejection fraction-EF 40%-s, no exacerbation NSTEMI likely type 2 Hypertension Losartan increased to 100 daily, Coreg 6.25 b.i.d., started spirononlactone 25mg OD Hydralazine PRN 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 PULMONARY: Acute Gram-positive and Gram-negative pneumonia S/P Tracheostomy on 07/13 Respiratory culture growing filamentous fungi IV micafungin and ceftriaxone GASTROINTESTINAL: Status post PEG tube placement 07/17 Shock liver Tube feeds Monitor LFTs GENITOURINARY: E coli bacterial cystitis 07/03 Recurrent UTI 07/19 TESFAYE on CKD likely due to be VMN On IV ceftriaxone starting 07/19 f/u urine culture METABOLIC: Severe hypothyroidism Thrombocytopenia Hypernatremia 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-continue IV levothyroxine 100 mcg daily, levothyroxine 5 mcg tablet daily through PEG tube TSH to be monitor 3-5 days, free T3 and free T4 daily Free water 250 q.4, free water deficit 1.5 L 07/17 INFECTIOUS DISEASE: Acute bacterial cystitis Urine culture growing E coli Respiratory culture growing filamentous fungi DIET: tube feeds DVT prophylax: GI prophylaxis: Protonix Bowel regimen: lactulose 30bid Last BM: 07/15 Code status: Full code LINES/DRAINS/ACCESS:LUE midline 07/11 Drips: None Campbell catheter: placed on 07/02, changed 07/19 DISPOSITION: JOAN Patient's status including plan of care discussed with son over the phone, all qs answered Critical care time spent more than 67 minutes, including patient care, chart review, and updating the family. Excluding any procedures Case discussed with Dr. Campbell Plan discussed with: Son (over phone), Other (nurse meghan) My Orders My Orders Orders - CORY LANIER Procedure Category Date Status Time Chest Xray 1 View XY 07/19/25 Resulted 07:19 Spironolactone PHA 07/19/25 In Process (Aldactone) 10:00 Enoxaparin Sodium PHA 07/19/25 In Process (Lovenox) 10:00 Urine Bacterial ARISTEO 07/19/25 In Process Culture 07:22 Blood Culture ARISTEO 07/19/25 In Process 07:26 Lactulose Oral PHA 07/19/25 In Process 10:00 Carvedilol Tablet PHA 07/19/25 In Process (Coreg Tablet) 10:58 Ceftriaxone 1gm/50ml PHA 07/20/25 In Process D5w (Rocephin) 09:00 Ok To Change Campbell ORDERS 07/19/25 Transmitted 11:12 Dietary Evaluation Review Comments: 1. TF Vital high protein @50ml/hr (105g Protein 1200kcal and 1003ml free water) supporting 100% of pt's needs 2. Initial TF speed at 30ml/hr, increase 10ml Q6 hr until reaching full speed. 3. Reassess when pt is extubated. Expected Outcomes/Goals: catabolism prevention Date of Service: Jul 19, 2025 Billing Provider: DARLING CAMPBELL MD Common Visit Codes: [id number] CARE 30-74 MIN CORY LANIER Jul 19, 2025 17:20 DARLING CAMPBELL MD Jul 20, 2025 11:57
[2025-07-20] VITALS (33 sets, daily range): BP systolic 114–182; BP diastolic 63–95; PULSE 68–110; RESP 10–24; TEMP 99.1–99.9; O2SAT 92–100
[2025-07-20 03:48] LABS: Hematocrit 38.5 % (36.0-46.0); Hemoglobin 12.6 g/dL (12.2-16.2); Mean Corpuscular Hemoglobin 27.6 pg (28.0-32.0); Mean Corpuscular Volume 84.6 fL (80.0-100.0); Nucleated Red Blood Cells % 0.1 %
[2025-07-20 04:01] LABS: Albumin 4.7 g/dL (3.2-4.8); Alkaline Phosphatase 68 U/L (46-116); Anion Gap 15 (5-15); BUN/Creatinine Ratio 32.9 (10.0-20.0); Bilirubin, Total 0.3 mg/dL (0.2-1.0); Calcium 10.2 mg/dL (8.7-10.4); Carbon Dioxide 20 mmol/L (20-31); Magnesium 2.2 mg/dL (1.6-2.6); Total Protein 7.5 g/dL (5.7-8.2)
[2025-07-20 04:17] LABS: Alanine Aminotransferase 40 U/L (7-40); Blood Urea Nitrogen 26 mg/dL (9-23); Chloride 111 mmol/L (98-107); Glucose 132 mg/dL (74-106); Potassium 3.5 mmol/L (3.5-5.1); Sodium 146 mmol/L (136-145)
--- NOTE | 2025-07-20 09:55 | DVHPNRES ---
Progress Note Date Seen: Jul 20, 2025 Resident Creating Document: JENARO GTZ RESIDENT Has the PT tested + for MRSA If YES, has PT been informed?: No Medical Necessity Reason Pt with a Central, PICC or Fol: Yes The following are medically ne: Central Line, Campbell Catheter Reason for campbell catheter: Strict I&O Subjective Review of Systems Patient seen and examined at bedside. Currently status post tracheostomy, currently at 6 L of oxygen with 28% FiO2. Patient is currently on IV levothyroxine 100 mcg daily and liothyronine 5 mcg q.a.m. (Day 6). Last TSH was 76.96 which is hitting towards good direction, free T4 is 1.78 and free T3 2.33. Patient still opening eyes and move with eyes but not following commands. Bilateral pupils equal in size responding to light with intact gag reflexes and deep tendon reflexes. Currently off pressors or sedation at this time. Blood pressure 133/63 mmHg and heart rate is 100 beats per minute. We will consider converting IV levothyroxine to p.o. at this time. We will stop IV levothyroxine and start the patient on levothyroxine p.o. 125 mcg daily. We will also stop liothyronine at this time since free T3 is currently on normal range and free T4 as well. Objective vital signs Vital Sign Date Time Temp Pulse Resp B/P (MAP) Pulse Ox O2 Delivery O2 Flow Rate FiO2 07/20/25 06:09 168/93 07/20/25 06:00 23 98 T-piece 6 07/20/25 06:00 99.7 101 211.5 Total Intake and Output 07/19/25 07/19/25 07/20/25 15:00 23:00 07:00 Intake Total 50 ml 624 ml 560 ml Output Total 550 ml 4580 ml Balance 50 ml 74 ml -4020 ml medications Current Medications Medications Dose Ordered Sig/Agnes Route Start Time Stop Time Status Last Admin Dose Admin Pantoprazole Sodium 40 mg DAILY IV 07/04/25 10:00 07/19/25 09:36 40 MG Artificial Tears 2 drop Q6HR PRN EACHEYE 07/07/25 20:00 07/16/25 10:06 2 DROP Enteral Nutritional Formula 1,000 ml 50ML/HR GT 07/10/25 13:30 07/20/25 06:09 1,000 ML Levothyroxine Sodium 100 mcg DAILY IV 07/11/25 10:00 07/19/25 09:38 100 MCG Patient Own Medication 1 DAILY PO 07/13/25 10:00 07/19/25 09:44 1 Hydralazine HCl 10 mg Q6HP PRN IV 07/13/25 07:45 07/20/25 06:09 10 MG Clonidine HCl 0.1 mg Q7D TD 07/16/25 16:30 07/16/25 18:13 0.1 MG Losartan Potassium 100 mg DAILY GT 07/18/25 10:00 07/19/25 09:39 100 MG Spironolactone 25 mg DAILY GT 07/19/25 10:00 07/19/25 09:39 25 MG Enoxaparin Sodium 40 mg DAILY SC 07/19/25 10:00 07/19/25 09:37 40 MG Lactulose 30 ml BID PEG 07/19/25 10:00 07/19/25 22:45 30 ML Ceftriaxone Sodium 50 ml @ 100 mls/hr DAILY@09 IV 07/20/25 09:00 Carvedilol 12.5 mg Q12HR GT 07/20/25 10:00 Examination Physical Examination General: Patient has tracheostomy on place, able to open eyes but not able to follow commands or move. HEENT: Normocephalic, atraumatic, moist mucous membranes Respiratory/pulmonary: Bilateral lung sounds grossly clear, no crackles or wheezes. Cardiovascular: Normal sinus tachycardia, heart sounds S1 and S2 with no associated murmurs Abdomen: Abdomen nondistended, there is no pain to palpation in any of the abdominal quadrants, there is a PEG tube placed which looks dry and clean. Extremities: There is no peripheral edema present at the lower extremities. Skin: No rashes or pruritus, there is no sacral edema present at this time. Neurological: Patient is not able to follow commands but still has gag reflex, deep tendon reflexes, pupils are reactive to light. laboratory and microbiology Laboratory Tests 07/20/25 03:00 Test 07/20/25 03:00 Range/Units Serum Glucose 132 H 74-106 mg/dL Microbiology Date/Time Source Procedure Growth Status 07/06/25 12:08 Trachea Gram Stain - Final Resulted 07/06/25 12:08 Trachea Respiratory Culture - Preliminary Resulted 07/03/25 14:40 Urine - [place] Urine Culture - Final Escherichia coli Complete 07/02/25 13:19 Blood Blood Culture - Final NO GROWTH AFTER 5 DAYS OF INCUBATION. Complete 07/02/25 13:10 Sputum Gram Stain - Final Complete 07/02/25 13:10 Sputum Respiratory Culture - Final Complete Problem List/Assessment/Plan Problem List/Assessment/Plan Assessment/plan Severe hypothyroidism Status post cardiac arrest Metabolic/hypoxic encephalopathy Acute hypoxic respiratory failure, post tracheostomy Status post PEG tube placed today Questionable vegetative status Heat stroke History of depression History of anxiety Plan -Last TSH measured on 07/19/2025 was 76.96 which is decreasing compared to previous labs -Last free T4 was 1.78 which is slightly increased. Will switch from IV levothyroxine to 125mcg PO daily. -Last free T3 was 2.33 on normal range. Will discontinue Liothyronine at this time. -Start levothyroxine PO 125mcg daily (make sure to stop EN overnight around 1AM to have an empty stomach early each morning. then resume nutrition 45-60min after the administration of levothyroxine) -we will monitor free T3 and T4 daily -TSH can be monitored every 3-5 days but major changes might occur after four weeks approximately. Plan discussed with Dr. DeL una Plan discussed with: Other Dietary Evaluation Review Comments: 1. TF Vital high protein @50ml/hr (105g Protein 1200kcal and 1003ml free water) supporting 100% of pt's needs 2. Initial TF speed at 30ml/hr, increase 10ml Q6 hr until reaching full speed. 3. Reassess when pt is extubated. Expected Outcomes/Goals: catabolism prevention JENARO GTZ RESIDENT Jul 20, 2025 09:54
[2025-07-20] MEDS: POTASSIUM EFFERVESENT TAB 25 MEQ GT ONE (10:33)
[2025-07-20] MEDS: LACTULOSE 20Gm/30ML SOLN PEG SCH (10:34)
[2025-07-20] MEDS: CARVEDILOL 3.125 MG TAB GT SCH (10:36)
[2025-07-20 10:39] LABS: Free T3 2.38 pg/mL (2.3-4.2)
[2025-07-20 10:40] LABS: Free T4 (Free Thyroxine) 1.76 ng/dL (0.89-1.76)
--- NOTE | 2025-07-20 10:41 | DVH ---
Date: 07/20/2025 09:56 AM Examination: XY KUB ABDOMEN SINGLE VIEW History: Rule Out Obstruction Comparison: US PELVIC on DOS: 05/14/23, CT ABD PELVIS WO CONTRAST on DOS: 06/21/21 TECHNIQUE: Frontal views of the abdomen was obtained. FINDINGS: Bowel gas pattern is unremarkable. Gastrostomy tube overlying the right upper quadrant The lung bases are unremarkable. No acute osseous abnormality identified. IMPRESSION: Nonobstructive bowel gas pattern.
--- NOTE | 2025-07-20 17:34 | DVHPNRES ---
Progress Note Date Seen: Jul 20, 2025 Resident Creating Document: CORY LANIER RESIDENT Has the PT tested + for MRSA If YES, has PT been informed?: No Medical Necessity Reason Pt with a Central, PICC or Fol: Yes The following are medically ne: Central Line, Campbell Catheter Reason for campbell catheter: Strict I&O Subjective Review of Systems This is a 50-year-old female with bipolar depression, hypothyroidism, heart failure with a reduced ejection fraction-EF 40%, aortic and tricuspid regurgitation who presented to the ER with high-grade fever 106, ALOC, possible seizure versus heat stroke and was intubated on the field by EMS, prolonged hospital stay secondary to hypoxic brain injury, 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 Status post tracheostomy 07/13 07/17 = Overnight low-grade fever 99.5, tachycardia, blood pressure ranging high up to 180s systolic and 85 diastolic, on T-piece 6 L. Chest x-ray unremarkable. Urine output 2000 cc. Sodium 149, free water deficit 1.5 L, free water q.4 hours started. Underwent NG tube placement, NPO for now. 07/19 - patient with nonpurposeful movements. 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 125 mcg daily KUB unremarkable, lactulose started. Patient had a bowel movement. Objective vital signs Vital Sign Date Time Temp Pulse Resp B/P (MAP) Pulse Ox O2 Delivery O2 Flow Rate FiO2 07/20/25 16:01 182/94 07/20/25 16:00 99.3 91 16 100 210.7 07/20/25 14:00 T-piece 05 20 28 Total Intake and Output 07/19/25 07/19/25 07/20/25 14:59 22:59 06:59 Intake Total 50 ml 624 ml 560 ml Output Total 550 ml 4580 ml Balance 50 ml 74 ml -4020 ml medications Current Medications Medications Dose Ordered Sig/Agnes Route Start Time Stop Time Status Last Admin Dose Admin Pantoprazole Sodium 40 mg DAILY IV 07/04/25 10:00 07/20/25 10:34 40 MG Artificial Tears 2 drop Q6HR PRN EACHEYE 07/07/25 20:00 07/16/25 10:06 2 DROP Enteral Nutritional Formula 1,000 ml 50ML/HR GT 07/10/25 13:30 07/20/25 06:09 1,000 ML Hydralazine HCl 10 mg Q6HP PRN IV 07/13/25 07:45 07/20/25 16:01 10 MG Losartan Potassium 100 mg DAILY GT 07/18/25 10:00 07/20/25 10:36 100 MG Spironolactone 25 mg DAILY GT 07/19/25 10:00 07/20/25 10:37 25 MG Enoxaparin Sodium 40 mg DAILY SC 07/19/25 10:00 07/20/25 10:35 40 MG Ceftriaxone Sodium 50 ml @ 100 mls/hr DAILY@09 IV 07/20/25 09:00 07/20/25 10:34 100 MLS/HR Carvedilol 12.5 mg Q12HR GT 07/20/25 10:00 07/20/25 10:36 12.5 MG Levothyroxine Sodium 125 mcg QAM@0600 PO 07/21/25 06:00 UNV Levothyroxine Sodium 100 mcg QAM@0600 PO 07/21/25 06:00 Levothyroxine Sodium 25 mcg QAM@0600 PO 07/21/25 06:00 Hydrochlorothiazide 12.5 mg DAILY PO 07/21/25 10:00 Examination Gen - no pallor, no icterus, no cyanosis, no edema . Pupils are anisocoric, R greater than L, fluctuating, light reflex intact. Positive gag and Babinski sign. Skin - Patients skin is warm and dry. HEENT - normocephalic, atraumatic, dry mucous membranes. Neck - no JVD Pulmonary - B/L equal breath sounds, no rales, no wheezing, no stridor.T-piece 6 L cardiovascular - regular S1,S2 heard, no added sounds, no murmurs heard. peripheral pulses feeble radial 2+, pedal 2+. GI - soft, nontender abdomen. Bowel sounds normoactive Neurological - Pupils are anisocoric, left greater than right, fluctuating, light reflex intact. Positive gag and Babinski sign. Extremities: Decerebrate posturing, eyes open but no response to verbal stimulation or sudden loud noise laboratory and microbiology Laboratory Tests 07/20/25 03:00 Test 07/20/25 03:00 Range/Units Serum Glucose 132 H 74-106 mg/dL Microbiology Date/Time Source Procedure Growth Status 07/19/25 09:40 Blood Blood Culture - Preliminary NO GROWTH AFTER 24 HOURS OF INCUBATION. Resulted 07/19/25 08:10 Voided Urine Urine Culture - Preliminary Resulted 07/06/25 12:08 Trachea Gram Stain - Final Resulted 07/06/25 12:08 Trachea Respiratory Culture - Preliminary Resulted 07/02/25 13:10 Sputum Gram Stain - Final Complete 07/02/25 13:10 Sputum Respiratory Culture - Final Complete Labs and/or images reviewed: Labs reviewed by me, Image(s) reviewed by me Problem List/Assessment/Plan Problem List/Assessment/Plan NEURO: Acute metabolic and hypoxic encephalopathy secondary to likely Heat stroke Severe hypothyroidism or acute seizures Severe hyperthermia likely from Heat Stroke h/o bipolar disorder h/o depression Vegetative status Decerebration History of seizure disorder Neurologist consulted-poor prognosis for meaningful recovery Supportive treatment advised CARDIOVASCULAR: Wide complex nonsustained Ventricular tachycardia s/p defibrillation Shock likely hypovolemic Moderate to severe aortic regurgitation Heart failure with reduced ejection fraction-EF 40%-s, no exacerbation NSTEMI likely type 2 Hypertension Losartan increased to 100 daily, Coreg 12.5 b.i.d., started spirononlactone 25mg OD, started hydrochlorothiazide 12.5 daily Hydralazine PRN Continue clonidine patch On cardiac exercise physiologist PULMONARY: Acute Gram-positive and Gram-negative pneumonia S/P Tracheostomy on 07/13 Respiratory culture growing filamentous fungi IV micafungin and ceftriaxone GASTROINTESTINAL: Status post PEG tube placement 07/17 Shock liver Tube feeds Monitor LFTs GENITOURINARY: E coli bacterial cystitis 07/03 Recurrent UTI 07/19 TESFAYE on CKD likely due to be VMN On IV ceftriaxone starting 07/19 f/u urine culture METABOLIC: Severe hypothyroidism Thrombocytopenia Hypernatremia Groundsman consulted-continue IV levothyroxine 100 mcg daily, levothyroxine 5 mcg tablet daily through PEG tube TSH to be monitor 3-5 days, free T3 and free T4 daily Free water 250 q.4, free water deficit 1.5 L 07/17 INFECTIOUS DISEASE: Acute bacterial cystitis Urine culture growing E coli Respiratory culture growing filamentous fungi DIET: tube feeds DVT prophylax: GI prophylaxis: Protonix Bowel regimen: lactulose 30bid Last BM: 07/15 Code status: Full code LINES/DRAINS/ACCESS:LUE midline 07/11 Drips: None Campbell catheter: placed on 07/02, changed 07/19+ Bowel movement: 07/20 DISPOSITION: JOAN, DC to SNF when bed available Patient's status including plan of care discussed with son over the phone, all qs answered Critical care time spent more than 44 minutes, including patient care, chart review, and updating the family. Excluding any procedures Case discussed with Dr. Campbell Plan discussed with: Patient My Orders My Orders Orders - CORY LANIER Procedure Category Date Status Time Carvedilol Tablet PHA 07/20/25 In Process (Coreg Tablet) 10:00 Kub Abdomen Single XY 07/20/25 Resulted View 09:34 Communication Order ORDERS 07/20/25 Transmitted 10:30 Hydrochlorothiazide PHA 07/21/25 In Process Tablet (Hydrochlorot 10:00 Pharmacy [facility] 07/20/25 In Process Clarification: 15:19 Dietary Evaluation Review Comments: 1. TF Vital high protein @50ml/hr (105g Protein 1200kcal and 1003ml free water) supporting 100% of pt's needs 2. Initial TF speed at 30ml/hr, increase 10ml Q6 hr until reaching full speed. 3. Reassess when pt is extubated. Expected Outcomes/Goals: catabolism prevention Date of Service: Jul 20, 2025 Billing Provider: DARLING CAMPBELL MD Common Visit Codes: 20195-[id number] CARE 30-74 MIN CORY LANIER Jul 20, 2025 17:34 DARLING CAMPBELL MD Jul 24, 2025 15:42
[2025-07-20] MEDS: hydroCHLOROthiazide 25 MG TAB PO ONE (17:50)
[2025-07-21] VITALS (41 sets, daily range): BP systolic 119–178; BP diastolic 63–111; PULSE 70–95; RESP 11–22; TEMP 99–99.7; O2SAT 91–100
[2025-07-21 03:46] LABS: Anion Gap 12 (5-15); Carbon Dioxide 24 mmol/L (20-31); Potassium 3.8 mmol/L (3.5-5.1)
[2025-07-21 03:47] LABS: Calcium 10.0 mg/dL (8.7-10.4)
[2025-07-21 03:49] LABS: Hematocrit 36.3 % (36.0-46.0); Hemoglobin 12.3 g/dL (12.2-16.2); Mean Corpuscular Hemoglobin 28.5 pg (28.0-32.0); Mean Corpuscular Volume 84.2 fL (80.0-100.0); Nucleated Red Blood Cells % 0.0 %
[2025-07-21 03:52] LABS: BUN/Creatinine Ratio 38.7 (10.0-20.0)
[2025-07-21 03:53] LABS: Magnesium 2.2 mg/dL (1.6-2.6)
[2025-07-21 03:57] LABS: Blood Urea Nitrogen 29 mg/dL (9-23); Chloride 110 mmol/L (98-107); Glucose 111 mg/dL (74-106); Sodium 146 mmol/L (136-145)
[2025-07-21] MEDS ORDERED: LEVOTHYROXINE SODIUM 50 MCG TAB PO SCH (06:00)
[2025-07-21] MEDS: LEVOTHYROXINE SODIUM 100 MCG TAB PO SCH (06:28)
[2025-07-21] MEDS: LEVOTHYROXINE SODIUM 25 MCG TAB PO SCH (06:28)
[2025-07-21] MEDS ORDERED: hydroCHLOROthiazide 25 MG TAB PO SCH (10:00)
--- NOTE | 2025-07-21 10:08 | DVHPN2 ---
Progress Note - Dictate Date Seen: Jul 21, 2025 Has the PT tested + for MRSA If YES, has PT been informed?: No Medical Necessity Reason Pt with a Central, PICC or Fol: Yes The following are medically ne: Central Line, Campbell Catheter Reason for campbell catheter: Strict I&O Subjective Ms. Montes is a 48 years old female with a history of bipolar disorder, anxiety, depression, the patient was taken to the hospital on 07/02/2025 with a chief complaint of altered mental status. I saw her on 01/10/2024 for ALOC I have seen and examined the patient, I have discussed with her nurse, no changes, her eyes are open, blinking and rolling from [id number], she also move her head, but she is not responsive to verbal stimuli, sudden loud noise or visual thread, her extremities are extended, Status post tracheostomy on 07/14/2025 Status post PEG insertion on 07/17/25 Pupil size 07/09/25: right: 4 mm, left: 2-3 mm, both are reactive to lights (RN: The left- sided was bigger during the daytime yesterday) 07/10/2025: right: 4 mm, left: 2-3 mm, both are reactive to lights 07/12/2025: right: 3 mm, left: 2-3 mm, both are reactive to lights 07/15/2025: PERRL 07/17/2025: PERRL (left-sided was bigger according to Dr. Hassan) 07/18/2025: Right side is minimally bigger 07/19/2025: PERRL 07/21/2025: PERRL CSF, 01/12/2024: C/C, WBC: 0, RBC: 0, protein: 36.1, glucose: 70 Urinalysis, 07/02/2025: Urine leukocyte esterase: 3+ Urine culture, 07/03/2025: E coli Blood culture, 07/03/2025: Negative UDS, 07/02/2025: Negative Ar[place]oles, 07/07/2025: ABG, 07/03/2025: Compensated metabolic acidosis, 07/07/2025: Compensated metabolic acidosis WBC/HB/PLT/MCV, 07/07/2025: 8.5/8.8/58/82.3 Na 07/13/2025: 144, 07/14/25: 146, 07/15/25: 152 CK, 07/02/2025: 653, 07/04/2025: 1423, 07/22/2025: 693, 07/07/2025: 366 TG/HDL/LDL/HDL, 07/05/2025: 13/1./ Ferritin 01/19/2024: 21.8 Chest x-ray, 07/02/2025: 1. Endotracheal tube 6.1 cm above the sylvia. 2. AED pads over the chest 3. Enteric tube position left diaphragm in the stomach CT head, 01/10/2024: No acute intracranial abnormality or significant interval change compared to 01/09/2024 CT head, 07/02/2025: No acute intracranial abnormality. CT head, 07/10/2025: No acute intracranial abnormality CT chest, 01/09/2024: 1. Inferior left upper and lower lobe consolidation favored to reflect infectious/inflammatory etiology, possibly aspiration. 2. The endotracheal tube terminates in the right mainstem bronchus. 3. The enteric tube is in satisfactory position MRI head, 01/15/2024: No acute abnormal MRI findings of the brain MR head, 07/10/2025: Subtle increased DWI signal within the bilateral caudate head, anterior putamen, medial temporal lobes, midbrain, and cerebellar hemispheres, concerning for early findings of hypoxic ischemic injury MRI C-spine, 01/15/24: 1. Degenerative disc disease and facet/uncinate disease in the cervical spine with associated spinal canal, subarticular, and neural foraminal stenoses as detailed above. 2. 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 3. No signal abnormality in the spinal cord to suggest myelopathy. 4. Additional findings as detailed above vital signs Vital Sign Date Time Temp Pulse Resp B/P (MAP) Pulse Ox O2 Delivery O2 Flow Rate FiO2 07/21/25 09:00 99.0 71 16 119/72 (88) 100 210.2 07/21/25 08:00 T-piece 6 28 28 Total Intake and Output 07/20/25 07/20/25 07/21/25 15:00 23:00 07:00 Intake Total 50 ml 750 ml 440 ml Output Total 790 ml 525 ml Balance 50 ml -40 ml -85 ml medications Current Medications Medications Dose Ordered Sig/Agnes Route Start Time Stop Time Status Last Admin Dose Admin Pantoprazole Sodium 40 mg DAILY IV 07/04/25 10:00 07/20/25 10:34 40 MG Artificial Tears 2 drop Q6HR PRN EACHEYE 07/07/25 20:00 07/16/25 10:06 2 DROP Enteral Nutritional Formula 1,000 ml 50ML/HR GT 07/10/25 13:30 07/20/25 06:09 1,000 ML Hydralazine HCl 10 mg Q6HP PRN IV 07/13/25 07:45 07/21/25 07:29 10 MG Losartan Potassium 100 mg DAILY GT 07/18/25 10:00 07/20/25 10:36 100 MG Spironolactone 25 mg DAILY GT 07/19/25 10:00 07/20/25 10:37 25 MG Enoxaparin Sodium 40 mg DAILY SC 07/19/25 10:00 07/20/25 10:35 40 MG Ceftriaxone Sodium 50 ml @ 100 mls/hr DAILY@09 IV 07/20/25 09:00 07/20/25 10:34 100 MLS/HR Carvedilol 12.5 mg Q12HR GT 07/20/25 10:00 07/20/25 22:08 12.5 MG Levothyroxine Sodium 125 mcg QAM@0600 PO 07/21/25 06:00 UNV Levothyroxine Sodium 100 mcg QAM@0600 PO 07/21/25 06:00 07/21/25 06:28 100 MCG Levothyroxine Sodium 25 mcg QAM@0600 PO 07/21/25 06:00 07/21/25 06:28 25 MCG Hydrochlorothiazide 12.5 mg DAILY PO 07/21/25 10:00 Amlodipine Besylate 10 mg DAILY PEG 07/21/25 10:00 objective The patient is well-nourished and well-developed with no distress. The patient is intubated MENTAL STATUS: Subjective CRANIAL NERVES: Pupils are round and reactive.There is frequent blinking and occasional rolling eye movement. No signs of facial weakness. There are gagging or coughing reflexes SENSATION: Responses to pain stimuli. MOTOR: Elevated tone in the upper and lower extremity. Normal muscle bulk. No fasciculations. No spontaneous movement except for posturing. REFLEXES: Deep tendon reflexes are symmetrical. Bilateral Upgoing toes noticed when muscle tone is diminished CEREBELLAR/COORDINATION: Deferred GAIT/STATION: deferred. laboratory and microbiology Laboratory Tests 07/21/25 03:00 Test 07/21/25 03:00 Range/Units Serum Glucose 111 H 74-106 mg/dL Problem List Altered mental status Heat stroke Metabolic encephalopathy Hypoxic encephalopathy Vegetative status Decerebration Respiratory failure status post tracheostomy Urinary tract infection Rule out sepsis Bipolar disorder, depression, anxiety Seizure disorder, with last seizure attack before 2017 Restless leg syndrome with low ferritin Assessment/Plan Monitoring Supportive treatment ICU care Stabilize vitals Respiratory support/vent management IV antibiotics Oxygen DVT prophylaxis GI prophylaxis Tube feeding History from her when she wakes up She is to have feeding tube insertion More recommended per clinical course She is likely to have a poor prognosis for meaning recovery This medical document was created using an electronic medical record system with [employer] dictation system. Although this document has been carefully reviewed, there may still be some phonetic and typographical errors. These areas are purely typographical due to imperfections of the software programs, and do not reflect any compromise in the patient's medical care. Prognosis poor Dietary Evaluation Review Comments: 1. TF Vital high protein @50ml/hr (105g Protein 1200kcal and 1003ml free water) supporting 100% of pt's needs 2. Initial TF speed at 30ml/hr, increase 10ml Q6 hr until reaching full speed. 3. Reassess when pt is extubated. Expected Outcomes/Goals: catabolism prevention Plan discussed with: Other HORACIO MURPHY MD Jul 21, 2025 10:08
--- NOTE | 2025-07-21 10:45 | DVH ---
EXAM: CT HEAD WITHOUT CONTRAST INDICATION: r/o stroke, resistant htn TECHNIQUE: CT of the head without intravenous contrast. Radiation Dose Information: CT Dose: CTDI volume is 53.7 mGy. Dose-length product is 843.04 mGy*cm The dose indicators for CT are the volume Computed Tomography (CT) Dose Index (CTDIvol) and the Dose Length Product (DLP), and are measured in units of mGy and mGy-cm, respectively. These indicators are not patient dose, but values generated from the CT scanner acquisition factors. The report includes radiation exposure data for exposures received during this examination. COMPARISON: MRI BRAIN HEAD WO CONTRAST on DOS: 07/10/25, CT HEAD WITHOUT CONTRAST on DOS: 07/09/25, CT HEAD WITHOUT CONTRAST on DOS: 07/02/25 FINDINGS: There is no evidence of acute intracranial hemorrhage, extra-axial collection, mass effect, midline s hift, herniation or hydrocephalus. The ventricles, sulci and cisterns are age appropriate. The raines-white differentiation is intact. Patchy periventricular and subcortical white matter hypoattenuation is nonspecific but may be related to small vessel ischemic disease. The visualized paranasal sinuses and mastoid air cells are clear. The surrounding soft tissues and osseous structures are unremarkable. IMPRESSION: 1. No acute intracranial abnormality.
--- NOTE | 2025-07-21 14:52 | DVHPNRES ---
Progress Note Date Seen: Jul 21, 2025 Resident Creating Document: CORY LANIER RESIDENT Has the PT tested + for MRSA If YES, has PT been informed?: No Medical Necessity Reason Pt with a Central, PICC or Fol: Yes The following are medically ne: Central Line, Campbell Catheter Reason for campbell catheter: Strict I&O Subjective Review of Systems This is a 50-year-old female with bipolar depression, hypothyroidism, heart failure with a reduced ejection fraction-EF 40%, aortic and tricuspid regurgitation who presented to the ER with high-grade fever 106, ALOC, possible seizure versus heat stroke and was intubated on the field by EMS, prolonged hospital stay secondary to hypoxic brain injury, 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 Status post tracheostomy 07/13 07/17 - Overnight low-grade fever 99.5, tachycardia, blood pressure ranging high up to 180s systolic and 85 diastolic, on T-piece 6 L. Chest x-ray unremarkable. Urine output 2000 cc. Sodium 149, free water deficit 1.5 L, free water q.4 hours started. Underwent NG tube placement, NPO for now. 07/19 - patient with nonpurposeful movements. Urine cloudy, UA shows UTI, IV ceftriaxone, culture pending, campbell changed 07/20- patient examined, no overnight events, clonidine patch, increase Coreg to 12 mg b.i.d., hydrochlorothiazide 12.5 mg daily, rn cvor switched levothyroxine to p.o. 125 mcg daily KUB unremarkable, lactulose started. Patient had a bowel movement. 07/21 - no overnight events, statu same, nonpurposeful movements. CT head negative Objective vital signs Vital Sign Date Time Temp Pulse Resp B/P (MAP) Pulse Ox O2 Delivery O2 Flow Rate FiO2 07/21/25 14:00 16 98 T-piece 8 35 35 07/21/25 14:00 86 07/21/25 14:00 99.3 132/78 (96) 210.7 Total Intake and Output 07/20/25 07/20/25 07/21/25 15:00 23:00 07:00 Intake Total 50 ml 750 ml 440 ml Output Total 790 ml 525 ml Balance 50 ml -40 ml -85 ml medications Current Medications Medications Dose Ordered Sig/Agnes Route Start Time Stop Time Status Last Admin Dose Admin Pantoprazole Sodium 40 mg DAILY IV 07/04/25 10:00 07/21/25 10:30 40 MG Artificial Tears 2 drop Q6HR PRN EACHEYE 07/07/25 20:00 07/16/25 10:06 2 DROP Enteral Nutritional Formula 1,000 ml 50ML/HR GT 07/10/25 13:30 07/21/25 13:50 1,000 ML Hydralazine HCl 10 mg Q6HP PRN IV 07/13/25 07:45 07/21/25 07:29 10 MG Losartan Potassium 100 mg DAILY GT 07/18/25 10:00 07/21/25 10:31 100 MG Spironolactone 25 mg DAILY GT 07/19/25 10:00 07/21/25 10:32 25 MG Enoxaparin Sodium 40 mg DAILY SC 07/19/25 10:00 07/21/25 10:33 40 MG Ceftriaxone Sodium 50 ml @ 100 mls/hr DAILY@09 IV 07/20/25 09:00 07/21/25 10:30 100 MLS/HR Carvedilol 12.5 mg Q12HR GT 07/20/25 10:00 07/21/25 10:34 12.5 MG Levothyroxine Sodium 125 mcg QAM@0600 PO 07/21/25 06:00 UNV Levothyroxine Sodium 100 mcg QAM@0600 PO 07/21/25 06:00 07/21/25 06:28 100 MCG Levothyroxine Sodium 25 mcg QAM@0600 PO 07/21/25 06:00 07/21/25 06:28 25 MCG Amlodipine Besylate 10 mg DAILY PEG 07/21/25 10:00 07/21/25 10:32 10 MG Lactulose 30 ml DAILY PEG 07/22/25 10:00 Examination Gen - no pallor, no icterus, no cyanosis, no edema . Pupils are anisocoric, R greater than L, fluctuating, light reflex intact. Positive gag and Babinski sign. Skin - Patients skin is warm and dry. HEENT - normocephalic, atraumatic, dry mucous membranes. Neck - no JVD Pulmonary - B/L equal breath sounds, no rales, no wheezing, no stridor.T-piece 6 L cardiovascular - regular S1,S2 heard, no added sounds, no murmurs heard. peripheral pulses feeble radial 2+, pedal 2+. GI - soft, nontender abdomen. Bowel sounds normoactive Neurological - Pupils are anisocoric, left greater than right, fluctuating, light reflex intact. Positive gag and Babinski sign. Extremities: Decerebrate posturing, eyes open but no response to verbal stimulation or sudden loud noise laboratory and microbiology Laboratory Tests 07/21/25 03:00 Test 07/21/25 03:00 Range/Units Serum Glucose 111 H 74-106 mg/dL Microbiology Date/Time Source Procedure Growth Status 07/19/25 09:40 Blood Blood Culture - Preliminary NO GROWTH AFTER 48 HOURS OF INCUBATION. Resulted 07/19/25 08:10 Voided Urine Urine Culture - Final Complete 07/06/25 12:08 Trachea Gram Stain - Final Resulted 07/06/25 12:08 Trachea Respiratory Culture - Preliminary Resulted 07/02/25 13:10 Sputum Gram Stain - Final Complete 07/02/25 13:10 Sputum Respiratory Culture - Final Complete Labs and/or images reviewed: Labs reviewed by me, Image(s) reviewed by me Problem List/Assessment/Plan Problem List/Assessment/Plan NEURO: Acute metabolic and hypoxic encephalopathy secondary to likely Heat stroke Severe hypothyroidism or acute seizures Severe hyperthermia likely from Heat Stroke h/o bipolar disorder h/o depression Vegetative status Decerebration History of seizure disorder Neurologist consulted-poor prognosis for meaningful recovery Supportive treatment advised CARDIOVASCULAR: Wide complex nonsustained Ventricular tachycardia s/p defibrillation Shock likely hypovolemic Moderate to severe aortic regurgitation Heart failure with reduced ejection fraction-EF 40%-s, no exacerbation NSTEMI likely type 2 Hypertension Losartan increased to 100 daily, Coreg 12.5 b.i.d., started spirononlactone 25mg OD, started amlo 10 Hydralazine PRN DC clonidine patch On rn review PULMONARY: Acute Gram-positive and Gram-negative pneumonia S/P Tracheostomy on 07/13 Respiratory culture growing filamentous fungi IV micafungin and ceftriaxone GASTROINTESTINAL: Status post PEG tube placement 07/17 Shock liver Tube feeds Monitor LFTs GENITOURINARY: E coli bacterial cystitis 07/03 Recurrent UTI 07/19 TESFAYE on CKD likely due to be VMN On IV ceftriaxone starting 07/19 urine culture wnl METABOLIC: Severe hypothyroidism Thrombocytopenia Hypernatremia 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-continue IV levothyroxine 100 mcg daily, levothyroxine 5 mcg tablet daily through PEG tube TSH to be monitor 3-5 days, free T3 and free T4 daily DC Free water 250 q.4, free water deficit 1.5 L 07/17 INFECTIOUS DISEASE: Acute bacterial cystitis Urine culture growing E coli Respiratory culture growing filamentous fungi DIET: tube feeds DVT prophylax: GI prophylaxis: Protonix Bowel regimen: lactulose 30bid Last BM: 07/15 Code status: Full code LINES/DRAINS/ACCESS:LUE midline 07/11 Drips: None Campbell catheter: placed on 07/02, changed 07/19+ Bowel movement: 07/20 DISPOSITION: JOAN, DC to SNF when bed available Patient's status including plan of care discussed with nurse, all qs answered. Tried calling son, voicemail is full, call not answered. Critical care time spent more than 54 minutes, including patient care, chart review, and updating the family. Excluding any procedures Case discussed with Dr. Hinojosa Plan discussed with: Patient My Orders My Orders Orders - CORY LANIER Procedure Category Date Status Time Pharmacy [facility] 07/20/25 In Process Clarification: 15:19 Amlodipine Tablet [facility] 07/21/25 In Process (Norvasc Tablet) 10:[address] 07/21/25 Resulted 08:51 Lactulose Oral [facility] 07/22/25 In Process 10:00 Dietary Evaluation Review Comments: 1. TF Vital high protein @50ml/hr (105g Protein 1200kcal and 1003ml free water) supporting 100% of pt's needs 2. Initial TF speed at 30ml/hr, increase 10ml Q6 hr until reaching full speed. 3. Reassess when pt is extubated. Expected Outcomes/Goals: catabolism prevention CORY LANIER RESIDENT Jul 21, 2025 14:52
[2025-07-22] VITALS (34 sets, daily range): BP systolic 107–175; BP diastolic 60–89; PULSE 69–94; RESP 12–24; TEMP 99.1–99.7; O2SAT 94–100
[2025-07-22 03:36] LABS: Hematocrit 35.2 % (36.0-46.0); Hemoglobin 11.7 g/dL (12.2-16.2); Mean Corpuscular Hemoglobin 27.6 pg (28.0-32.0); Mean Corpuscular Volume 83.6 fL (80.0-100.0); Nucleated Red Blood Cells % 0.0 %
[2025-07-22 03:39] LABS: Anion Gap 12 (5-15); Carbon Dioxide 24 mmol/L (20-31); Potassium 4.2 mmol/L (3.5-5.1); Sodium 145 mmol/L (136-145)
[2025-07-22 03:40] LABS: Calcium 10.2 mg/dL (8.7-10.4)
[2025-07-22 03:42] LABS: Chloride 109 mmol/L (98-107)
[2025-07-22 03:45] LABS: BUN/Creatinine Ratio 45.6 (10.0-20.0); Glucose 102 mg/dL (74-106)
[2025-07-22 03:50] LABS: Blood Urea Nitrogen 36 mg/dL (9-23)
--- NOTE | 2025-07-22 09:50 | DVHPN2 ---
Subjective History of Present Illness This is a 50-year-old female with bipolar depression, hypothyroidism, heart failure with a reduced ejection fraction-EF 40%, aortic and tricuspid regurgitation who presented to the ER with high-grade fever 106, ALOC, possible seizure versus heat stroke and was intubated on the field by EMS, prolonged hospital stay secondary to hypoxic brain injury, 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 Status post tracheostomy 07/13 07/17 - Overnight low-grade fever 99.5, tachycardia, blood pressure ranging high up to 180s systolic and 85 diastolic, on T-piece 6 L. Chest x-ray unremarkable. Urine output 2000 cc. Sodium 149, free water deficit 1.5 L, free water q.4 hours started. Underwent NG tube placement, NPO for now. 07/19 - patient with nonpurposeful movements. Urine cloudy, UA shows UTI, IV ceftriaxone, culture pending, campbell changed 07/20- patient examined, no overnight events, clonidine patch, increase Coreg to 12 mg b.i.d., hydrochlorothiazide 12.5 mg daily, vp lab switched levothyroxine to p.o. 125 mcg daily KUB unremarkable, lactulose started. Patient had a bowel movement. 07/21 - no overnight events, statu same, nonpurposeful movements. CT head negative 07/22: Patient here with heat stroke now in vegetative state, family is taking to LTAC. Patient examined at bedside she is not responding to any commands, she has intact brainstem reflexes. Primary team is continuing antibiotics, peg tube feeds, Campbell continued. Waiting for LTAC acceptance. Continue primary team's plan Reviewed: Care Plan Changes from previous H/P or p: No Changes General: Per HPI Objective Vitals Vital Signs Date Time Temp Pulse Resp B/P (MAP) Pulse Ox O2 Delivery O2 Flow Rate FiO2 07/22/25 06:00 94 07/22/25 06:00 13 97 T-piece 8 35 35 07/22/25 05:57 172/82 07/22/25 05:00 99.3 210.7 Intake/Output Intake and Output 07/22/25 07:00 Intake Total 1020 ml Output Total 1000 ml Balance 20 ml Intake Oral 150 ml IV Total 50 ml Tube Feeding 820 ml Output Urine Total 1000 ml Exam Gen - no pallor, no icterus, no cyanosis, no edema . Pupils are anisocoric, R greater than L, fluctuating, light reflex intact. Positive gag and Babinski sign. Skin - Patients skin is warm and dry. HEENT - normocephalic, atraumatic, dry mucous membranes. Neck - no JVD Pulmonary - B/L equal breath sounds, no rales, no wheezing, no stridor.T-piece 6 L cardiovascular - regular S1,S2 heard, no added sounds, no murmurs heard. peripheral pulses feeble radial 2+, pedal 2+. GI - soft, nontender abdomen. Bowel sounds normoactive Neurological - Pupils are anisocoric, left greater than right, fluctuating, light reflex intact. Positive gag and Babinski sign. Extremities: Decerebrate posturing, eyes open but no response to verbal stimulation or sudden loud noise Medications Current Medications Medications Dose Ordered Sig/Agnes Route Start Time Stop Time Status Last Admin Dose Admin Pantoprazole Sodium 40 mg DAILY IV 07/04/25 10:00 07/21/25 10:30 40 MG Artificial Tears 2 drop Q6HR PRN EACHEYE 07/07/25 20:00 07/16/25 10:06 2 DROP Enteral Nutritional Formula 1,000 ml 50ML/HR GT 07/10/25 13:30 07/21/25 13:50 1,000 ML Hydralazine HCl 10 mg Q6HP PRN IV 07/13/25 07:45 07/22/25 05:57 10 MG Losartan Potassium 100 mg DAILY GT 07/18/25 10:00 07/21/25 10:31 100 MG Spironolactone 25 mg DAILY GT 07/19/25 10:00 07/21/25 10:32 25 MG Enoxaparin Sodium 40 mg DAILY SC 07/19/25 10:00 07/21/25 10:33 40 MG Ceftriaxone Sodium 50 ml @ 100 mls/hr DAILY@09 IV 07/20/25 09:00 07/22/25 09:08 100 MLS/HR Carvedilol 12.5 mg Q12HR GT 07/20/25 10:00 07/21/25 22:06 12.5 MG Levothyroxine Sodium 125 mcg QAM@0600 PO 07/21/25 06:00 UNV Levothyroxine Sodium 100 mcg QAM@0600 PO 07/21/25 06:00 07/22/25 05:56 100 MCG Levothyroxine Sodium 25 mcg QAM@0600 PO 07/21/25 06:00 07/22/25 05:56 25 MCG Amlodipine Besylate 10 mg DAILY PEG 07/21/25 10:00 07/21/25 10:32 10 MG Lactulose 30 ml DAILY PEG 07/22/25 10:00 Laboratory Results Laboratory Tests 07/22/25 02:56 Chemistry Test 07/22/25 02:56 Calcium Level 10.2 mg/dL (8.7-10.4) Urinalysis Test 07/03/25 14:40 07/19/25 08:10 Urine Amorphous Crystals Few /hpf (None Seen) Urine Color Colorless (Yellow) Urine Clarity Turbid (Clear) H Urine pH 5.0 (5.0-9.0) Urine Specific [place] 1.016 (1.001-1.035) Urine Protein 1+ (Negative) H Urine Ketones Negative (Negative) Urine Blood Negative /uL (Negative) Urine Nitrite Negative (Negative) Urine Bilirubin Negative (Negative) Urine Urobilinogen Normal mg/dL (Negative) Urine Leukocyte Esterase 3+ /uL (Negative) Urine RBC 11 /hpf (0 - 4) Urine Microscopic WBC 249 /HPF (0-5) H Urine Squamous Epithelial Cells Few /hpf (<5) Urine Bacteria Few /hpf (None Seen) H Urine Mucus Few (None Seen) Urine Glucose Normal mg/dL (Normal) Microbiology Microbiology Date/Time Source Procedure Growth Status 07/19/25 09:40 Blood Blood Culture - Preliminary NO GROWTH AFTER 48 HOURS OF INCUBATION. Resulted 07/19/25 08:10 Voided Urine Urine Culture - Final Complete 07/06/25 12:08 Trachea Gram Stain - Final Resulted 07/06/25 12:08 Trachea Respiratory Culture - Preliminary Resulted 07/02/25 13:10 Sputum Gram Stain - Final Complete 07/02/25 13:10 Sputum Respiratory Culture - Final Complete Labs and/or images reviewed: Labs reviewed by me, Image(s) reviewed by me Assessment/Plan Assessment/Plan NEURO: Acute metabolic and hypoxic encephalopathy secondary to likely Heat stroke Severe hypothyroidism or acute seizures Severe hyperthermia likely from Heat Stroke h/o bipolar disorder h/o depression Vegetative status Decerebration History of seizure disorder Neurologist consulted-poor prognosis for meaningful recovery Supportive treatment advised CARDIOVASCULAR: Wide complex nonsustained Ventricular tachycardia s/p defibrillation Shock likely hypovolemic Moderate to severe aortic regurgitation Heart failure with reduced ejection fraction-EF 40%-s, no exacerbation NSTEMI likely type 2 Hypertension Losartan increased to 100 daily, Coreg 12.5 b.i.d., started spirononlactone 25mg OD, started amlo 10 Hydralazine PRN DC 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: Acute Gram-positive and Gram-negative pneumonia S/P Tracheostomy on 07/13 Respiratory culture growing filamentous fungi IV micafungin and ceftriaxone GASTROINTESTINAL: Status post PEG tube placement 07/17 Shock liver Tube feeds Monitor LFTs GENITOURINARY: E coli bacterial cystitis 07/03 Recurrent UTI 07/19 TESFAYE on CKD likely due to be VMN On IV ceftriaxone starting 07/19 urine culture wnl METABOLIC: Severe hypothyroidism Thrombocytopenia Hypernatremia Geological Engineer consulted-continue IV levothyroxine 100 mcg daily, levothyroxine 5 mcg tablet daily through PEG tube TSH to be monitor 3-5 days, free T3 and free T4 daily DC Free water 250 q.4, free water deficit 1.5 L 07/17 INFECTIOUS DISEASE: Acute bacterial cystitis Urine culture growing E coli Respiratory culture growing filamentous fungi DIET: tube feeds DVT prophylax: GI prophylaxis: Protonix Bowel regimen: lactulose 30bid Last BM: 07/15 Code status: Full code LINES/DRAINS/ACCESS:LUE midline 07/11 Drips: None Campbell catheter: placed on 07/02, changed 07/19+ DISPOSITION: JOAN, DC to SNF when bed available Plan discussed with: Other Date of Service: Jul 22, 2025 Billing Provider: KAIDEN GAFFNEY MD Common Visit Codes: [id number] CARE 30-74 MIN KAIDEN GAFFNEY MD Jul 22, 2025 09:50
[2025-07-22] MEDS: LACTULOSE 20Gm/30ML SOLN PEG SCH (10:29)
--- NOTE | 2025-07-22 22:43 | DVHPN2 ---
Progress Note - Dictate Date Seen: Jul 22, 2025 Has the PT tested + for MRSA If YES, has PT been informed?: No Medical Necessity Reason Pt with a Central, PICC or Fol: Yes The following are medically ne: Central Line, Campbell Catheter Reason for campbell catheter: Strict I&O Subjective Patient seen and examined at bedside. S/p trach, on supplemental oxygen Overnight events reviewed. vital signs Vital Sign Date Time Temp Pulse Resp B/P (MAP) Pulse Ox O2 Delivery O2 Flow Rate FiO2 07/22/25 22:12 91 159/89 07/22/25 22:00 22 97 T-piece 8 35 35 07/22/25 18:00 99.3 210.7 Total Intake and Output 07/21/25 07/21/25 07/22/25 15:00 23:00 07:00 Intake Total 50 ml 500 ml 470 ml Output Total 500 ml 500 ml Balance 50 ml 0 ml -30 ml medications Current Medications Medications Dose Ordered Sig/Agnes Route Start Time Stop Time Status Last Admin Dose Admin Pantoprazole Sodium 40 mg DAILY IV 07/04/25 10:00 07/22/25 10:29 40 MG Artificial Tears 2 drop Q6HR PRN EACHEYE 07/07/25 20:00 07/16/25 10:06 2 DROP Enteral Nutritional Formula 1,000 ml 50ML/HR GT 07/10/25 13:30 07/22/25 18:24 1,000 ML Hydralazine HCl 10 mg Q6HP PRN IV 07/13/25 07:45 07/22/25 05:57 10 MG Losartan Potassium 100 mg DAILY GT 07/18/25 10:00 07/22/25 10:31 100 MG Spironolactone 25 mg DAILY GT 07/19/25 10:00 07/22/25 10:30 25 MG Enoxaparin Sodium 40 mg DAILY SC 07/19/25 10:00 07/22/25 10:29 40 MG Ceftriaxone Sodium 50 ml @ 100 mls/hr DAILY@09 IV 07/20/25 09:00 07/22/25 09:08 100 MLS/HR Carvedilol 12.5 mg Q12HR GT 07/20/25 10:00 07/22/25 22:12 12.5 MG Levothyroxine Sodium 125 mcg QAM@0600 PO 07/21/25 06:00 UNV Levothyroxine Sodium 100 mcg QAM@0600 PO 07/21/25 06:00 07/22/25 05:56 100 MCG Levothyroxine Sodium 25 mcg QAM@0600 PO 07/21/25 06:00 07/22/25 05:56 25 MCG Amlodipine Besylate 10 mg DAILY PEG 07/21/25 10:00 07/22/25 10:30 10 MG Lactulose 30 ml DAILY PEG 07/22/25 10:00 07/22/25 10:29 30 ML objective Gen.: Patient lying in bed in no apparent distress. S/p trach. On supplemental oxygen. Head: Normocephalic, atraumatic. Eyes: EOMI/PERRLA. Ears: Normal hearing. Normal anatomy. Neck/trachea: Trach in place. Nose: Normal external anatomy. Mouth: Moist mucous membranes. Chest: Decreased air entry bilaterally. No wheezing or rhonchi. Cardiovascular: Positive S1, positive S2. Regular rate and rhythm. Abdomen: Positive bowel sounds in all 4 quadrants. Soft, non-tender, non- distended. : Deferred. Rectal: Deferred. Skin: Warm, dry. Intact. Extremities: 2+ radial pulses bilaterally. No lower extremity edema. Neuro: Awake, not following commands. No gross motor or sensory deficits. Cranial nerves II through XII intact. Gait not assessed. laboratory and microbiology Laboratory Tests 07/22/25 02:56 Test 07/22/25 02:56 Range/Units Serum Glucose 102 74-106 mg/dL Assessment/Plan Impression: Status post cardiac arrest Requiring CPR Acute hypoxemic respiratory failure S/p tracheostomy Depression Anxiety Heat stroke Events: Patient is seen and examined in the ICU S/p trach, on 8 LPM via T-piece Mechanical ventilator PRN respiratory distress. Tolerating trach collar during daytime Continue trach care per RT. Head of bed elevation Aspiration precautions Continue antibiotics/antifungal Blood pressure control NG tube feedings for nutrition Supportive care. Recommend higher level of care for neurology. Neurology recommendations appreciated. Disposition per hospitalist. Off sedation Awake, not following commands. Suspected anoxic brain injury Labs and imaging studies reviewed Plan: S/p tracheostomy, currently on 8 LPM via T-piece Mechanical ventilator PRN respiratory distress. Trach care per RT. Neurologic workup - Follow up Neurology recommendations Continue antibiotics Blood pressure control Monitor renal function. Monitor electrolytes. Supplement as necessary. Monitor ins and outs. GI/DVT prophylaxis. Prognosis: Poor given patient's multiple co-morbidities. Rest of plan per hospitalist and other consultants. Thank you Dr. Hill for allowing me to participate in this patient's care. Further recommendations will depend on the patient's clinical course. Please do not hesitate to contact me if you have any questions or concerns. This medical document was created using an electronic medical record system with [employer] dictation system. Although these documentations are being carefully reviewed, there may still be some phonetic and typographical changes. The errors are purely typographical, due to imperfection on the software program, and do not reflect any compromise in the patient's medical care. Dietary Evaluation Review Comments: 1. TF Vital high protein @50ml/hr (105g Protein 1200kcal and 1003ml free water) supporting 100% of pt's needs 2. Initial TF speed at 30ml/hr, increase 10ml Q6 hr until reaching full speed. 3. Reassess when pt is extubated. Expected Outcomes/Goals: catabolism prevention Plan discussed with: Other (LYNETTE Alonso) JAMESON ÁLVAREZ MD Jul 22, 2025 22:43
[2025-07-23] VITALS (31 sets, daily range): BP systolic 126–170; BP diastolic 65–100; PULSE 63–94; RESP 9–22; TEMP 99–100; O2SAT 90–99
--- NOTE | 2025-07-23 09:15 | DVHPN2 ---
Subjective History of Present Illness This is a 50-year-old female with bipolar depression, hypothyroidism, heart failure with a reduced ejection fraction-EF 40%, aortic and tricuspid regurgitation who presented to the ER with high-grade fever 106, ALOC, possible seizure versus heat stroke and was intubated on the field by EMS, prolonged hospital stay secondary to hypoxic brain injury, 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 Status post tracheostomy 07/13 07/17 - Overnight low-grade fever 99.5, tachycardia, blood pressure ranging high up to 180s systolic and 85 diastolic, on T-piece 6 L. Chest x-ray unremarkable. Urine output 2000 cc. Sodium 149, free water deficit 1.5 L, free water q.4 hours started. Underwent NG tube placement, NPO for now. 07/19 - patient with nonpurposeful movements. Urine cloudy, UA shows UTI, IV ceftriaxone, culture pending, campbell changed 07/20- patient examined, no overnight events, clonidine patch, increase Coreg to 12 mg b.i.d., hydrochlorothiazide 12.5 mg daily, administrative staff supervisor switched levothyroxine to p.o. 125 mcg daily KUB unremarkable, lactulose started. Patient had a bowel movement. 07/21 - no overnight events, statu same, nonpurposeful movements. CT head negative 07/22: Patient here with heat stroke now in vegetative state, family is taking to LTAC. Patient examined at bedside she is not responding to any commands, she has intact brainstem reflexes. Primary team is continuing antibiotics, peg tube feeds, Campbell continued. Waiting for LTAC acceptance. Continue primary team's plan 07/23: Patient remains at her baseline, nonverbal, not following commands. Spontaneous eye movements. vital signs stable. Social work trying for LTAC placement. Reviewed: Care Plan Changes from previous H/P or p: No Changes General: Per HPI Objective Vitals Vital Signs Date Time Temp Pulse Resp B/P (MAP) Pulse Ox O2 Delivery O2 Flow Rate FiO2 07/23/25 09:00 99.3 91 14 154/79 (104) 92 210.7 07/23/25 08:20 T-piece 8 35 35 Intake/Output Intake and Output 07/23/25 07:00 Intake Total 1072 ml Output Total 900 ml Balance 172 ml Intake Oral 200 ml IV Total 50 ml Tube Feeding 822 ml Output Urine Total 900 ml Exam Gen - no pallor, no icterus, no cyanosis, no edema . Pupils are anisocoric, R greater than L, fluctuating, light reflex intact. Positive gag and Babinski sign. Skin - Patients skin is warm and dry. HEENT - normocephalic, atraumatic, dry mucous membranes. Neck - no JVD Pulmonary - B/L equal breath sounds, no rales, no wheezing, no stridor.T-piece 6 L cardiovascular - regular S1,S2 heard, no added sounds, no murmurs heard. peripheral pulses feeble radial 2+, pedal 2+. GI - soft, nontender abdomen. Bowel sounds normoactive Neurological - Pupils are anisocoric, left greater than right, fluctuating, light reflex intact. Positive gag and Babinski sign. Extremities: Decerebrate posturing, eyes open but no response to verbal stimulation or sudden loud noise Medications Current Medications Medications Dose Ordered Sig/Agnes Route Start Time Stop Time Status Last Admin Dose Admin Pantoprazole Sodium 40 mg DAILY IV 07/04/25 10:00 07/22/25 10:29 40 MG Artificial Tears 2 drop Q6HR PRN EACHEYE 07/07/25 20:00 07/16/25 10:06 2 DROP Enteral Nutritional Formula 1,000 ml 50ML/HR GT 07/10/25 13:30 07/22/25 18:24 1,000 ML Hydralazine HCl 10 mg Q6HP PRN IV 07/13/25 07:45 07/22/25 05:57 10 MG Losartan Potassium 100 mg DAILY GT 07/18/25 10:00 07/22/25 10:31 100 MG Spironolactone 25 mg DAILY GT 07/19/25 10:00 07/22/25 10:30 25 MG Enoxaparin Sodium 40 mg DAILY SC 07/19/25 10:00 07/22/25 10:29 40 MG Ceftriaxone Sodium 50 ml @ 100 mls/hr DAILY@09 IV 07/20/25 09:00 07/22/25 09:08 100 MLS/HR Carvedilol 12.5 mg Q12HR GT 07/20/25 10:00 07/22/25 22:12 12.5 MG Levothyroxine Sodium 125 mcg QAM@0600 PO 07/21/25 06:00 UNV Levothyroxine Sodium 100 mcg QAM@0600 PO 07/21/25 06:00 07/23/25 05:58 100 MCG Levothyroxine Sodium 25 mcg QAM@0600 PO 07/21/25 06:00 07/23/25 05:58 25 MCG Amlodipine Besylate 10 mg DAILY PEG 07/21/25 10:00 07/22/25 10:30 10 MG Lactulose 30 ml DAILY PEG 07/22/25 10:00 07/22/25 10:29 30 ML Laboratory Results Laboratory Tests 07/22/25 02:56 Urinalysis Test 07/03/25 14:40 07/19/25 08:10 Urine Amorphous Crystals Few /hpf (None Seen) Urine Color Colorless (Yellow) Urine Clarity Turbid (Clear) H Urine pH 5.0 (5.0-9.0) Urine Specific [place] 1.016 (1.001-1.035) Urine Protein 1+ (Negative) H Urine Ketones Negative (Negative) Urine Blood Negative /uL (Negative) Urine Nitrite Negative (Negative) Urine Bilirubin Negative (Negative) Urine Urobilinogen Normal mg/dL (Negative) Urine Leukocyte Esterase 3+ /uL (Negative) Urine RBC 11 /hpf (0 - 4) Urine Microscopic WBC 249 /HPF (0-5) H Urine Squamous Epithelial Cells Few /hpf (<5) Urine Bacteria Few /hpf (None Seen) H Urine Mucus Few (None Seen) Urine Glucose Normal mg/dL (Normal) Microbiology Microbiology Date/Time Source Procedure Growth Status 07/19/25 09:40 Blood Blood Culture - Preliminary NO GROWTH AFTER 72 HOURS OF INCUBATION. Resulted 07/19/25 08:10 Voided Urine Urine Culture - Final Complete 07/06/25 12:08 Trachea Gram Stain - Final Resulted 07/06/25 12:08 Trachea Respiratory Culture - Preliminary Resulted 07/02/25 13:10 Sputum Gram Stain - Final Complete 07/02/25 13:10 Sputum Respiratory Culture - Final Complete Labs and/or images reviewed: Labs reviewed by me, Image(s) reviewed by me Assessment/Plan Assessment/Plan NEURO: Acute metabolic and hypoxic encephalopathy secondary to likely Heat stroke Severe hypothyroidism or acute seizures Severe hyperthermia likely from Heat Stroke h/o bipolar disorder h/o depression Vegetative status Decerebration History of seizure disorder Neurologist consulted-poor prognosis for meaningful recovery Supportive treatment advised CARDIOVASCULAR: Wide complex nonsustained Ventricular tachycardia s/p defibrillation Shock likely hypovolemic Moderate to severe aortic regurgitation Heart failure with reduced ejection fraction-EF 40%-s, no exacerbation NSTEMI likely type 2 Hypertension Losartan increased to 100 daily, Coreg 12.5 b.i.d., started spirononlactone 25mg OD, started amlo 10 Hydralazine PRN DC clonidine patch 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 PULMONARY: Acute Gram-positive and Gram-negative pneumonia S/P Tracheostomy on 07/13 Respiratory culture growing filamentous fungi IV micafungin and ceftriaxone GASTROINTESTINAL: Status post PEG tube placement 07/17 Shock liver Tube feeds Monitor LFTs GENITOURINARY: E coli bacterial cystitis 07/03 Recurrent UTI 07/19 TESFAYE on CKD likely due to be VMN On IV ceftriaxone starting 07/19 urine culture wnl METABOLIC: Severe hypothyroidism Thrombocytopenia Hypernatremia Elevator Constructor Supervisor consulted-continue IV levothyroxine 100 mcg daily, levothyroxine 5 mcg tablet daily through PEG tube TSH to be monitor 3-5 days, free T3 and free T4 daily DC Free water 250 q.4, free water deficit 1.5 L 07/17 INFECTIOUS DISEASE: Acute bacterial cystitis Urine culture growing E coli Respiratory culture growing filamentous fungi DIET: tube feeds DVT prophylax: GI prophylaxis: Protonix Bowel regimen: lactulose 30bid Last BM: 07/15 Code status: Full code LINES/DRAINS/ACCESS:LUE midline 07/11 Drips: None Campbell catheter: placed on 07/02, changed 07/19+ DISPOSITION: JOAN, DC to SNF when bed available Plan discussed with: Other Date of Service: Jul 23, 2025 Billing Provider: KAIDEN GAFFNEY MD Common Visit Codes: [id number] CARE 30-74 MIN KAIDEN GAFFNEY MD Jul 23, 2025 09:15
--- NOTE | 2025-07-23 22:58 | DVHPN2 ---
Progress Note - Dictate Date Seen: Jul 23, 2025 Has the PT tested + for MRSA If YES, has PT been informed?: No Medical Necessity Reason Pt with a Central, PICC or Fol: Yes The following are medically ne: Central Line, Campbell Catheter Reason for campbell catheter: Strict I&O Subjective Patient seen and examined at bedside. S/p trach, on supplemental oxygen Overnight events reviewed. vital signs Vital Sign Date Time Temp Pulse Resp B/P (MAP) Pulse Ox O2 Delivery O2 Flow Rate FiO2 07/23/25 22:11 84 157/85 07/23/25 20:00 20 98 T-piece 8 35 35 07/23/25 20:00 99.5 211.1 Total Intake and Output 07/22/25 07/22/25 07/23/25 15:00 23:00 07:00 Intake Total 50 ml 582 ml 440 ml Output Total 550 ml 350 ml Balance 50 ml 32 ml 90 ml medications Current Medications Medications Dose Ordered Sig/Agnes Route Start Time Stop Time Status Last Admin Dose Admin Pantoprazole Sodium 40 mg DAILY IV 07/04/25 10:00 07/23/25 09:32 40 MG Artificial Tears 2 drop Q6HR PRN EACHEYE 07/07/25 20:00 07/16/25 10:06 2 DROP Enteral Nutritional Formula 1,000 ml 50ML/HR GT 07/10/25 13:30 07/23/25 17:52 1,000 ML Hydralazine HCl 10 mg Q6HP PRN IV 07/13/25 07:45 07/22/25 05:57 10 MG Losartan Potassium 100 mg DAILY GT 07/18/25 10:00 07/23/25 09:33 100 MG Spironolactone 25 mg DAILY GT 07/19/25 10:00 07/23/25 09:33 25 MG Enoxaparin Sodium 40 mg DAILY SC 07/19/25 10:00 07/23/25 09:32 40 MG Ceftriaxone Sodium 50 ml @ 100 mls/hr DAILY@09 IV 07/20/25 09:00 07/23/25 09:27 100 MLS/HR Carvedilol 12.5 mg Q12HR GT 07/20/25 10:00 07/23/25 22:11 12.5 MG Levothyroxine Sodium 125 mcg QAM@0600 PO 07/21/25 06:00 UNV Levothyroxine Sodium 100 mcg QAM@0600 PO 07/21/25 06:00 07/23/25 05:58 100 MCG Levothyroxine Sodium 25 mcg QAM@0600 PO 07/21/25 06:00 07/23/25 05:58 25 MCG Amlodipine Besylate 10 mg DAILY PEG 07/21/25 10:00 07/23/25 09:33 10 MG Lactulose 30 ml DAILY PEG 07/22/25 10:00 07/23/25 09:31 30 ML objective Gen.: Patient lying in bed in no apparent distress. S/p trach. On supplemental oxygen. Head: Normocephalic, atraumatic. Eyes: EOMI/PERRLA. Ears: Normal hearing. Normal anatomy. Neck/trachea: Trach in place. Nose: Normal external anatomy. Mouth: Moist mucous membranes. Chest: Decreased air entry bilaterally. No wheezing or rhonchi. Cardiovascular: Positive S1, positive S2. Regular rate and rhythm. Abdomen: Positive bowel sounds in all 4 quadrants. Soft, non-tender, non- distended. : Deferred. Rectal: Deferred. Skin: Warm, dry. Intact. Extremities: 2+ radial pulses bilaterally. No lower extremity edema. Neuro: Awake, not following commands. No gross motor or sensory deficits. Cranial nerves II through XII intact. Gait not assessed. laboratory and microbiology Laboratory Tests 07/22/25 02:56 Test 07/22/25 02:56 Range/Units Serum Glucose 102 74-106 mg/dL Assessment/Plan Impression: Status post cardiac arrest Requiring CPR Acute hypoxemic respiratory failure S/p tracheostomy Depression Anxiety Heat stroke Events: Patient is seen and examined in the ICU S/p trach, on 8 LPM via T-piece Mechanical ventilator PRN respiratory distress. Tolerating trach collar during daytime Continue trach care per RT. Head of bed elevation Aspiration precautions Continue antibiotics/antifungal Blood pressure control NG tube feedings for nutrition Supportive care. Recommend higher level of care for neurology. Neurology recommendations appreciated. Disposition per hospitalist. Off sedation Awake, not following commands. Suspected anoxic brain injury Labs and imaging studies reviewed Plan: S/p tracheostomy, currently on 8 LPM via T-piece Mechanical ventilator PRN respiratory distress. Trach care per RT. Neurologic workup - Follow up Neurology recommendations Continue antibiotics Blood pressure control Monitor renal function. Monitor electrolytes. Supplement as necessary. Monitor ins and outs. GI/DVT prophylaxis. Prognosis: Poor given patient's multiple co-morbidities. Rest of plan per hospitalist and other consultants. Thank you Dr. Hill for allowing me to participate in this patient's care. Further recommendations will depend on the patient's clinical course. Please do not hesitate to contact me if you have any questions or concerns. This medical document was created using an electronic medical record system with [employer] dictation system. Although these documentations are being carefully reviewed, there may still be some phonetic and typographical changes. The errors are purely typographical, due to imperfection on the software program, and do not reflect any compromise in the patient's medical care. Dietary Evaluation Review Comments: 1. TF Vital high protein @50ml/hr (105g Protein 1200kcal and 1003ml free water) supporting 100% of pt's needs 2. Initial TF speed at 30ml/hr, increase 10ml Q6 hr until reaching full speed. 3. Reassess when pt is extubated. Expected Outcomes/Goals: catabolism prevention Plan discussed with: Other (LYNETTE Alonso) JAMESON ÁLVAREZ MD Jul 23, 2025 22:58
[2025-07-24] VITALS (27 sets, daily range): BP systolic 108–166; BP diastolic 59–93; PULSE 65–98; RESP 10–21; TEMP 98.8–99.9; O2SAT 94–100
[2025-07-24 09:07] LABS: Hematocrit 36.9 % (36.0-46.0); Hemoglobin 12.3 g/dL (12.2-16.2); Mean Corpuscular Hemoglobin 28.3 pg (28.0-32.0); Mean Corpuscular Volume 85.0 fL (80.0-100.0); Nucleated Red Blood Cells % 0.0 %
[2025-07-24 09:20] LABS: Chloride 107 mmol/L (98-107); Potassium 4.5 mmol/L (3.5-5.1); Sodium 144 mmol/L (136-145)
[2025-07-24 09:21] LABS: Anion Gap 11 (5-15); Carbon Dioxide 26 mmol/L (20-31)
[2025-07-24 09:24] LABS: Calcium 10.7 mg/dL (8.7-10.4)
[2025-07-24 09:26] LABS: BUN/Creatinine Ratio 45.1 (10.0-20.0); Blood Urea Nitrogen 37 mg/dL (9-23); Glucose 109 mg/dL (74-106)
[2025-07-24 09:27] LABS: Magnesium 2.2 mg/dL (1.6-2.6)
--- NOTE | 2025-07-24 13:36 | DVHPN2 ---
Progress Note - Dictate Date Seen: Jul 24, 2025 Has the PT tested + for MRSA If YES, has PT been informed?: No Medical Necessity Reason Pt with a Central, PICC or Fol: Yes The following are medically ne: Central Line, Campbell Catheter Reason for campbell catheter: Strict I&O Subjective Ms. Montes is a 48 years old female with a history of bipolar disorder, anxiety, depression, the patient was taken to the hospital on 07/02/2025 with a chief complaint of altered mental status. I saw her on 01/10/2024 for ALOC I have seen and examined the patient, I have discussed with her nurse, no changes, her eyes are open, blinking and rolling from [id number], she also move her head, but she is not responsive to verbal stimuli, sudden loud noise or visual thread, her extremities are extended, Follows CT brain on 07/21/2025 was unremarkable Status post tracheostomy on 07/14/2025 Status post PEG insertion on 07/17/25 Pupil size 07/09/25: right: 4 mm, left: 2-3 mm, both are reactive to lights (RN: The left- sided was bigger during the daytime yesterday) 07/10/2025: right: 4 mm, left: 2-3 mm, both are reactive to lights 07/12/2025: right: 3 mm, left: 2-3 mm, both are reactive to lights 07/15/2025: PERRL 07/17/2025: PERRL (left-sided was bigger according to Dr. Hassan) 07/18/2025: Right side is minimally bigger 07/19/2025: PERRL 07/21/2025: PERRL CSF, 01/12/2024: C/C, WBC: 0, RBC: 0, protein: 36.1, glucose: 70 Urinalysis, 07/02/2025: Urine leukocyte esterase: 3+ Urine culture, 07/03/2025: E coli Blood culture, 07/03/2025: Negative UDS, 07/02/2025: Negative [place], 07/07/2025: ABG, 07/03/2025: Compensated metabolic acidosis, 07/07/2025: Compensated metabolic acidosis WBC/HB/PLT/MCV, 07/07/2025: 8.5/8.8/58/82.3 Na 07/13/2025: 144, 07/14/25: 146, 07/15/25: 152 CK, 07/02/2025: 653, 07/04/2025: 1423, 07/22/2025: 693, 07/07/2025: 366 TG/HDL/LDL/HDL, 07/05/2025: 13/./27 Ferritin 01/19/2024: 21.8 Chest x-ray, 07/02/2025: 1. Endotracheal tube 6.1 cm above the sylvia. 2. AED pads over the chest 3. Enteric tube position left diaphragm in the stomach CT head, 01/10/2024: No acute intracranial abnormality or significant interval change compared to 01/09/2024 CT head, 07/02/2025: No acute intracranial abnormality. CT head, 07/10/2025: No acute intracranial abnormality CT head, 07/21/2025: No acute intracranial abnormality. CT chest, 01/09/2024: 1. Inferior left upper and lower lobe consolidation favored to reflect infectious/inflammatory etiology, possibly aspiration. 2. The endotracheal tube terminates in the right mainstem bronchus. 3. The enteric tube is in satisfactory position MRI head, 01/15/2024: No acute abnormal MRI findings of the brain MR head, 07/10/2025: Subtle increased DWI signal within the bilateral caudate head, anterior putamen, medial temporal lobes, midbrain, and cerebellar hemispheres, concerning for early findings of hypoxic ischemic injury MRI C-spine, 01/15/24: 1. Degenerative disc disease and facet/uncinate disease in the cervical spine with associated spinal canal, subarticular, and neural foraminal stenoses as detailed above. 2. 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 3. No signal abnormality in the spinal cord to suggest myelopathy. 4. Additional findings as detailed above vital signs Vital Sign Date Time Temp Pulse Resp B/P (MAP) Pulse Ox O2 Delivery O2 Flow Rate FiO2 07/24/25 13:00 99.5 78 19 122/72 (89) 96 211.1 07/24/25 12:00 T-piece 8 30 30 Total Intake and Output 07/23/25 07/23/25 07/24/25 15:00 23:00 07:00 Intake Total 654 ml 440 ml Output Total 650 ml 550 ml Balance 4 ml -110 ml medications Current Medications Medications Dose Ordered Sig/Agnes Route Start Time Stop Time Status Last Admin Dose Admin Pantoprazole Sodium 40 mg DAILY IV 07/04/25 10:00 07/24/25 10:15 40 MG Artificial Tears 2 drop Q6HR PRN EACHEYE 07/07/25 20:00 07/16/25 10:06 2 DROP Enteral Nutritional Formula 1,000 ml 50ML/HR GT 07/10/25 13:30 07/23/25 17:52 1,000 ML Hydralazine HCl 10 mg Q6HP PRN IV 07/13/25 07:45 07/22/25 05:57 10 MG Losartan Potassium 100 mg DAILY GT 07/18/25 10:00 07/24/25 10:16 100 MG Spironolactone 25 mg DAILY GT 07/19/25 10:00 07/24/25 10:15 25 MG Enoxaparin Sodium 40 mg DAILY SC 07/19/25 10:00 07/24/25 10:17 40 MG Ceftriaxone Sodium 50 ml @ 100 mls/hr DAILY@09 IV 07/20/25 09:00 07/24/25 09:20 100 MLS/HR Carvedilol 12.5 mg Q12HR GT 07/20/25 10:00 07/24/25 10:16 12.5 MG Levothyroxine Sodium 125 mcg QAM@0600 PO 07/21/25 06:00 UNV Levothyroxine Sodium 100 mcg QAM@0600 PO 07/21/25 06:00 07/24/25 05:50 100 MCG Levothyroxine Sodium 25 mcg QAM@0600 PO 07/21/25 06:00 07/24/25 05:50 25 MCG Amlodipine Besylate 10 mg DAILY PEG 07/21/25 10:00 07/24/25 10:16 10 MG Lactulose 30 ml DAILY PEG 07/22/25 10:00 07/24/25 10:15 30 ML objective The patient is well-nourished and well-developed with no distress. The patient is intubated MENTAL STATUS: Subjective CRANIAL NERVES: Pupils are round and reactive.There is frequent blinking and occasional rolling eye movement. No signs of facial weakness. There are gagging or coughing reflexes SENSATION: Responses to pain stimuli. MOTOR: Elevated tone in the upper and lower extremity. Normal muscle bulk. No fasciculations. No spontaneous movement except for posturing. REFLEXES: Deep tendon reflexes are symmetrical. Bilateral Upgoing toes noticed when muscle tone is diminished CEREBELLAR/COORDINATION: Deferred GAIT/STATION: deferred. laboratory and microbiology Laboratory Tests 07/24/25 08:56 Test 07/24/25 08:56 Range/Units Serum Glucose 109 H 74-106 mg/dL Problem List Altered mental status Heat stroke Metabolic encephalopathy Hypoxic encephalopathy Vegetative status Decerebration Respiratory failure status post tracheostomy Urinary tract infection Rule out sepsis Bipolar disorder, depression, anxiety Seizure disorder, with last seizure attack before 2017 Restless leg syndrome with low ferritin Assessment/Plan Monitoring Supportive treatment ICU care Stabilize vitals Respiratory support/vent management IV antibiotics Oxygen DVT prophylaxis GI prophylaxis Tube feeding History from her when she wakes up She is to have feeding tube insertion More recommended per clinical course She is likely to have a poor prognosis for meaning recovery This medical document was created using an electronic medical record system with [employer] dictation system. Although this document has been carefully reviewed, there may still be some phonetic and typographical errors. These areas are purely typographical due to imperfections of the software programs, and do not reflect any compromise in the patient's medical care. Prognosis poor Dietary Evaluation Review Comments: 1. TF Vital high protein @50ml/hr (105g Protein 1200kcal and 1003ml free water) supporting 100% of pt's needs 2. Initial TF speed at 30ml/hr, increase 10ml Q6 hr until reaching full speed. 3. Reassess when pt is extubated. Expected Outcomes/Goals: catabolism prevention Plan discussed with: Other HORACIO MURPHY MD Jul 24, 2025 13:36
--- NOTE | 2025-07-24 15:42 | DVHPNRES ---
Progress Note Date Seen: Jul 24, 2025 Resident Creating Document: CORY LANIER RESIDENT Has the PT tested + for MRSA If YES, has PT been informed?: No Medical Necessity Reason Pt with a Central, PICC or Fol: Yes The following are medically ne: Central Line, Campbell Catheter Reason for campbell catheter: Strict I&O Subjective Review of Systems This is a 50-year-old female with bipolar depression, hypothyroidism, heart failure with a reduced ejection fraction-EF 40%, aortic and tricuspid regurgitation who presented to the ER with high-grade fever 106, ALOC, possible seizure versus heat stroke and was intubated on the field by EMS, prolonged hospital stay secondary to hypoxic brain injury, 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 Status post tracheostomy 07/13 07/17 - Overnight low-grade fever 99.5, tachycardia, blood pressure ranging high up to 180s systolic and 85 diastolic, on T-piece 6 L. Chest x-ray unremarkable. Urine output 2000 cc. Sodium 149, free water deficit 1.5 L, free water q.4 hours started. Underwent NG tube placement, NPO for now. 07/19 - patient with nonpurposeful movements. Urine cloudy, UA shows UTI, IV ceftriaxone, culture pending, campbell changed 07/20- patient examined, no overnight events, clonidine patch, increase Coreg to 12 mg b.i.d., hydrochlorothiazide 12.5 mg daily, nurse anesthetist switched levothyroxine to p.o. 125 mcg daily KUB unremarkable, lactulose started. Patient had a bowel movement. 07/21 - no overnight events, statu same, nonpurposeful movements. CT head negative 07/24 - no overnight event, t max 99.7, decreasing O2 from 8 to 4L via trach Objective vital signs Vital Sign Date Time Temp Pulse Resp B/P (MAP) Pulse Ox O2 Delivery O2 Flow Rate FiO2 07/24/25 14:00 19 95 T-piece 8 30 30 07/24/25 14:00 88 07/24/25 13:00 99.5 122/72 (89) 211.1 Total Intake and Output 07/23/25 07/23/25 07/24/25 15:00 23:00 07:00 Intake Total 654 ml 440 ml Output Total 650 ml 550 ml Balance 4 ml -110 ml medications Current Medications Medications Dose Ordered Sig/Agnes Route Start Time Stop Time Status Last Admin Dose Admin Pantoprazole Sodium 40 mg DAILY IV 07/04/25 10:00 07/24/25 10:15 40 MG Artificial Tears 2 drop Q6HR PRN EACHEYE 07/07/25 20:00 07/16/25 10:06 2 DROP Enteral Nutritional Formula 1,000 ml 50ML/HR GT 07/10/25 13:30 07/23/25 17:52 1,000 ML Hydralazine HCl 10 mg Q6HP PRN IV 07/13/25 07:45 07/22/25 05:57 10 MG Losartan Potassium 100 mg DAILY GT 07/18/25 10:00 07/24/25 10:16 100 MG Spironolactone 25 mg DAILY GT 07/19/25 10:00 07/24/25 10:15 25 MG Enoxaparin Sodium 40 mg DAILY SC 07/19/25 10:00 07/24/25 10:17 40 MG Ceftriaxone Sodium 50 ml @ 100 mls/hr DAILY@09 IV 07/20/25 09:00 07/24/25 09:20 100 MLS/HR Carvedilol 12.5 mg Q12HR GT 07/20/25 10:00 07/24/25 10:16 12.5 MG Levothyroxine Sodium 125 mcg QAM@0600 PO 07/21/25 06:00 UNV Levothyroxine Sodium 100 mcg QAM@0600 PO 07/21/25 06:00 07/24/25 05:50 100 MCG Levothyroxine Sodium 25 mcg QAM@0600 PO 07/21/25 06:00 07/24/25 05:50 25 MCG Amlodipine Besylate 10 mg DAILY PEG 07/21/25 10:00 07/24/25 10:16 10 MG Lactulose 30 ml DAILY PEG 07/22/25 10:00 07/24/25 10:15 30 ML Examination Gen - no pallor, no icterus, no cyanosis, no edema . Pupils are anisocoric, R greater than L, fluctuating, light reflex intact. Positive gag and Babinski sign. Skin - Patients skin is warm and dry. HEENT - normocephalic, atraumatic, dry mucous membranes. Neck - no JVD Pulmonary - B/L equal breath sounds, no rales, no wheezing, no stridor.T-piece 8 L cardiovascular - regular S1,S2 heard, no added sounds, no murmurs heard. peripheral pulses feeble radial 2+, pedal 2+. GI - soft, nontender abdomen. Bowel sounds normoactive Neurological - Pupils are anisocoric, left greater than right, fluctuating, light reflex intact. Positive gag and Babinski sign. Extremities: Decerebrate posturing, eyes open but no response to verbal stimulation or sudden loud noise laboratory and microbiology Laboratory Tests 07/24/25 08:56 Test 07/24/25 08:56 Range/Units Serum Glucose 109 H 74-106 mg/dL Microbiology Date/Time Source Procedure Growth Status 07/19/25 09:40 Blood Blood Culture - Final NO GROWTH AFTER 5 DAYS OF INCUBATION. Complete 07/19/25 08:10 Voided Urine Urine Culture - Final Complete 07/06/25 12:08 Trachea Gram Stain - Final Resulted 07/06/25 12:08 Trachea Respiratory Culture - Preliminary Resulted 07/02/25 13:10 Sputum Gram Stain - Final Complete 07/02/25 13:10 Sputum Respiratory Culture - Final Complete Labs and/or images reviewed: Labs reviewed by me, Image(s) reviewed by me Problem List/Assessment/Plan Problem List/Assessment/Plan NEURO: Acute metabolic and hypoxic encephalopathy secondary to likely Heat stroke Severe hypothyroidism or acute seizures Severe hyperthermia likely from Heat Stroke h/o bipolar disorder h/o depression Vegetative status Decerebration History of seizure disorder Neurologist consulted-poor prognosis for meaningful recovery Supportive treatment advised CARDIOVASCULAR: Wide complex nonsustained Ventricular tachycardia s/p defibrillation Shock likely hypovolemic Moderate to severe aortic regurgitation Heart failure with reduced ejection fraction-EF 40%-s, no exacerbation NSTEMI likely type 2 Hypertension Losartan increased to 100 daily, Coreg 12.5 b.i.d., started spirononlactone 25mg OD, started amlo 10 Hydralazine PRN DC clonidine patch On manager monitoring PULMONARY: Acute Gram-positive and Gram-negative pneumonia S/P Tracheostomy on 07/13 Respiratory culture growing filamentous fungi Off micafungin IV ceftriaxone GASTROINTESTINAL: Status post PEG tube placement 07/17 Shock liver Tube feeds Monitor LFTs GENITOURINARY: E coli bacterial cystitis 07/03 Recurrent UTI 07/19 TESFAYE on CKD likely due to be VMN On IV ceftriaxone starting 07/19 urine culture wnl METABOLIC: Severe hypothyroidism Thrombocytopenia Hypernatremia Thermodynamic Physicist consulted-continue IV levothyroxine 100 mcg daily, levothyroxine 5 mcg tablet daily through PEG tube TSH to be monitor 3-5 days, free T3 and free T4 daily DC Free water 250 q.4, free water deficit 1.5 L 07/17 INFECTIOUS DISEASE: Acute bacterial cystitis Urine culture growing E coli, repeat negative Respiratory culture growing filamentous fungi DIET: tube feeds DVT prophylax: GI prophylaxis: Protonix Bowel regimen: lactulose 30 od Last BM: 07/20 Code status: Full code LINES/DRAINS/ACCESS:LUE midline 07/11 Drips: None Campbell catheter: placed on 07/02, changed 07/19+ Bowel movement: 07/20 DISPOSITION: JOAN, DC to SNF when bed available Patient's status including plan of care discussed with nurse, all qs answered. Tried calling son, can't accept calls Critical care time spent more than 54 minutes, including patient care, chart review, and updating the family. Excluding any procedures Case discussed with Dr. Hinojosa Plan discussed with: Patient Dietary Evaluation Review Comments: 1. TF Vital high protein @50ml/hr (105g Protein 1200kcal and 1003ml free water) supporting 100% of pt's needs 2. Initial TF speed at 30ml/hr, increase 10ml Q6 hr until reaching full speed. 3. Reassess when pt is extubated. Expected Outcomes/Goals: catabolism prevention CORY LANIER RESIDENT Jul 24, 2025 15:42
[2025-07-25] VITALS (24 sets, daily range): BP systolic 116–170; BP diastolic 67–92; PULSE 61–94; RESP 11–21; TEMP 97.6–99.5; O2SAT 95–100
[2025-07-25 03:47] LABS: Potassium 4.2 mmol/L (3.5-5.1); Sodium 143 mmol/L (136-145)
[2025-07-25 03:48] LABS: Anion Gap 11 (5-15); Carbon Dioxide 24 mmol/L (20-31)
[2025-07-25 03:52] LABS: Calcium 10.6 mg/dL (8.7-10.4); Chloride 108 mmol/L (98-107)
[2025-07-25 03:53] LABS: BUN/Creatinine Ratio 56.3 (10.0-20.0)
[2025-07-25 03:54] LABS: Magnesium 2.2 mg/dL (1.6-2.6)
[2025-07-25 03:56] LABS: Blood Urea Nitrogen 40 mg/dL (9-23); Glucose 106 mg/dL (74-106)
--- NOTE | 2025-07-25 10:51 | DVH ---
Date: 07/25/2025 10:09 AM Examination: XY KUB ABDOMEN SINGLE VIEW History: No BM 5 days Comparison: XY KUB ABDOMEN SINGLE VIEW on DOS: 07/20/25, CT ABD PELVIS WO CONTRAST on DOS: 06/21/21 TECHNIQUE: Frontal views of the abdomen was obtained. FINDINGS: Bowel gas pattern is unremarkable. The lung bases are unremarkable. No acute osseous abnormality identified. IMPRESSION: Nonobstructive bowel gas pattern. Large stool burden.
[2025-07-25] MEDS: CARVEDILOL 12.5 MG TAB PO ONE (11:39)
--- NOTE | 2025-07-25 18:51 | DVHPNRES ---
Progress Note Date Seen: Jul 25, 2025 Resident Creating Document: CORY LANIER RESIDENT Has the PT tested + for MRSA If YES, has PT been informed?: No Medical Necessity Reason Pt with a Central, PICC or Fol: Yes The following are medically ne: Campbell Catheter Reason for campbell catheter: Strict I&O Subjective Review of Systems This is a 50-year-old female with bipolar depression, hypothyroidism, heart failure with a reduced ejection fraction-EF 40%, aortic and tricuspid regurgitation who presented to the ER with high-grade fever 106, ALOC, possible seizure versus heat stroke and was intubated on the field by EMS, prolonged hospital stay secondary to hypoxic brain injury, 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 Status post tracheostomy 07/13 07/17 - Overnight low-grade fever 99.5, tachycardia, blood pressure ranging high up to 180s systolic and 85 diastolic, on T-piece 6 L. Chest x-ray unremarkable. Urine output 2000 cc. Sodium 149, free water deficit 1.5 L, free water q.4 hours started. Underwent NG tube placement, NPO for now. 07/19 - patient with nonpurposeful movements. Urine cloudy, UA shows UTI, IV ceftriaxone, culture pending, campbell changed 07/20- patient examined, no overnight events, clonidine patch, increase Coreg to 12 mg b.i.d., hydrochlorothiazide 12.5 mg daily, associate store director switched levothyroxine to p.o. 125 mcg daily KUB unremarkable, lactulose started. Patient had a bowel movement. 07/21 - no overnight events, statu same, nonpurposeful movements. CT head negative 07/24 - no overnight event, t max 99.7, decreasing O2 from 8 to 4L via trach 07/25-overnight events, at 3 L oxygen via trach, KUB unremarkable last bowel movement 07/20, increased lactulose q.6, Reglan 10 once, DC ceftriaxone Objective vital signs Vital Sign Date Time Temp Pulse Resp B/P (MAP) Pulse Ox O2 Delivery O2 Flow Rate FiO2 07/25/25 16:00 18 98 T-piece 1 N/A 07/25/25 16:00 80 07/25/25 14:00 99.3 116/67 (83) 210.7 Total Intake and Output 07/24/25 07/24/25 07/25/25 15:00 23:00 07:00 Intake Total 50 ml 598 ml 360 ml Output Total 575 ml 400 ml Balance 50 ml 23 ml -40 ml medications Current Medications Medications Dose Ordered Sig/Agnes Route Start Time Stop Time Status Last Admin Dose Admin Pantoprazole Sodium 40 mg DAILY IV 07/04/25 10:00 07/25/25 09:56 40 MG Artificial Tears 2 drop Q6HR PRN EACHEYE 07/07/25 20:00 07/16/25 10:06 2 DROP Enteral Nutritional Formula 1,000 ml 50ML/HR GT 07/10/25 13:30 07/24/25 21:53 1,000 ML Hydralazine HCl 10 mg Q6HP PRN IV 07/13/25 07:45 07/22/25 05:57 10 MG Losartan Potassium 100 mg DAILY GT 07/18/25 10:00 07/25/25 09:57 100 MG Spironolactone 25 mg DAILY GT 07/19/25 10:00 07/25/25 09:57 25 MG Enoxaparin Sodium 40 mg DAILY SC 07/19/25 10:00 07/25/25 09:57 40 MG Ceftriaxone Sodium 50 ml @ 100 mls/hr DAILY@09 IV 07/20/25 09:00 07/25/25 09:18 100 MLS/HR Levothyroxine Sodium 125 mcg QAM@0600 PO 07/21/25 06:00 UNV Levothyroxine Sodium 100 mcg QAM@0600 PO 07/21/25 06:00 07/25/25 06:07 100 MCG Levothyroxine Sodium 25 mcg QAM@0600 PO 07/21/25 06:00 07/25/25 06:07 25 MCG Amlodipine Besylate 10 mg DAILY PEG 07/21/25 10:00 07/25/25 09:57 10 MG Carvedilol 12.5 mg BID PO 07/25/25 22:00 Lactulose 30 ml BID PEG 07/25/25 22:00 Examination Gen - no pallor, no icterus, no cyanosis, no edema . Pupils are anisocoric, R greater than L, fluctuating, light reflex intact. Positive gag and Babinski sign. Skin - Patients skin is warm and dry. HEENT - normocephalic, atraumatic, dry mucous membranes. Neck - no JVD Pulmonary - B/L equal breath sounds, no rales, no wheezing, no stridor.T-piece 3 L cardiovascular - regular S1,S2 heard, no added sounds, no murmurs heard. peripheral pulses feeble radial 2+, pedal 2+. GI - soft, nontender abdomen. Bowel sounds normoactive Neurological - Pupils are anisocoric, left greater than right, fluctuating, light reflex intact. Positive gag and Babinski sign. Extremities: Decerebrate posturing, eyes open but no response to verbal stimulation or sudden loud noise laboratory and microbiology Laboratory Tests 07/25/25 03:29 07/24/25 08:56 Test 07/25/25 03:29 Range/Units Serum Glucose 106 74-106 mg/dL Microbiology Date/Time Source Procedure Growth Status 07/19/25 09:40 Blood Blood Culture - Final NO GROWTH AFTER 5 DAYS OF INCUBATION. Complete 07/19/25 08:10 Voided Urine Urine Culture - Final Complete 07/06/25 12:08 Trachea Gram Stain - Final Resulted 07/06/25 12:08 Trachea Respiratory Culture - Preliminary Resulted 07/02/25 13:10 Sputum Gram Stain - Final Complete 07/02/25 13:10 Sputum Respiratory Culture - Final Complete Labs and/or images reviewed: Labs reviewed by me, Image(s) reviewed by me Problem List/Assessment/Plan Problem List/Assessment/Plan NEURO: Acute metabolic and hypoxic encephalopathy secondary to likely Heat stroke Severe hypothyroidism or acute seizures Severe hyperthermia likely from Heat Stroke h/o bipolar disorder h/o depression Vegetative status Decerebration History of seizure disorder Neurologist consulted-poor prognosis for meaningful recovery Supportive treatment advised CARDIOVASCULAR: Wide complex nonsustained Ventricular tachycardia s/p defibrillation Shock likely hypovolemic Moderate to severe aortic regurgitation Heart failure with reduced ejection fraction-EF 40%-s, no exacerbation NSTEMI likely type 2 Hypertension Losartan increased to 100 daily, Coreg 12.5 b.i.d., started spirononlactone 25mg OD, started amlo 10 Hydralazine PRN DC 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 PULMONARY: Acute Gram-positive and Gram-negative pneumonia S/P Tracheostomy on 07/13 Respiratory culture growing filamentous fungi Off micafungin Completed IV ceftriaxone GASTROINTESTINAL: Status post PEG tube placement 07/17 Shock liver Tube feeds Monitor LFTs GENITOURINARY: E coli bacterial cystitis 07/03 Recurrent UTI 07/19 TESFAYE on CKD likely due to be VMN IV ceftriaxone starting 07/19 till 07/25 urine culture wnl METABOLIC: Severe hypothyroidism Thrombocytopenia Hypernatremia Supervisor Component Assembler consulted-continue IV levothyroxine 100 mcg daily, levothyroxine 5 mcg tablet daily through PEG tube TSH to be monitor 3-5 days, free T3 and free T4 daily DC Free water 250 q.4, free water deficit 1.5 L 07/17 INFECTIOUS DISEASE: Acute bacterial cystitis Urine culture growing E coli, repeat negative Respiratory culture growing filamentous fungi DIET: tube feeds DVT prophylax: GI prophylaxis: Protonix Bowel regimen: lactulose \ Last BM: 07/20 Code status: Full code LINES/DRAINS/ACCESS:LUE midline 07/11 Drips: None Campbell catheter: placed on 07/02, changed 07/19+ Bowel movement: 07/20 DISPOSITION: JOAN, DC to SNF when bed available Patient's status including plan of care discussed with nurse, all qs answered. Tried calling son, can't accept calls Critical care time spent more than 54 minutes, including patient care, chart review, and updating the family. Excluding any procedures Case discussed with Dr. Hinojosa Plan discussed with: Other (nurse) My Orders My Orders Orders - CORY LANIER Procedure Category Date Status Time Kub Abdomen Single XY 07/25/25 Resulted View 10:08 Carvedilol Tablet PHA 07/25/25 In Process (Coreg Tablet) 22:00 Lactulose Oral PHA 07/25/25 In Process 22:00 Dietary Evaluation Review Comments: 1. TF Vital high protein @50ml/hr (105g Protein 1200kcal and 1003ml free water) supporting 100% of pt's needs 2. Initial TF speed at 30ml/hr, increase 10ml Q6 hr until reaching full speed. 3. Reassess when pt is extubated. Expected Outcomes/Goals: catabolism prevention Date of Service: Jul 25, 2025 Billing Provider: DARLING CAMPBELL MD Common Visit Codes: [id number] CARE 30-74 MIN CORY LANIER Jul 25, 2025 18:51 DARLING CAMPBELL MD Jul 26, 2025 15:49
[2025-07-25] MEDS: LACTULOSE 20Gm/30ML SOLN PEG SCH (21:05)
[2025-07-25] MEDS: METOCLOPRAMIDE HCL 5MG/ml INJ 2ml VIAL IV ONE (21:05)
[2025-07-25] MEDS: CARVEDILOL 12.5 MG TAB PO SCH (21:17)
[2025-07-25] MEDS ORDERED: LACTULOSE 20Gm/30ML SOLN PEG SCH (22:00)
[2025-07-26] VITALS (8 sets, daily range): BP systolic 113–154; BP diastolic 80–94; PULSE 77–105; RESP 16–18; TEMP 98–100; O2SAT 93–97
[2025-07-26 06:59] LABS: Anion Gap 13 (5-15); Carbon Dioxide 23 mmol/L (20-31); Potassium 3.5 mmol/L (3.5-5.1)
[2025-07-26 07:04] LABS: Hematocrit 38.3 % (36.0-46.0); Hemoglobin 12.8 g/dL (12.2-16.2); Mean Corpuscular Hemoglobin 28.1 pg (28.0-32.0); Mean Corpuscular Volume 84.3 fL (80.0-100.0); Nucleated Red Blood Cells % 0.0 %
[2025-07-26 07:06] LABS: Magnesium 2.3 mg/dL (1.6-2.6)
[2025-07-26 07:28] LABS: BUN/Creatinine Ratio 52.6 (10.0-20.0); Blood Urea Nitrogen 41 mg/dL (9-23); Calcium 10.7 mg/dL (8.7-10.4); Chloride 109 mmol/L (98-107); Glucose 114 mg/dL (74-106); Sodium 145 mmol/L (136-145)
[2025-07-26] MEDS: METOCLOPRAMIDE HCL 5MG/ml INJ 2ml VIAL IV ONE (11:47)
[2025-07-26] MEDS: FLEET MINERAL OIL ENEMA 133 ML PR ONE (16:11)
--- NOTE | 2025-07-26 19:31 | DVHPNRES ---
Progress Note Date Seen: Jul 26, 2025 Resident Creating Document: CORY LANIER RESIDENT Has the PT tested + for MRSA If YES, has PT been informed?: No Medical Necessity Reason Pt with a Central, PICC or Fol: Yes The following are medically ne: Campbell Catheter Reason for campbell catheter: Strict I&O Subjective Review of Systems This is a 50-year-old female with bipolar depression, hypothyroidism, heart failure with a reduced ejection fraction-EF 40%, aortic and tricuspid regurgitation who presented to the ER with high-grade fever 106, ALOC, possible seizure versus heat stroke and was intubated on the field by EMS, prolonged hospital stay secondary to hypoxic brain injury, 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 Status post tracheostomy 07/13 07/17 - Overnight low-grade fever 99.5, tachycardia, blood pressure ranging high up to 180s systolic and 85 diastolic, on T-piece 6 L. Chest x-ray unremarkable. Urine output 2000 cc. Sodium 149, free water deficit 1.5 L, free water q.4 hours started. Underwent NG tube placement, NPO for now. 07/19 - patient with nonpurposeful movements. Urine cloudy, UA shows UTI, IV ceftriaxone, culture pending, campbell changed 07/20- patient examined, no overnight events, clonidine patch, increase Coreg to 12 mg b.i.d., hydrochlorothiazide 12.5 mg daily, inspector air carrier switched levothyroxine to p.o. 125 mcg daily KUB unremarkable, lactulose started. Patient had a bowel movement. 07/21 - no overnight events, statu same, nonpurposeful movements. CT head negative 07/24 - no overnight event, t max 99.7, decreasing O2 from 8 to 4L via trach 07/25-overnight events, at 3 L oxygen via trach, KUB unremarkable last bowel movement 07/20, increased lactulose q.6, Reglan 10 once, DC ceftriaxone 07/26-patient had a small bowel movement, smear, lactulose q.6, Fleet enema given. KUB in a.m.. Objective vital signs Vital Sign Date Time Temp Pulse Resp B/P (MAP) Pulse Ox O2 Delivery O2 Flow Rate FiO2 07/26/25 13:50 100.0 90 16 141/89 (106) 93 100.0 07/26/25 08:00 T-piece 35 35 07/25/25 20:00 8 Total Intake and Output 07/25/25 07/25/25 07/26/25 15:00 23:00 07:00 Intake Total 50 ml 560 ml 354 ml Output Total 1110 ml Balance 50 ml 560 ml -756 ml medications Current Medications Medications Dose Ordered Sig/Agnes Route Start Time Stop Time Status Last Admin Dose Admin Pantoprazole Sodium 40 mg DAILY IV 07/04/25 10:00 07/26/25 10:10 40 MG Artificial Tears 2 drop Q6HR PRN EACHEYE 07/07/25 20:00 07/16/25 10:06 2 DROP Enteral Nutritional Formula 1,000 ml 50ML/HR GT 07/10/25 13:30 07/24/25 21:53 1,000 ML Hydralazine HCl 10 mg Q6HP PRN IV 07/13/25 07:45 07/22/25 05:57 10 MG Losartan Potassium 100 mg DAILY GT 07/18/25 10:00 07/26/25 11:47 100 MG Spironolactone 25 mg DAILY GT 07/19/25 10:00 07/26/25 10:11 25 MG Enoxaparin Sodium 40 mg DAILY SC 07/19/25 10:00 07/26/25 10:12 40 MG Levothyroxine Sodium 125 mcg QAM@0600 PO 07/21/25 06:00 UNV Levothyroxine Sodium 100 mcg QAM@0600 PO 07/21/25 06:00 07/26/25 05:23 100 MCG Levothyroxine Sodium 25 mcg QAM@0600 PO 07/21/25 06:00 07/26/25 05:23 25 MCG Amlodipine Besylate 10 mg DAILY PEG 07/21/25 10:00 07/26/25 10:11 10 MG Carvedilol 12.5 mg BID PO 07/25/25 22:00 07/26/25 10:11 12.5 MG Lactulose 30 ml Q6H PEG 07/25/25 22:00 07/26/25 16:11 30 ML Examination Gen - no pallor, no icterus, no cyanosis, no edema . Pupils are anisocoric, R greater than L, fluctuating, light reflex intact. Positive gag and Babinski sign. Skin - Patients skin is warm and dry. HEENT - normocephalic, atraumatic, dry mucous membranes. Neck - no JVD Pulmonary - B/L equal breath sounds, no rales, no wheezing, no stridor.T-piece 3 L cardiovascular - regular S1,S2 heard, no added sounds, no murmurs heard. peripheral pulses feeble radial 2+, pedal 2+. GI - soft, nontender abdomen. Bowel sounds normoactive Neurological - Pupils are anisocoric, left greater than right, fluctuating, light reflex intact. Positive gag and Babinski sign. Extremities: Decerebrate posturing, eyes open but no response to verbal stimulation or sudden loud noise laboratory and microbiology Laboratory Tests 07/26/25 06:15 Test 07/26/25 06:15 Range/Units Serum Glucose 114 H 74-106 mg/dL Microbiology Date/Time Source Procedure Growth Status 07/19/25 09:40 Blood Blood Culture - Final NO GROWTH AFTER 5 DAYS OF INCUBATION. Complete 07/19/25 08:10 Voided Urine Urine Culture - Final Complete 07/06/25 12:08 Trachea Gram Stain - Final Resulted 07/06/25 12:08 Trachea Respiratory Culture - Preliminary Resulted 07/02/25 13:10 Sputum Gram Stain - Final Complete 07/02/25 13:10 Sputum Respiratory Culture - Final Complete Labs and/or images reviewed: Labs reviewed by me, Image(s) reviewed by me Problem List/Assessment/Plan Problem List/Assessment/Plan NEURO: Acute metabolic and hypoxic encephalopathy secondary to likely Heat stroke Severe hypothyroidism or acute seizures Severe hyperthermia likely from Heat Stroke h/o bipolar disorder h/o depression Vegetative status Decerebration History of seizure disorder Neurologist consulted-poor prognosis for meaningful recovery Supportive treatment advised CARDIOVASCULAR: Wide complex nonsustained Ventricular tachycardia s/p defibrillation Shock likely hypovolemic Moderate to severe aortic regurgitation Heart failure with reduced ejection fraction-EF 40%-s, no exacerbation NSTEMI likely type 2 Hypertension Losartan increased to 100 daily, Coreg 12.5 b.i.d., started spirononlactone 25mg OD, started amlo 10 Hydralazine PRN DC clonidine patch 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 PULMONARY: Acute Gram-positive and Gram-negative pneumonia S/P Tracheostomy on 07/13 Respiratory culture growing filamentous fungi Off micafungin Completed IV ceftriaxone GASTROINTESTINAL: Status post PEG tube placement 07/17 Shock liver Tube feeds Monitor LFTs Lactulose 30 mL q.6 Fleet enema GENITOURINARY: E coli bacterial cystitis 07/03 Recurrent UTI 07/19 TESFAYE on CKD likely due to be VMN IV ceftriaxone starting 07/19 till 07/25 urine culture wnl METABOLIC: Severe hypothyroidism Thrombocytopenia Hypernatremia Tobacco Classer consulted-DC IV levothyroxine, levothyroxine 125 mcg daily TSH to be monitor 3-5 days, free T3 and free T4 daily DC Free water 250 q.4, free water deficit 1.5 L 07/17 INFECTIOUS DISEASE: Ruled out sepsis Acute bacterial cystitis Urine culture growing E coli, repeat negative Respiratory culture growing filamentous fungi DIET: tube feeds DVT prophylax: GI prophylaxis: Protonix Bowel regimen: lactulose Last BM: 07/20 Code status: Full code LINES/DRAINS/ACCESS:LUE midline 07/11 Drips: None Campbell catheter: placed on 07/02, changed 07/19 Bowel movement: 07/20 DISPOSITION: Telemetry, DC to SNF when bed available Patient's status including plan of care discussed with nurse, all qs answered. Tried calling son, can't accept calls Critical care time spent more than 54 minutes, including patient care, chart review, and updating the family. Excluding any procedures Case discussed with Dr. Campbell Plan discussed with: Patient Dietary Evaluation Review Comments: 1. TF Vital high protein @50ml/hr (105g Protein 1200kcal and 1003ml free water) supporting 100% of pt's needs 2. Initial TF speed at 30ml/hr, increase 10ml Q6 hr until reaching full speed. 3. Reassess when pt is extubated. Expected Outcomes/Goals: catabolism prevention Date of Service: Jul 26, 2025 Billing Provider: DARLING CAMPBELL MD Common Visit Codes: [id number] CARE 30-74 MIN CORY LANIER RESIDENT Jul 26, 2025 19:31 DARLING CAMPBELL MD Jul 27, 2025 11:56
[2025-07-26] MEDS: ACETAMINOPHEN 650 mg PER 20.3 mL UD GT ONE (22:45)
[2025-07-27] VITALS (11 sets, daily range): BP systolic 105–160; BP diastolic 73–93; PULSE 68–96; RESP 18–22; TEMP 98.1–98.6; O2SAT 94–100
[2025-07-27 06:53] LABS: Hematocrit 39.0 % (36.0-46.0); Hemoglobin 13.1 g/dL (12.2-16.2); Mean Corpuscular Hemoglobin 28.4 pg (28.0-32.0); Mean Corpuscular Volume 85.0 fL (80.0-100.0); Nucleated Red Blood Cells % 0.0 %
[2025-07-27 06:57] LABS: Anion Gap 14 (5-15); Carbon Dioxide 23 mmol/L (20-31)
[2025-07-27 06:59] LABS: Calcium 10.8 mg/dL (8.7-10.4); Chloride 110 mmol/L (98-107); Potassium 3.2 mmol/L (3.5-5.1); Sodium 147 mmol/L (136-145)
[2025-07-27 07:02] LABS: BUN/Creatinine Ratio 51.1 (10.0-20.0)
[2025-07-27 07:03] LABS: Blood Urea Nitrogen 45 mg/dL (9-23); Glucose 118 mg/dL (74-106); Magnesium 2.5 mg/dL (1.6-2.6)
--- NOTE | 2025-07-27 10:16 | DVH ---
CHEST RADIOGRAPH Indication: hypoxic, inc o2 requirement Technique: XY CHEST XRAY 1 VIEW Comparison: None FINDINGS: Tracheostomy tube projects 6 cm above the sylvia. The cardiac silhouette is unremarkable. The lungs demonstrate no pulmonary airspace consolidation. Th e pulmonary vasculature is unremarkable. There is no pleural effusion. There is no pneumothorax. IMPRESSION: No pulmonary airspace consolidation.
--- NOTE | 2025-07-27 10:17 | DVH ---
Indication: bowel burden Technique: XY KUB ABDOMEN SINGLE VIEWXY Comparison: None FINDINGS/IMPRESSION: Gastrostomy tube. Moderate volume stool within the colon most pronounced within the rectosigmoid colon region. No evide nce for free intraperitoneal air. No pathological calcification seen.
[2025-07-27] MEDS: POTASSIUM CHL 20MEQ/100ML 100 ML IV SCH (11:00)
--- NOTE | 2025-07-27 16:18 | DVH ---
EXAM: US BILAT LOWER DVT Clinical History: r/o dvt Comparison: None Technique: Duplex Doppler evaluation of the deep venous systems of both lower extremities from the common femora l veins to the popliteal veins including color Doppler and spectral/pulsed waveform analysis was perf ormed. Findings: No visible intraluminal venous thrombus. No evidence of incompressibility or abnormal color or spectr al Doppler flow visualized in the deep bilateral lower extremity veins. Proximal greater saphenous ve ins are grossly unremarkable. Impression: 1. No sonographic evidence of deep venous thrombosis throughout the bilateral lower extremities from the popliteal veins to the common femoral veins.
--- NOTE | 2025-07-27 18:20 | DVHPNRES ---
Progress Note Date Seen: Jul 27, 2025 Resident Creating Document: CORY LANIER RESIDENT Has the PT tested + for MRSA If YES, has PT been informed?: No Medical Necessity Reason Pt with a Central, PICC or Fol: Yes The following are medically ne: Campbell Catheter Reason for campbell catheter: Strict I&O Subjective Review of Systems This is a 50-year-old female with bipolar depression, hypothyroidism, heart failure with a reduced ejection fraction-EF 40%, aortic and tricuspid regurgitation who presented to the ER with high-grade fever 106, ALOC, possible seizure versus heat stroke and was intubated on the field by EMS, prolonged hospital stay secondary to hypoxic brain injury, 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 Status post tracheostomy 07/13 07/17 - Overnight low-grade fever 99.5, tachycardia, blood pressure ranging high up to 180s systolic and 85 diastolic, on T-piece 6 L. Chest x-ray unremarkable. Urine output 2000 cc. Sodium 149, free water deficit 1.5 L, free water q.4 hours started. Underwent NG tube placement, NPO for now. 07/19 - patient with nonpurposeful movements. Urine cloudy, UA shows UTI, IV ceftriaxone, culture pending, campbell changed 07/20- patient examined, no overnight events, clonidine patch, increase Coreg to 12 mg b.i.d., hydrochlorothiazide 12.5 mg daily, wincher switched levothyroxine to p.o. 125 mcg daily KUB unremarkable, lactulose started. Patient had a bowel movement. 07/21 - no overnight events, statu same, nonpurposeful movements. CT head negative 07/24 - no overnight event, t max 99.7, decreasing O2 from 8 to 4L via trach 07/25-overnight events, at 3 L oxygen via trach, KUB unremarkable last bowel movement 07/20, increased lactulose q.6, Reglan 10 once, DC ceftriaxone 07/26-patient had a small bowel movement, smear, lactulose q.6, Fleet enema given. KUB in a.m.. 07/27 - patient seen, patient had a bowel movement, liquid consistency, chest x- ray unremarkable, overnight desaturated, 3 L oxygen via trach collar. Lower extremity DVT completed, shows unremarkable, KUB shows moderate stool volume, Fleet enema pending Objective vital signs Vital Sign Date Time Temp Pulse Resp B/P (MAP) Pulse Ox O2 Delivery O2 Flow Rate FiO2 07/27/25 17:00 98.6 77 20 105/73 (84) 99 98.6 07/27/25 10:35 T-piece 3 35 35 Total Intake and Output 07/26/25 07/26/25 07/27/25 15:00 23:00 07:00 Intake Total 870 ml 400 ml Output Total 150 ml Balance 870 ml 250 ml medications Current Medications Medications Dose Ordered Sig/Agnes Route Start Time Stop Time Status Last Admin Dose Admin Pantoprazole Sodium 40 mg DAILY IV 07/04/25 10:00 07/27/25 10:55 40 MG Artificial Tears 2 drop Q6HR PRN EACHEYE 07/07/25 20:00 07/16/25 10:06 2 DROP Enteral Nutritional Formula 1,000 ml 50ML/HR GT 07/10/25 13:30 07/24/25 21:53 1,000 ML Hydralazine HCl 10 mg Q6HP PRN IV 07/13/25 07:45 07/22/25 05:57 10 MG Losartan Potassium 100 mg DAILY GT 07/18/25 10:00 07/27/25 10:59 100 MG Spironolactone 25 mg DAILY GT 07/19/25 10:00 07/27/25 10:58 25 MG Enoxaparin Sodium 40 mg DAILY SC 07/19/25 10:00 07/27/25 10:58 40 MG Levothyroxine Sodium 125 mcg QAM@0600 PO 07/21/25 06:00 UNV Levothyroxine Sodium 100 mcg QAM@0600 PO 07/21/25 06:00 07/27/25 06:03 100 MCG Levothyroxine Sodium 25 mcg QAM@0600 PO 07/21/25 06:00 07/27/25 06:03 25 MCG Amlodipine Besylate 10 mg DAILY PEG 07/21/25 10:00 07/27/25 10:59 10 MG Carvedilol 12.5 mg BID PO 07/25/25 22:00 07/27/25 10:58 12.5 MG Lactulose 30 ml Q6H PEG 07/25/25 22:00 07/27/25 17:24 30 ML Examination Gen - no pallor, no icterus, no cyanosis, no edema . Pupils are anisocoric, R greater than L, fluctuating, light reflex intact. Positive gag and Babinski sign. Skin - Patients skin is warm and dry. HEENT - normocephalic, atraumatic, dry mucous membranes. Neck - no JVD Pulmonary - B/L equal breath sounds, no rales, no wheezing, no stridor.T-piece 3 L cardiovascular - regular S1,S2 heard, no added sounds, no murmurs heard. peripheral pulses feeble radial 2+, pedal 2+. GI - soft, nontender abdomen. Bowel sounds hypoactive, liquid-watery bowel movement Neurological - Pupils are isocoric, light reflex intact. Positive gag and Babinski sign. Extremities: Decerebrate posturing, eyes open but no response to verbal stimulation or sudden loud noise laboratory and microbiology Laboratory Tests 07/27/25 05:38 Test 07/27/25 05:38 Range/Units Serum Glucose 118 H 74-106 mg/dL Microbiology Date/Time Source Procedure Growth Status 07/19/25 09:40 Blood Blood Culture - Final NO GROWTH AFTER 5 DAYS OF INCUBATION. Complete 07/19/25 08:10 Voided Urine Urine Culture - Final Complete 07/06/25 12:08 Trachea Gram Stain - Final Resulted 07/06/25 12:08 Trachea Respiratory Culture - Preliminary Resulted 07/02/25 13:10 Sputum Gram Stain - Final Complete 07/02/25 13:10 Sputum Respiratory Culture - Final Complete Labs and/or images reviewed: Labs reviewed by me, Image(s) reviewed by me Problem List/Assessment/Plan Problem List/Assessment/Plan NEURO: Acute metabolic and hypoxic encephalopathy secondary to likely Heat stroke SIRS d/t likely Heat stroke Severe hypothyroidism or acute seizures Severe hyperthermia likely from Heat Stroke h/o bipolar disorder h/o depression Vegetative status Decerebration History of seizure disorder Neurologist consulted-poor prognosis for meaningful recovery Supportive treatment advised CARDIOVASCULAR: Wide complex nonsustained Ventricular tachycardia s/p defibrillation Shock likely hypovolemic Moderate to severe aortic regurgitation Heart failure with reduced ejection fraction-EF 40%-s, no exacerbation NSTEMI likely type 2 Hypertension Losartan increased to 100 daily, Coreg 12.5 b.i.d., started spirononlactone 25mg OD, started amlo 10 Hydralazine PRN DC clonidine patch On hospital monitor PULMONARY: Acute Gram-positive and Gram-negative pneumonia S/P Tracheostomy on 07/13 Respiratory culture growing filamentous fungi Off micafungin Completed IV ceftriaxone GASTROINTESTINAL: Status post PEG tube placement 07/17 Shock liver Tube feeds Monitor LFTs Lactulose 30 mL q.6 Fleet enema GENITOURINARY: E coli bacterial cystitis 07/03 Recurrent UTI 07/19 TESFAYE on CKD likely due to be VMN IV ceftriaxone starting 07/19 till 07/25 urine culture wnl METABOLIC: Severe hypothyroidism Thrombocytopenia Hypernatremia Manager Entry consulted-DC IV levothyroxine, levothyroxine 125 mcg daily TSH to be monitor 3-5 days, free T3 and free T4 daily DC Free water 250 q.4, free water deficit 1.5 L 07/17 INFECTIOUS DISEASE: Ruled out sepsis Acute bacterial cystitis Urine culture growing E coli, repeat negative Respiratory culture growing filamentous fungi DIET: tube feeds DVT prophylax: GI prophylaxis: Protonix Bowel regimen: lactulose Last BM: 07/20 Code status: Full code LINES/DRAINS/ACCESS:LUE midline 07/11 Drips: None Campbell catheter: placed on 07/02, changed 07/19 Bowel movement: 07/27 DISPOSITION: Telemetry, DC to SNF when bed available Patient's status including plan of care discussed with nurse, all qs answered. Tried calling son [phone], can't accept calls Critical care time spent more than 54 minutes, including patient care, chart review, and updating the family. Excluding any procedures Case discussed with Dr. Campbell Plan discussed with: Other (nurse regine) My Orders My Orders Orders - CORY LANIER RESIDENT Procedure Category Date Status Time Communication Order ORDERS 07/26/25 Transmitted 19:31 Chest Xray 1 View XY 07/27/25 Resulted 09:10 Kub Abdomen Single XY 07/27/25 Resulted View 09:10 Bladder Scan ED NURSING 07/27/25 Transmitted Bilat Lower Dvt US 07/27/25 Resulted 15:01 Dietary Evaluation Review Comments: 1. TF Vital high protein @50ml/hr (105g Protein 1200kcal and 1003ml free water) supporting 100% of pt's needs 2. Initial TF speed at 30ml/hr, increase 10ml Q6 hr until reaching full speed. 3. Reassess when pt is extubated. Expected Outcomes/Goals: catabolism prevention Date of Service: Jul 27, 2025 Billing Provider: DARLING CAMPBELL MD Common Visit Codes: 11840-[id number] CARE 30-74 MIN CORY LANIER RESIDENT Jul 27, 2025 18:20 DARLING CAMPBELL MD Jul 29, 2025 15:39
--- NOTE | 2025-07-27 22:49 | DVHPN2 ---
Progress Note - Dictate Date Seen: Jul 27, 2025 Has the PT tested + for MRSA If YES, has PT been informed?: No Medical Necessity Reason Pt with a Central, PICC or Fol: Yes The following are medically ne: Campbell Catheter Reason for campbell catheter: Strict I&O Subjective Ms. Montes is a 48 years old female with a history of bipolar disorder, anxiety, depression, the patient was taken to the hospital on 07/02/2025 with a chief complaint of altered mental status. I saw her on 01/10/2024 for ALOC I have seen and examined the patient, I have discussed with her nurse, no changes, her eyes are open, blinking and rolling from [id number], she is not responsive to verbal stimuli, sudden loud noise or visual thread, her extremities are extended, Status post tracheostomy on 07/14/2025 Status post PEG insertion on 07/17/25 Pupil size 07/09/25: right: 4 mm, left: 2-3 mm, both are reactive to lights (RN: The left- sided was bigger during the daytime yesterday) 07/10/2025: right: 4 mm, left: 2-3 mm, both are reactive to lights 07/12/2025: right: 3 mm, left: 2-3 mm, both are reactive to lights 07/15/2025: PERRL 07/17/2025: PERRL (left-sided was bigger according to Dr. Hassan) 07/18/2025: Right side is minimally bigger 07/19/2025: PERRL 07/21/2025: PERRL CSF, 01/12/2024: C/C, WBC: 0, RBC: 0, protein: 36.1, glucose: 70 Urinalysis, 07/02/2025: Urine leukocyte esterase: 3+ Urine culture, 07/03/2025: E coli Blood culture, 07/03/2025: Negative UDS, 07/02/2025: Negative [place], 07/07/2025: ABG, 07/03/2025: Compensated metabolic acidosis, 07/07/2025: Compensated metabolic acidosis WBC/HB/PLT/MCV, 07/07/2025: 8.5/8.8/58/82.3 Na 07/13/2025: 144, 07/14/25: 146, 07/15/25: 152 CK, 07/02/2025: 653, 07/04/2025: 1423, 07/22/2025: 693, 07/07/2025: 366 TG/HDL/LDL/HDL, 07/05/2025: 13/1. Ferritin 01/19/2024: 21.8 Chest x-ray, 07/02/2025: 1. Endotracheal tube 6.1 cm above the sylvia. 2. AED pads over the chest 3. Enteric tube position left diaphragm in the stomach CT head, 01/10/2024: No acute intracranial abnormality or significant interval change compared to 01/09/2024 CT head, 07/02/2025: No acute intracranial abnormality. CT head, 07/10/2025: No acute intracranial abnormality CT head, 07/21/2025: No acute intracranial abnormality. CT chest, 01/09/2024: 1. Inferior left upper and lower lobe consolidation favored to reflect infectious/inflammatory etiology, possibly aspiration. 2. The endotracheal tube terminates in the right mainstem bronchus. 3. The enteric tube is in satisfactory position MRI head, 01/15/2024: No acute abnormal MRI findings of the brain MR head, 07/10/2025: Subtle increased DWI signal within the bilateral caudate head, anterior putamen, medial temporal lobes, midbrain, and cerebellar hemispheres, concerning for early findings of hypoxic ischemic injury MRI C-spine, 01/15/24: 1. Degenerative disc disease and facet/uncinate disease in the cervical spine with associated spinal canal, subarticular, and neural foraminal stenoses as detailed above. 2. 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 3. No signal abnormality in the spinal cord to suggest myelopathy. 4. Additional findings as detailed above vital signs Vital Sign Date Time Temp Pulse Resp B/P (MAP) Pulse Ox O2 Delivery O2 Flow Rate FiO2 07/27/25 22:00 94 Room Air* 0 30 21 07/27/25 21:28 99 135/86 07/27/25 20:34 98.1 19 98.1 Total Intake and Output 07/26/25 07/26/25 07/27/25 15:00 23:00 07:00 Intake Total 870 ml 400 ml Output Total 150 ml Balance 870 ml 250 ml medications Current Medications Medications Dose Ordered Sig/Agnes Route Start Time Stop Time Status Last Admin Dose Admin Pantoprazole Sodium 40 mg DAILY IV 07/04/25 10:00 07/27/25 10:55 40 MG Artificial Tears 2 drop Q6HR PRN EACHEYE 07/07/25 20:00 07/16/25 10:06 2 DROP Enteral Nutritional Formula 1,000 ml 50ML/HR GT 07/10/25 13:30 07/24/25 21:53 1,000 ML Hydralazine HCl 10 mg Q6HP PRN IV 07/13/25 07:45 07/22/25 05:57 10 MG Losartan Potassium 100 mg DAILY GT 07/18/25 10:00 07/27/25 10:59 100 MG Spironolactone 25 mg DAILY GT 07/19/25 10:00 07/27/25 10:58 25 MG Enoxaparin Sodium 40 mg DAILY SC 07/19/25 10:00 07/27/25 10:58 40 MG Levothyroxine Sodium 125 mcg QAM@0600 PO 07/21/25 06:00 UNV Levothyroxine Sodium 100 mcg QAM@0600 PO 07/21/25 06:00 07/27/25 06:03 100 MCG Levothyroxine Sodium 25 mcg QAM@0600 PO 07/21/25 06:00 07/27/25 06:03 25 MCG Amlodipine Besylate 10 mg DAILY PEG 07/21/25 10:00 07/27/25 10:59 10 MG Carvedilol 12.5 mg BID PO 07/25/25 22:00 07/27/25 21:28 12.5 MG Lactulose 30 ml Q6H PEG 07/25/25 22:00 07/27/25 21:27 30 ML objective The patient is well-nourished and well-developed with no distress. The patient is intubated MENTAL STATUS: Subjective CRANIAL NERVES: Pupils are round and reactive.There is frequent blinking and occasional rolling eye movement. No signs of facial weakness. There are gagging or coughing reflexes SENSATION: Responses to pain stimuli. MOTOR: Elevated tone in the upper and lower extremity. Normal muscle bulk. No fasciculations. No spontaneous movement except for posturing. REFLEXES: Deep tendon reflexes are symmetrical. Bilateral Upgoing toes noticed when muscle tone is diminished CEREBELLAR/COORDINATION: Deferred GAIT/STATION: deferred. laboratory and microbiology Laboratory Tests 07/27/25 05:38 Test 07/27/25 05:38 Range/Units Serum Glucose 118 H 74-106 mg/dL Problem List Altered mental status Heat stroke Metabolic encephalopathy Hypoxic encephalopathy Vegetative status Decerebration Respiratory failure status post tracheostomy Urinary tract infection Rule out sepsis Bipolar disorder, depression, anxiety Seizure disorder, with last seizure attack before 2017 Restless leg syndrome with low ferritin Assessment/Plan Monitoring Supportive treatment Telemetry Oxygen DVT prophylaxis GI prophylaxis Tube feeding History from her when she wakes up She is to have feeding tube insertion More recommended per clinical course She is likely to have a poor prognosis for meaning recovery This medical document was created using an electronic medical record system with [employer] dictation system. Although this document has been carefully reviewed, there may still be some phonetic and typographical errors. These areas are purely typographical due to imperfections of the software programs, and do not reflect any compromise in the patient's medical care. Prognosis poor Dietary Evaluation Review Comments: 1. TF Vital high protein @50ml/hr (105g Protein 1200kcal and 1003ml free water) supporting 100% of pt's needs 2. Initial TF speed at 30ml/hr, increase 10ml Q6 hr until reaching full speed. 3. Reassess when pt is extubated. Expected Outcomes/Goals: catabolism prevention Plan discussed with: HORACIO Salomon MD Jul 27, 2025 22:49
[2025-07-28] VITALS (11 sets, daily range): BP systolic 119–152; BP diastolic 71–84; PULSE 85–106; RESP 18–22; TEMP 98–100.1; O2SAT 92–99
[2025-07-28 07:50] LABS: Hematocrit 37.3 % (36.0-46.0); Hemoglobin 12.2 g/dL (12.2-16.2); Mean Corpuscular Hemoglobin 29.0 pg (28.0-32.0); Mean Corpuscular Volume 88.6 fL (80.0-100.0); Nucleated Red Blood Cells % 0.3 %
[2025-07-28 08:07] LABS: Anion Gap 13 (5-15); BUN/Creatinine Ratio 33.3 (10.0-20.0); Calcium 10.3 mg/dL (8.7-10.4); Glucose 104 mg/dL (74-106)
[2025-07-28 08:10] LABS: Blood Urea Nitrogen 27 mg/dL (9-23); Carbon Dioxide 20 mmol/L (20-31); Chloride 112 mmol/L (98-107); Sodium 145 mmol/L (136-145)
[2025-07-28 08:11] LABS: Potassium 4.7 mmol/L (3.5-5.1)
[2025-07-28] MEDS: FLEET MINERAL OIL ENEMA 133 ML PR ONE (09:00)
--- NOTE | 2025-07-28 18:04 | DVHPNRES ---
Progress Note Date Seen: Jul 28, 2025 Resident Creating Document: CORY LANIER RESIDENT Has the PT tested + for MRSA If YES, has PT been informed?: No Medical Necessity Reason Pt with a Central, PICC or Fol: Yes The following are medically ne: Campbell Catheter Reason for campbell catheter: Strict I&O Subjective Review of Systems This is a 50-year-old female with bipolar depression, hypothyroidism, heart failure with a reduced ejection fraction-EF 40%, aortic and tricuspid regurgitation who presented to the ER with high-grade fever 106, ALOC, possible seizure versus heat stroke and was intubated on the field by EMS, prolonged hospital stay secondary to hypoxic brain injury, 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 Status post tracheostomy 07/13 07/17 - Overnight low-grade fever 99.5, tachycardia, blood pressure ranging high up to 180s systolic and 85 diastolic, on T-piece 6 L. Chest x-ray unremarkable. Urine output 2000 cc. Sodium 149, free water deficit 1.5 L, free water q.4 hours started. Underwent NG tube placement, NPO for now. 07/19 - patient with nonpurposeful movements. Urine cloudy, UA shows UTI, IV ceftriaxone, culture pending, campbell changed 07/20- patient examined, no overnight events, clonidine patch, increase Coreg to 12 mg b.i.d., hydrochlorothiazide 12.5 mg daily, supervisor case loading switched levothyroxine to p.o. 125 mcg daily KUB unremarkable, lactulose started. Patient had a bowel movement. 07/21 - no overnight events, statu same, nonpurposeful movements. CT head negative 07/24 - no overnight event, t max 99.7, decreasing O2 from 8 to 4L via trach 07/25-overnight events, at 3 L oxygen via trach, KUB unremarkable last bowel movement 07/20, increased lactulose q.6, Reglan 10 once, DC ceftriaxone 07/26-patient had a small bowel movement, smear, lactulose q.6, Fleet enema given. KUB in a.m.. 07/27 - patient seen, patient had a bowel movement, liquid consistency, chest x- ray unremarkable, overnight desaturated, 3 L oxygen via trach collar. Lower extremity DVT completed, shows unremarkable, KUB shows moderate stool volume, Fleet enema pending 07/28 - 2 BMs, nontracking eye movements, abd soft Objective vital signs Vital Sign Date Time Temp Pulse Resp B/P (MAP) Pulse Ox O2 Delivery O2 Flow Rate FiO2 07/28/25 17:00 99.1 100 22 127/71 (89) 94 99.1 07/28/25 08:05 T-piece 35 35 07/28/25 08:01 0 Total Intake and Output 07/27/25 07/27/25 07/28/25 15:00 23:00 07:00 Intake Total 175 ml 600 ml 0 ml Output Total 1 ml 550 ml 300 ml Balance 174 ml 50 ml -300 ml medications Current Medications Medications Dose Ordered Sig/Agnes Route Start Time Stop Time Status Last Admin Dose Admin Pantoprazole Sodium 40 mg DAILY IV 07/04/25 10:00 07/28/25 10:47 40 MG Artificial Tears 2 drop Q6HR PRN EACHEYE 07/07/25 20:00 07/16/25 10:06 2 DROP Enteral Nutritional Formula 1,000 ml 50ML/HR GT 07/10/25 13:30 07/24/25 21:53 1,000 ML Hydralazine HCl 10 mg Q6HP PRN IV 07/13/25 07:45 07/22/25 05:57 10 MG Losartan Potassium 100 mg DAILY GT 07/18/25 10:00 07/28/25 10:48 100 MG Spironolactone 25 mg DAILY GT 07/19/25 10:00 07/28/25 10:48 25 MG Enoxaparin Sodium 40 mg DAILY SC 07/19/25 10:00 07/28/25 10:47 40 MG Levothyroxine Sodium 125 mcg QAM@0600 PO 07/21/25 06:00 UNV Levothyroxine Sodium 100 mcg QAM@0600 PO 07/21/25 06:00 07/28/25 06:27 100 MCG Levothyroxine Sodium 25 mcg QAM@0600 PO 07/21/25 06:00 07/28/25 06:28 25 MCG Amlodipine Besylate 10 mg DAILY PEG 07/21/25 10:00 07/28/25 10:49 10 MG Carvedilol 12.5 mg BID PO 07/25/25 22:00 07/28/25 10:49 12.5 MG Lactulose 30 ml Q6H PEG 07/25/25 22:00 07/28/25 10:47 30 ML Examination Gen - no pallor, no icterus, no cyanosis, no edema . Pupils are anisocoric, R greater than L, fluctuating, light reflex intact. Positive gag and Babinski sign. Skin - Patients skin is warm and dry. HEENT - normocephalic, atraumatic, dry mucous membranes. Neck - no JVD Pulmonary - B/L equal breath sounds, no rales, no wheezing, no stridor.T-piece 3 L cardiovascular - regular S1,S2 heard, no added sounds, no murmurs heard. peripheral pulses feeble radial 2+, pedal 2+. GI - soft, nontender abdomen. Bowel sounds hypoactive, liquid-watery bowel movement Neurological - Pupils are isocoric, light reflex intact. Positive gag and Babinski sign. Extremities: Decerebrate posturing, eyes open but no response to verbal stimulation or sudden loud noise laboratory and microbiology Laboratory Tests 07/28/25 06:21 Test 07/28/25 06:21 Range/Units Serum Glucose 104 74-106 mg/dL Microbiology Date/Time Source Procedure Growth Status 07/19/25 09:40 Blood Blood Culture - Final NO GROWTH AFTER 5 DAYS OF INCUBATION. Complete 07/19/25 08:10 Voided Urine Urine Culture - Final Complete 07/06/25 12:08 Trachea Gram Stain - Final Resulted 07/06/25 12:08 Trachea Respiratory Culture - Preliminary Resulted 07/02/25 13:10 Sputum Gram Stain - Final Complete 07/02/25 13:10 Sputum Respiratory Culture - Final Complete Labs and/or images reviewed: Labs reviewed by me, Image(s) reviewed by me Problem List/Assessment/Plan Problem List/Assessment/Plan NEURO: Acute metabolic and hypoxic encephalopathy secondary to likely Heat stroke SIRS d/t likely Heat stroke Severe hypothyroidism or acute seizures Severe hyperthermia likely from Heat Stroke h/o bipolar disorder h/o depression Vegetative status Decerebration History of seizure disorder Neurologist consulted-poor prognosis for meaningful recovery Supportive treatment advised CARDIOVASCULAR: Wide complex nonsustained Ventricular tachycardia s/p defibrillation Shock likely hypovolemic Moderate to severe aortic regurgitation Heart failure with reduced ejection fraction-EF 40%-s, no exacerbation NSTEMI likely type 2 Hypertension Losartan increased to 100 daily, Coreg 12.5 b.i.d., started spirononlactone 25mg OD, started amlo 10 Hydralazine PRN DC clonidine patch 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 PULMONARY: Acute Gram-positive and Gram-negative pneumonia S/P Tracheostomy on 07/13 Respiratory culture growing filamentous fungi Off micafungin Completed IV ceftriaxone GASTROINTESTINAL: Status post PEG tube placement 07/17 Shock liver Tube feeds Monitor LFTs Lactulose 30 mL q.6 Fleet enema GENITOURINARY: E coli bacterial cystitis 07/03 Recurrent UTI 07/19 TESFAYE on CKD likely due to be VMN IV ceftriaxone starting 07/19 till 07/25 urine culture wnl METABOLIC: Severe hypothyroidism Thrombocytopenia Hypernatremia Client Service Professional consulted-DC IV levothyroxine, levothyroxine 125 mcg daily TSH to be monitor 3-5 days, free T3 and free T4 daily DC Free water 250 q.4, free water deficit 1.5 L 07/17 INFECTIOUS DISEASE: Ruled out sepsis Acute bacterial cystitis Urine culture growing E coli, repeat negative Respiratory culture growing filamentous fungi DIET: tube feeds DVT prophylax: GI prophylaxis: Protonix Bowel regimen: lactulose Last BM: 07/20 Code status: Full code LINES/DRAINS/ACCESS:LUE midline 07/11 Drips: None Campbell catheter: placed on 07/02, changed 07/19 Bowel movement: 07/27 DISPOSITION: Telemetry, DC to SNF when bed available Patient's status including plan of care discussed with nurse, all qs answered. Tried calling pippa [phone], can't accept calls Critical care time spent more than 57 minutes, including patient care, chart review, and updating the family. Excluding any procedures Case discussed with Dr. Hinojosa Plan discussed with: Other (nurse) Dietary Evaluation Review Comments: 1. TF Vital high protein @50ml/hr (105g Protein 1200kcal and 1003ml free water) supporting 100% of pt's needs 2. Initial TF speed at 30ml/hr, increase 10ml Q6 hr until reaching full speed. 3. Reassess when pt is extubated. Expected Outcomes/Goals: catabolism prevention CORY LANIER RESIDENT Jul 28, 2025 18:04
[2025-07-29] VITALS (13 sets, daily range): BP systolic 105–145; BP diastolic 60–91; PULSE 79–108; RESP 18–22; TEMP 97.8–101.5; O2SAT 91–98
[2025-07-29 06:23] LABS: Calcium 9.9 mg/dL (8.7-10.4); Potassium 3.5 mmol/L (3.5-5.1)
[2025-07-29 06:24] LABS: Anion Gap 14 (5-15); Carbon Dioxide 22 mmol/L (20-31)
[2025-07-29 06:30] LABS: BUN/Creatinine Ratio 54.4 (10.0-20.0)
[2025-07-29 06:42] LABS: Blood Urea Nitrogen 43 mg/dL (9-23); Chloride 111 mmol/L (98-107); Glucose 129 mg/dL (74-106); Sodium 147 mmol/L (136-145)
--- NOTE | 2025-07-29 15:33 | DVHPN2 ---
Subjective The patient is seen and examined at bedside. Trach intact. No change overnight. Reviewed: Care Plan Changes from previous H/P or p: No Changes General: Per HPI Objective Vitals Vital Signs Date Time Temp Pulse Resp B/P (MAP) Pulse Ox O2 Delivery O2 Flow Rate FiO2 07/29/25 13:09 98.0 80 18 105/60 (75) 95 98.0 07/29/25 11:25 T-piece 6.0 07/29/25 11:25 28 28 Intake/Output Intake and Output 07/29/25 07:00 Intake Total 400 ml Output Total 900 ml Balance -500 ml Intake Oral 0 ml Tube Feeding 400 ml Output Urine Total 900 ml # Bowel Movements 1 General Appearance: Alert HEENT: Atraumatic, PERRLA, EOMI, Mucous membr. moist/pink, Other (Tracheostomy intact) Neck: Supple Lungs: Clear to auscultation, Normal air movement Cardiovascular: Regular rate, Normal S1, Normal S2, No murmurs, Gallops, Rubs Abdomen: Normal bowel sounds, Soft, No tenderness Medications Current Medications Medications Dose Ordered Sig/Agnes Route Start Time Stop Time Status Last Admin Dose Admin Pantoprazole Sodium 40 mg DAILY IV 07/04/25 10:00 07/29/25 10:50 40 MG Artificial Tears 2 drop Q6HR PRN EACHEYE 07/07/25 20:00 07/16/25 10:06 2 DROP Enteral Nutritional Formula 1,000 ml 50ML/HR GT 07/10/25 13:30 07/24/25 21:53 1,000 ML Hydralazine HCl 10 mg Q6HP PRN IV 07/13/25 07:45 07/22/25 05:57 10 MG Losartan Potassium 100 mg DAILY GT 07/18/25 10:00 07/29/25 10:51 100 MG Spironolactone 25 mg DAILY GT 07/19/25 10:00 07/29/25 10:49 25 MG Enoxaparin Sodium 40 mg DAILY SC 07/19/25 10:00 07/29/25 10:51 40 MG Levothyroxine Sodium 125 mcg QAM@0600 PO 07/21/25 06:00 UNV Levothyroxine Sodium 100 mcg QAM@0600 PO 07/21/25 06:00 07/29/25 05:52 100 MCG Levothyroxine Sodium 25 mcg QAM@0600 PO 07/21/25 06:00 07/29/25 05:52 25 MCG Amlodipine Besylate 10 mg DAILY PEG 07/21/25 10:00 07/29/25 10:50 10 MG Carvedilol 12.5 mg BID PO 07/25/25 22:00 07/29/25 10:49 12.5 MG Lactulose 30 ml Q6H PEG 07/25/25 22:00 07/28/25 21:16 30 ML Laboratory Results Laboratory Tests 07/28/25 06:21 07/29/25 05:38 Chemistry Test 07/29/25 05:38 Calcium Level 9.9 mg/dL (8.7-10.4) Urinalysis Test 07/03/25 14:40 07/19/25 08:10 Urine Amorphous Crystals Few /hpf (None Seen) Urine Color Colorless (Yellow) Urine Clarity Turbid (Clear) H Urine pH 5.0 (5.0-9.0) Urine Specific [place] 1.016 (1.001-1.035) Urine Protein 1+ (Negative) H Urine Ketones Negative (Negative) Urine Blood Negative /uL (Negative) Urine Nitrite Negative (Negative) Urine Bilirubin Negative (Negative) Urine Urobilinogen Normal mg/dL (Negative) Urine Leukocyte Esterase 3+ /uL (Negative) Urine RBC 11 /hpf (0 - 4) Urine Microscopic WBC 249 /HPF (0-5) H Urine Squamous Epithelial Cells Few /hpf (<5) Urine Bacteria Few /hpf (None Seen) H Urine Mucus Few (None Seen) Urine Glucose Normal mg/dL (Normal) Microbiology Microbiology Date/Time Source Procedure Growth Status 07/19/25 09:40 Blood Blood Culture - Final NO GROWTH AFTER 5 DAYS OF INCUBATION. Complete 07/19/25 08:10 Voided Urine Urine Culture - Final Complete 07/06/25 12:08 Trachea Gram Stain - Final Resulted 07/06/25 12:08 Trachea Respiratory Culture - Preliminary Resulted 07/02/25 13:10 Sputum Gram Stain - Final Complete 07/02/25 13:10 Sputum Respiratory Culture - Final Complete Labs and/or images reviewed: Labs reviewed by me Assessment/Plan Assessment/Plan NEURO: Acute metabolic and hypoxic encephalopathy secondary to likely Heat stroke SIRS d/t likely Heat stroke Severe hypothyroidism or acute seizures Severe hyperthermia likely from Heat Stroke h/o bipolar disorder h/o depression Vegetative status Decerebration History of seizure disorder Neurologist consulted-poor prognosis for meaningful recovery Supportive treatment advised CARDIOVASCULAR: Wide complex nonsustained Ventricular tachycardia s/p defibrillation Shock likely hypovolemic Moderate to severe aortic regurgitation Heart failure with reduced ejection fraction-EF 40%-s, no exacerbation NSTEMI likely type 2 Hypertension Losartan increased to 100 daily, Coreg 12.5 b.i.d., started spirononlactone 25mg OD, started amlo 10 Hydralazine PRN DC clonidine patch On ambulance paramedic PULMONARY: Acute Gram-positive and Gram-negative pneumonia S/P Tracheostomy on 07/13 Respiratory culture growing filamentous fungi Off micafungin Completed IV ceftriaxone GASTROINTESTINAL: Status post PEG tube placement 07/17 Shock liver Tube feeds Monitor LFTs Lactulose 30 mL q.6 Fleet enema GENITOURINARY: E coli bacterial cystitis 07/03 Recurrent UTI 07/19 TESFAYE on CKD likely due to be VMN IV ceftriaxone starting 07/19 till 07/25 urine culture wnl METABOLIC: Severe hypothyroidism Thrombocytopenia Hypernatremia English Faculty Member consulted-DC IV levothyroxine, levothyroxine 125 mcg daily TSH to be monitor 3-5 days, free T3 and free T4 daily DC Free water 250 q.4, free water deficit 1.5 L 07/17 INFECTIOUS DISEASE: Ruled out sepsis Acute bacterial cystitis Urine culture growing E coli, repeat negative Respiratory culture growing filamentous fungi DIET: tube feeds DVT prophylax: GI prophylaxis: Protonix Bowel regimen: lactulose Last BM: 07/20 Code status: Full code LINES/DRAINS/ACCESS:LUE midline 07/11 Drips: None James catheter: placed on 07/02, changed 07/19 Bowel movement: 07/27 DISPOSITION: Telemetry, DC to SNF when bed available Plan discussed with: Other (RN) Date of Service: Jul 29, 2025 Billing Provider: KALIE PRICE MD Common Visit Codes: [id number] INP/OBS CARE(HIGH) KALIE PRICE MD Jul 29, 2025 15:33
[2025-07-29] MEDS: ACETAMINOPHEN 325 MG TAB PO PRN (23:29)
[2025-07-30] VITALS (13 sets, daily range): BP systolic 113–141; BP diastolic 75–92; PULSE 67–96; RESP 14–29; TEMP 97.7–100.2; O2SAT 95–100
--- NOTE | 2025-07-30 11:23 | DVHPN2 ---
Subjective The patient is seen and examined at bedside. Trach intact. No change overnight. Reviewed: Care Plan Changes from previous H/P or p: No Changes General: Per HPI Objective Vitals Vital Signs Date Time Temp Pulse Resp B/P (MAP) Pulse Ox O2 Delivery O2 Flow Rate FiO2 07/30/25 09:16 98.6 79 16 139/83 (101) 96 98.6 07/30/25 08:50 2.0 07/30/25 07:45 Trach Collar N/A Intake/Output Intake and Output 07/30/25 07:00 Intake Total 649 ml Output Total 1050 ml Balance -401 ml Intake Oral 0 ml Tube Feeding 649 ml Output Urine Total 1050 ml # Bowel Movements 1 General Appearance: Alert HEENT: Atraumatic, PERRLA, EOMI, Mucous membr. moist/pink, Other (Tracheostomy intact) Neck: Supple Lungs: Clear to auscultation, Normal air movement Cardiovascular: Regular rate, Normal S1, Normal S2, No murmurs, Gallops, Rubs Abdomen: Normal bowel sounds, Soft, No tenderness Medications Current Medications Medications Dose Ordered Sig/Agnes Route Start Time Stop Time Status Last Admin Dose Admin Pantoprazole Sodium 40 mg DAILY IV 07/04/25 10:00 07/29/25 10:50 40 MG Artificial Tears 2 drop Q6HR PRN EACHEYE 07/07/25 20:00 07/16/25 10:06 2 DROP Enteral Nutritional Formula 1,000 ml 50ML/HR GT 07/10/25 13:30 07/29/25 21:31 1,000 ML Hydralazine HCl 10 mg Q6HP PRN IV 07/13/25 07:45 07/22/25 05:57 10 MG Losartan Potassium 100 mg DAILY GT 07/18/25 10:00 07/29/25 10:51 100 MG Spironolactone 25 mg DAILY GT 07/19/25 10:00 07/29/25 10:49 25 MG Enoxaparin Sodium 40 mg DAILY SC 07/19/25 10:00 07/29/25 10:51 40 MG Levothyroxine Sodium 125 mcg QAM@0600 PO 07/21/25 06:00 UNV Levothyroxine Sodium 100 mcg QAM@0600 PO 07/21/25 06:00 07/30/25 06:00 100 MCG Levothyroxine Sodium 25 mcg QAM@0600 PO 07/21/25 06:00 07/30/25 06:00 25 MCG Amlodipine Besylate 10 mg DAILY PEG 07/21/25 10:00 07/29/25 10:50 10 MG Carvedilol 12.5 mg BID PO 07/25/25 22:00 07/29/25 21:31 12.5 MG Lactulose 30 ml Q6H PEG 07/25/25 22:00 07/28/25 21:16 30 ML Acetaminophen 650 mg Q6HP PRN PO 07/29/25 23:15 07/29/25 23:29 650 MG Laboratory Results Laboratory Tests 07/28/25 06:21 07/29/25 05:38 Urinalysis Test 07/03/25 14:40 07/19/25 08:10 Urine Amorphous Crystals Few /hpf (None Seen) Urine Color Colorless (Yellow) Urine Clarity Turbid (Clear) H Urine pH 5.0 (5.0-9.0) Urine Specific [place] 1.016 (1.001-1.035) Urine Protein 1+ (Negative) H Urine Ketones Negative (Negative) Urine Blood Negative /uL (Negative) Urine Nitrite Negative (Negative) Urine Bilirubin Negative (Negative) Urine Urobilinogen Normal mg/dL (Negative) Urine Leukocyte Esterase 3+ /uL (Negative) Urine RBC 11 /hpf (0 - 4) Urine Microscopic WBC 249 /HPF (0-5) H Urine Squamous Epithelial Cells Few /hpf (<5) Urine Bacteria Few /hpf (None Seen) H Urine Mucus Few (None Seen) Urine Glucose Normal mg/dL (Normal) Microbiology Microbiology Date/Time Source Procedure Growth Status 07/19/25 09:40 Blood Blood Culture - Final NO GROWTH AFTER 5 DAYS OF INCUBATION. Complete 07/19/25 08:10 Voided Urine Urine Culture - Final Complete 07/06/25 12:08 Trachea Gram Stain - Final Resulted 07/06/25 12:08 Trachea Respiratory Culture - Preliminary Resulted 07/02/25 13:10 Sputum Gram Stain - Final Complete 07/02/25 13:10 Sputum Respiratory Culture - Final Complete Labs and/or images reviewed: Labs reviewed by me Assessment/Plan Assessment/Plan NEURO: Acute metabolic and hypoxic encephalopathy secondary to likely Heat stroke SIRS d/t likely Heat stroke Severe hypothyroidism or acute seizures Severe hyperthermia likely from Heat Stroke h/o bipolar disorder h/o depression Vegetative status Decerebration History of seizure disorder Neurologist consulted-poor prognosis for meaningful recovery Supportive treatment advised CARDIOVASCULAR: Wide complex nonsustained Ventricular tachycardia s/p defibrillation Shock likely hypovolemic Moderate to severe aortic regurgitation Heart failure with reduced ejection fraction-EF 40%-s, no exacerbation NSTEMI likely type 2 Hypertension Losartan increased to 100 daily, Coreg 12.5 b.i.d., started spirononlactone 25mg OD, started amlo 10 Hydralazine PRN DC clonidine patch 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 PULMONARY: Acute Gram-positive and Gram-negative pneumonia S/P Tracheostomy on 07/13 Respiratory culture growing filamentous fungi Off micafungin Completed IV ceftriaxone GASTROINTESTINAL: Status post PEG tube placement 07/17 Shock liver Tube feeds Monitor LFTs Lactulose 30 mL q.6 Fleet enema GENITOURINARY: E coli bacterial cystitis 07/03 Recurrent UTI 07/19 TESFAYE on CKD likely due to be VMN IV ceftriaxone starting 07/19 till 07/25 urine culture wnl METABOLIC: Severe hypothyroidism Thrombocytopenia Hypernatremia Plant Cytologist consulted-DC IV levothyroxine, levothyroxine 125 mcg daily TSH to be monitor 3-5 days, free T3 and free T4 daily DC Free water 250 q.4, free water deficit 1.5 L 07/17 INFECTIOUS DISEASE: Ruled out sepsis Acute bacterial cystitis Urine culture growing E coli, repeat negative Respiratory culture growing filamentous fungi DIET: tube feeds DVT prophylax: GI prophylaxis: Protonix Bowel regimen: lactulose Last BM: 07/20 Code status: Full code LINES/DRAINS/ACCESS:LUE midline 07/11 Drips: None James catheter: placed on 07/02, changed 07/19 Bowel movement: 07/27 DISPOSITION: Telemetry, DC to SNF when bed available Plan discussed with: Other (Rn) Date of Service: Jul 30, 2025 Billing Provider: KALIE PRICE MD Common Visit Codes: [id number] INP/OBS CARE(HIGH) KALIE PRICE MD Jul 30, 2025 11:23
--- NOTE | 2025-07-30 13:29 | DVHPN2 ---
Progress Note - Dictate Date Seen: Jul 30, 2025 Has the PT tested + for MRSA If YES, has PT been informed?: No Medical Necessity Reason Pt with a Central, PICC or Fol: Yes The following are medically ne: Campbell Catheter Reason for campbell catheter: Strict I&O vital signs Vital Sign Date Time Temp Pulse Resp B/P (MAP) Pulse Ox O2 Delivery O2 Flow Rate FiO2 07/30/25 11:56 82 139/83 07/30/25 09:16 98.6 16 96 98.6 07/30/25 08:50 2.0 07/30/25 07:45 Trach Collar N/A Total Intake and Output 07/29/25 07/29/25 07/30/25 15:00 23:00 07:00 Intake Total 649 ml 0 ml Output Total 700 ml 350 ml Balance -51 ml -350 ml medications Current Medications Medications Dose Ordered Sig/Agnes Route Start Time Stop Time Status Last Admin Dose Admin Pantoprazole Sodium 40 mg DAILY IV 07/04/25 10:00 07/30/25 11:55 40 MG Artificial Tears 2 drop Q6HR PRN EACHEYE 07/07/25 20:00 07/16/25 10:06 2 DROP Enteral Nutritional Formula 1,000 ml 50ML/HR GT 07/10/25 13:30 07/29/25 21:31 1,000 ML Hydralazine HCl 10 mg Q6HP PRN IV 07/13/25 07:45 07/22/25 05:57 10 MG Losartan Potassium 100 mg DAILY GT 07/18/25 10:00 07/30/25 11:55 100 MG Spironolactone 25 mg DAILY GT 07/19/25 10:00 07/30/25 11:55 25 MG Enoxaparin Sodium 40 mg DAILY SC 07/19/25 10:00 07/30/25 11:56 40 MG Levothyroxine Sodium 125 mcg QAM@0600 PO 07/21/25 06:00 UNV Levothyroxine Sodium 100 mcg QAM@0600 PO 07/21/25 06:00 07/30/25 06:00 100 MCG Levothyroxine Sodium 25 mcg QAM@0600 PO 07/21/25 06:00 07/30/25 06:00 25 MCG Amlodipine Besylate 10 mg DAILY PEG 07/21/25 10:00 07/30/25 11:56 10 MG Carvedilol 12.5 mg BID PO 07/25/25 22:00 07/30/25 11:56 12.5 MG Lactulose 30 ml Q6H PEG 07/25/25 22:00 07/28/25 21:16 30 ML Acetaminophen 650 mg Q6HP PRN PO 07/29/25 23:15 07/29/25 23:29 650 MG laboratory and microbiology Laboratory Tests 07/29/25 05:38 07/28/25 06:21 Test 07/29/25 05:38 Range/Units Serum Glucose 129 H 74-106 mg/dL Assessment/Plan Covering for Dr. Guzman Impression Status post cardiac arrest Requiring CPR Acute hypoxemic respiratory failure S/p tracheostomy Heat stroke Patient is seen and examined Events S/p tracheostomy Tolerating trach collar No acute events Labs and imaging studies reviewed Management plan Supplemental oxygen Trache care as per RT protocols Continue antibiotics Deescalate based on cultures Diuresis Monitor renal function Replace electrolytes Nutritional support GI prophylaxis or DVT prophylaxis Dietary Evaluation Review Comments: 1. TF Vital high protein @50ml/hr (105g Protein 1200kcal and 1003ml free water) supporting 100% of pt's needs 2. Initial TF speed at 30ml/hr, increase 10ml Q6 hr until reaching full speed. 3. Reassess when pt is extubated. Expected Outcomes/Goals: catabolism prevention Plan discussed with: Other (Rn) JUDE HALEY MD Jul 30, 2025 13:29
[2025-07-31] VITALS (11 sets, daily range): BP systolic 106–139; BP diastolic 57–87; PULSE 49–109; RESP 16–24; TEMP 94–100.7; O2SAT 94–99
--- NOTE | 2025-07-31 10:02 | DVH ---
Date: 07/31/2025 09:13 AM Examination: XY KUB ABDOMEN SINGLE VIEW History: hypoactive sounds Comparison: XY KUB ABDOMEN SINGLE VIEW on DOS: 07/27/25, XY KUB ABDOMEN SINGLE VIEW on DOS: 07/25/25, XY KUB ABDOMEN SINGLE VIEW on DOS: 07/20/25, CT ABD PELVIS WO CONTRAST on DOS: 06/21/21 TECHNIQUE: Frontal views of the abdomen was obtained. FINDINGS: Bowel gas pattern is unremarkable. The lung bases are unremarkable. No acute osseous abnormality identified. James catheter overlying the bladder. IMPRESSION: Nonobstructive bowel gas pattern. Gastrostomy tube overlying the left upper quadrant
[2025-07-31] MEDS: CARVEDILOL 12.5 MG TAB PEG SCH (10:06)
[2025-07-31 10:41] LABS: Hematocrit 37.1 % (36.0-46.0); Hemoglobin 12.1 g/dL (12.2-16.2); Mean Corpuscular Hemoglobin 28.6 pg (28.0-32.0); Mean Corpuscular Volume 87.4 fL (80.0-100.0); Nucleated Red Blood Cells % 0.1 %
[2025-07-31 10:46] LABS: Anion Gap 14 (5-15); Carbon Dioxide 22 mmol/L (20-31); Potassium 3.7 mmol/L (3.5-5.1)
[2025-07-31 10:47] LABS: Calcium 10.3 mg/dL (8.7-10.4)
[2025-07-31 10:48] LABS: Chloride 113 mmol/L (98-107); Sodium 149 mmol/L (136-145)
[2025-07-31 10:52] LABS: BUN/Creatinine Ratio 85.5 (10.0-20.0)
[2025-07-31 10:57] LABS: Blood Urea Nitrogen 59 mg/dL (9-23); Glucose 111 mg/dL (74-106)
--- NOTE | 2025-07-31 12:44 | DVH ---
EXAM: XY CHEST PORTABLE Indication: copious secretions Technique: Single frontal view of the chest was obtained Comparison: XY CHEST XRAY 1 VIEW on DOS: 07/27/25, XY CHEST XRAY 1 VIEW on DOS: 07/19/25, XY CHEST XRAY 1 VIEW on DOS: 07/17/25, XY CHEST PORTABLE on DOS: 07/16/25, XY CHEST PORTABLE on DOS: 07/14/25 FINDINGS: Lines and Tubes: Tracheostomy tube is visualized. Lungs: No focal consolidation. Pleura: No effusion. No pneumothorax. Cardiomediastinal contours: Unremarkable Bones: No acute osseous abnormality. IMPRESSION: No acute cardiopulmonary disease.
[2025-07-31] MEDS: FREE WATER GT SCH (13:30)
--- NOTE | 2025-07-31 19:46 | DVHPNRES ---
Progress Note Date Seen: Jul 31, 2025 Resident Creating Document: CORY LANIER RESIDENT Has the PT tested + for MRSA If YES, has PT been informed?: No Medical Necessity Reason Pt with a Central, PICC or Fol: Yes The following are medically ne: Campbell Catheter Reason for campbell catheter: Strict I&O Subjective Review of Systems This is a 50-year-old female with bipolar depression, hypothyroidism, heart failure with a reduced ejection fraction-EF 40%, aortic and tricuspid regurgitation who presented to the ER with high-grade fever 106, ALOC, possible seizure versus heat stroke and was intubated on the field by EMS, prolonged hospital stay secondary to hypoxic brain injury, 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 Status post tracheostomy 07/13 07/17 - Overnight low-grade fever 99.5, tachycardia, blood pressure ranging high up to 180s systolic and 85 diastolic, on T-piece 6 L. Chest x-ray unremarkable. Urine output 2000 cc. Sodium 149, free water deficit 1.5 L, free water q.4 hours started. Underwent NG tube placement, NPO for now. 07/19 - patient with nonpurposeful movements. Urine cloudy, UA shows UTI, IV ceftriaxone, culture pending, campbell changed 07/20- patient examined, no overnight events, clonidine patch, increase Coreg to 12 mg b.i.d., hydrochlorothiazide 12.5 mg daily, retail interior designer switched levothyroxine to p.o. 125 mcg daily KUB unremarkable, lactulose started. Patient had a bowel movement. 07/21 - no overnight events, statu same, nonpurposeful movements. CT head negative 07/24 - no overnight event, t max 99.7, decreasing O2 from 8 to 4L via trach 07/25-overnight events, at 3 L oxygen via trach, KUB unremarkable last bowel movement 07/20, increased lactulose q.6, Reglan 10 once, DC ceftriaxone 07/26-patient had a small bowel movement, smear, lactulose q.6, Fleet enema given. KUB in a.m.. 07/27 - patient seen, patient had a bowel movement, liquid consistency, chest x- ray unremarkable, overnight desaturated, 3 L oxygen via trach collar. Lower extremity DVT completed, shows unremarkable, KUB shows moderate stool volume, Fleet enema pending 07/28 - 2 BMs, nontracking eye movements, abd soft 07/31 - steroid on joint, respiratory culture showing protocol, IV voriconazole started. thick white secretion noted. Objective vital signs Vital Sign Date Time Temp Pulse Resp B/P (MAP) Pulse Ox O2 Delivery O2 Flow Rate FiO2 07/31/25 19:25 98 T-piece 6 35 Cool Aerosol 35 07/31/25 18:00 99.0 07/31/25 17:00 102 20 108/63 (78) Total Intake and Output 07/30/25 07/30/25 07/31/25 15:00 23:00 07:00 Output Total 650 ml 350 ml Balance -650 ml -350 ml medications Current Medications Medications Dose Ordered Sig/Agnes Route Start Time Stop Time Status Last Admin Dose Admin Pantoprazole Sodium 40 mg DAILY IV 07/04/25 10:00 07/31/25 10:01 40 MG Artificial Tears 2 drop Q6HR PRN EACHEYE 07/07/25 20:00 07/16/25 10:06 2 DROP Enteral Nutritional Formula 1,000 ml 50ML/HR GT 07/10/25 13:30 07/30/25 16:00 1,000 ML Hydralazine HCl 10 mg Q6HP PRN IV 07/13/25 07:45 07/22/25 05:57 10 MG Losartan Potassium 100 mg DAILY GT 07/18/25 10:00 07/31/25 10:05 100 MG Spironolactone 25 mg DAILY GT 07/19/25 10:00 07/31/25 10:01 25 MG Enoxaparin Sodium 40 mg DAILY SC 07/19/25 10:00 07/31/25 10:01 40 MG Levothyroxine Sodium 125 mcg QAM@0600 PO 07/21/25 06:00 UNV Amlodipine Besylate 10 mg DAILY PEG 07/21/25 10:00 07/31/25 10:05 10 MG Lactulose 30 ml Q6H PEG 07/25/25 22:00 07/31/25 10:00 30 ML Acetaminophen 650 mg Q6HP PRN PO 07/29/25 23:15 07/31/25 17:00 650 MG Carvedilol 12.5 mg BID PEG 07/31/25 10:00 07/31/25 10:06 12.5 MG Levothyroxine Sodium 100 mcg QAM@0600 PEG 08/01/25 06:00 Levothyroxine Sodium 25 mcg QAM@0600 PEG 08/01/25 06:00 Purified Water 250 ml Q6HR GT 07/31/25 13:30 08/01/25 13:00 07/31/25 17:01 250 ML Voriconazole / Dextrose 250 ml @ 125 mls/hr Q12H IV 07/31/25 17:45 08/01/25 07:44 UNV Voriconazole / Dextrose 250 ml @ 125 mls/hr Q12H IV 08/01/25 17:45 UNV Examination Gen - no pallor, no icterus, no cyanosis, no edema . Pupils are anisocoric, R greater than L, fluctuating, light reflex intact. Positive gag and Babinski sign. Skin - Patients skin is warm and dry. HEENT - normocephalic, atraumatic, dry mucous membranes. Neck - no JVD Pulmonary - B/L equal breath sounds, no rales, no wheezing, no stridor.T-piece 3 L cardiovascular - regular S1,S2 heard, no added sounds, no murmurs heard. peripheral pulses feeble radial 2+, pedal 2+. GI - soft, nontender abdomen. Bowel sounds hypoactive, liquid-watery bowel movement Neurological - Pupils are isocoric, light reflex intact. Positive gag and Babinski sign. Extremities: Decerebrate posturing, eyes open but no response to verbal stimulation or sudden loud noise laboratory and microbiology Laboratory Tests 07/31/25 10:30 Test 07/31/25 10:30 Range/Units Serum Glucose 111 H 74-106 mg/dL Microbiology Date/Time Source Procedure Growth Status 07/19/25 09:40 Blood Blood Culture - Final NO GROWTH AFTER 5 DAYS OF INCUBATION. Complete 07/19/25 08:10 Voided Urine Urine Culture - Final Complete 07/06/25 12:08 Trachea Gram Stain - Final Resulted 07/06/25 12:08 Respiratory Culture - Preliminary Aspergillus niger Resulted 07/02/25 13:10 Sputum Gram Stain - Final Complete 07/02/25 13:10 Sputum Respiratory Culture - Final Complete Labs and/or images reviewed: Labs reviewed by me, Image(s) reviewed by me Problem List/Assessment/Plan Problem List/Assessment/Plan NEURO: Acute metabolic and hypoxic encephalopathy secondary to likely Heat stroke SIRS d/t likely Heat stroke Severe hypothyroidism or acute seizures Severe hyperthermia likely from Heat Stroke h/o bipolar disorder h/o depression Vegetative status Decerebration History of seizure disorder Neurologist consulted-poor prognosis for meaningful recovery Supportive treatment advised CARDIOVASCULAR: Wide complex nonsustained Ventricular tachycardia s/p defibrillation Shock likely hypovolemic Moderate to severe aortic regurgitation Heart failure with reduced ejection fraction-EF 40%-s, no exacerbation NSTEMI likely type 2 Hypertension Losartan increased to 100 daily, Coreg 12.5 b.i.d., started spirononlactone 25mg OD, started amlo 10 Hydralazine PRN DC clonidine patch 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 PULMONARY: Acute Gram-positive and Gram-negative pneumonia S/P Tracheostomy on 07/13 Respiratory culture growing filamentous fungi- aspergillus - iv voriconazole 07/31 Off micafungin Completed IV ceftriaxone GASTROINTESTINAL: Status post PEG tube placement 07/17 Shock liver Tube feeds Monitor LFTs Lactulose 30 mL q.6 Fleet enema GENITOURINARY: E coli bacterial cystitis 07/03 Recurrent UTI 07/19 TESFAYE on CKD likely due to be VMN IV ceftriaxone starting 07/19 till 07/25 urine culture wnl METABOLIC: Severe hypothyroidism Thrombocytopenia Hypernatremia Etl Programmer consulted-DC IV levothyroxine, levothyroxine 125 mcg daily TSH to be monitor 3-5 days, free T3 and free T4 daily DC Free water 250 q.4, free water deficit 1.5 L 07/17 INFECTIOUS DISEASE: Ruled out sepsis Acute bacterial cystitis Urine culture growing E coli, repeat negative Respiratory culture growing filamentous fungi DIET: tube feeds DVT prophylax: GI prophylaxis: Protonix Bowel regimen: dc lactulose Last BM: 07/31 Code status: Full code LINES/DRAINS/ACCESS:LUE midline 07/11 Drips: None Campbell catheter: placed on 07/02, changed 07/19 Bowel movement: 07/27 DISPOSITION: Telemetry, DC to SNF when bed available Patient's status including plan of care discussed with nurse, all qs answered. Tried calling pippa [phone], can't accept calls Critical care time spent more than 43 minutes, including patient care, chart review, and updating the family. Excluding any procedures Case discussed with Dr. Campbell Plan discussed with: Other (nurse) My Orders My Orders Orders - CORY LANIER RESIDENT Procedure Category Date Status Time Carvedilol Tablet PHA 07/31/25 In Process (Coreg Tablet) 10:00 Kub Abdomen Single XY 07/31/25 Resulted View 09:01 Chest Portable XY 07/31/25 Resulted 11:29 Free Water PHA 07/31/25 In Process 13:30 Voriconazole Inj PHA 07/31/25 Logged (Vfend Inj) 17:45 Voriconazole Inj PHA 08/01/25 Logged (Vfend Inj) 17:45 Dietary Evaluation Review Comments: 1. TF Vital high protein @50ml/hr (105g Protein 1200kcal and 1003ml free water) supporting 100% of pt's needs 2. Initial TF speed at 30ml/hr, increase 10ml Q6 hr until reaching full speed. 3. Reassess when pt is extubated. Expected Outcomes/Goals: catabolism prevention Date of Service: Jul 31, 2025 Billing Provider: DARLING CAMPBELL MD Common Visit Codes: [id number] CARE 30-74 MIN CORY LANIER RESIDENT Jul 31, 2025 19:46 DARLING CAMPBELL MD Aug 01, 2025 16:17
--- NOTE | 2025-07-31 22:54 | DVHPN2 ---
Progress Note - Dictate Date Seen: Jul 31, 2025 Has the PT tested + for MRSA If YES, has PT been informed?: No Medical Necessity Reason Pt with a Central, PICC or Fol: Yes The following are medically ne: Campbell Catheter Reason for campbell catheter: Strict I&O Subjective Ms. Montes is a 48 years old female with a history of bipolar disorder, anxiety, depression, the patient was taken to the hospital on 07/02/2025 with a chief complaint of altered mental status. I saw her on 01/10/2024 for ALOC I have seen and examined the patient, I have discussed with her nurse, her eyes are open, moving from [id number], she is likely responsive to strong loud noise, I did not see disability posturing on 07/31/2025 RN: She still needs high flow oxygen Status post tracheostomy on 07/14/2025 Status post PEG insertion on 07/17/25 Pupil size 07/09/25: right: 4 mm, left: 2-3 mm, both are reactive to lights (RN: The left- sided was bigger during the daytime yesterday) 07/10/2025: right: 4 mm, left: 2-3 mm, both are reactive to lights 07/12/2025: right: 3 mm, left: 2-3 mm, both are reactive to lights 07/15/2025: PERRL 07/17/2025: PERRL (left-sided was bigger according to Dr. Hassan) 07/18/2025: Right side is minimally bigger 07/19/2025: PERRL 07/21/2025: PERRL CSF, 01/12/2024: C/C, WBC: 0, RBC: 0, protein: 36.1, glucose: 70 Urinalysis, 07/02/2025: Urine leukocyte esterase: 3+ Urine culture, 07/03/2025: E coli Blood culture, 07/03/2025: Negative UDS, 07/02/2025: Negative [place], 07/07/2025: ABG, 07/03/2025: Compensated metabolic acidosis, 07/07/2025: Compensated metabolic acidosis WBC/HB/PLT/MCV, 07/07/2025: 8.5/8.8/58/82.3 Na 07/13/2025: 144, 07/14/25: 146, 07/15/25: 152 CK, 07/02/2025: 653, 07/04/2025: 1423, 07/22/2025: 693, 07/07/2025: 366 TG/HDL/LDL/HDL, 07/05/2025: 13/1. Ferritin 01/19/2024: 21.8 Chest x-ray, 07/02/2025: 1. Endotracheal tube 6.1 cm above the sylvia. 2. AED pads over the chest 3. Enteric tube position left diaphragm in the stomach CT head, 01/10/2024: No acute intracranial abnormality or significant interval change compared to 01/09/2024 CT head, 07/02/2025: No acute intracranial abnormality. CT head, 07/10/2025: No acute intracranial abnormality CT head, 07/21/2025: No acute intracranial abnormality. CT chest, 01/09/2024: 1. Inferior left upper and lower lobe consolidation favored to reflect infectious/inflammatory etiology, possibly aspiration. 2. The endotracheal tube terminates in the right mainstem bronchus. 3. The enteric tube is in satisfactory position MRI head, 01/15/2024: No acute abnormal MRI findings of the brain MR head, 07/10/2025: Subtle increased DWI signal within the bilateral caudate head, anterior putamen, medial temporal lobes, midbrain, and cerebellar hemispheres, concerning for early findings of hypoxic ischemic injury MRI C-spine, 01/15/24: 1. Degenerative disc disease and facet/uncinate disease in the cervical spine with associated spinal canal, subarticular, and neural foraminal stenoses as detailed above. 2. 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 3. No signal abnormality in the spinal cord to suggest myelopathy. 4. Additional findings as detailed above vital signs Vital Sign Date Time Temp Pulse Resp B/P (MAP) Pulse Ox O2 Delivery O2 Flow Rate FiO2 07/31/25 21:34 98 132/75 07/31/25 21:00 94.0 23 96 94.0 07/31/25 19:25 T-piece 6 35 Cool Aerosol 35 Total Intake and Output 07/30/25 07/30/25 07/31/25 15:00 23:00 07:00 Output Total 650 ml 350 ml Balance -650 ml -350 ml medications Current Medications Medications Dose Ordered Sig/Agnse Route Start Time Stop Time Status Last Admin Dose Admin Pantoprazole Sodium 40 mg DAILY IV 07/04/25 10:00 07/31/25 10:01 40 MG Artificial Tears 2 drop Q6HR PRN EACHEYE 07/07/25 20:00 07/16/25 10:06 2 DROP Enteral Nutritional Formula 1,000 ml 50ML/HR GT 07/10/25 13:30 07/30/25 16:00 1,000 ML Hydralazine HCl 10 mg Q6HP PRN IV 07/13/25 07:45 07/22/25 05:57 10 MG Losartan Potassium 100 mg DAILY GT 07/18/25 10:00 07/31/25 10:05 100 MG Spironolactone 25 mg DAILY GT 07/19/25 10:00 07/31/25 10:01 25 MG Enoxaparin Sodium 40 mg DAILY SC 07/19/25 10:00 07/31/25 10:01 40 MG Levothyroxine Sodium 125 mcg QAM@0600 PO 07/21/25 06:00 UNV Amlodipine Besylate 10 mg DAILY PEG 07/21/25 10:00 07/31/25 10:05 10 MG Lactulose 30 ml Q6H PEG 07/25/25 22:00 07/31/25 10:00 30 ML Acetaminophen 650 mg Q6HP PRN PO 07/29/25 23:15 07/31/25 17:00 650 MG Carvedilol 12.5 mg BID PEG 07/31/25 10:00 07/31/25 21:34 12.5 MG Levothyroxine Sodium 100 mcg QAM@0600 PEG 08/01/25 06:00 Levothyroxine Sodium 25 mcg QAM@0600 PEG 08/01/25 06:00 Purified Water 250 ml Q6HR GT 07/31/25 13:30 08/01/25 13:00 07/31/25 17:01 250 ML Voriconazole 300 mg/Dextrose 280 ml @ 140 mls/hr Q12H IV 07/31/25 22:00 08/01/25 11:59 Voriconazole 200 mg/Dextrose 270 ml @ 135 mls/hr Q12H IV 08/01/25 22:00 objective The patient is well-nourished and well-developed with no distress. MENTAL STATUS: Subjective CRANIAL NERVES: Pupils are round and reactive.There is frequent blinking and occasional rolling eye movement. No signs of facial weakness. There are gagging or coughing reflexes SENSATION: Responses to pain stimuli. MOTOR: Elevated tone in the upper and lower extremity. Normal muscle bulk. No fasciculations. She moves left upper extremity, no definite movement seen in the right arm REFLEXES: Deep tendon reflexes are symmetrical. Bilateral Upgoing toes noticed CEREBELLAR/COORDINATION: Deferred GAIT/STATION: deferred. laboratory and microbiology Laboratory Tests 07/31/25 10:30 Test 07/31/25 10:30 Range/Units Serum Glucose 111 H 74-106 mg/dL Problem List Altered mental status Heat stroke Metabolic encephalopathy Hypoxic encephalopathy Vegetative status Decerebration Respiratory failure status post tracheostomy Urinary tract infection Rule out sepsis Bipolar disorder, depression, anxiety Seizure disorder, with last seizure attack before 2017 Restless leg syndrome with low ferritin Assessment/Plan Monitoring Supportive treatment Telemetry Oxygen DVT prophylaxis GI prophylaxis Tube feeding History from her when she wakes up She is to have feeding tube insertion More recommended per clinical course She is likely to have a poor prognosis for meaning recovery This medical document was created using an electronic medical record system with MC10 dictation system. Although this document has been carefully reviewed, there may still be some phonetic and typographical errors. These areas are purely typographical due to imperfections of the software programs, and do not reflect any compromise in the patient's medical care. Prognosis poor Dietary Evaluation Review Comments: 1. TF Vital high protein @50ml/hr (105g Protein 1200kcal and 1003ml free water) supporting 100% of pt's needs 2. Initial TF speed at 30ml/hr, increase 10ml Q6 hr until reaching full speed. 3. Reassess when pt is extubated. Expected Outcomes/Goals: catabolism prevention Plan discussed with: Other HORACIO MURPHY MD Jul 31, 2025 22:54
[2025-07-31] MEDS: VORICONAZOLE INJ 300 MG in D5W 5% 250 ML IV SCH (23:17)
[2025-08-01] VITALS (9 sets, daily range): BP systolic 99–152; BP diastolic 57–78; PULSE 74–94; RESP 16–24; TEMP 94.4–99.4; O2SAT 95–99
[2025-08-01] MEDS: LEVOTHYROXINE SODIUM 100 MCG TAB PEG SCH (06:06)
[2025-08-01] MEDS: LEVOTHYROXINE SODIUM 25 MCG TAB PEG SCH (06:06)
[2025-08-01 06:43] LABS: Anion Gap 13 (5-15); Carbon Dioxide 23 mmol/L (20-31)
[2025-08-01 06:44] LABS: Calcium 9.8 mg/dL (8.7-10.4)
[2025-08-01 06:49] LABS: BUN/Creatinine Ratio 71.8 (10.0-20.0)
[2025-08-01 06:57] LABS: Blood Urea Nitrogen 51 mg/dL (9-23); Chloride 112 mmol/L (98-107); Glucose 116 mg/dL (74-106); Potassium 3.3 mmol/L (3.5-5.1); Sodium 148 mmol/L (136-145)
[2025-08-01] MEDS: POTASSIUM CHL 20MEQ/100ML 100 ML IV SCH (10:37)
--- NOTE | 2025-08-01 18:55 | DVHPNRES ---
Progress Note Date Seen: Aug 01, 2025 Resident Creating Document: CORY LANIER RESIDENT Has the PT tested + for MRSA If YES, has PT been informed?: No Medical Necessity Reason Pt with a Central, PICC or Fol: Yes The following are medically ne: Campbell Catheter Reason for campbell catheter: Strict I&O Subjective Review of Systems This is a 50-year-old female with bipolar depression, hypothyroidism, heart failure with a reduced ejection fraction-EF 40%, aortic and tricuspid regurgitation who presented to the ER with high-grade fever 106, ALOC, possible seizure versus heat stroke and was intubated on the field by EMS, prolonged hospital stay secondary to hypoxic brain injury, 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 Status post tracheostomy 07/13 07/17 - Overnight low-grade fever 99.5, tachycardia, blood pressure ranging high up to 180s systolic and 85 diastolic, on T-piece 6 L. Chest x-ray unremarkable. Urine output 2000 cc. Sodium 149, free water deficit 1.5 L, free water q.4 hours started. Underwent NG tube placement, NPO for now. 07/19 - patient with nonpurposeful movements. Urine cloudy, UA shows UTI, IV ceftriaxone, culture pending, campbell changed 07/20- patient examined, no overnight events, clonidine patch, increase Coreg to 12 mg b.i.d., hydrochlorothiazide 12.5 mg daily, vocal performer switched levothyroxine to p.o. 125 mcg daily KUB unremarkable, lactulose started. Patient had a bowel movement. 07/21 - no overnight events, statu same, nonpurposeful movements. CT head negative 07/24 - no overnight event, t max 99.7, decreasing O2 from 8 to 4L via trach 07/25-overnight events, at 3 L oxygen via trach, KUB unremarkable last bowel movement 07/20, increased lactulose q.6, Reglan 10 once, DC ceftriaxone 07/26-patient had a small bowel movement, smear, lactulose q.6, Fleet enema given. KUB in a.m.. 07/27 - patient seen, patient had a bowel movement, liquid consistency, chest x- ray unremarkable, overnight desaturated, 3 L oxygen via trach collar. Lower extremity DVT completed, shows unremarkable, KUB shows moderate stool volume, Fleet enema pending 07/28 - 2 BMs, nontracking eye movements, abd soft 07/31 - patient examined, respiratory culture showing protocol, IV voriconazole started. thick white secretion noted. 08/01 - status unchanged, patient examined. Voriconazole. Per Courtney, son over the phone, requesting hospice social work therapist for hospice. Objective vital signs Vital Sign Date Time Temp Pulse Resp B/P (MAP) Pulse Ox O2 Delivery O2 Flow Rate FiO2 08/01/25 17:06 98.2 74 20 99/57 (71) 95 98.2 08/01/25 08:00 Trach Collar 6 N/A Total Intake and Output 07/31/25 07/31/25 08/01/25 14:59 22:59 06:59 Intake Total 513 ml 280 ml Output Total 250 ml 350 ml Balance 263 ml -70 ml medications Current Medications Medications Dose Ordered Sig/Agnes Route Start Time Stop Time Status Last Admin Dose Admin Pantoprazole Sodium 40 mg DAILY IV 07/04/25 10:00 08/01/25 10:39 40 MG Artificial Tears 2 drop Q6HR PRN EACHEYE 07/07/25 20:00 07/16/25 10:06 2 DROP Enteral Nutritional Formula 1,000 ml 50ML/HR GT 07/10/25 13:30 07/30/25 16:00 1,000 ML Hydralazine HCl 10 mg Q6HP PRN IV 07/13/25 07:45 07/22/25 05:57 10 MG Losartan Potassium 100 mg DAILY GT 07/18/25 10:00 08/01/25 10:38 100 MG Spironolactone 25 mg DAILY GT 07/19/25 10:00 08/01/25 10:39 25 MG Enoxaparin Sodium 40 mg DAILY SC 07/19/25 10:00 08/01/25 10:38 40 MG Levothyroxine Sodium 125 mcg QAM@0600 PO 07/21/25 06:00 UNV Amlodipine Besylate 10 mg DAILY PEG 07/21/25 10:00 08/01/25 10:39 10 MG Lactulose 30 ml Q6H PEG 07/25/25 22:00 07/31/25 10:00 30 ML Acetaminophen 650 mg Q6HP PRN PO 07/29/25 23:15 07/31/25 17:00 650 MG Carvedilol 12.5 mg BID PEG 07/31/25 10:00 9/9/25 10:39 12.5 MG Levothyroxine Sodium 100 mcg QAM@0600 PEG 08/01/25 06:00 08/01/25 06:06 100 MCG Levothyroxine Sodium 25 mcg QAM@0600 PEG 08/01/25 06:00 08/01/25 06:06 25 MCG Voriconazole 200 mg/Dextrose 270 ml @ 135 mls/hr Q12H IV 08/01/25 22:00 Examination Gen - no pallor, no icterus, no cyanosis, no edema . Pupils are anisocoric, R greater than L, fluctuating, light reflex intact. Positive gag and Babinski sign. Skin - Patients skin is warm and dry. HEENT - normocephalic, atraumatic, dry mucous membranes. Neck - no JVD Pulmonary - B/L equal breath sounds, no rales, no wheezing, no stridor.T-piece 3 L cardiovascular - regular S1,S2 heard, no added sounds, no murmurs heard. peripheral pulses feeble radial 2+, pedal 2+. GI - soft, nontender abdomen. Bowel sounds hypoactive, liquid-watery bowel movement Neurological - Pupils are isocoric, light reflex intact. Positive gag and Babinski sign. Extremities: Decerebrate posturing, eyes open but no response to verbal stimulation or sudden loud noise laboratory and microbiology Laboratory Tests 08/01/25 06:02 07/31/25 10:30 Test 08/01/25 06:02 Range/Units Serum Glucose 116 H 74-106 mg/dL Microbiology Date/Time Source Procedure Growth Status 07/19/25 09:40 Blood Blood Culture - Final NO GROWTH AFTER 5 DAYS OF INCUBATION. Complete 07/19/25 08:10 Voided Urine Urine Culture - Final Complete 07/06/25 12:08 Trachea Gram Stain - Final Resulted 07/06/25 12:08 Respiratory Culture - Preliminary Aspergillus niger Resulted 07/02/25 13:10 Sputum Gram Stain - Final Complete 07/02/25 13:10 Sputum Respiratory Culture - Final Complete Labs and/or images reviewed: Labs reviewed by me, Image(s) reviewed by me Problem List/Assessment/Plan Problem List/Assessment/Plan NEURO: Acute metabolic and hypoxic encephalopathy secondary to likely Heat stroke SIRS d/t likely Heat stroke Severe hypothyroidism or acute seizures Severe hyperthermia likely from Heat Stroke h/o bipolar disorder h/o depression Vegetative status Decerebration History of seizure disorder Neurologist consulted-poor prognosis for meaningful recovery Supportive treatment advised CARDIOVASCULAR: Wide complex nonsustained Ventricular tachycardia s/p defibrillation Shock likely hypovolemic Moderate to severe aortic regurgitation Heart failure with reduced ejection fraction-EF 40%-s, no exacerbation NSTEMI likely type 2 Hypertension Losartan increased to 100 daily, Coreg 12.5 b.i.d., started spirononlactone 25mg OD, started amlo 10 Hydralazine PRN DC clonidine patch On electronic device monitor PULMONARY: Acute Gram-positive and Gram-negative pneumonia S/P Tracheostomy on 07/13 Respiratory culture growing filamentous fungi- aspergillus - iv voriconazole 07/31 Off micafungin Completed IV ceftriaxone IV voriconazole Starting 07/31 GASTROINTESTINAL: Status post PEG tube placement 07/17 Shock liver Tube feeds Monitor LFTs Lactulose 30 mL q.6 Fleet enema GENITOURINARY: E coli bacterial cystitis 07/03 Recurrent UTI 07/19 TESFAYE on CKD likely due to be VMN IV ceftriaxone starting 07/19 till 07/25 urine culture wnl METABOLIC: Severe hypothyroidism Thrombocytopenia Hypernatremia Telehealth Nurse consulted-DC IV levothyroxine, levothyroxine 125 mcg daily TSH to be monitor 3-5 days, free T3 and free T4 daily DC Free water 250 q.4, free water deficit 1.5 L 07/17 INFECTIOUS DISEASE: Ruled out sepsis Acute bacterial cystitis Urine culture growing E coli, repeat negative Respiratory culture growing filamentous fungi DIET: tube feeds DVT prophylax: GI prophylaxis: Protonix Bowel regimen: dc lactulose Last BM: 07/31 Code status: Full code LINES/DRAINS/ACCESS:LUE midline 07/11 Drips: None Campbell catheter: placed on 07/02, changed 07/19 Bowel movement: 07/27 DISPOSITION: [employer] business services coordinator consultation for hospice. Patient's status including plan of care discussed with nurse, all qs answered. Spoke to courtney over the phone, agreed for hospice. Critical care time spent more than 43 minutes, including patient care, chart review, and updating the family. Excluding any procedures Case discussed with Dr. Campbell Plan discussed with: Son (Courtney over the phone) My Orders My Orders Orders - CORY LANIER RESIDENT Procedure Category Date Status Time * Compugraph Operator CONS 08/01/25 Transmitted Consult Dietary Evaluation Review Comments: 1. TF Vital high protein @50ml/hr (105g Protein 1200kcal and 1003ml free water) supporting 100% of pt's needs 2. Initial TF speed at 30ml/hr, increase 10ml Q6 hr until reaching full speed. 3. Reassess when pt is extubated. Expected Outcomes/Goals: catabolism prevention Date of Service: Aug 01, 2025 Billing Provider: DARLING CAMPBELL MD Common Visit Codes: 33313-[id number] CARE 30-74 MIN CORY LANIER RESIDENT Aug 01, 2025 18:55 DARLING CAMPBELL MD Aug 02, 2025 12:30
[2025-08-01] MEDS: VORICONAZOLE INJ 200 MG in D5W 5% 250 ML IV SCH (21:36)
[2025-08-02] VITALS (11 sets, daily range): BP systolic 100–123; BP diastolic 57–79; PULSE 82–95; RESP 17–19; TEMP 97.7–99.3; O2SAT 94–99
[2025-08-02 06:40] LABS: Anion Gap 13 (5-15); Carbon Dioxide 22 mmol/L (20-31); Chloride 108 mmol/L (98-107); Potassium 4.0 mmol/L (3.5-5.1); Sodium 143 mmol/L (136-145)
[2025-08-02 06:41] LABS: Calcium 10.0 mg/dL (8.7-10.4)
[2025-08-02 06:46] LABS: BUN/Creatinine Ratio 57.4 (10.0-20.0)
[2025-08-02 06:47] LABS: Blood Urea Nitrogen 39 mg/dL (9-23); Glucose 121 mg/dL (74-106)
--- NOTE | 2025-08-02 16:05 | DVHPNRES ---
Progress Note Date Seen: Aug 02, 2025 Resident Creating Document: CORY LANIER RESIDENT Has the PT tested + for MRSA If YES, has PT been informed?: No Medical Necessity Reason Pt with a Central, PICC or Fol: Yes The following are medically ne: Campbell Catheter Reason for campbell catheter: Strict I&O Subjective Review of Systems This is a 50-year-old female with bipolar depression, hypothyroidism, heart failure with a reduced ejection fraction-EF 40%, aortic and tricuspid regurgitation who presented to the ER with high-grade fever 106, ALOC, possible seizure versus heat stroke and was intubated on the field by EMS, prolonged hospital stay secondary to hypoxic brain injury, 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 Status post tracheostomy 07/13 07/17 - Overnight low-grade fever 99.5, tachycardia, blood pressure ranging high up to 180s systolic and 85 diastolic, on T-piece 6 L. Chest x-ray unremarkable. Urine output 2000 cc. Sodium 149, free water deficit 1.5 L, free water q.4 hours started. Underwent NG tube placement, NPO for now. 07/19 - patient with nonpurposeful movements. Urine cloudy, UA shows UTI, IV ceftriaxone, culture pending, campbell changed 07/20- patient examined, no overnight events, clonidine patch, increase Coreg to 12 mg b.i.d., hydrochlorothiazide 12.5 mg daily, car usher switched levothyroxine to p.o. 125 mcg daily KUB unremarkable, lactulose started. Patient had a bowel movement. 07/21 - no overnight events, statu same, nonpurposeful movements. CT head negative 07/24 - no overnight event, t max 99.7, decreasing O2 from 8 to 4L via trach 07/25-overnight events, at 3 L oxygen via trach, KUB unremarkable last bowel movement 07/20, increased lactulose q.6, Reglan 10 once, DC ceftriaxone 07/26-patient had a small bowel movement, smear, lactulose q.6, Fleet enema given. KUB in a.m.. 07/27 - patient seen, patient had a bowel movement, liquid consistency, chest x- ray unremarkable, overnight desaturated, 3 L oxygen via trach collar. Lower extremity DVT completed, shows unremarkable, KUB shows moderate stool volume, Fleet enema pending 07/28 - 2 BMs, nontracking eye movements, abd soft 07/31 - patient examined, respiratory culture showing protocol, IV voriconazole started. thick white secretion noted. 08/01 - status unchanged, patient examined. Voriconazole. Per Courtney, son over the phone, requesting hospice social worker delinquency prevention for hospice. 08/02 - pt in vegetative state, low grade fever, voriconazole to PO Objective vital signs Vital Sign Date Time Temp Pulse Resp B/P (MAP) Pulse Ox O2 Delivery O2 Flow Rate FiO2 08/02/25 13:00 99.2 95 19 119/74 (89) 98 99.2 08/02/25 08:35 6.0 28 08/02/25 08:30 Trach Collar Total Intake and Output 08/01/25 08/01/25 08/02/25 15:00 23:00 07:00 Intake Total 70 ml 0 ml 741 ml Output Total 400 ml Balance 70 ml -400 ml 741 ml medications Current Medications Medications Dose Ordered Sig/Agnes Route Start Time Stop Time Status Last Admin Dose Admin Pantoprazole Sodium 40 mg DAILY IV 07/04/25 10:00 08/02/25 10:35 40 MG Artificial Tears 2 drop Q6HR PRN EACHEYE 07/07/25 20:00 07/16/25 10:06 2 DROP Enteral Nutritional Formula 1,000 ml 50ML/HR GT 07/10/25 13:30 07/30/25 16:00 1,000 ML Hydralazine HCl 10 mg Q6HP PRN IV 07/13/25 07:45 07/22/25 05:57 10 MG Losartan Potassium 100 mg DAILY GT 07/18/25 10:00 08/02/25 11:05 100 MG Spironolactone 25 mg DAILY GT 07/19/25 10:00 08/02/25 10:36 25 MG Enoxaparin Sodium 40 mg DAILY SC 07/19/25 10:00 08/02/25 10:35 40 MG Levothyroxine Sodium 125 mcg QAM@0600 PO 07/21/25 06:00 UNV Amlodipine Besylate 10 mg DAILY PEG 07/21/25 10:00 08/02/25 10:36 10 MG Lactulose 30 ml Q6H PEG 07/25/25 22:00 07/31/25 10:00 30 ML Acetaminophen 650 mg Q6HP PRN PO 07/29/25 23:15 07/31/25 17:00 650 MG Carvedilol 12.5 mg BID PEG 07/31/25 10:00 08/02/25 10:36 12.5 MG Levothyroxine Sodium 100 mcg QAM@0600 PEG 08/01/25 06:00 08/02/25 05:52 100 MCG Levothyroxine Sodium 25 mcg QAM@0600 PEG 08/01/25 06:00 08/02/25 05:52 25 MCG Voriconazole 200 mg Q12HR GT 08/02/25 22:00 Examination Gen - no pallor, no icterus, no cyanosis, no edema . Pupils are anisocoric, R greater than L, fluctuating, light reflex intact. Positive gag and Babinski sign. Skin - Patients skin is warm and dry. HEENT - normocephalic, atraumatic, dry mucous membranes. Neck - no JVD Pulmonary - B/L equal breath sounds, no rales, no wheezing, no stridor.T-piece 6 L cardiovascular - regular S1,S2 heard, no added sounds, no murmurs heard. peripheral pulses feeble radial 2+, pedal 2+. GI - soft, nontender abdomen. Bowel sounds hypoactive, liquid-watery bowel movement Neurological - Pupils are isocoric, light reflex intact. Positive gag and Babinski sign. Extremities: Decerebrate posturing, eyes open but no response to verbal stimulation or sudden loud noise laboratory and microbiology Laboratory Tests 08/02/25 05:46 07/31/25 10:30 Test 08/02/25 05:46 Range/Units Serum Glucose 121 H 74-106 mg/dL Microbiology Date/Time Source Procedure Growth Status 07/19/25 09:40 Blood Blood Culture - Final NO GROWTH AFTER 5 DAYS OF INCUBATION. Complete 07/19/25 08:10 Voided Urine Urine Culture - Final Complete 07/06/25 12:08 Trachea Gram Stain - Final Resulted 07/06/25 12:08 Respiratory Culture - Preliminary Aspergillus niger Resulted 07/02/25 13:10 Sputum Gram Stain - Final Complete 07/02/25 13:10 Sputum Respiratory Culture - Final Complete Labs and/or images reviewed: Labs reviewed by me, Image(s) reviewed by me Problem List/Assessment/Plan Problem List/Assessment/Plan NEURO: Acute metabolic and hypoxic encephalopathy secondary to likely Heat stroke SIRS d/t likely Heat stroke Severe hypothyroidism or acute seizures Severe hyperthermia likely from Heat Stroke h/o bipolar disorder h/o depression Vegetative status Decerebration History of seizure disorder Neurologist consulted-poor prognosis for meaningful recovery Supportive treatment advised CARDIOVASCULAR: Wide complex nonsustained Ventricular tachycardia s/p defibrillation Shock likely hypovolemic Moderate to severe aortic regurgitation Heart failure with reduced ejection fraction-EF 40%-s, no exacerbation NSTEMI likely type 2 Hypertension Losartan increased to 100 daily, Coreg 12.5 b.i.d., started spirononlactone 25mg OD, started amlo 10 Hydralazine PRN DC clonidine patch On bus driver/monitor PULMONARY: Acute Gram-positive and Gram-negative pneumonia S/P Tracheostomy on 07/13 Respiratory culture growing filamentous fungi- aspergillus - iv voriconazole 07/31 Off micafungin Completed IV ceftriaxone IV voriconazole Starting 07/31 switched to PO GASTROINTESTINAL: Status post PEG tube placement 07/17 Shock liver Tube feeds Monitor LFTs Lactulose 30 mL q.6 Fleet enema GENITOURINARY: E coli bacterial cystitis 07/03 Recurrent UTI 07/19 TESFAYE on CKD likely due to be VMN IV ceftriaxone starting 07/19 till 07/25 urine culture wnl METABOLIC: Severe hypothyroidism Thrombocytopenia Hypernatremia Facility Maintenance Worker consulted-DC IV levothyroxine, levothyroxine 125 mcg daily TSH to be monitor 3-5 days, free T3 and free T4 daily DC Free water 250 q.4, free water deficit 1.5 L 07/17 INFECTIOUS DISEASE: Ruled out sepsis Acute bacterial cystitis Urine culture growing E coli, repeat negative Respiratory culture growing filamentous fungi DIET: tube feeds DVT prophylax: GI prophylaxis: Protonix Bowel regimen: dc lactulose Last BM: 07/31 Code status: Full code LINES/DRAINS/ACCESS:LUE midline 07/11 Drips: None Campbell catheter: placed on 07/02, changed 07/19 Bowel movement: 07/27 DISPOSITION: Med/surge catering convention services manager consultation for subacute Patient's status including plan of care discussed with nurse, all qs answered. Spoke to courtney over the phone. Critical care time spent more than 43 minutes, including patient care, chart review, and updating the family. Excluding any procedures Case discussed with Dr. Campbell Plan discussed with: Other (nurse) My Orders My Orders Orders - ALI,CORY RESIDENT Procedure Category Date Status Time * Medical Reimbursement Manager CONS 08/01/25 Transmitted Consult 18:57 Transfer Orders XFER 08/02/25 Transmitted 08:47 Discontinue Tele VIVIAN 08/02/25 In Process 08:47 * Medical Reimbursement Manager CONS 08/02/25 Transmitted Consult Dietary NOTICE 08/02/25 Transmitted Recommendations 12:45 Voriconazole (Vfend) PHA 08/02/25 In Process 22:00 Dietary Evaluation Review Comments: 1. TF Vital high protein @50ml/hr (105g Protein 1200kcal and 1003ml free water) supporting 100% of pt's needs 2. Initial TF speed at 30ml/hr, increase 10ml Q6 hr until reaching full speed. 3. Reassess when pt is extubated. Expected Outcomes/Goals: catabolism prevention Date of Service: Aug 02, 2025 Billing Provider: DARLING CAMPBELL MD Common Visit Codes: [id number] CARE 30-74 MIN CORY LANIER Aug 02, 2025 16:05 DARLING CAMPBELL MD Aug 03, 2025 12:16
[2025-08-02] MEDS: VORICONAZOLE 50 MG TAB GT SCH (21:21)
[2025-08-02] MEDS ORDERED: VORICONAZOLE 50 MG TAB PO SCH (22:00)
[2025-08-03] VITALS (10 sets, daily range): BP systolic 118–151; BP diastolic 62–85; PULSE 70–91; RESP 17–20; TEMP 97.6–98.2; O2SAT 95–99
[2025-08-03 06:58] LABS: Chloride 105 mmol/L (98-107); Potassium 3.6 mmol/L (3.5-5.1); Sodium 140 mmol/L (136-145)
[2025-08-03 06:59] LABS: Anion Gap 13 (5-15); Carbon Dioxide 22 mmol/L (20-31)
[2025-08-03 07:04] LABS: BUN/Creatinine Ratio 53.7 (10.0-20.0)
[2025-08-03 07:18] LABS: Blood Urea Nitrogen 36 mg/dL (9-23); Calcium 10.5 mg/dL (8.7-10.4); Glucose 113 mg/dL (74-106)
[2025-08-03] MEDS ORDERED: LACTULOSE 20Gm/30ML SOLN PEG PRN (10:00)
--- NOTE | 2025-08-03 17:50 | DVHPNRES ---
Progress Note Date Seen: Aug 03, 2025 Resident Creating Document: CORY LANIER RESIDENT Has the PT tested + for MRSA If YES, has PT been informed?: No Medical Necessity Reason Pt with a Central, PICC or Fol: Yes The following are medically ne: Campbell Catheter Reason for campbell catheter: Strict I&O Subjective Review of Systems This is a 50-year-old female with bipolar depression, hypothyroidism, heart failure with a reduced ejection fraction-EF 40%, aortic and tricuspid regurgitation who presented to the ER with high-grade fever 106, ALOC, possible seizure versus heat stroke and was intubated on the field by EMS, prolonged hospital stay secondary to hypoxic brain injury, 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 Status post tracheostomy 07/13 07/17 - Overnight low-grade fever 99.5, tachycardia, blood pressure ranging high up to 180s systolic and 85 diastolic, on T-piece 6 L. Chest x-ray unremarkable. Urine output 2000 cc. Sodium 149, free water deficit 1.5 L, free water q.4 hours started. Underwent NG tube placement, NPO for now. 07/19 - patient with nonpurposeful movements. Urine cloudy, UA shows UTI, IV ceftriaxone, culture pending, campbell changed 07/20- patient examined, no overnight events, clonidine patch, increase Coreg to 12 mg b.i.d., hydrochlorothiazide 12.5 mg daily, trade mark examiner switched levothyroxine to p.o. 125 mcg daily KUB unremarkable, lactulose started. Patient had a bowel movement. 07/21 - no overnight events, statu same, nonpurposeful movements. CT head negative 07/24 - no overnight event, t max 99.7, decreasing O2 from 8 to 4L via trach 07/25-overnight events, at 3 L oxygen via trach, KUB unremarkable last bowel movement 07/20, increased lactulose q.6, Reglan 10 once, DC ceftriaxone 07/26-patient had a small bowel movement, smear, lactulose q.6, Fleet enema given. KUB in a.m.. 07/27 - patient seen, patient had a bowel movement, liquid consistency, chest x- ray unremarkable, overnight desaturated, 3 L oxygen via trach collar. Lower extremity DVT completed, shows unremarkable, KUB shows moderate stool volume, Fleet enema pending 07/28 - 2 BMs, nontracking eye movements, abd soft 07/31 - patient examined, respiratory culture showing protocol, IV voriconazole started. thick white secretion noted. 08/01 - status unchanged, patient examined. Voriconazole. Per Courtney, son over the phone, requesting hospice older adult social work specialist for hospice. 08/02 - pt in vegetative state, low grade fever, voriconazole to PO 08/03 - patient seen and examined, spoke with son Courtney, code status changed to DNR. Objective vital signs Vital Sign Date Time Temp Pulse Resp B/P (MAP) Pulse Ox O2 Delivery O2 Flow Rate FiO2 08/03/25 17:00 98.0 91 17 120/78 (92) 98 98.0 08/03/25 10:27 Trach Collar 8 30 Cool Aerosol 30 Total Intake and Output 08/02/25 08/02/25 08/03/25 15:00 23:00 07:00 Intake Total 0 ml 0 ml Output Total 450 ml 350 ml Balance -450 ml -350 ml medications Current Medications Medications Dose Ordered Sig/Agnes Route Start Time Stop Time Status Last Admin Dose Admin Pantoprazole Sodium 40 mg DAILY IV 07/04/25 10:00 08/03/25 11:40 40 MG Artificial Tears 2 drop Q6HR PRN EACHEYE 07/07/25 20:00 07/16/25 10:06 2 DROP Enteral Nutritional Formula 1,000 ml 50ML/HR GT 07/10/25 13:30 08/02/25 20:27 1,000 ML Hydralazine HCl 10 mg Q6HP PRN IV 07/13/25 07:45 07/22/25 05:57 10 MG Losartan Potassium 100 mg DAILY GT 07/18/25 10:00 08/03/25 11:48 100 MG Spironolactone 25 mg DAILY GT 07/19/25 10:00 08/03/25 11:41 25 MG Enoxaparin Sodium 40 mg DAILY SC 07/19/25 10:00 08/03/25 11:40 40 MG Levothyroxine Sodium 125 mcg QAM@0600 PO 07/21/25 06:00 UNV Amlodipine Besylate 10 mg DAILY PEG 07/21/25 10:00 08/03/25 11:49 10 MG Acetaminophen 650 mg Q6HP PRN PO 07/29/25 23:15 07/31/25 17:00 650 MG Carvedilol 12.5 mg BID PEG 07/31/25 10:00 08/03/25 11:48 12.5 MG Levothyroxine Sodium 100 mcg QAM@0600 PEG 08/01/25 06:00 08/03/25 05:39 100 MCG Levothyroxine Sodium 25 mcg QAM@0600 PEG 08/01/25 06:00 08/03/25 05:39 25 MCG Voriconazole 200 mg Q12HR GT 08/02/25 22:00 08/03/25 11:41 200 MG Lactulose 30 ml Q6H PRN PEG 08/03/25 10:00 Examination Gen - no pallor, no icterus, no cyanosis, no edema . Pupils are anisocoric, R greater than L, fluctuating, light reflex intact. Positive gag and Babinski sign. Skin - Patients skin is warm and dry. HEENT - normocephalic, atraumatic, dry mucous membranes. Neck - no JVD Pulmonary - B/L equal breath sounds, no rales, no wheezing, no stridor.T-piece cardiovascular - regular S1,S2 heard, no added sounds, no murmurs heard. peripheral pulses feeble radial 2+, pedal 2+. GI - soft, nontender abdomen. Bowel sounds hypoactive, liquid-watery bowel movement Neurological - Pupils are isocoric, light reflex intact. Positive gag and Babinski sign. Extremities: Decerebrate posturing, eyes open but no response to verbal stimulation or sudden loud noise laboratory and microbiology Laboratory Tests 08/03/25 06:05 07/31/25 10:30 Test 08/03/25 06:05 Range/Units Serum Glucose 113 H 74-106 mg/dL Microbiology Date/Time Source Procedure Growth Status 07/19/25 09:40 Blood Blood Culture - Final NO GROWTH AFTER 5 DAYS OF INCUBATION. Complete 07/19/25 08:10 Voided Urine Urine Culture - Final Complete 07/06/25 12:08 Trachea Gram Stain - Final Resulted 07/06/25 12:08 Respiratory Culture - Preliminary Aspergillus niger Resulted 07/02/25 13:10 Sputum Gram Stain - Final Complete 07/02/25 13:10 Sputum Respiratory Culture - Final Complete Labs and/or images reviewed: Labs reviewed by me, Image(s) reviewed by me Problem List/Assessment/Plan Problem List/Assessment/Plan NEURO: Acute metabolic and hypoxic encephalopathy secondary to likely Heat stroke SIRS d/t likely Heat stroke Severe hypothyroidism or acute seizures Severe hyperthermia likely from Heat Stroke h/o bipolar disorder h/o depression Vegetative status Decerebration History of seizure disorder Neurologist consulted-poor prognosis for meaningful recovery Supportive treatment advised CARDIOVASCULAR: Wide complex nonsustained Ventricular tachycardia s/p defibrillation Shock likely hypovolemic Moderate to severe aortic regurgitation Heart failure with reduced ejection fraction-EF 40%-s, no exacerbation NSTEMI likely type 2 Hypertension Losartan increased to 100 daily, Coreg 12.5 b.i.d., started spirononlactone 25mg OD, started amlo 10 Hydralazine PRN DC clonidine patch On monitoring coordinator PULMONARY: Acute Gram-positive and Gram-negative pneumonia S/P Tracheostomy on 07/13 Respiratory culture growing filamentous fungi- aspergillus - iv voriconazole 07/31 Off micafungin Completed IV ceftriaxone IV voriconazole Starting 07/31 switched to PO GASTROINTESTINAL: Status post PEG tube placement 07/17 Shock liver Tube feeds Monitor LFTs Lactulose 30 mL q.6 Fleet enema GENITOURINARY: E coli bacterial cystitis 07/03 Recurrent UTI 07/19 TESFAYE on CKD likely due to be VMN IV ceftriaxone starting 07/19 till 07/25 urine culture wnl METABOLIC: Severe hypothyroidism Thrombocytopenia Hypernatremia Cadd Technician consulted-DC IV levothyroxine, levothyroxine 125 mcg daily DC Free water 250 q.4, free water deficit 1.5 L 07/17 INFECTIOUS DISEASE: Ruled out sepsis Acute bacterial cystitis Urine culture growing E coli, repeat negative Respiratory culture growing filamentous fungi DIET: tube feeds DVT prophylax: Lovenox GI prophylaxis: Protonix Bowel regimen: dc lactulose Last BM: 08/02 Code status: Full code LINES/DRAINS/ACCESS:LUE midline 07/11 Drips: None Campbell catheter: placed on 07/02, changed 07/19 Bowel movement: 07/27 DISPOSITION: Med/surge administrative services assistant consultation for subacute Patient's status including plan of care discussed with nurse, all qs answered. Spoke to courtney over the phone. Goals of care discussed with patient's son Courtney over the phone, DNR Critical care time spent more than 43 minutes, including patient care, chart review, and updating the family. Excluding any procedures Case discussed with Dr. Campbell Plan discussed with: Son (Courtney over the phone) My Orders My Orders Orders - CORY LANIER Procedure Category Date Status Time Lactulose Oral PHA 08/03/25 In Process 10:00 Dietary Evaluation Review Comments: 1. TF Vital high protein @50ml/hr (105g Protein 1200kcal and 1003ml free water) supporting 100% of pt's needs 2. Initial TF speed at 30ml/hr, increase 10ml Q6 hr until reaching full speed. 3. Reassess when pt is extubated. Expected Outcomes/Goals: catabolism prevention Date of Service: Aug 03, 2025 Billing Provider: DARLING CAMPBELL MD Common Visit Codes: [id number] CARE 30-74 MIN CORY LANIER Aug 03, 2025 17:50 DARLING CAMPBELL MD Aug 05, 2025 11:50
[2025-08-04] VITALS (11 sets, daily range): BP systolic 111–138; BP diastolic 71–78; PULSE 75–85; RESP 15–18; TEMP 96.6–98.9; O2SAT 93–98
[2025-08-04 05:31] LABS: Anion Gap 12 (5-15); Carbon Dioxide 21 mmol/L (20-31); Chloride 104 mmol/L (98-107); Sodium 137 mmol/L (136-145)
[2025-08-04 05:32] LABS: Calcium 10.4 mg/dL (8.7-10.4)
[2025-08-04 05:37] LABS: BUN/Creatinine Ratio 46.0 (10.0-20.0)
[2025-08-04 05:38] LABS: Blood Urea Nitrogen 29 mg/dL (9-23); Glucose 132 mg/dL (74-106); Potassium 3.4 mmol/L (3.5-5.1)
[2025-08-04] MEDS: POTASSIUM CHL 20MEQ/100ML 100 ML IV SCH (12:49)
--- NOTE | 2025-08-04 13:32 | DVHPNRES ---
Progress Note Date Seen: Aug 04, 2025 Resident Creating Document: CORY LANIER RESIDENT Has the PT tested + for MRSA If YES, has PT been informed?: No Medical Necessity Reason Pt with a Central, PICC or Fol: Yes The following are medically ne: Campbell Catheter Reason for campbell catheter: Strict I&O Subjective Review of Systems This is a 50-year-old female with bipolar depression, hypothyroidism, heart failure with a reduced ejection fraction-EF 40%, aortic and tricuspid regurgitation who presented to the ER with high-grade fever 106, ALOC, possible seizure versus heat stroke and was intubated on the field by EMS, prolonged hospital stay secondary to hypoxic brain injury, 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 Status post tracheostomy 07/13 07/17 - Overnight low-grade fever 99.5, tachycardia, blood pressure ranging high up to 180s systolic and 85 diastolic, on T-piece 6 L. Chest x-ray unremarkable. Urine output 2000 cc. Sodium 149, free water deficit 1.5 L, free water q.4 hours started. Underwent NG tube placement, NPO for now. 07/19 - patient with nonpurposeful movements. Urine cloudy, UA shows UTI, IV ceftriaxone, culture pending, campbell changed 07/20- patient examined, no overnight events, clonidine patch, increase Coreg to 12 mg b.i.d., hydrochlorothiazide 12.5 mg daily, security systems technician switched levothyroxine to p.o. 125 mcg daily KUB unremarkable, lactulose started. Patient had a bowel movement. 07/21 - no overnight events, statu same, nonpurposeful movements. CT head negative 07/24 - no overnight event, t max 99.7, decreasing O2 from 8 to 4L via trach 07/25-overnight events, at 3 L oxygen via trach, KUB unremarkable last bowel movement 07/20, increased lactulose q.6, Reglan 10 once, DC ceftriaxone 07/26-patient had a small bowel movement, smear, lactulose q.6, Fleet enema given. KUB in a.m.. 07/27 - patient seen, patient had a bowel movement, liquid consistency, chest x- ray unremarkable, overnight desaturated, 3 L oxygen via trach collar. Lower extremity DVT completed, shows unremarkable, KUB shows moderate stool volume, Fleet enema pending 07/28 - 2 BMs, nontracking eye movements, abd soft 07/31 - patient examined, respiratory culture showing protocol, IV voriconazole started. thick white secretion noted. 08/01 - status unchanged, patient examined. Voriconazole. Per Courtney, son over the phone, requesting hospice social professionals for hospice. 08/02 - pt in vegetative state, low grade fever, voriconazole to PO 08/03 - patient seen and examined, spoke with son Courtney, code status changed to DNR. 08/04- overnight no events, 8L o2, non purposeful movements, not alert or oriented. Objective vital signs Vital Sign Date Time Temp Pulse Resp B/P (MAP) Pulse Ox O2 Delivery O2 Flow Rate FiO2 08/04/25 13:00 98.9 82 18 113/71 (85) 96 98.9 08/04/25 08:00 Trach Collar 6 N/A Total Intake and Output 08/03/25 08/03/25 08/04/25 15:00 23:00 07:00 Intake Total 0 ml 0 ml Output Total 350 ml 450 ml Balance -350 ml -450 ml medications Current Medications Medications Dose Ordered Sig/Agnes Route Start Time Stop Time Status Last Admin Dose Admin Pantoprazole Sodium 40 mg DAILY IV 07/04/25 10:00 08/04/25 10:01 40 MG Artificial Tears 2 drop Q6HR PRN EACHEYE 07/07/25 20:00 07/16/25 10:06 2 DROP Enteral Nutritional Formula 1,000 ml 50ML/HR GT 07/10/25 13:30 08/04/25 02:56 1,000 ML Hydralazine HCl 10 mg Q6HP PRN IV 07/13/25 07:45 07/22/25 05:57 10 MG Losartan Potassium 100 mg DAILY GT 07/18/25 10:00 08/04/25 10:02 100 MG Spironolactone 25 mg DAILY GT 07/19/25 10:00 08/04/25 09:59 25 MG Enoxaparin Sodium 40 mg DAILY SC 07/19/25 10:00 08/04/25 10:01 40 MG Levothyroxine Sodium 125 mcg QAM@0600 PO 07/21/25 06:00 UNV Amlodipine Besylate 10 mg DAILY PEG 07/21/25 10:00 08/04/25 10:01 10 MG Acetaminophen 650 mg Q6HP PRN PO 07/29/25 23:15 07/31/25 17:00 650 MG Carvedilol 12.5 mg BID PEG 07/31/25 10:00 08/04/25 11:10 12.5 MG Levothyroxine Sodium 100 mcg QAM@0600 PEG 08/01/25 06:00 08/04/25 05:31 100 MCG Levothyroxine Sodium 25 mcg QAM@0600 PEG 08/01/25 06:00 08/04/25 05:31 25 MCG Voriconazole 200 mg Q12HR GT 08/02/25 22:00 08/04/25 10:08 200 MG Lactulose 30 ml Q6H PRN PEG 08/03/25 10:00 Potassium Chloride 100 ml @ 50 mls/hr Q2H IV 08/04/25 10:15 08/04/25 14:14 08/04/25 12:49 50 MLS/HR Examination Gen - no pallor, no icterus, no cyanosis, no edema . Pupils are anisocoric, R greater than L, fluctuating, light reflex intact. Positive gag and Babinski sign. Skin - Patients skin is warm and dry. HEENT - normocephalic, atraumatic, dry mucous membranes. Neck - no JVD Pulmonary - B/L equal breath sounds, no rales, no wheezing, no stridor.T-piece cardiovascular - regular S1,S2 heard, no added sounds, no murmurs heard. peripheral pulses feeble radial 2+, pedal 2+. GI - soft, nontender abdomen. Bowel sounds hypoactive, liquid-watery bowel movement. Stage I decubitus ulcer Neurological - Pupils are isocoric, light reflex intact. Positive gag and Babinski sign. Extremities: Decerebrate posturing, eyes open but no response to verbal stimulation or sudden loud noise laboratory and microbiology Laboratory Tests 08/04/25 04:22 07/31/25 10:30 Test 08/04/25 04:22 Range/Units Serum Glucose 132 H 74-106 mg/dL Microbiology Date/Time Source Procedure Growth Status 07/19/25 09:40 Blood Blood Culture - Final NO GROWTH AFTER 5 DAYS OF INCUBATION. Complete 07/19/25 08:10 Voided Urine Urine Culture - Final Complete 07/06/25 12:08 Trachea Gram Stain - Final Resulted 07/06/25 12:08 Respiratory Culture - Preliminary Aspergillus niger Resulted 07/02/25 13:10 Sputum Gram Stain - Final Complete 07/02/25 13:10 Sputum Respiratory Culture - Final Complete Labs and/or images reviewed: Labs reviewed by me, Image(s) reviewed by me Problem List/Assessment/Plan Problem List/Assessment/Plan NEURO: Acute metabolic and hypoxic encephalopathy secondary to likely Heat stroke SIRS d/t likely Heat stroke Severe hypothyroidism or acute seizures Severe hyperthermia likely from Heat Stroke h/o bipolar disorder h/o depression Vegetative status Decerebration History of seizure disorder Neurologist consulted-poor prognosis for meaningful recovery Supportive treatment advised CARDIOVASCULAR: Wide complex nonsustained Ventricular tachycardia s/p defibrillation Shock likely hypovolemic Moderate to severe aortic regurgitation Heart failure with reduced ejection fraction-EF 40%-s, no exacerbation NSTEMI likely type 2 Hypertension Losartan increased to 100 daily, Coreg 12.5 b.i.d., started spirononlactone 25mg OD, started amlo 10 Hydralazine PRN DC clonidine patch On cardiac exercise physiologist PULMONARY: Acute Gram-positive and Gram-negative pneumonia S/P Tracheostomy on 07/13 Respiratory culture growing filamentous fungi- aspergillus - iv voriconazole 07/31 Off micafungin Completed IV ceftriaxone IV voriconazole Starting 07/31 switched to PO GASTROINTESTINAL: Status post PEG tube placement 07/17 Shock liver Tube feeds Monitor LFTs Lactulose 30 mL q.6 Fleet enema GENITOURINARY: E coli bacterial cystitis 07/03 Recurrent UTI 07/19 TESFAYE on CKD likely due to be VMN IV ceftriaxone starting 07/19 till 07/25 urine culture wnl METABOLIC: Severe hypothyroidism Thrombocytopenia Hypernatremia Chief Deputy Clerk/Bailiff consulted-DC IV levothyroxine, levothyroxine 125 mcg daily DC Free water 250 q.4, free water deficit 1.5 L 07/17 INFECTIOUS DISEASE: Ruled out sepsis Acute bacterial cystitis Urine culture growing E coli, repeat negative Respiratory culture growing filamentous fungi Stage I decubitus ulcer Q.4h turns Wound care DIET: tube feeds DVT prophylax: Lovenox GI prophylaxis: Protonix Bowel regimen: dc lactulose Code status: Full code LINES/DRAINS/ACCESS:LUE midline 07/11 Drips: None Campbell catheter: placed on 07/02, changed 07/19 DISPOSITION: [facility] [place] director of maternity services consultation for subacute Patient's status including plan of care discussed with nurse, all qs answered. Spoke to courtney over the phone. Goals of care discussed with patient's son Courtney over the phone, DNR Critical care time spent more than 53 minutes, including patient care, chart review, and updating the family. Excluding any procedures Case discussed with Dr. Cabrera Plan discussed with: Other (Nurse) My Orders My Orders Orders - CORY LANIER Procedure Category Date Status Time Code Status CODE 08/03/25 Transmitted 18:46 Potassium Chl PHA 08/04/25 In Process 20meq/100ml 10:15 Dietary Evaluation Review Comments: 1. TF Vital high protein @50ml/hr (105g Protein 1200kcal and 1003ml free water) supporting 100% of pt's needs 2. Initial TF speed at 30ml/hr, increase 10ml Q6 hr until reaching full speed. 3. Reassess when pt is extubated. Expected Outcomes/Goals: catabolism prevention CORY LANIER Aug 04, 2025 13:32
--- NOTE | 2025-08-04 20:30 | DVHPN2 ---
Progress Note - Dictate Date Seen: Aug 04, 2025 Has the PT tested + for MRSA If YES, has PT been informed?: No Medical Necessity Reason Pt with a Central, PICC or Fol: Yes The following are medically ne: Campbell Catheter Reason for campbell catheter: Strict I&O Subjective Ms. Montes is a 50 years old female with a history of bipolar disorder, anxiety, depression, the patient was taken to the hospital on 07/02/2025 with a chief complaint of altered mental status. I saw her on 01/10/2024 for ALOC I have seen and examined the patient, I have discussed with her nurse, her eyes are open, moving from [id number], not sure if she is responsive to sudden loud noise, I did not see disability posturing on 07/31/2025, 08/04/25 RN: She still needs high flow oxygen Status post tracheostomy on 07/14/2025 Status post PEG insertion on 07/17/25 Pupil size 07/09/25: right: 4 mm, left: 2-3 mm, both are reactive to lights (RN: The left- sided was bigger during the daytime yesterday) 07/10/2025: right: 4 mm, left: 2-3 mm, both are reactive to lights 07/12/2025: right: 3 mm, left: 2-3 mm, both are reactive to lights 07/15/2025: PERRL 07/17/2025: PERRL (left-sided was bigger according to Dr. Hassan) 07/18/2025: Right side is minimally bigger 07/19/2025: PERRL 07/21/2025: PERRL CSF, 01/12/2024: C/C, WBC: 0, RBC: 0, protein: 36.1, glucose: 70 Urinalysis, 07/02/2025: Urine leukocyte esterase: 3+ Urine culture, 07/03/2025: E coli Blood culture, 07/03/2025: Negative UDS, 07/02/2025: Negative [place], 07/07/2025: ABG, 07/03/2025: Compensated metabolic acidosis, 07/07/2025: Compensated metabolic acidosis WBC/HB/PLT/MCV, 07/07/2025: 8.5/8.8/58/82.3 Na 07/13/2025: 144, 07/14/25: 146, 07/15/25: 152 CK, 07/02/2025: 653, 07/04/2025: 1423, 07/22/2025: 693, 07/07/2025: 366 TG/HDL/LDL/HDL, 07/05/2025: 13/1.25/27 Ferritin 01/19/2024: 21.8 Chest x-ray, 07/02/2025: 1. Endotracheal tube 6.1 cm above the sylvia. 2. AED pads over the chest 3. Enteric tube position left diaphragm in the stomach CT head, 01/10/2024: No acute intracranial abnormality or significant interval change compared to 01/09/2024 CT head, 07/02/2025: No acute intracranial abnormality. CT head, 07/10/2025: No acute intracranial abnormality CT head, 07/21/2025: No acute intracranial abnormality. CT chest, 01/09/2024: 1. Inferior left upper and lower lobe consolidation favored to reflect infectious/inflammatory etiology, possibly aspiration. 2. The endotracheal tube terminates in the right mainstem bronchus. 3. The enteric tube is in satisfactory position MRI head, 01/15/2024: No acute abnormal MRI findings of the brain MR head, 07/10/2025: Subtle increased DWI signal within the bilateral caudate head, anterior putamen, medial temporal lobes, midbrain, and cerebellar hemispheres, concerning for early findings of hypoxic ischemic injury MRI C-spine, 01/15/24: 1. Degenerative disc disease and facet/uncinate disease in the cervical spine with associated spinal canal, subarticular, and neural foraminal stenoses as detailed above. 2. 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 3. No signal abnormality in the spinal cord to suggest myelopathy. 4. Additional findings as detailed above vital signs Vital Sign Date Time Temp Pulse Resp B/P (MAP) Pulse Ox O2 Delivery O2 Flow Rate FiO2 08/04/25 16:56 98.8 79 17 111/76 (88) 98 98.8 08/04/25 14:10 Trach Collar 6.0 08/04/25 14:10 28 28 Total Intake and Output 08/03/25 08/03/25 08/04/25 15:00 23:00 07:00 Intake Total 0 ml 0 ml Output Total 350 ml 450 ml Balance -350 ml -450 ml medications Current Medications Medications Dose Ordered Sig/Agnes Route Start Time Stop Time Status Last Admin Dose Admin Pantoprazole Sodium 40 mg DAILY IV 07/04/25 10:00 08/04/25 10:01 40 MG Artificial Tears 2 drop Q6HR PRN EACHEYE 07/07/25 20:00 07/16/25 10:06 2 DROP Enteral Nutritional Formula 1,000 ml 50ML/HR GT 07/10/25 13:30 08/04/25 02:56 1,000 ML Hydralazine HCl 10 mg Q6HP PRN IV 07/13/25 07:45 07/22/25 05:57 10 MG Losartan Potassium 100 mg DAILY GT 07/18/25 10:00 08/04/25 10:02 100 MG Spironolactone 25 mg DAILY GT 07/19/25 10:00 08/04/25 09:59 25 MG Enoxaparin Sodium 40 mg DAILY SC 07/19/25 10:00 08/04/25 10:01 40 MG Levothyroxine Sodium 125 mcg QAM@0600 PO 07/21/25 06:00 UNV Amlodipine Besylate 10 mg DAILY PEG 07/21/25 10:00 08/04/25 10:01 10 MG Acetaminophen 650 mg Q6HP PRN PO 07/29/25 23:15 07/31/25 17:00 650 MG Carvedilol 12.5 mg BID PEG 07/31/25 10:00 08/04/25 11:10 12.5 MG Levothyroxine Sodium 100 mcg QAM@0600 PEG 08/01/25 06:00 08/04/25 05:31 100 MCG Levothyroxine Sodium 25 mcg QAM@0600 PEG 08/01/25 06:00 08/04/25 05:31 25 MCG Voriconazole 200 mg Q12HR GT 08/02/25 22:00 08/04/25 10:08 200 MG Lactulose 30 ml Q6H PRN PEG 08/03/25 10:00 objective The patient is well-nourished and well-developed with no distress. MENTAL STATUS: Subjective CRANIAL NERVES: Pupils are round and reactive.There is frequent blinking and occasional rolling eye movement. No signs of facial weakness. There are gagging or coughing reflexes SENSATION: Responses to pain stimuli. MOTOR: Elevated tone in the upper and lower extremity. Normal muscle bulk. No fasciculations. She moves left upper extremity, no definite movement seen in the right arm REFLEXES: Deep tendon reflexes are symmetrical. Bilateral Upgoing toes noticed CEREBELLAR/COORDINATION: Deferred GAIT/STATION: deferred. laboratory and microbiology Laboratory Tests 08/04/25 04:22 07/31/25 10:30 Test 08/04/25 04:22 Range/Units Serum Glucose 132 H 74-106 mg/dL Problem List Altered mental status Heat stroke Metabolic encephalopathy Hypoxic encephalopathy Vegetative status Decerebration Respiratory failure status post tracheostomy Urinary tract infection Rule out sepsis Bipolar disorder, depression, anxiety Seizure disorder, with last seizure attack before 2017 Restless leg syndrome with low ferritin Assessment/Plan Monitoring Supportive treatment Telemetry Oxygen DVT prophylaxis GI prophylaxis Tube feeding History from her when she wakes up She is to have feeding tube insertion More recommended per clinical course She is likely to have a poor prognosis for meaning recovery This medical document was created using an electronic medical record system with [employer] dictation system. Although this document has been carefully reviewed, there may still be some phonetic and typographical errors. These areas are purely typographical due to imperfections of the software programs, and do not reflect any compromise in the patient's medical care. Prognosis poor Dietary Evaluation Review Comments: 1. TF Vital high protein @50ml/hr (105g Protein 1200kcal and 1003ml free water) supporting 100% of pt's needs 2. Initial TF speed at 30ml/hr, increase 10ml Q6 hr until reaching full speed. 3. Reassess when pt is extubated. Expected Outcomes/Goals: catabolism prevention Plan discussed with: HORACIO Salomon MD Aug 04, 2025 20:30
[2025-08-05] VITALS (11 sets, daily range): BP systolic 111–122; BP diastolic 71–76; PULSE 77–89; RESP 14–18; TEMP 97.7–99.2; O2SAT 96–99
[2025-08-05 08:00] LABS: Anion Gap 12 (5-15); Calcium 10.1 mg/dL (8.7-10.4); Carbon Dioxide 21 mmol/L (20-31); Chloride 104 mmol/L (98-107); Potassium 3.9 mmol/L (3.5-5.1); Sodium 137 mmol/L (136-145)
[2025-08-05 08:06] LABS: BUN/Creatinine Ratio 50.0 (10.0-20.0)
[2025-08-05 08:13] LABS: Blood Urea Nitrogen 30 mg/dL (9-23); Glucose 111 mg/dL (74-106)
--- NOTE | 2025-08-05 13:07 | DVHPN2 ---
Progress Note - Dictate Date Seen: Aug 05, 2025 Has the PT tested + for MRSA If YES, has PT been informed?: No Medical Necessity Reason Pt with a Central, PICC or Fol: Yes The following are medically ne: Campbell Catheter Reason for acmpbell catheter: Strict I&O vital signs Vital Sign Date Time Temp Pulse Resp B/P (MAP) Pulse Ox O2 Delivery O2 Flow Rate FiO2 08/05/25 12:35 99.2 80 17 117/76 (90) 96 99.2 08/05/25 08:00 Trach Collar 8 N/A Total Intake and Output 08/04/25 08/04/25 08/05/25 15:00 23:00 07:00 Intake Total 0 ml 5 ml Output Total 650 ml 500 ml Balance -650 ml -495 ml medications Current Medications Medications Dose Ordered Sig/Agnes Route Start Time Stop Time Status Last Admin Dose Admin Pantoprazole Sodium 40 mg DAILY IV 07/04/25 10:00 08/05/25 11:42 40 MG Artificial Tears 2 drop Q6HR PRN EACHEYE 07/07/25 20:00 07/16/25 10:06 2 DROP Enteral Nutritional Formula 1,000 ml 50ML/HR GT 07/10/25 13:30 08/05/25 02:32 1,000 ML Hydralazine HCl 10 mg Q6HP PRN IV 07/13/25 07:45 07/22/25 05:57 10 MG Losartan Potassium 100 mg DAILY GT 07/18/25 10:00 08/05/25 11:42 100 MG Spironolactone 25 mg DAILY GT 07/19/25 10:00 08/05/25 11:38 25 MG Enoxaparin Sodium 40 mg DAILY SC 07/19/25 10:00 08/05/25 11:43 40 MG Levothyroxine Sodium 125 mcg QAM@0600 PO 07/21/25 06:00 UNV Amlodipine Besylate 10 mg DAILY PEG 07/21/25 10:00 08/05/25 11:42 10 MG Acetaminophen 650 mg Q6HP PRN PO 07/29/25 23:15 07/31/25 17:00 650 MG Carvedilol 12.5 mg BID PEG 07/31/25 10:00 08/05/25 11:41 12.5 MG Levothyroxine Sodium 100 mcg QAM@0600 PEG 08/01/25 06:00 08/05/25 06:02 100 MCG Levothyroxine Sodium 25 mcg QAM@0600 PEG 08/01/25 06:00 08/05/25 06:02 25 MCG Voriconazole 200 mg Q12HR GT 08/02/25 22:00 08/05/25 11:43 200 MG Lactulose 30 ml Q6H PRN PEG 08/03/25 10:00 laboratory and microbiology Laboratory Tests 08/05/25 06:53 07/31/25 10:30 Test 08/05/25 06:53 Range/Units Serum Glucose 111 H 74-106 mg/dL Assessment/Plan Covering for Dr. Guzman Impression Status post cardiac arrest Requiring CPR Acute hypoxemic respiratory failure S/p tracheostomy Heat stroke Patient is seen and examined Events S/p tracheostomy Tolerating trach collar No acute events Labs and imaging studies reviewed Management plan Supplemental oxygen Trache care as per RT protocols Diuresis Monitor renal function Replace electrolytes Nutritional support GI prophylaxis or DVT prophylaxis Dietary Evaluation Review Comments: 1. TF Vital high protein @50ml/hr (105g Protein 1200kcal and 1003ml free water) supporting 100% of pt's needs 2. Initial TF speed at 30ml/hr, increase 10ml Q6 hr until reaching full speed. 3. Reassess when pt is extubated. Expected Outcomes/Goals: catabolism prevention Plan discussed with: Patient JUDE HALEY MD Aug 05, 2025 13:07
--- NOTE | 2025-08-05 18:27 | DVHPN2 ---
Subjective Overnight events noted. Patient is currently on PEG and trach, 8 L of oxygen. Patient is in persistent vegetative state. Reviewed: Care Plan Changes from previous H/P or p: No Changes General: Per HPI Objective Vitals Vital Signs Date Time Temp Pulse Resp B/P (MAP) Pulse Ox O2 Delivery O2 Flow Rate FiO2 08/05/25 17:00 98.5 77 16 111/71 (84) 98 98.5 08/05/25 08:35 8.0 30 08/05/25 08:00 Trach Collar Intake/Output Intake and Output 08/05/25 07:00 Intake Total 5 ml Output Total 1150 ml Balance -1145 ml Intake Oral 0 ml Other 5 ml Output Urine Total 1150 ml # Bowel Movements 1 Exam HEENT pupils are reactive neck status post tracheostomy CV is S1-S2 regular rate and rhythm Respiratory are clear GI positive bowel sound Extremity no edema 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 General Appearance: Alert HEENT: Atraumatic, PERRLA, EOMI, Mucous membr. moist/pink, Other (Tracheostomy intact) Neck: Supple Lungs: Clear to auscultation, Normal air movement Cardiovascular: Regular rate, Normal S1, Normal S2, No murmurs, Gallops, Rubs Abdomen: Normal bowel sounds, Soft, No tenderness Medications Current Medications Medications Dose Ordered Sig/Agnes Route Start Time Stop Time Status Last Admin Dose Admin Pantoprazole Sodium 40 mg DAILY IV 07/04/25 10:00 08/05/25 11:42 40 MG Artificial Tears 2 drop Q6HR PRN EACHEYE 07/07/25 20:00 07/16/25 10:06 2 DROP Enteral Nutritional Formula 1,000 ml 50ML/HR GT 07/10/25 13:30 08/05/25 02:32 1,000 ML Hydralazine HCl 10 mg Q6HP PRN IV 07/13/25 07:45 07/22/25 05:57 10 MG Losartan Potassium 100 mg DAILY GT 07/18/25 10:00 08/05/25 11:42 100 MG Spironolactone 25 mg DAILY GT 07/19/25 10:00 08/05/25 11:38 25 MG Enoxaparin Sodium 40 mg DAILY SC 07/19/25 10:00 08/05/25 11:43 40 MG Levothyroxine Sodium 125 mcg QAM@0600 PO 8/29/25 06:00 UNV Amlodipine Besylate 10 mg DAILY PEG 07/21/25 10:00 08/05/25 11:42 10 MG Acetaminophen 650 mg Q6HP PRN PO 07/29/25 23:15 07/31/25 17:00 650 MG Carvedilol 12.5 mg BID PEG 07/31/25 10:00 08/05/25 11:41 12.5 MG Levothyroxine Sodium 100 mcg QAM@0600 PEG 08/01/25 06:00 08/05/25 06:02 100 MCG Levothyroxine Sodium 25 mcg QAM@0600 PEG 08/01/25 06:00 08/05/25 06:02 25 MCG Voriconazole 200 mg Q12HR GT 08/02/25 22:00 08/05/25 11:43 200 MG Lactulose 30 ml Q6H PRN PEG 08/03/25 10:00 Laboratory Results Laboratory Tests 07/31/25 10:30 08/05/25 06:53 Chemistry Test 08/05/25 06:53 Calcium Level 10.1 mg/dL (8.7-10.4) Urinalysis Test 07/03/25 14:40 07/19/25 08:10 Urine Amorphous Crystals Few /hpf (None Seen) Urine Color Colorless (Yellow) Urine Clarity Turbid (Clear) H Urine pH 5.0 (5.0-9.0) Urine Specific [place] 1.016 (1.001-1.035) Urine Protein 1+ (Negative) H Urine Ketones Negative (Negative) Urine Blood Negative /uL (Negative) Urine Nitrite Negative (Negative) Urine Bilirubin Negative (Negative) Urine Urobilinogen Normal mg/dL (Negative) Urine Leukocyte Esterase 3+ /uL (Negative) Urine RBC 11 /hpf (0 - 4) Urine Microscopic WBC 249 /HPF (0-5) H Urine Squamous Epithelial Cells Few /hpf (<5) Urine Bacteria Few /hpf (None Seen) H Urine Mucus Few (None Seen) Urine Glucose Normal mg/dL (Normal) Microbiology Microbiology Date/Time Source Procedure Growth Status 07/19/25 09:40 Blood Blood Culture - Final NO GROWTH AFTER 5 DAYS OF INCUBATION. Complete 07/19/25 08:10 Voided Urine Urine Culture - Final Complete 07/06/25 12:08 Trachea Gram Stain - Final Resulted 07/06/25 12:08 Respiratory Culture - Preliminary Aspergillus niger Resulted 07/02/25 13:10 Sputum Gram Stain - Final Complete 07/02/25 13:10 Sputum Respiratory Culture - Final Complete Assessment/Plan Assessment/Plan 50-year-old female with a known history of bipolar disorder, depression, hypothyroidism, congestive heart failure with the EF of 40% who initially presented to the hospital with high-grade fever 106, altered mental status suspected to have seizures as well as heat stroke. Patient is status post intubation status post again tracheostomy now patient in persistently vegetative state. 1. Acute metabolic/hypoxic/anoxic encephalopathy, currently in persistent vegetative state 2. I severe hypothermia secondary to heat stroke, 3. Acute hypoxic respiratory failure status post intubation status post extubation currently on PEG and tracheostomy 4. Ventricular tachycardia status post defibrillation 5. NSTEMI likely type 2 6. Hypertension 7. Gram-positive Gram-negative pneumonia, treated 8. Acute kidney injury secondary to vasomotor nephropathy currently improving 9. Stage I pressure ulcer sacral decubitus 10. E coli UTI treated --continue O2 supplementation, med nebs as needed, patient in a persistent vegetative state, discharge plan to possibly long-term acute care once bed is available. Plan discussed with: Other (Patient's bedside LYNETTE Ramirez.) Date of Service: Aug 05, 2025 Billing Provider: JENNI BAXTER MD Common Visit Codes: [id number] INP/OBS CARE(MOD) JENNI BAXTER MD Aug 05, 2025 18:27
[2025-08-06] VITALS (10 sets, daily range): BP systolic 107–124; BP diastolic 64–82; PULSE 79–96; RESP 15–22; TEMP 97.9–98.8; O2SAT 95–100
--- NOTE | 2025-08-06 14:30 | DVHPN2 ---
Progress Note - Dictate Date Seen: Aug 06, 2025 Has the PT tested + for MRSA If YES, has PT been informed?: No Medical Necessity Reason Pt with a Central, PICC or Fol: Yes The following are medically ne: Campbell Catheter Reason for campbell catheter: Strict I&O vital signs Vital Sign Date Time Temp Pulse Resp B/P (MAP) Pulse Ox O2 Delivery O2 Flow Rate FiO2 08/06/25 13:00 97.9 82 15 107/70 (82) 98 97.9 08/06/25 08:00 Trach Collar 8 N/A Total Intake and Output 08/05/25 08/05/25 08/06/25 15:00 23:00 07:00 Intake Total 2000 ml 0 ml Output Total 675 ml 500 ml Balance 1325 ml -500 ml medications Current Medications Medications Dose Ordered Sig/Agnes Route Start Time Stop Time Status Last Admin Dose Admin Pantoprazole Sodium 40 mg DAILY IV 07/04/25 10:00 08/06/25 10:55 40 MG Artificial Tears 2 drop Q6HR PRN EACHEYE 07/07/25 20:00 07/16/25 10:06 2 DROP Enteral Nutritional Formula 1,000 ml 50ML/HR GT 07/10/25 13:30 08/05/25 22:48 1,000 ML Hydralazine HCl 10 mg Q6HP PRN IV 07/13/25 07:45 07/22/25 05:57 10 MG Losartan Potassium 100 mg DAILY GT 07/18/25 10:00 08/06/25 10:55 100 MG Spironolactone 25 mg DAILY GT 07/19/25 10:00 08/06/25 10:55 25 MG Enoxaparin Sodium 40 mg DAILY SC 07/19/25 10:00 08/06/25 10:55 40 MG Levothyroxine Sodium 125 mcg QAM@0600 PO 07/21/25 06:00 UNV Amlodipine Besylate 10 mg DAILY PEG 07/21/25 10:00 08/06/25 10:54 10 MG Acetaminophen 650 mg Q6HP PRN PO 07/29/25 23:15 07/31/25 17:00 650 MG Carvedilol 12.5 mg BID PEG 07/31/25 10:00 08/06/25 10:54 12.5 MG Levothyroxine Sodium 100 mcg QAM@0600 PEG 08/01/25 06:00 08/06/25 05:45 100 MCG Levothyroxine Sodium 25 mcg QAM@0600 PEG 08/01/25 06:00 08/06/25 05:45 25 MCG Voriconazole 200 mg Q12HR GT 08/02/25 22:00 08/06/25 10:52 200 MG Lactulose 30 ml Q6H PRN PEG 08/03/25 10:00 laboratory and microbiology Laboratory Tests 08/05/25 06:53 07/31/25 10:30 Test 08/05/25 06:53 Range/Units Serum Glucose 111 H 74-106 mg/dL Assessment/Plan Covering for Dr. Guzman Impression Status post cardiac arrest Requiring CPR Acute hypoxemic respiratory failure S/p tracheostomy Heat stroke Patient is seen and examined Events S/p tracheostomy Tolerating trach collar No distress Labs and imaging studies reviewed Management plan Supplemental oxygen Trache care as per RT protocols Diuresis Monitor renal function Replace electrolytes Nutritional support GI prophylaxis or DVT prophylaxis Dietary Evaluation Review Comments: 1. TF Vital high protein @50ml/hr (105g Protein 1200kcal and 1003ml free water) supporting 100% of pt's needs 2. Initial TF speed at 30ml/hr, increase 10ml Q6 hr until reaching full speed. 3. Reassess when pt is extubated. Expected Outcomes/Goals: catabolism prevention Plan discussed with: Patient JUDE HALEY MD Aug 06, 2025 14:30
--- NOTE | 2025-08-06 17:39 | DVHPN2 ---
Subjective Overnight events noted. Patient is currently on PEG and trach, 8 L of oxygen. Patient is in persistent vegetative state. 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 General Appearance: Alert HEENT: Atraumatic, PERRLA, EOMI, Mucous membr. moist/pink, Other (Tracheostomy intact) Neck: Supple Lungs: Clear to auscultation, Normal air movement Cardiovascular: Regular rate, Normal S1, Normal S2, No murmurs, Gallops, Rubs Abdomen: Normal bowel sounds, Soft, No tenderness Medications Current Medications Medications Dose Ordered Sig/Agnes Route Start Time Stop Time Status Last Admin Dose Admin Pantoprazole Sodium 40 mg DAILY IV 07/04/25 10:00 08/06/25 10:55 40 MG Artificial Tears 2 drop Q6HR PRN EACHEYE 07/07/25 20:00 07/16/25 10:06 2 DROP Enteral Nutritional Formula 1,000 ml 50ML/HR GT 07/10/25 13:30 08/05/25 22:48 1,000 ML Hydralazine HCl 10 mg Q6HP PRN IV 07/13/25 07:45 07/22/25 05:57 10 MG Losartan Potassium 100 mg DAILY GT 07/18/25 10:00 08/06/25 10:55 100 MG Spironolactone 25 mg DAILY GT 07/19/25 10:00 08/06/25 10:55 25 MG Enoxaparin Sodium 40 mg DAILY SC 07/19/25 10:00 08/06/25 10:55 40 MG Levothyroxine Sodium 125 mcg QAM@0600 PO 07/21/25 06:00 UNV Amlodipine Besylate 10 mg DAILY PEG 07/21/25 10:00 08/06/25 10:54 10 MG Acetaminophen 650 mg Q6HP PRN PO 07/29/25 23:15 07/31/25 17:00 650 MG Carvedilol 12.5 mg BID PEG 07/31/25 10:00 08/06/25 10:54 12.5 MG Levothyroxine Sodium 100 mcg QAM@0600 PEG 08/01/25 06:00 08/06/25 05:45 100 MCG Levothyroxine Sodium 25 mcg QAM@0600 PEG 08/01/25 06:00 08/06/25 05:45 25 MCG Voriconazole 200 mg Q12HR GT 08/02/25 22:00 08/06/25 10:52 200 MG Lactulose 30 ml Q6H PRN PEG 08/03/25 10:00 Laboratory Results Laboratory Tests 07/31/25 10:30 08/05/25 06:53 Urinalysis Test 07/03/25 14:40 07/19/25 08:10 Urine Amorphous Crystals Few /hpf (None Seen) Urine Color Colorless (Yellow) Urine Clarity Turbid (Clear) H Urine pH 5.0 (5.0-9.0) Urine Specific [place] 1.016 (1.001-1.035) Urine Protein 1+ (Negative) H Urine Ketones Negative (Negative) Urine Blood Negative /uL (Negative) Urine Nitrite Negative (Negative) Urine Bilirubin Negative (Negative) Urine Urobilinogen Normal mg/dL (Negative) Urine Leukocyte Esterase 3+ /uL (Negative) Urine RBC 11 /hpf (0 - 4) Urine Microscopic WBC 249 /HPF (0-5) H Urine Squamous Epithelial Cells Few /hpf (<5) Urine Bacteria Few /hpf (None Seen) H Urine Mucus Few (None Seen) Urine Glucose Normal mg/dL (Normal) Microbiology Microbiology Date/Time Source Procedure Growth Status 07/19/25 09:40 Blood Blood Culture - Final NO GROWTH AFTER 5 DAYS OF INCUBATION. Complete 07/19/25 08:10 Voided Urine Urine Culture - Final Complete 07/06/25 12:08 Trachea Gram Stain - Final Resulted 07/06/25 12:08 Respiratory Culture - Preliminary Aspergillus niger Resulted 07/02/25 13:10 Sputum Gram Stain - Final Complete 8/10/25 13:10 Sputum Respiratory Culture - Final Complete Assessment/Plan Assessment/Plan 50-year-old female with a known history of bipolar disorder, depression, hypothyroidism, congestive heart failure with the EF of 40% who initially presented to the hospital with high-grade fever 106, altered mental status suspected to have seizures as well as heat stroke. Patient is status post intubation status post again tracheostomy now patient in persistently vegetative state. 1. Acute metabolic/hypoxic/anoxic encephalopathy, currently in persistent vegetative state 2. I severe hypothermia secondary to heat stroke, 3. Acute hypoxic respiratory failure status post intubation status post extubation currently on PEG and tracheostomy 4. Ventricular tachycardia status post defibrillation 5. NSTEMI likely type 2 6. Hypertension 7. Gram-positive Gram-negative pneumonia, treated 8. Acute kidney injury secondary to vasomotor nephropathy currently improving 9. Stage I pressure ulcer sacral decubitus 10. E coli UTI treated --continue O2 supplementation, med nebs as needed, patient in a persistent vegetative state, discharge plan to possibly long-term acute care once bed is available. Plan discussed with: Other (Patient's bedside RN.) Date of Service: Aug 06, 2025 Billing Provider: JENNI BAXTER MD Common Visit Codes: [id number] INP/OBS CARE(MOD) JENNI BAXTER MD Aug 06, 2025 17:39
[2025-08-07] VITALS (9 sets, daily range): BP systolic 103–146; BP diastolic 67–88; PULSE 76–90; RESP 16–20; TEMP 98.2–99; O2SAT 97–99
[2025-08-07] MEDS ORDERED: Jevity 1.2 Cal/Fiber 1 Liter PEG SCH (15:30)
[2025-08-07] MEDS ORDERED: Vital High Protein 1liter Bottle GT SCH (15:30)
--- NOTE | 2025-08-07 16:26 | DVHPNRES ---
Progress Note Date Seen: Aug 07, 2025 Resident Creating Document: CORY LANIER RESIDENT Has the PT tested + for MRSA If YES, has PT been informed?: No Medical Necessity Reason Pt with a Central, PICC or Fol: Yes The following are medically ne: Campbell Catheter Reason for campbell catheter: Strict I&O Subjective Review of Systems This is a 50-year-old female with bipolar depression, hypothyroidism, heart failure with a reduced ejection fraction-EF 40%, aortic and tricuspid regurgitation who presented to the ER with high-grade fever 106, ALOC, possible seizure versus heat stroke and was intubated on the field by EMS, prolonged hospital stay secondary to hypoxic brain injury, 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 Status post tracheostomy 07/13 07/17 - Overnight low-grade fever 99.5, tachycardia, blood pressure ranging high up to 180s systolic and 85 diastolic, on T-piece 6 L. Chest x-ray unremarkable. Urine output 2000 cc. Sodium 149, free water deficit 1.5 L, free water q.4 hours started. Underwent NG tube placement, NPO for now. 07/19 - patient with nonpurposeful movements. Urine cloudy, UA shows UTI, IV ceftriaxone, culture pending, campbell changed 07/20- patient examined, no overnight events, clonidine patch, increase Coreg to 12 mg b.i.d., hydrochlorothiazide 12.5 mg daily, lockstitch sleeve maker switched levothyroxine to p.o. 125 mcg daily KUB unremarkable, lactulose started. Patient had a bowel movement. 07/21 - no overnight events, statu same, nonpurposeful movements. CT head negative 07/24 - no overnight event, t max 99.7, decreasing O2 from 8 to 4L via trach 07/25-overnight events, at 3 L oxygen via trach, KUB unremarkable last bowel movement 07/20, increased lactulose q.6, Reglan 10 once, DC ceftriaxone 07/26-patient had a small bowel movement, smear, lactulose q.6, Fleet enema given. KUB in a.m.. 07/27 - patient seen, patient had a bowel movement, liquid consistency, chest x- ray unremarkable, overnight desaturated, 3 L oxygen via trach collar. Lower extremity DVT completed, shows unremarkable, KUB shows moderate stool volume, Fleet enema pending 07/28 - 2 BMs, nontracking eye movements, abd soft 07/31 - patient examined, respiratory culture showing protocol, IV voriconazole started. thick white secretion noted. 08/01 - status unchanged, patient examined. Voriconazole. Per Courtney, son over the phone, requesting hospice health and social care teacher for hospice. 08/02 - pt in vegetative state, low grade fever, voriconazole to PO 08/03 - patient seen and examined, spoke with son Courtney, code status changed to DNR. 08/04- overnight no events, 8L o2, non purposeful movements, not alert or oriented. 08/07 - no events over the weekend, non tracking eye movements, abdomen is soft, on NC 6 L, health and social care teacher consulted for arranging tube feedings and supplies. Objective vital signs Vital Sign Date Time Temp Pulse Resp B/P (MAP) Pulse Ox O2 Delivery O2 Flow Rate FiO2 08/07/25 13:35 85 122/74 08/07/25 13:00 98.2 17 97 98.2 08/07/25 09:15 Trach Collar 6.0 08/07/25 09:15 28 28 Total Intake and Output 08/06/25 08/06/25 08/07/25 15:00 23:00 07:00 Intake Total 0 ml 2000 ml 0 ml Output Total 1125 ml 650 ml Balance 0 ml 875 ml -650 ml medications Current Medications Medications Dose Ordered Sig/Agnes Route Start Time Stop Time Status Last Admin Dose Admin Pantoprazole Sodium 40 mg DAILY IV 07/04/25 10:00 08/07/25 13:36 40 MG Artificial Tears 2 drop Q6HR PRN EACHEYE 07/07/25 20:00 07/16/25 10:06 2 DROP Hydralazine HCl 10 mg Q6HP PRN IV 07/13/25 07:45 07/22/25 05:57 10 MG Losartan Potassium 100 mg DAILY GT 07/18/25 10:00 08/07/25 13:34 100 MG Spironolactone 25 mg DAILY GT 07/19/25 10:00 08/07/25 13:36 25 MG Enoxaparin Sodium 40 mg DAILY SC 07/19/25 10:00 08/07/25 13:35 40 MG Levothyroxine Sodium 125 mcg QAM@0600 PO 07/21/25 06:00 UNV Amlodipine Besylate 10 mg DAILY PEG 07/21/25 10:00 08/07/25 13:35 10 MG Acetaminophen 650 mg Q6HP PRN PO 07/29/25 23:15 07/31/25 17:00 650 MG Carvedilol 12.5 mg BID PEG 07/31/25 10:00 08/07/25 13:35 12.5 MG Levothyroxine Sodium 100 mcg QAM@0600 PEG 08/01/25 06:00 08/07/25 05:50 100 MCG Levothyroxine Sodium 25 mcg QAM@0600 PEG 08/01/25 06:00 08/07/25 05:50 25 MCG Voriconazole 200 mg Q12HR GT 08/02/25 22:00 08/06/25 22:12 200 MG Lactulose 30 ml Q6H PRN PEG 08/03/25 10:00 Enteral Nutritional Formula 1,000 ml 50ML/HR GT 08/07/25 15:30 08/07/25 15:45 UNV Enteral Nutritional Formula 1,000 ml 50ML/HR PEG 08/07/25 15:30 UNV Examination Gen - no pallor, no icterus, no cyanosis, no edema . Pupils are anisocoric, R greater than L, fluctuating, light reflex intact. Positive gag and Babinski sign. Skin - Patients skin is warm and dry. HEENT - normocephalic, atraumatic, dry mucous membranes. Neck - no JVD Pulmonary - B/L equal breath sounds, no rales, no wheezing, no stridor.T-piece cardiovascular - regular S1,S2 heard, no added sounds, no murmurs heard. peripheral pulses feeble radial 2+, pedal 2+. GI - soft, nontender abdomen. Bowel sounds hypoactive, liquid-watery bowel movement. Stage I decubitus ulcer Neurological - Pupils are isocoric, light reflex intact. Positive gag and Babinski sign. Extremities: Decerebrate posturing, eyes open but no response to verbal stimulation or sudden loud noise laboratory and microbiology Laboratory Tests 08/05/25 06:53 07/31/25 10:30 Test 08/05/25 06:53 Range/Units Serum Glucose 111 H 74-106 mg/dL Microbiology Date/Time Source Procedure Growth Status 08/07/25 09:13 Nose MRSA Screen - Final Complete 07/19/25 09:40 Blood Blood Culture - Final NO GROWTH AFTER 5 DAYS OF INCUBATION. Complete 07/19/25 08:10 Voided Urine Urine Culture - Final Complete 07/02/25 13:10 Sputum Gram Stain - Final Complete 07/02/25 13:10 Sputum Respiratory Culture - Final Complete Labs and/or images reviewed: Labs reviewed by me, Image(s) reviewed by me Problem List/Assessment/Plan Problem List/Assessment/Plan NEURO: Acute metabolic and hypoxic encephalopathy secondary to likely Heat stroke SIRS with EOD d/t likely Heat stroke Severe hypothyroidism or acute seizures Severe hyperthermia likely from Heat Stroke h/o bipolar disorder h/o depression Vegetative status Decerebration History of seizure disorder Neurologist consulted-poor prognosis for meaningful recovery Supportive treatment advised CARDIOVASCULAR: Wide complex nonsustained Ventricular tachycardia s/p defibrillation Shock likely hypovolemic Moderate to severe aortic regurgitation Heart failure with reduced ejection fraction-EF 40%-s, no exacerbation NSTEMI likely type 2 Hypertension Losartan increased to 100 daily, Coreg 12.5 b.i.d., started spirononlactone 25mg OD, started amlo 10 Hydralazine PRN DC clonidine patch On cardiac care nurse PULMONARY: Acute Gram-positive and Gram-negative pneumonia S/P Tracheostomy on 07/13 Respiratory culture growing filamentous fungi- aspergillus - iv voriconazole 07/31 Off micafungin Completed IV ceftriaxone IV voriconazole Starting 07/31 switched to PO GASTROINTESTINAL: Status post PEG tube placement 07/17 Shock liver Tube feeds Monitor LFTs Lactulose 30 mL q.6 Fleet enema GENITOURINARY: E coli bacterial cystitis 07/03 Recurrent UTI 07/19 TESFAYE on CKD likely due to be VMN IV ceftriaxone starting 07/19 till 07/25 urine culture wnl METABOLIC: Severe hypothyroidism Thrombocytopenia Hypernatremia Pattern Developer consulted-DC IV levothyroxine, levothyroxine 125 mcg daily DC Free water 250 q.4, free water deficit 1.5 L 07/17 INFECTIOUS DISEASE: Ruled out sepsis Acute bacterial cystitis Urine culture growing E coli, repeat negative Respiratory culture growing filamentous fungi Stage I decubitus ulcer Q.4h turns Wound care DIET: tube feeds DVT prophylax: Lovenox GI prophylaxis: Protonix Bowel regimen: dc lactulose Code status: Full code LINES/DRAINS/ACCESS:LUE midline 07/11 Drips: None Campbell catheter: placed on 07/02, changed 07/19 DISPOSITION: Med/surge environmental services director consultation for subacute, tube feedings, supplies Patient's status including plan of care discussed with nurse, all qs answered. Spoke to courtney over the phone. Goals of care discussed with patient's son Courtney over the phone, DNR Critical care time spent more than 53 minutes, including patient care, chart review, and updating the family. Excluding any procedures Case discussed with Dr. Campbell Plan discussed with: Son, Other (Nurse) My Orders My Orders Orders - CORY LANIER Procedure Category Date Status Time Nutritional PHA 08/07/25 Logged Supplements (Vital 15:30 Nutritional PHA 08/07/25 Logged Supplements (Jevity 15:30 Respiratory Culture ARISTEO 08/07/25 Logged W/ Gs 15:52 Dietary Evaluation Review Comments: 1. TF Vital high protein @50ml/hr (105g Protein 1200kcal and 1003ml free water) supporting 100% of pt's needs 2. Initial TF speed at 30ml/hr, increase 10ml Q6 hr until reaching full speed. 3. Reassess when pt is extubated. Expected Outcomes/Goals: catabolism prevention Date of Service: Aug 07, 2025 Billing Provider: DARLING CAMPBELL MD Common Visit Codes: [id number] CARE 30-74 MIN CORY LANIER Aug 07, 2025 16:26 DARLING CAMPBELL MD Aug 08, 2025 17:15
[2025-08-08] VITALS (10 sets, daily range): BP systolic 92–127; BP diastolic 59–85; PULSE 71–90; RESP 16–18; TEMP 97.9–99.1; O2SAT 92–100
[2025-08-08] MEDS ORDERED: MICONAZOLE NITRATE 2 % VAGINAL CREAM 45 GM PV ONE (17:15)
--- NOTE | 2025-08-08 19:28 | DVHPNRES ---
Progress Note Date Seen: Aug 08, 2025 Resident Creating Document: CORY LANIER RESIDENT Has the PT tested + for MRSA If YES, has PT been informed?: No Medical Necessity Reason Pt with a Central, PICC or Fol: Yes The following are medically ne: Campbell Catheter Reason for campbell catheter: Strict I&O Subjective Review of Systems This is a 50-year-old female with bipolar depression, hypothyroidism, heart failure with a reduced ejection fraction-EF 40%, aortic and tricuspid regurgitation who presented to the ER with high-grade fever 106, ALOC, possible seizure versus heat stroke and was intubated on the field by EMS, prolonged hospital stay secondary to hypoxic brain injury, 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 Status post tracheostomy 07/13 07/17 - Overnight low-grade fever 99.5, tachycardia, blood pressure ranging high up to 180s systolic and 85 diastolic, on T-piece 6 L. Chest x-ray unremarkable. Urine output 2000 cc. Sodium 149, free water deficit 1.5 L, free water q.4 hours started. Underwent NG tube placement, NPO for now. 07/19 - patient with nonpurposeful movements. Urine cloudy, UA shows UTI, IV ceftriaxone, culture pending, campbell changed 07/20- patient examined, no overnight events, clonidine patch, increase Coreg to 12 mg b.i.d., hydrochlorothiazide 12.5 mg daily, tire bagger switched levothyroxine to p.o. 125 mcg daily KUB unremarkable, lactulose started. Patient had a bowel movement. 07/21 - no overnight events, statu same, nonpurposeful movements. CT head negative 07/24 - no overnight event, t max 99.7, decreasing O2 from 8 to 4L via trach 07/25-overnight events, at 3 L oxygen via trach, KUB unremarkable last bowel movement 07/20, increased lactulose q.6, Reglan 10 once, DC ceftriaxone 07/26-patient had a small bowel movement, smear, lactulose q.6, Fleet enema given. KUB in a.m.. 07/27 - patient seen, patient had a bowel movement, liquid consistency, chest x- ray unremarkable, overnight desaturated, 3 L oxygen via trach collar. Lower extremity DVT completed, shows unremarkable, KUB shows moderate stool volume, Fleet enema pending 07/28 - 2 BMs, nontracking eye movements, abd soft 07/31 - patient examined, respiratory culture showing protocol, IV voriconazole started. thick white secretion noted. 08/01 - status unchanged, patient examined. Voriconazole. Per Courtney, son over the phone, requesting hospice social science manager for hospice. 08/02 - pt in vegetative state, low grade fever, voriconazole to PO 08/03 - patient seen and examined, spoke with son Courtney, code status changed to DNR. 08/04- overnight no events, 8L o2, non purposeful movements, not alert or oriented. 08/07 - no events over the weekend, non tracking eye movements, abdomen is soft, on NC 6 L, social science manager consulted for arranging tube feedings and supplies. 08/08 - patient seen and examined, vaginal discharge noted, started miconazole per vaginal. Objective vital signs Vital Sign Date Time Temp Pulse Resp B/P (MAP) Pulse Ox O2 Delivery O2 Flow Rate FiO2 08/08/25 12:59 99.1 71 18 112/85 (94) 98 99.1 08/08/25 08:35 6.0 28 08/08/25 08:34 Trach Collar Total Intake and Output 08/07/25 08/07/25 08/08/25 15:00 23:00 07:00 Intake Total 1000 ml 493 ml 888 ml Output Total 600 ml 400 ml Balance 1000 ml -107 ml 488 ml medications Current Medications Medications Dose Ordered Sig/Agnes Route Start Time Stop Time Status Last Admin Dose Admin Pantoprazole Sodium 40 mg DAILY IV 07/04/25 10:00 08/08/25 10:43 40 MG Artificial Tears 2 drop Q6HR PRN EACHEYE 07/07/25 20:00 07/16/25 10:06 2 DROP Hydralazine HCl 10 mg Q6HP PRN IV 07/13/25 07:45 07/22/25 05:57 10 MG Losartan Potassium 100 mg DAILY GT 07/18/25 10:00 08/08/25 10:24 100 MG Spironolactone 25 mg DAILY GT 07/19/25 10:00 08/08/25 10:22 25 MG Enoxaparin Sodium 40 mg DAILY SC 07/19/25 10:00 08/08/25 10:24 40 MG Levothyroxine Sodium 125 mcg QAM@0600 PO 07/21/25 06:00 UNV Amlodipine Besylate 10 mg DAILY PEG 07/21/25 10:00 08/08/25 10:23 10 MG Acetaminophen 650 mg Q6HP PRN PO 07/29/25 23:15 07/31/25 17:00 650 MG Carvedilol 12.5 mg BID PEG 07/31/25 10:00 08/08/25 10:23 12.5 MG Levothyroxine Sodium 100 mcg QAM@0600 PEG 08/01/25 06:00 08/08/25 05:40 100 MCG Levothyroxine Sodium 25 mcg QAM@0600 PEG 08/01/25 06:00 08/08/25 05:40 25 MCG Voriconazole 200 mg Q12HR GT 08/02/25 22:00 08/08/25 10:24 200 MG Lactulose 30 ml Q6H PRN PEG 08/03/25 10:00 Enteral Nutritional Formula 1,000 ml 50ML/HR PEG 08/07/25 15:30 Miconazole Nitrate 1 applic HS PV 08/09/25 22:00 Examination Gen - no pallor, no icterus, no cyanosis, no edema . Pupils are anisocoric, R greater than L, fluctuating, light reflex intact. Positive gag and Babinski sign. Skin - Patients skin is warm and dry. HEENT - normocephalic, atraumatic, dry mucous membranes. Neck - no JVD Pulmonary - B/L equal breath sounds, no rales, no wheezing, no stridor.T-piece cardiovascular - regular S1,S2 heard, no added sounds, no murmurs heard. peripheral pulses feeble radial 2+, pedal 2+. GI - soft, nontender abdomen. Bowel sounds hypoactive, liquid-watery bowel movement. Stage I decubitus ulcer Neurological - Pupils are isocoric, light reflex intact. Positive gag and Babinski sign. Extremities: Decerebrate posturing, eyes open but no response to verbal stimulation or sudden loud noise laboratory and microbiology Laboratory Tests 08/05/25 06:53 07/31/25 10:30 Test 08/05/25 06:53 Range/Units Serum Glucose 111 H 74-106 mg/dL Microbiology Date/Time Source Procedure Growth Status 08/07/25 09:13 Nose MRSA Screen - Final Complete 07/19/25 09:40 Blood Blood Culture - Final NO GROWTH AFTER 5 DAYS OF INCUBATION. Complete 07/19/25 08:10 Voided Urine Urine Culture - Final Complete 07/02/25 13:10 Sputum Gram Stain - Final Complete 07/02/25 13:10 Sputum Respiratory Culture - Final Complete Labs and/or images reviewed: Labs reviewed by me, Image(s) reviewed by me Problem List/Assessment/Plan Problem List/Assessment/Plan NEURO: Acute metabolic and hypoxic encephalopathy secondary to likely Heat stroke SIRS with EOD d/t likely Heat stroke Severe hypothyroidism or acute seizures Severe hyperthermia likely from Heat Stroke h/o bipolar disorder h/o depression Vegetative status Decerebration History of seizure disorder Neurologist consulted-poor prognosis for meaningful recovery Supportive treatment advised CARDIOVASCULAR: Wide complex nonsustained Ventricular tachycardia s/p defibrillation Shock likely hypovolemic Moderate to severe aortic regurgitation Heart failure with reduced ejection fraction-EF 40%-s, no exacerbation NSTEMI likely type 2 Hypertension Losartan increased to 100 daily, Coreg 12.5 b.i.d., started spirononlactone 25mg OD, started amlo 10 Hydralazine PRN DC clonidine patch On campus monitor PULMONARY: Acute Gram-positive and Gram-negative pneumonia S/P Tracheostomy on 07/13 Respiratory culture growing filamentous fungi- aspergillus - iv voriconazole 07/31 Off micafungin Completed IV ceftriaxone IV voriconazole Starting 07/31 switched to PO GASTROINTESTINAL: Status post PEG tube placement 07/17 Shock liver Tube feeds Monitor LFTs Lactulose 30 mL q.6 Fleet enema GENITOURINARY: E coli bacterial cystitis 07/03 Recurrent UTI 07/19 TESFAYE on CKD likely due to be VMN IV ceftriaxone starting 07/19 till 07/25 urine culture wnl Miconazole per vaginally starting 08/08 METABOLIC: Severe hypothyroidism Thrombocytopenia Hypernatremia Design Sales Consultant consulted-DC IV levothyroxine, levothyroxine 125 mcg daily DC Free water 250 q.4, free water deficit 1.5 L 07/17 INFECTIOUS DISEASE: Ruled out sepsis Acute bacterial cystitis Urine culture growing E coli, repeat negative Respiratory culture growing filamentous fungi Stage I decubitus ulcer Q.4h turns Wound care DIET: tube feeds DVT prophylax: Lovenox GI prophylaxis: Protonix Bowel regimen: dc lactulose Code status: Full code LINES/DRAINS/ACCESS:LUE midline 07/11 Drips: None Campbell catheter: placed on 07/02, changed 07/19 DISPOSITION: [facility] [place] social services counselor consultation for subacute, tube feedings, supplies Patient's status including plan of care discussed with nurse, all qs answered. Spoke to courtney over the phone. Goals of care discussed with patient's son Courtney over the phone, DNR Critical care time spent more than 53 minutes, including patient care, chart review, and updating the family. Excluding any procedures Case discussed with Dr. Guzman Plan discussed with: Other (nurse) My Orders My Orders Orders - CORY LANIER Procedure Category Date Status Time Ok To Change Campbell ORDERS 08/08/25 Transmitted 13:03 Communication Order ORDERS 08/08/25 Transmitted 13:04 Discharge DISCHARGE 08/08/25 Transmitted 17:51 Dietary Evaluation Review Comments: 1. TF Vital high protein @50ml/hr (105g Protein 1200kcal and 1003ml free water) supporting 100% of pt's needs 2. Initial TF speed at 30ml/hr, increase 10ml Q6 hr until reaching full speed. 3. Reassess when pt is extubated. Expected Outcomes/Goals: catabolism prevention CORY LANIER Aug 08, 2025 19:28
--- NOTE | 2025-08-08 20:04 | DVHDSRES ---
Discharge Summary Date of Admission Resident Creating Document: CORY LANIER RESIDENT Jul 02, 2025 at 19:37 Date of Discharge: Aug 08, 2020 Labs/Diagnostic Data: Laboratory Results Test 08/07/25 11:17 08/05/25 06:53 07/31/25 10:30 07/27/25 05:38 Thyroid Stimulating Hormone (TSH) 129.04 uIU/mL (0.55-4.78) Sodium Level 137 mmol/L (136-145) Potassium Level 3.9 mmol/L (3.5-5.1) Chloride Level 104 mmol/L (98-107) Carbon Dioxide Level 21 mmol/L (20-31) Anion Gap 12 (5-15) Blood Urea Nitrogen 30 mg/dL (9-23) Creatinine 0.60 mg/dL (0.550-1.02) Glomerular Filtration Rate Calc 111 mL/min (>90) BUN/Creatinine Ratio 50.0 (10.0-20.0) Serum Glucose 111 mg/dL (74-106) Calcium Level 10.1 mg/dL (8.7-10.4) White Blood Count 9.6 10^3/uL (4.4-10.8) Red Blood Count 4.24 10^6/uL (4.0-5.20) Hemoglobin 12.1 g/dL (12.2-16.2) Hematocrit 37.1 % (36.0-46.0) Mean Corpuscular Volume 87.4 fL (80.0-100.0) Mean Corpuscular Hemoglobin 28.6 pg (28.0-32.0) Mean Corpuscular Hemoglobin Concent 32.7 g/dL (32.0-36.0) Red Cell Distribution Width 17.8 % (11.8-14.3) Platelet Count 280 10^3/uL (140-450) Mean Platelet Volume 9.5 fL (6.9-10.8) Neutrophils (%) (Auto) 75.5 % (37.0-80.0) Lymphocytes (%) (Auto) 15.6 % (10.0-50.0) Monocytes (%) (Auto) 6.6 % (0.0-12.0) Eosinophils (%) (Auto) 1.6 % (0.0-7.0) Basophils (%) (Auto) 0.7 % (0.0-2.0) Neutrophils # (Auto) 7.2 10 ^3/uL (1.6-8.6) Lymphocytes # (Auto) 1.5 10 ^3/uL (0.4-5.4) Monocytes # (Auto) 0.6 10 ^3/uL (0-1.3) Eosinophils # (Auto) 0.2 10 ^3/uL (0-0.8) Basophils # (Auto) 0.1 10 ^3/uL (0-0.2) Nucleated Red Blood Cells 0.1 % Magnesium Level 2.5 mg/dL (1.6-2.6) Test 07/20/25 03:00 07/19/25 08:10 07/18/25 06:05 07/17/25 08:27 Total Bilirubin 0.3 mg/dL (0.2-1.0) Aspartate Amino Transferase (AST) 69 U/L (13-40) Alanine Aminotransferase (ALT) 40 U/L (7-40) Alkaline Phosphatase 68 U/L (46-116) Total Protein 7.5 g/dL (5.7-8.2) Albumin 4.7 g/dL (3.2-4.8) Free Thyroxine (T4) Calculated 1.76 ng/dL (0.89-1.76) Free Triiodothyronine (T3) pg/mL 2.38 pg/mL (2.3-4.2) Urine Color Colorless (Yellow) Urine Clarity Turbid (Clear) Urine pH 5.0 (5.0-9.0) Urine Specific [place] 1.016 (1.001-1.035) Urine Protein 1+ (Negative) Urine Ketones Negative (Negative) Urine Blood Negative /uL (Negative) Urine Nitrite Negative (Negative) Urine Bilirubin Negative (Negative) Urine Urobilinogen Normal mg/dL (Negative) Urine Leukocyte Esterase 3+ /uL (Negative) Urine RBC 11 /hpf (0 - 4) Urine Microscopic WBC 249 /HPF (0-5) Urine Squamous Epithelial Cells Few /hpf (<5) Urine Bacteria Few /hpf (None Seen) Urine Mucus Few (None Seen) Urine Glucose Normal mg/dL (Normal) Influenza Type A Antigen Negative (Negative) Influenza Type B Antigen Negative (Negative) SARS-CoV-2 Antigen (Rapid) Negative (NEGATIVE) Blood Gas Specimen Type Arterial Blood Gas Sample Site Right radial Blood Gas Patient Temperature 37.0 Arterial Blood Date Drawn [id number] Arterial Blood pH 7.520 (7.350-7.450) Arterial Blood Partial Pressure CO2 25.7 mmHg (32.0-45.0) Arterial Blood Partial Pressure O2 102.0 mmHg (83.0-108.0) Arterial Blood HCO3 20.5 mmol/L (21.0-28.0) Arterial Blood Oxygen Saturation 97.6 % (94.0-98.0) Arterial Blood Base Excess -1.0 mmol/L (-2.0-3.0) Arterial Blood Oxyhemoglobin 97.5 % (94.0-98.0) Arterial Blood Carboxyhemoglobin 0.1 % (0.5-1.5) Arterial Blood Methemoglobin 0.0 % (0.0-1.5) Pankaj Test Modified Blood Gas Total Hemoglobin 12.60 g/dL (12.0-16.0) Blood Gas Liter Flow 6.00 Blood Gas Modality T piece FiO2 % 28.0 Prothrombin Time 10.6 sec (9.3-11.8) Prothrombin Time INR 1.00 (0.9-1.15) Activated Partial Thromboplast Time 24.7 SEC (24.5-34.5) B-Type Natriuretic Peptide 143.20 pg/mL (0-100) Test 07/14/25 16:44 07/14/25 09:37 07/12/25 18:13 07/10/25 03:15 Blood Gas Comments Cool aerosol Blood Gas Set Respiration Rate 16.0 Blood Gas Tidal Volume 400.0 Blood Gas PEEP or CPAP 5.0 Total Triiodothyronine (TT3) 0.68 ng/mL (0.60-1.81) Differential Total Cells Counted 100.0 (100) Neutrophils % (Manual) 59 (37.0-80.0) Band Neutrophils % (Manual) 2 Lymphocytes % (Manual) 21 (10.0-50.0) Monocytes % (Manual) 17 (0-12) Eosinophils % (Manual) 1 (0-7) Basophils % (Manual) 0 (0.0-2.0) Metamyelocytes % (manual) 0 Myelocytes % (Manual) 0 Promyelocytes % (Manual) 0 Blast Cells % (Manual) 0 Reactive Lymphocytes 0 Platelet Estimate [place] Large Platelets Few Test 07/09/25 06:02 07/09/25 03:15 07/07/25 03:12 07/05/25 02:12 Blood Gas Spontaneous Rate 19 Blood Gas Pressure Support 8 Anisocytosis (manual) Slight Creatine Kinase 366 U/L (34-145) [place] Level 0.4 mmol/L (0.5-1.2) Ovalocytes Few [place] Cells Few Test 07/04/25 03:03 07/03/25 14:40 07/03/25 11:10 07/03/25 09:27 Cortisol AM Sample 23.81 ug/dL (5.27-22.45) Random Vancomycin Level 19.8 ug/mL (5-10) Urine Amorphous Crystals Few /hpf (None Seen) Hemoglobin A1c 4.7 % A1C (<5.7) Triglycerides Level 91 mg/dL (< 150) Cholesterol Level 108 mg/dL (< 200) LDL Cholesterol 77 mg/dL (< 100) HDL Cholesterol 18 mg/dL (40-59) Test 07/02/25 20:24 07/02/25 15:54 07/02/25 14:40 07/02/25 13:19 Troponin I High Sensitivity 3664 ng/L (</=34) Lactic Acid Level 2.4 mmol/L (0.4-2.0) Blood Gas Critical Value Read Back Yes Blood Gas Notified Whom Blood Gas Notified Time [id number] Blood Gas Notified By Lab Specialist devendra Urine Opiates Screen Neg (NEGATIVE) Urine Fentanyl Screen Neg (NEGATIVE) Urine Barbiturates Screen Neg (NEGATIVE) Urine Phencyclidine Screen Neg (NEGATIVE) Urine Amphetamines Screen Neg (NEGATIVE) Urine Benzodiazepines Screen Neg (NEGATIVE) Urine Cocaine Screen Neg (NEGATIVE) Urine Cannabinoids Screen Neg (NEGATIVE) Other Laboratory Tests 08/05/25 06:53 07/31/25 10:30 Final Diagnosis/Problems List ALOC Discharge Disposition: Fdc Facility Discharge Instruct/Medications Diet: See Comment Diet comment: TUBE FEEDINGS Activity: Bed rest Follow Up/Referral: FU WITH PCP Medications: PER JAN Scheduled Hydrocodone-Acetaminophen (Hydrocodone Bitartrate/AC 10-325 mg), 1 TAB PO BID, (Reported) Hydroxyzine Hcl (Hydroxyzine Hcl), 50 MG PO DAILY, (Reported) Levofloxacin Hemihydrate (Levaquin 500 Mg), 1 TAB PO DAILY Levothyroxine Sodium (Synthroid), 1 TAB PO DAILY Diboll Carbonate (Diboll Carbonate Er), 1 TAB PO BID, (Reported) Mirtazapine (Mirtazapine Oral Disintegrating Tablet), 2 TAB PO QPM, (Reported) Montelukast Sodium (Montelukast Sodium), 1 TAB PO DAILY, (Reported) Oxybutynin Chloride (Oxybutynin Chloride), 5 MG PO BID, (Reported) Sertraline Hcl (Sertraline Hcl), 200 MG PO DAILY, (Reported) Topiramate (Topiramate), 50 MG PO BID, (Reported) Miscellaneous Medications Daridorexant HCl (Quviviq), 50 MG PO, (Reported) Discharge Statement: "Patient was advised to return to the ER or call 911 if any headaches, dizziness, shortness of breath, chest pain, abdominal pain, bleeding, fevers, or worsening of medical condition. Patient was counseled about treatment plan, medications, possible side effects, patientverbalized understanding. All questions were answered to the best of my ability. This discharge took greater then 30 minutes in planning, reviewing documentation, counseling the patient, and discussing with other team members." ASSESSMENT ASSESSMENT Assessment CORY REEDER RESIDENT Aug 08, 2025 20:04
[2025-08-09] MEDS ORDERED: MICONAZOLE NITRATE 2 % VAGINAL CREAM 45 GM PV SCH (22:00)
== END 2025-08-08 20:55 | DRG 5 ==
LOC: ER 12:55 → EDBD 12:55 → OVERFLOW 19:37 → ICU WEST 07-03 05:00 → TELE-EAST 07-25 18:01 → EAST 08-02 08:49
PROVIDERS: ADMIT Internal Medicine; ATTEND Internal Medicine
PROC: 06HY33Z Insertion of Infusion Device into Lower Vein, Percutaneous Approach (ICD-10-PCS; principal; 2025-07-02)
PROC: 5A1955Z Respiratory Ventilation, Greater than 96 Consecutive Hours (ICD-10-PCS; 2025-07-02)
PROC: 0BH18EZ Insertion of Endotracheal Airway into Trachea, Via Natural or Artificial Opening Endoscopic (ICD-10-PCS; 2025-07-02)
PROC: 5A2204Z Restoration of Cardiac Rhythm, Single (ICD-10-PCS; 2025-07-02)
PROC: 30233K1 Transfusion of Nonautologous Frozen Plasma into Peripheral Vein, Percutaneous Approach (ICD-10-PCS; 2025-07-05)
PROC: 02H633Z Insertion of Infusion Device into Right Atrium, Percutaneous Approach (ICD-10-PCS; 2025-07-06)
PROC: 05HF33Z Insertion of Infusion Device into Left Cephalic Vein, Percutaneous Approach (ICD-10-PCS; 2025-07-11)
PROC: B54NZZA Ultrasonography of Left Upper Extremity Veins, Guidance (ICD-10-PCS; 2025-07-11)
PROC: 0B113F4 Bypass Trachea to Cutaneous with Tracheostomy Device, Percutaneous Approach (ICD-10-PCS; 2025-07-13)
PROC: 0DH63UZ Insertion of Feeding Device into Stomach, Percutaneous Approach (ICD-10-PCS; 2025-07-17)
DX: J96.01 Acute respiratory failure with hypoxia (principal); I46.9 Cardiac arrest, cause unspecified; K72.00 Acute and subacute hepatic failure without coma; D65 Disseminated intravascular coagulation [defibrination syndrome]; N17.0 Acute kidney failure with tubular necrosis; J15.69 Pneumonia due to other Gram-negative bacteria; G93.1 Anoxic brain damage, not elsewhere classified; E46 Unspecified protein-calorie malnutrition; R57.1 Hypovolemic shock; T67.01XA Heatstroke and sunstroke, initial encounter; I13.0 Hypertensive heart and chronic kidney disease with heart failure and stage 1 through stage 4 chronic kidney disease, or unspecified chronic kidney disease; I50.20 Unspecified systolic (congestive) heart failure; I47.20 Ventricular tachycardia, unspecified; Z20.822 Contact with and (suspected) exposure to COVID-19; I21.A1 Myocardial infarction type 2; G40.909 Epilepsy, unspecified, not intractable, without status epilepticus; Z99.11 Dependence on respirator [ventilator] status; J15.9 Unspecified bacterial pneumonia; N30.00 Acute cystitis without hematuria; F41.9 Anxiety disorder, unspecified; E03.9 Hypothyroidism, unspecified; E87.0 Hyperosmolality and hypernatremia; K44.9 Diaphragmatic hernia without obstruction or gangrene; I07.1 Rheumatic tricuspid insufficiency; G25.81 Restless legs syndrome; I35.1 Nonrheumatic aortic (valve) insufficiency; G93.41 Metabolic encephalopathy; F17.210 Nicotine dependence, cigarettes, uncomplicated; F31.9 Bipolar disorder, unspecified; N18.9 Chronic kidney disease, unspecified; B96.20 Unspecified Escherichia coli [E. coli] as the cause of diseases classified elsewhere; R62.7 Adult failure to thrive; R65.10 Systemic inflammatory response syndrome (SIRS) of non-infectious origin without acute organ dysfunction; Z66 Do not resuscitate; L89.151 Pressure ulcer of sacral region, stage 1; Z90.49 Acquired absence of other specified parts of digestive tract; Z88.6 Allergy status to analgesic agent; Z88.1 Allergy status to other antibiotic agents; Z88.0 Allergy status to penicillin; Z88.8 Allergy status to other drugs, medicaments and biological substances; X30.XXXA Exposure to excessive natural heat, initial encounter; Z68.25 Body mass index [BMI] 25.0-25.9, adult; Y93.89 Activity, other specified; Y92.89 Other specified places as the place of occurrence of the external cause; Y99.8 Other external cause status
CPT/HCPCS: 36415; 36600; 70450; 70551; 71045; 74018; 80048; 80053; 80061; 80178; 80202; 80307; 81001; 81003; 82533; 82550; 82805; 83036; 83605; 83735; 83880; 84439; 84443; 84480; 84481; 84484; 85007; 85025; 85027; 85610; 85730; 86376; 86850; 86900; 86901; 87040; 87070; 87081; 87086; 87088; 87186; 87205; 87426; 87804; 93005; 93306; 93970; 94002; 94003; 94640; 94762; 95819; 96365; 96372; 96375; 99291; 99292; G0378; J2003; J2248; J2250; J2470; J3465; J3480; J3490; J7060